=== PATIENT | male | born 1945 | race Caucasian/White ===

== ENCOUNTER → 2019-09-22 09:02 | Outpatient (BNVA) | payer OTHER, SELFPAY | PROVIDERS: Family Provider Emergency Medicine Emergency Medical Services; PCP Emergency Medicine Emergency Medical Services; Referring Provider Emergency Medicine Emergency Medical Services; Visit Provider Psychiatry & Neurology Neurology | DX: G56.02 Carpal tunnel syndrome, left upper limb (principal) | CPT/HCPCS: 95886; 95908 ==

== ENCOUNTER 2019-10-02 07:59 | Outpatient (CLI) | payer MEDICARE, OTHER, SELFPAY ==
--- NOTE | 2019-10-02 08:15 | CT_ITS ---
WS: [id number] CT scan of the neck. Additional two-dimensional coronal and sagittal reconstruction was performed. Clinical Data: MALIGNANT NEOPLASM OF VOCAL CORD, LOCALIZED SWELLING MASS Comparison: CT neck, 11/14/2015. DLP: 1666.[address] scans at [facility] use at least one of these dose optimization techniques: automat ed exposure control; mA and/or kV adjustment per patient size (includes targeted exams where dose is matched to clinical indication); or iterative reconstruction. Findings: No lymphadenopathy is noted. No abnormal left neck mass is identified. The salivary glands are unrema rkable. There is no prevertebral soft tissue swelling. The larynx is symmetric. The thyroid gland dre ws normal enhancement. The floor of the mouth and parapharyngeal spaces are normal. The oral cavity i s unremarkable. The carotid arteries bifurcate normally. There is calcification at the origin of the internal carotid arteries. The cervical spine shows osteoarthritis and degenerative disc disease from C5 through C7. . The lung apices show no abnormalities. The portions of the intracranial circulation which are seen demonstrate no abnormalities. No erosion of the skull or skull base is seen. CT/CT neck w con* [id number] Impression: 1. Negative for left neck mass. 2. No lymphadenopathy is seen. 3. Larynx is symmetric.
[2019-10-02 09:10] LABS: Blood Urea Nitrogen 13 mg/dL (8-23)
[2019-10-02] MEDS: iohexol 300 mg/mL 100 mL Btl IV (09:23)
== END 2019-10-02 08:00 | disposition home or self-care (01) ==
LOC: RADWPI 08:05
PROVIDERS: Family Provider Emergency Medicine Emergency Medical Services; PCP Emergency Medicine Emergency Medical Services; Visit Provider Specialist
DX: C32.0 Malignant neoplasm of glottis (principal); R22.1 Localized swelling, mass and lump, neck
CPT/HCPCS: 70491; 82565; 84520

== ENCOUNTER 2020-02-08 08:00 | Day surgery (SDC) | payer OTHER, SELFPAY | END 2020-02-08 09:00 | disposition home or self-care (01) | LOC: CCL 03-24 15:28 | PROVIDERS: PCP Emergency Medicine Emergency Medical Services; Visit Provider Internal Medicine Cardiovascular Disease | DX: I73.9 Peripheral vascular disease, unspecified (principal) | CPT/HCPCS: J1644 ==

== ENCOUNTER → 2020-11-23 16:57 | Outpatient (BNVA) | payer OTHER, SELFPAY | PROVIDERS: PCP Emergency Medicine Emergency Medical Services; Visit Provider Nurse Practitioner Family | DX: L72.3 Sebaceous cyst (principal); L08.9 Local infection of the skin and subcutaneous tissue, unspecified | CPT/HCPCS: 87070; 87075; 87205 ==

== ENCOUNTER → 2020-11-28 16:06 | Outpatient (BNVA) | payer OTHER, SELFPAY | PROVIDERS: PCP Emergency Medicine Emergency Medical Services; Visit Provider Nurse Practitioner Family | DX: L72.3 Sebaceous cyst (principal); L08.9 Local infection of the skin and subcutaneous tissue, unspecified; R09.02 Hypoxemia | CPT/HCPCS: 87070 ==

== ENCOUNTER → 2021-02-27 15:19 | Outpatient (BNVA) | payer OTHER, MEDICARE, SELFPAY | PROVIDERS: PCP Emergency Medicine Emergency Medical Services; Visit Provider Family Medicine | DX: R09.02 Hypoxemia (principal) | CPT/HCPCS: 71046; 85025 ==

== ENCOUNTER → 2021-03-27 08:20 | Outpatient (BNVA) | payer OTHER, SELFPAY | PROVIDERS: PCP Emergency Medicine Emergency Medical Services; Referring Provider Surgery; Visit Provider Specialist | DX: G62.89 Other specified polyneuropathies (principal); M79.7 Fibromyalgia; R20.0 Anesthesia of skin; F17.210 Nicotine dependence, cigarettes, uncomplicated | CPT/HCPCS: 20550; 20552; 95885; 95908; 99202; 99203; J1030; J3490 ==

== ENCOUNTER 2021-04-17 08:54 | Outpatient (CLI) | payer OTHER, SELFPAY ==
--- NOTE | 2021-04-17 09:08 | XR_ITS ---
NOTE: Report was unsigned for reason: Order was edited. Original Signature date and time was: 04/17/21 @ 0946 WS: [id number] HIPS BILATERAL TECHNIQUE: 4 views bilateral hips CLINICAL INFORMATION: PAIN COMPARISON: None. FINDINGS: Advanced degenerative arthritis right hip with [id number] articulation. Hypertrophic changes along the joint line. Mild degenerative arthritis left hip. Vascular calcification. Calcified uterine fibroid. MTDD XR/XR hip BI 2V wo/w pel [id number] IMPRESSION: Advanced osteoarthritis right hip with [id number]-jo-tssn articulation. Tonnis classification LEFT: Tonnis classification RIGHT:
== END 2021-04-17 08:55 | disposition home or self-care (01) ==
PROVIDERS: PCP Emergency Medicine Emergency Medical Services; Visit Provider Surgery
DX: M25.552 Pain in left hip (principal); M16.11 Unilateral primary osteoarthritis, right hip
CPT/HCPCS: 73521; 73522

== ENCOUNTER → 2021-05-10 08:47 | Outpatient (BNVA) | payer OTHER, SELFPAY | PROVIDERS: PCP Emergency Medicine Emergency Medical Services; Visit Provider Specialist | DX: M79.7 Fibromyalgia (principal); D21.9 Benign neoplasm of connective and other soft tissue, unspecified; M16.0 Bilateral primary osteoarthritis of hip | CPT/HCPCS: 20550; 20552; 99213 ==

== ENCOUNTER → 2021-06-21 10:18 | Outpatient (BNVA) | payer OTHER, SELFPAY | PROVIDERS: PCP Emergency Medicine Emergency Medical Services; Visit Provider Specialist | DX: M16.0 Bilateral primary osteoarthritis of hip (principal); M51.9 Unspecified thoracic, thoracolumbar and lumbosacral intervertebral disc disorder; I77.9 Disorder of arteries and arterioles, unspecified | CPT/HCPCS: 99214 ==

== ENCOUNTER → 2021-06-26 16:41 | Outpatient (BNVA) | payer OTHER, SELFPAY | PROVIDERS: PCP Emergency Medicine Emergency Medical Services; Visit Provider Nurse Practitioner Family | DX: E78.49 Other hyperlipidemia (principal); I25.10 Atherosclerotic heart disease of native coronary artery without angina pectoris | CPT/HCPCS: 80053; 85025 ==

== ENCOUNTER → 2021-08-21 15:55 | Outpatient (BNVA) | payer OTHER, SELFPAY | PROVIDERS: PCP Emergency Medicine Emergency Medical Services; Visit Provider Internal Medicine Cardiovascular Disease | DX: I25.10 Atherosclerotic heart disease of native coronary artery without angina pectoris (principal); R06.02 Shortness of breath; R07.9 Chest pain, unspecified; Z01.818 Encounter for other preprocedural examination | CPT/HCPCS: 80048; 80061; 84153; 85025 ==

== ENCOUNTER → 2021-09-18 10:54 | Outpatient (BNVA) | payer OTHER, SELFPAY | PROVIDERS: PCP Emergency Medicine Emergency Medical Services; Visit Provider Specialist | DX: M16.11 Unilateral primary osteoarthritis, right hip (principal); G56.22 Lesion of ulnar nerve, left upper limb; M19.012 Primary osteoarthritis, left shoulder; F17.210 Nicotine dependence, cigarettes, uncomplicated | CPT/HCPCS: 99214 ==

== ENCOUNTER → 2021-10-16 14:39 | Outpatient (BNVA) | payer OTHER, SELFPAY | PROVIDERS: PCP Emergency Medicine Emergency Medical Services; Visit Provider Nurse Practitioner Family | DX: Z01.818 Encounter for other preprocedural examination (principal); I50.30 Unspecified diastolic (congestive) heart failure; I25.10 Atherosclerotic heart disease of native coronary artery without angina pectoris; F17.210 Nicotine dependence, cigarettes, uncomplicated | CPT/HCPCS: 99214 ==

== ENCOUNTER → 2021-10-31 15:37 | Outpatient (BNVA) | payer OTHER, SELFPAY | PROVIDERS: PCP Emergency Medicine Emergency Medical Services; Referring Provider Specialist; Visit Provider Specialist | DX: G56.01 Carpal tunnel syndrome, right upper limb (principal); G56.23 Lesion of ulnar nerve, bilateral upper limbs; F17.210 Nicotine dependence, cigarettes, uncomplicated | CPT/HCPCS: 95910 ==

== ENCOUNTER 2021-11-13 13:08 | Outpatient (CLI) | payer OTHER, SELFPAY ==
--- NOTE | 2021-11-13 13:15 | USCV_ITS ---
LisbethRickey Age: 76 Gender: M : 1945 Exam Date: 11/13/2021 13:31 Ordering Phys: Carla Guzman Technologist: Lorena Ga Exam Location: [facility] [place] Indication: CLEARANCE FOR HIP SURGERY BP: 157 / 75 HR: 64 Rhythm: Sinus Technical Quality: Adequate MEASUREMENTS (Male / Female) Normal Values 2D ECHO LV Diastolic Diameter PLAX 4.9 cm 4.2 - 5.9 / 3.9 - 5.3 cm LV Systolic Diameter PLAX 3.8 cm LV Chamber Size 3.6 cm IVS Diastolic Thickness 1.7 cm 0.6 - 1.0 / 0.6 - 0.9 cm IVS Systolic Thickness 1.5 cm LVPW Diastolic Thickness 1.6 cm 0.6 - 1.0 / 0.6 - 0.9 cm LVPW Systolic Thickness 1.6 cm RV Chamber Size 3.9 cm LVOT Diameter 2.1 cm LV Ejection Fraction 2D Teich 46.5 % LV Ejection Fraction MOD 2C 19.2 % LV Ejection Fraction 2C AL 20.6 % LA Diameter 4.4 cm LA Width 2.8 cm LA Height 4.2 cm RA Width 3.7 cm RA Height 5.0 cm Aorta at Sinotubular Diameter 2.3 cm M-MODE Aortic Annulus Diameter 3.9 cm LA Ao Ratio MM 1.3 MV E Point Septal Separation 0.6 cm DOPPLER AV Peak Velocity 236.3 cm/s LVOT Peak Velocity 70.3 cm/s AV Area Cont Eq vti 1.2 cm squared AV Area Cont Eq pk 1.0 cm squared MV Area PHT 2.0 cm squared Mitral E to A Ratio 0.9 MV E' Velocity 34.5 cm/s Mitral E to MV E' Ratio 10.6 Mitral E to LV E' Lateral Ratio 8.7 Mitral E to LV E' Septal Ratio 13.8 TR Peak Velocity 208.1 cm/s TR Peak Gradient 17.3 mmHg TR Mean Velocity 168.3 cm/s TR Mean Gradient 11.9 mmHg TR Velocity Time Integral 50.5 cm Right Atrial Pressure 3.0 mmHg Pulmonary Artery Systolic Pressu 20.3 mmHg PV Peak Velocity 86.0 cm/s FINDINGS Left Ventricle Normal left ventricular cavity size. Normal left ventricular systolic function. Left ventricular ejection fraction is estimated at 55-60 %. Although no diagnostic regional wall motion normality could be rectified, this possibility cannot be completely excluded based on this study. Right Ventricle Problem normal right ventricular size and systolic function. Right Atrium Right atrium not well visualized. Left Atrium Probably mildly increased left atrial size. Mitral Valve Structurally normal mitral valve. No mitral valve stenosis. Aortic Valve Aortic valve not well visualized. Aortic valve sclerosis without significant stenosis. Tricuspid Valve Structurally normal tricuspid valve. Pulmonic Valve Pulmonic valve not well visualized. Pericardium No pericardial effusion. Aorta CONCLUSIONS 1. This is a technically difficult study. 2. Normal left ventricular cavity size. Normal left ventricular systolic function. Left ventricular ejection fraction is estimated at 55-60 %. Although no diagnostic regional wall motion normality could be rectified, this possibility cannot be completely excluded based on this study. 3. Repeat study with echo contrast is recommended. 4. No prior similar studies to compare. Shannon Rutledge MD (Electronically Signed) Final Date: 13 November 2021 18:30 S
== END 2021-11-13 13:09 | disposition home or self-care (01) ==
LOC: RAD 13:09
PROVIDERS: PCP Emergency Medicine Emergency Medical Services; Visit Provider Nurse Practitioner Family
DX: Z01.818 Encounter for other preprocedural examination (principal); I25.10 Atherosclerotic heart disease of native coronary artery without angina pectoris; R06.02 Shortness of breath; R07.9 Chest pain, unspecified
CPT/HCPCS: 93306

== ENCOUNTER 2021-11-16 09:49 | Outpatient (CLI) | payer OTHER, SELFPAY ==
--- NOTE | 2021-11-16 | USCV_ITS ---
Dobutamine Stress Echo Rickey Bob Age: 76 Gender: M : 1945 Exam Date: 11/16/2021 10:34 Ordering Phys: Carla Guzman Technologist: Yessica Em [place] [facility] [place]: CHEST PAIN Rhythm: Sinus Patient History: Cardiac Medications: Beta judi, Aspirin Medications in past 24 hours: Contrast: Total Dose (mL): Stress Results Protocol: Pharmacologic Peak Dose (???g/kg/min): 30 Duration (min:sec): 10:54 Atropine:(mg) 0.5 Target HR: 124 Double Product: 29922 Resting HR: 81 Resting BP: 184 / 98 Peak HR: 136 Peak BP: 224 / 98 Max Predicted HR: 146 93 % Max Predicted HR Stress Summary: The patient's target heart rate was achieved BP Response: Normal Reason for Termination: Test terminated after reaching target heart rate (85% max predicted) Cardiac Symptoms: None ECG Analysis Resting EKG: Normal sinus rhythm. No significant ST-T wave changes Stress EKG: Sinus tachycardia. Patient had frequent PVCs Arrhythmia: PVCs MEASUREMENTS (Male/Female) Normal Values FINDINGS At baseline LV systolic function is normal with EF of 55 to 60%. No regional wall motion abnormalities are seen. Patient reached target heart rate and images were obtained above target heart rate. And stress level no significant wall motion abnormality seen. EF increased to more than 65%. Appropriate heart rate and blood pressure response CONCLUSIONS 1. Normal LV systolic function at baseline 2. Appropriate heart rate and blood pressure response 3. At stress level, patient had hyperdynamic LV response, with no regional wall motion abnormalities 4. Normal dobutamine stress echocardiogram. with no evidence of ischemia Jevoanny Crews MD (Electronically Signed) Final Date: 21 November 2021 13:49 S
[2021-11-16 10:16] VITALS: BMI 35.0
--- NOTE | 2021-11-16 10:17 | ECG_ITS ---
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 Interpretive Statements NAME OF STUDY: DOBUTAMINE STRESS ECHOCARDIOGRAM INDICATION: [Surgical Clearance, SOB, Chest pain, ] The patient had dobutamine stress echo. Baseline heart rate was 81 beats per minute. Baseline blood pressure was 184/98 millimeters of mercury. Target heart rate was 124 beats per minute. Maximum heart rate achieved was 136, which was 109% of the target heart rate. Maximum blood pressure was 224/55 millimeters of mercury. The reason for ending the test was completion of the protocol. The patient did not have any symptoms during the stress test, which then resolved at the end of the test. ELECTROCARDIOGRAM: BASELINE: Showed sinus rhythm, normal axis, no significant ST-T changes at the baseline noted. [] Dobutamine infusion: At the peak exercise level, sinus tachycardia [] No significant ST-T changes suggestive of ischemia noted.PVCs were seen [] RECOVERY: During the recovery period, heart rate dropped appropriately. No significant ST-T changes in the recovery suggestive of ischemia noted. [] CONCLUSION: 1. Heart rate response was appropriate. 2. Blood pressure response was hypertensive 3. Symptoms not suggestive of ischemia. 5. Electrocardiogram portion of the stress test was not suggestive of ischemia. Electronically Signed On 01-01-2022 20:02:20 CDT by Jeovanny Crews M.D. [id number]
[2021-11-16] MEDS: DOBUTtamine 200 MG in sodium chloride 0.9% 34 ML 14 MG IV (10:44)
[2021-11-16 10:57] VITALS: BP 148/51; PULSE 99
[2021-11-16] MEDS: atropine 0.1 mg/mL Syr 10 mL 0.5 MG IVP (10:57)
== END 2021-11-16 09:50 | disposition home or self-care (01) ==
LOC: CDL 09:50
PROVIDERS: PCP Emergency Medicine Emergency Medical Services; Visit Provider Orthopaedic Surgery
DX: R07.9 Chest pain, unspecified (principal)
CPT/HCPCS: 93017; 93350; J0461; J1250; J7050

== ENCOUNTER → 2021-12-08 10:15 | Outpatient (BNVA) | payer OTHER, SELFPAY | PROVIDERS: PCP Emergency Medicine Emergency Medical Services; Visit Provider Internal Medicine | DX: I25.10 Atherosclerotic heart disease of native coronary artery without angina pectoris (principal); I77.9 Disorder of arteries and arterioles, unspecified; E78.49 Other hyperlipidemia; I50.9 Heart failure, unspecified; F17.210 Nicotine dependence, cigarettes, uncomplicated | CPT/HCPCS: 99214 ==

== ENCOUNTER → 2021-12-27 14:47 | Outpatient (BNVA) | payer OTHER, SELFPAY | PROVIDERS: PCP Emergency Medicine Emergency Medical Services; Referring Provider Specialist; Visit Provider Specialist | DX: G56.03 Carpal tunnel syndrome, bilateral upper limbs (principal); M65.341 Trigger finger, right ring finger | CPT/HCPCS: 73110; 99203; 99204 ==

== ENCOUNTER → 2022-02-28 15:27 | Outpatient (BNVA) | payer OTHER, SELFPAY | PROVIDERS: PCP Emergency Medicine Emergency Medical Services; Visit Provider Specialist | DX: M25.551 Pain in right hip (principal); M25.552 Pain in left hip; M87.051 Idiopathic aseptic necrosis of right femur; M16.7 Other unilateral secondary osteoarthritis of hip | CPT/HCPCS: 73522; 99214 ==

== ENCOUNTER → 2022-03-26 15:17 | Outpatient (BNVA) | payer OTHER, SELFPAY | PROVIDERS: PCP Emergency Medicine Emergency Medical Services; Visit Provider Specialist | DX: M16.11 Unilateral primary osteoarthritis, right hip (principal) | CPT/HCPCS: 99214 ==

== ENCOUNTER 2022-04-03 06:00 | Outpatient (CLI) | payer OTHER, SELFPAY | END 2022-04-03 06:01 | disposition home or self-care (01) | LOC: RT 04-04 09:18 | PROVIDERS: PCP Emergency Medicine Emergency Medical Services; Visit Provider Specialist | DX: Z01.818 Encounter for other preprocedural examination (principal) | CPT/HCPCS: 93005 ==

== ENCOUNTER 2022-04-10 15:07 | Observation (INO) | payer OTHER, SELFPAY ==
[2022-04-03 11:04] VITALS: BMI 34.1
--- NOTE | 2022-04-03 11:35 | ECG_ITS ---
[facility] Test Date: 2022-04-03 Pat Name: Rickey Bob Department: Room: Gender: Male Mental Health Program Manager: : 1945 Requested By: Bernie Reeder Order Number: [id number] Evan MD: Jeovanny Crews M.D. Measurements Intervals [place] Rate: 63 P: 48 DC: 272 QRS: 97 QRSD: 137 T: 102 QT: 426 QTc: 437 Interpretive Statements SINUS RHYTHM WITH SINUS ARRHYTHMIA WITH FIRST DEGREE AV BLOCK INDETERMINATE AXIS RIGHT BUNDLE BRANCH BLOCK [120+ ms QRS DURATION, UPRIGHT V1, 40+ ms S IN I/aVL/V4/V5/V6] No previous ECG available for comparison Electronically Signed On 04-03-2022 16:32:04 CDT by Jeovanny Crews M.D. [id number]
[2022-04-03 11:36] LABS: Basophils % 0.4 %; Eosinophils # 0.2 10^3/uL (0.0-0.8); Eosinophils % 3.1 %; Hematocrit 45.1 % (42.0-52.0); Hemoglobin 15.1 g/dL (11.7-16.6); Lymphocytes # 1.6 10^3/uL (0.8-4.8); Mean Corpuscular HGB Conc 33.5 g/dL (30.0-36.0); Mean Corpuscular Hemoglobin 28.2 pg (28.0-34.0); Mean Corpuscular Volume 84.1 fl (80-94); Monocytes # 0.6 10^3/uL (0.2-0.9); Monocytes % 7.3 %; Neutrophils # 5.18 10^3/uL (1.8-7.7); Neutrophils % 67.9 %; Nucleated Red Blood Cells % 0 %; Platelet Count 256 10^3/cmm (130-400); Red Blood Count 5.36 10^6/uL (4.1-5.3); Red Cell Distribution Width 13.8 % (12.1-15.1); White Blood Count 7.6 10^3/uL (4.0-10.0)
[2022-04-03 11:50] LABS: Add Urine Microscopic? YES; Bilirubin Urine Neg (Negative); Blood Urine Neg (Negative); Glucose Urine UA Norm (Normal); Ketones Urine Negative (Negative); Leukocyte Esterase Urine 2+ (Negative); Nitrate Urine Negative (Negative); Protein Urine 2+ (Negative); Urine Appearance Cloudy (CLEAR); Urine Color Yellow (Yellow); Urobilinogen Urine Norm (Negative); pH Urine 6 (5-7)
[2022-04-03 11:53] LABS: Add Urine Culture? Yes; RBC Urine 0-4 /hpf (0-2); Sperm Urine 2+ /hpf
[2022-04-03 11:57] LABS: Alanine Aminotransferase 17 U/L (0-41); Albumin Level 3.8 g/dL (3.5-5.2); Alkaline Phosphatase 75 U/L (40-130); Anion Gap 11.5 (5-19); Aspartate Amino Transferase 14 U/L (0-40); Blood Urea Nitrogen 13 mg/dL (8-23); Calcium 9.3 mg/dL (8.5-10.5); Carbon Dioxide 30 mmol/L (22-29); Chloride 94 mmol/L (98-107); Globulin 3.7 g/dL (1.3-4.6); Glucose 111 mg/dL (65-115); Osmolality Calculated 273 mOsm/kg (285-295); Potassium 4.5 mmol/L (3.5-5.1); Sodium 131 mmol/L (136-145); Total Bilirubin 0.5 mg/dL (0.15-1.2); Total Protein 7.5 g/dL (6.6-8.7)
--- NOTE | 2022-04-03 15:29 | ANES.PREANE2 ---
Pre-Anesthetic Assessment Height/Weight: Height 1.7 m Weight 98.883 kg Preop Diagnosis: Osteoarthritis Operation Date: 04/10/22 10:25 Proposed Procedures p RIGHT TOTAL HIP ARTHROPLASTY 71071,M16.9(Right) - Nida Rogers MD Familial anesthetic complications: Hx of succinylcholine complication, patient does not know if he has pseudocholinesterase deficiency but is not supposed to receive it because he was very weak for a prolonged period after receiving Was Beta Loraine taken within 24 hours: Yes Was Clonidine taken within 24 hours: N/A Social Tobacco and No alcohol Exam alert, oriented x 3, clear to auscultation bilaterally and regular rate & rhythm Airway Submandibular: within normal limits Cervical ROM: within normal limits Mallampati: Class II Comments: Comments: Missing front two lower teeth, multiple other teeth missing or chipped Pulmonary None reported CV/HEM Coronary Artery Disease (Hx of 2011), Congestive Heart Failure, Myocardial Infarction and Peripheral Vascular Disease EKG 04/03/22 ?Interpretive Statements SINUS RHYTHM WITH SINUS ARRHYTHMIA WITH FIRST DEGREE AV BLOCK INDETERMINATE AXIS RIGHT BUNDLE BRANCH BLOCK? [120+ ms QRS DURATION, UPRIGHT V1, 40+ ms S IN I/aVL/V4/V5/V6] No previous ECG available for comparison [id number] Stress Test 11/16/21 1. Heart rate response was appropriate. 2. Blood pressure response was hypertensive 3. Symptoms not suggestive of ischemia. 5. Electrocardiogram portion of the stress test was not suggestive of ischemia. TTE 11/2021 CONCLUSIONS ?1. Normal LV systolic function at baseline ?2. Appropriate heart rate and blood pressure response ?3. At stress level, patient had hyperdynamic LV response, with ?no regional wall motion abnormalities ?4. Normal dobutamine stress echocardiogram. with no evidence of ?ischemia Na 131 Hepatic None reported GI None reported Metabolic Hyperlipidemia [facility] [place]skel Osteoarthritis/DJD Fibromyositis Neuropsych Neuropathy (Carpal tunnel, ulnar neuropathy ) Anesthetic Plan ASA status: 3 Anesthesia: Anesthesia Evaluation, General and Regional (specify below) (Adductor canal block ) Other: We discussed risk and benefits of general vs spinal anesthesia including DVT risk, infection, paralysis/catastrophic nerve injury, back bruising/pain, PDPH, conversion to general in case of spinal, PONV, sore throat (sometimes severe), corneal abrasion, positioning and peripheral nerve injuries, life threatening allergic reaction, post operative ICU admission requiring prolonged intubation, stroke, heart attack, , post operative delirium and/or post operative cognitive decline, and rare incidences of recall (under general anesthesia). We discussed risk and benefits of nerve block for post op pain control including management of pain and titration of pain medications as signs/symptoms of nerve block wearing off begin to appear and/or prior bed. We discussed risk of failed nerve block, vascular injury or other vital structure injury, abscess/infection, LAST, and nerve injury. Pseudocholinesterase allergy/complication. Patient wishes to proceed with spinal with adductor canal block for post op pain control. Risk of > 500 ml blood loss (7ml/kg in children): No Other Pertinent Information Hx of succinylcholine complication, patient does not know if he has pseudocholinesterase deficiency but is not supposed to receive it because he was very weak for a prolonged period after receiving Medications/Allergies Home Medications Medication Instructions Recorded Confirmed Last Taken Type albuterol sulfate 90 mcg/actuation 2 puff inhalation Q6H PRN Wheezing 11/23/19 04/03/22 Unknown History aerosol inhaler (ProAir HFA) amlodipine 10 mg tablet 10 mg PO BID 11/23/19 04/03/22 Unknown History ascorbic acid (vitamin C) 500 mg 500 mg PO DAILY 11/23/19 04/03/22 Unknown History capsule aspirin 81 mg tablet,delayed 81 mg PO DAILY 11/23/19 04/03/22 Unknown History release (Adult Low Dose Aspirin) fluticasone propionate 50 1 spray intranasal DAILY 11/23/19 04/03/22 Unknown History mcg/actuation nasal spray,suspension (Children's Flonase Allergy Relief) gemfibrozil 600 mg tablet 600 mg PO BID 11/23/19 04/03/22 Unknown History isosorbide dinitrate 30 mg tablet 30 mg PO DAILY 11/23/19 04/03/22 Unknown History losartan 50 mg tablet 25 mg PO DAILY 11/23/19 04/03/22 Unknown History multivitamin 1 tab PO DAILY 11/23/19 04/03/22 Unknown History omega-3 fatty acids 1,000 mg 1,000 mg PO BID 11/23/19 04/03/22 Unknown History capsule (Fish Oil Concentrate) potassium chloride 20 mEq 20 meq PO DAILY PRN Hypokalemia 11/23/19 04/03/22 Unknown History tablet,extended release trazodone 50 mg tablet 50 mg PO DAILY PRN Insomnia 11/23/19 04/03/22 Unknown History furosemide 40 mg tablet 40 mg PO DAILY PRN edema #30 tabs 07/20/20 04/03/22 Unknown Rx nitroglycerin 0.4 mg sublingual 0.4 mg sublingual Q5M PRN chest 01/09/21 04/03/22 Unknown Rx tablet (Nitrostat) pain #25 tabs docusate sodium 100 mg capsule 100 mg PO DAILY PRN Constipation 08/21/21 04/03/22 Unknown History (Dulcolax Stool Softener (docusate)) ezetimibe 10 mg tablet (Zetia) 10 mg PO DAILY 09/01/21 04/03/22 Unknown Rx Hypertryglyceridemia #90 tabs metoprolol tartrate 50 mg tablet 75 mg PO BID 09/06/21 04/03/22 Unknown History hydrocodone 10 mg-acetaminophen 1 tab PO TID PRN pain 30 days #90 12/18/21 03/26/22 Unknown Rx 325 mg tablet tabs hydrocodone 10 mg-acetaminophen 1 tab PO TID PRN pain 30 days #90 12/18/21 03/26/22 Unknown Rx 325 mg tablet tabs hydrocodone 10 mg-acetaminophen 1 tab PO TID PRN pain 30 days #90 12/18/21 04/03/22 Unknown Rx 325 mg tablet tabs Allergies Allergy/AdvReac Type Severity Reaction Status Date / Time codeine Allergy Mild itched Verified 04/03/22 10:56 niacin Allergy Unknown Unknown Verified 04/03/22 10:56 succinylcholine Allergy Unknown Unknown Verified 04/03/22 10:56 Yjvuhjy-SCD-ZlA Reductase Allergy ALGY-Joint Verified 04/03/22 10:56 Inhibitor Pain PFSH Anesthesia Medical History CAD (coronary artery disease) CHF (congestive heart failure), NYHA class III Diastolic heart failure History of AR (myocardial infarction) Hyperlipidemia PAOD (peripheral arterial occlusive disease) Surgical History S/P appendectomy S/P excision of vocal cord nodule S/P knee surgery S/P PTCA (percutaneous transluminal coronary angioplasty) S/P tonsillectomy and adenoidectomy Family History Mother CAD (coronary artery disease) Father CAD (coronary artery disease) Brother , Age 44 AR Myocardial infarct Other Cancer Social History Smoking and tobacco status: current every day smoker cigarettes Alcohol intake: current Alcohol intake frequency: 3 or more drinks per day Alcohol type: beer Lives independently: Yes Household members: spouse Marital status: service: Yes status: Retired branch: [employer] Current occupational status: disabled History of recent travel: No Current gender identity: Male Special cherise needs: No Agree to transfusion: Yes Data Anesthesia : 04/03/22 11:20 04/03/22 11:20 Short CBC 04/03/22 Range/Units 11:20 WBC 7.6 (4.0-10.0) 10^3/uL Hgb 15.1 (11.7-16.6) g/dL Hct 45.1 (42.0-52.0) % MCV 84.1 (80-94) fl Plt Count 256 (130-400) 10^3/cmm Neut % (Auto) 67.9 % Neut # (Auto) 5.18 (1.8-7.7) 10^3/uL BMP 04/03/22 11:20 Sodium 131 L Potassium 4.5 Chloride 94 L Carbon Dioxide 30 H BUN 13 Creatinine 0.5 L Glucose 111 Calcium 9.3 Liver Function 04/03/22 Range/Units 11:20 Total Bilirubin 0.5 (0.15-1.2) mg/dL AST 14 (0-40) U/L ALT 17 (0-41) U/L Alkaline Phosphatase 75 (40-130) U/L Albumin 3.8 (3.5-5.2) g/dL Urine 04/03/22 Range/Units 11:20 Urine Color Yellow (Yellow) Urine Appearance Cloudy (CLEAR) Urine pH 6 (5-7) Ur Specific [place] 1.020 (1.005-1.030) Urine Protein 2+ H (Negative) Urine Glucose (UA) Norm (Normal) Urine Ketones Negative (Negative) Urine Nitrate Negative (Negative) Urine Bilirubin Neg (Negative) Ur Leukocyte Esterase 2+ H (Negative) Urine RBC 0-4 H (0-2) /hpf Urine WBC 10-15 H (0-5) /hpf Cardiac Studies: Echocardiogram 11/13/21 Stress Echocardiogram 11/16/21
[2022-04-10] VITALS (21 sets, daily range): BP systolic 115–176; BP diastolic 50–95; PULSE 57–79; RESP 16–20; TEMP 36.2–36.5; O2SAT 91–99; BMI 34.1
[2022-04-10] MEDS: acetaminophen 1,000 MG/100 ML PIGGYBACK 400 MG IV ×2 (09:55→17:46)
[2022-04-10] MEDS: CELEcoxib 200 mg Capsule 400 MG PO (09:55)
[2022-04-10] MEDS: sodium chloride 0.9% 1,000 ML 30 ML IV (09:56)
--- NOTE | 2022-04-10 10:01 | P.ANESUD_ITS ---
Pre-Anesthetic Update Pre-Anesthetic Assessment: Date of Surgery/Procedure: 04/10/22 Preop Nolvia gnosis: Primary osteoarthritis right hip Proposed Procedure: Operation Date: 04/10/22 10:25 Proposed Procedures p RIGHT TOTAL HIP ARTHROPLASTY 10016,M16.9(Right) - Nida Rogers MD Any changes to Pre-Anesthetic Assessment?: No Last Intake: Intake Last Liquid Date 04/09/22 Last Liquid Time 21:30 Last Solid Date 04/09/22 Last Solid Time 21:30 Vitals: Temperature 97.7 F 04/10/22 09:30 Temperature Source Temporal Artery S can 04/10/22 09:30 Pulse Rate 69 04/10/22 09:30 Respiratory Rate 18 04/10/22 09:30 Blood Pressure 176/88 04/10/22 09:30 Blood Pressure Cira n 117 04/10/22 09:30 Pulse Oximetry 96 04/10/22 09:30 Oxygen Delivery Me thod 04/10/22 09:30 Exam: Pre-Anes Outpt Exam: alert, oriented x 3, clear to auscultation bilaterally and regular rate & rhythm Cardiac Studies: Echocardiogram 11/13/21 Stress Echocardiogram 11/16/21
--- NOTE | 2022-04-10 10:34 | W.PM.OPSUD ---
Surgery/Procedure H&P Update DATE OF PROCEDURE: April 10, 2022 DATE H&P PERFORMED: 03/26/22 H&P UPDATE INFORMATION: I have reviewed H&P completed within last 30 days, I have examined patient prior to procedure, No changes to prior documentation and H&P is in [facility] [place] on date indicated PREOP DIAGNOSIS: Primary osteoarthritis right hip PLANNED PROCEDURE: Operation Date: 04/10/22 10:25 Proposed Procedures p RIGHT TOTAL HIP ARTHROPLASTY 23779,M16.9(Right) - Nida Rogers MD Related Problem List Diagnoses (1) Avascular necrosis of bone of right hip: (2) Primary osteoarthritis of right hip:
[2022-04-10] MEDS: ceFAZolin 2,000 MG in sodium chloride 0.9% (plus) 50 ML 100 MG IV ×2 (11:15→19:06)
[2022-04-10] MEDS: vancomycin 1,000 MG SDV 1000 MG INTRA-ARTI (12:29)
[2022-04-10] MEDS: ceFAZolin 1,000 mg SDV 1000 MG IRRIGATION (12:29)
--- NOTE | 2022-04-10 14:15 | PM.OP ---
Operative Report Date of procedure: April 10, 2022 Pre-op diagnosis: Primary osteoarthritis right hip with avascular necrosis Post-op diagnosis: Primary osteoarthritis right hip with avascular necrosis Post-op findings: Severe degenerative osteoarthritis with avascular necrosis. Contracture about the hip. Procedure done: Right total hip arthroplasty Implants: The [place] total hip system with the following implants: A 54 mm by E Trident II solid back acetabular shell, an MDM cementless liner 42 mm inner diameter by E alpha code and Accolade II size 6 with 127 degree neck angle hip stem with a 28 mm outer diameter -2.7 mm neck offset and a hinduism X3 insert size 28 mm inner diameter by 42E Specimens removed/disposition: Femoral head sent to pathology Pathology: other (See above) Surgeon: Nida Rogers Sponsorship Manager: [facility] operating room technicians Anesthesia: General (Intubated following failed spinal attempt, ASA 3) Estimated blood loss (mL): 400 IV fluids (mL): 1,500 Urine output (mL): 100 Complications: None Findings: Severe degenerative osteoarthritis with severe osteonecrosis, femoral head collapse, and shortening. Following total hip arthroplasty, the patient's hip was stable at 90 degrees of flexion with 60 degrees of internal rotation and 30 degrees of adduction. Condition: stable Disposition: PACU (Then to floor for postoperative rehabilitation and pain management) Brief History: This is an established 76 year old male who presents today for right total hip arthroplasty. The patient has a diagnosis of severe degenerative osteoarthritis as well as significant avascular necrosis with severe femoral head collapse. He has severe difficulty with his activities of daily living. He describes constant pain to his right hip. He notes grinding and catching to his hip. He denies any trauma to his hip.? He notes his pain is significantly worsened recently.? He is unable to ambulate.? The hip will awaken him at night. He states he completed the joint educational video on 03/16/22. He states he has also received clearance from his english composition instructor. Patient is ready to proceed with total hip arthroplasty. Risks and complications of been discussed in detail with him. Consents have been signed. Procedure: Patient was brought to the operating theater.? He was transferred to the operating room table. Initially, spinal was attempted, but this was unsuccessful, and the patient was converted to a general intubated anesthesia, ASA 3.? Following administration of adequate anesthesia, the patient was placed in full lateral position and held in position with a pegboard.? The patient's right lower extremity was then prepped and draped in usual fashion utilizing DuraPrep.? It was draped free.? Following prepping and draping, a surgical pause was performed. At the time of surgical pause, we identified the site and side of surgery.? We also identified the patient and preoperative surgical markings.? Confirmation was made of equipment availability.? Additionally, the patient's preoperative IV antibiotic, Ancef 2 g, was confirmed as being given in a timely fashion and being the appropriate antibiotic.? He received TXA 1 g preoperatively as well 1 g postoperatively. Following the surgical pause, an incision was made centering over the patient's greater trochanter continuing proximally and distally as necessary to allow access to the hip joint.? Dissection continued through skin and soft tissues using a scalpel, and hemostasis was obtained using electrocautery. The tensor fascia evy was identified and incised longitudinally.? Sciatic nerve was identified and protected throughout the surgical procedure.? A Charnley U retractor was placed after the tensor fascia evy had been incised longitudinally, and the sciatic nerve had been identified.? The piriformis muscle was identified and tagged. Piriformis muscle along with the remaining short external rotators were then incised from the posterior aspect of the hip joint. These were retracted posteriorly. ? The capsule was entered in a T-type fashion with the edges being tagged.? The hip was then dislocated. Following hip dislocation, a femoral neck osteotomy was accomplished in the appropriate position. We then evaluated the acetabulum. Exposure was noted to be difficult secondary to the patient's severe AVN and significant shortening. He also had extremely limited range of motion secondary to the above. Following femoral neck osteotomy, the femur was retracted anteriorly.? Soft tissues were retracted and the labrum was removed. The labrum was noted to be quite large. There was also noted to be lateralization of the femoral head. Soft tissues were removed from within the acetabulum prior to the reaming process. We then began reaming.? We deepened the acetabulum utilizing a smaller reamer.? Evaluation of the acetabulum was accomplished, and we were able to ream to 53 mm to allow for a size 54 mm acetabular shell. The acetabular component was impacted into position. It was noted that the acetabulum matched the bony anatomy.? The cup was noted to seat nicely and had good fixation upon impact.? The MDM cementless liner was impacted into position and care was taken to assure that it completely seated.? Also, we confirmed that the acetabular insert was completely seated prior to addressing the femur. Attention was directed to the proximal femur.? The proximal femur was lifted out of the wound with difficulty.? A canal finder was passed, and we then used the reamer to lateralize.? We then began broaching. We broached sequentially and had excellent fit and fill with the size 6 Accolade II 127 degree femoral component.? A trial reduction was accomplished initially with a size -4 mm offset femoral head, and subsequently we increased to a size -2.7 mm offset femoral head once the size 6 broach was placed in position.? The patient was stable with this construct, and it was not felt that we had significantly increased his leg length.? With this in place, we had the above stabilities, and at that time, we felt that we had restored normal leg lengths.? We also felt that we had excellent stability noted above. Therefore, trial components were removed after the hip was dislocated.? The size 6 Accolade II 127 degree neck angle hip stem was impacted into position without difficulty and onto this was placed a -2.7 mm offset by 28 mm outer diameter femoral head inside of the MDM size 42E insert with a 28 mm inner diameter.? With this construct, we had the above-noted stability.? The stem was noted to seat nicely prior to placement of the femoral head.? The wound was copiously irrigated with Betadine.? At this time, with all components in appropriate position, the hip was reduced.? Following reduction of the prosthesis once again, we confirmed the stability of the hip.? Leg lengths were also felt to be satisfactory. Being satisfied with the prosthesis, attention was directed to closure.? Closure was accomplished with 0 Vicryl in the capsular tissues.? Piriformis was reattached with 0 Vicryl as well.? Tensor fascia evy was closed with 0 Vicryl in an interrupted fashion.? The subcutaneous tissues were closed with 1 deeper 0 Vicryl suture followed by 2-0 Monocryl.? Vancomycin powder and a Gelfoam thrombin mixture was placed into the wound as well.? The skin was closed with 4-0 Monocryl followed by Dermabond, Prineo, and Geoffite.? The patient was placed in an abduction pillow.? He was returned the Recovery Room in a satisfactory condition and will be discharged to the floor for postoperative rehabilitation and pain management.? There were no complications. Related Problem List Diagnoses (1) Primary osteoarthritis of right hip: (2) Avascular necrosis of bone of right hip: (3) Status post total hip replacement, right:
--- NOTE | 2022-04-10 14:27 | PC.SOCIAL ---
CM faxed HH order [facility] Patient is still in surgery at this time, CM will follow up with patient and obtain HH choices.
--- NOTE | 2022-04-10 14:34 | XRR_ITS ---
PROCEDURE INFORMATION: Exam: XR Pelvis Exam date and time: 04/10/2022 2:39 PM Age: 77 years old Clinical indication: Device placement; Other: Supriya; Prior surgery; Surgery date: Post-operative (0-2 days); Additional info: S/P supriya, low ap pelvis TECHNIQUE: Imaging protocol: Radiologic exam of the pelvis. Views: 1 or 2 view. COMPARISON: CR XR hip BI 3-4V wo/w pel [id number] 02/28/2022 3:28 PM FINDINGS: Bones/joints: Interval placement of right-sided total hip prosthesis in good alignment. Probable mild osteopenia. Chronic sclerosis along bilateral AC joint with lower lumbar spine degenerative disc disease. Left hip joint is well maintained on this nonweightbearing exam. Soft tissues: Lateral soft tissue swelling/air is noted consistent with recently postsurgical status. Vasculature: Arterial calcification. Other findings: Limited single AP view was submitted. Calcification projecting over the symphysis pubis are probably prostatic in origin. XR/XR pelvis 1-2V* [id number] IMPRESSION: Postop right hip replacement in good alignment. Other nonacute findings as above.
--- NOTE | 2022-04-10 15:27 | ANE.PACU2 ---
Inpatient post-anesthesia follow up: Airway intact: Yes Vital signs: Temperature 97.4 F Pulse Rate 68 Respiratory Rate 18 Blood Pressure 129/76 Pulse Oximetry 98 Oxygen Delivery Me thod Nasal Cannula Oxygen Flow Rate 3 Fraction of Inspir ed Oxygen Hydration adequate: Yes Nausea and vomiting: No Pain level: 2 Mental status: Baseline
[2022-04-10] MEDS: oxyCODONE 5 mg IR Tab/Cap 10 MG PO (16:44)
--- NOTE | 2022-04-10 17:32 | PC.NURSE ---
Standing Pt is standing with walker beside chair, asking to have thompson taken out. Waiting for DR Rogers response.
[2022-04-10] MEDS: calcium carbonate 500 mg Chew Tablet 1000 MG PO (17:45)
[2022-04-10] MEDS: sennosides-docusate Tablet 2 TAB PO (17:45)
[2022-04-10] MEDS: omega-3 fatty acids 1,000 mg Capsule 1000 MG PO (17:46)
[2022-04-10] MEDS: iron polysaccharide complex 150 mg Capsule PO (17:46)
[2022-04-10] MEDS: amlodipine 10 mg Tablet PO (17:46)
[2022-04-10] MEDS: chlorhexidine gluconate 0.12% Btl 473 mL 30 ML MUCOUS MEM ×2 (17:46→19:46)
[2022-04-10] MEDS: gemfibrozil 600 mg Tablet PO (17:53)
[2022-04-10] MEDS: mupirocin oint 22 gm 1 APPLIC NASAL (17:53)
--- NOTE | 2022-04-10 19:21 | PC.NURSE ---
Per report from day shift nurse, there was difficulty getting post-op vitals due to patient frequent taking off blood pressure cuff and pulse ox.
[2022-04-10] MEDS: CELEcoxib 200 mg Capsule PO (19:39)
[2022-04-10] MEDS: trazodone 50 mg Tablet PO (19:39)
[2022-04-10] MEDS: sulfamethoxazole-trimeth DS 160-800 mg Tablet 1 TAB PO (19:39)
[2022-04-10] MEDS: metoprolol tartrate 50 mg Tablet 75 MG PO (19:39)
[2022-04-11] VITALS (7 sets, daily range): BP systolic 117–142; BP diastolic 57–82; PULSE 71–76; RESP 16–17; TEMP 36.6–36.7; O2SAT 91–96
[2022-04-11] MEDS: acetaminophen 1,000 MG/100 ML PIGGYBACK 400 MG IV ×2 (01:13→08:04)
[2022-04-11] MEDS: oxyCODONE 5 mg IR Tab/Cap 10 MG PO (02:20)
[2022-04-11] MEDS: ceFAZolin 2,000 MG in sodium chloride 0.9% (plus) 50 ML 100 MG IV ×2 (02:20→10:00)
--- NOTE | 2022-04-11 02:56 | PC.NURSE ---
Patient voided only 150 ml in urine since 7 pm. Patient states I haven't been drinking much water and I usually drink a lot of water. Patient stated that he voided once in toilet since 7 pm. Patient educated to use urinal so that urine output can be measured. Patient refusing morning labs. Patient states they can come back at 6 am to draw them. Patient educated that this could delay his discharge. Patient states I don't care.
--- NOTE | 2022-04-11 06:30 | PC.NURSE ---
Addendum entered by Umm Turner RN 04/11/22 06:30: Patient's labs drawn and patient voided 475 in urinal. Patient states that he is not having any pain. Original Note: Patient refusing pain medication at this time.
[2022-04-11 06:41] LABS: Basophils % 0.2 %; Hematocrit 39.5 % (42.0-52.0); Hemoglobin 12.2 g/dL (11.7-16.6); Lymphocytes # 1.2 10^3/uL (0.8-4.8); Lymphocytes % 11.6 %; Mean Corpuscular HGB Conc 30.9 g/dL (30.0-36.0); Mean Corpuscular Hemoglobin 27.8 pg (28.0-34.0); Mean Platelet Volume 10.2 fL (7.4-10.4); Monocytes % 9.7 %; Neutrophils # 8.34 10^3/uL (1.8-7.7); Neutrophils % 78.2 %; Nucleated Red Blood Cells % 0 %; Platelet Count 221 10^3/cmm (130-400); Red Blood Count 4.39 10^6/uL (4.1-5.3); Red Cell Distribution Width 13.9 % (12.1-15.1); White Blood Count 10.7 10^3/uL (4.0-10.0)
[2022-04-11 06:54] LABS: Blood Urea Nitrogen 21 mg/dL (8-23); Calcium 8.9 mg/dL (8.5-10.5); Carbon Dioxide 26 mmol/L (22-29); Chloride 95 mmol/L (98-107); Glucose 100 mg/dL (65-115); Osmolality Calculated 277 mOsm/kg (285-295); Sodium 132 mmol/L (136-145)
[2022-04-11] MEDS: amlodipine 10 mg Tablet PO (08:02)
[2022-04-11] MEDS: calcium carbonate 500 mg Chew Tablet 1000 MG PO (08:02)
[2022-04-11] MEDS: omega-3 fatty acids 1,000 mg Capsule 1000 MG PO (08:02)
[2022-04-11] MEDS: sennosides-docusate Tablet 2 TAB PO (08:02)
[2022-04-11] MEDS: iron polysaccharide complex 150 mg Capsule PO (08:02)
[2022-04-11] MEDS: cholecalciferol (vitamin D3) 1,000 unit Tablet 1000 UNIT PO (08:02)
[2022-04-11] MEDS: ezetimibe 10 mg Tablet PO (08:02)
[2022-04-11] MEDS: sulfamethoxazole-trimeth DS 160-800 mg Tablet 1 TAB PO (08:02)
[2022-04-11] MEDS: gemfibrozil 600 mg Tablet PO (08:03)
[2022-04-11] MEDS: chlorhexidine gluconate 0.12% Btl 473 mL 30 ML MUCOUS MEM ×2 (08:03→12:11)
[2022-04-11] MEDS: losartan 50 mg Tablet 25 MG PO (08:03)
[2022-04-11] MEDS: isosorbide mononitrate ER 30 mg Tablet PO (08:03)
[2022-04-11] MEDS: CELEcoxib 200 mg Capsule PO (08:03)
[2022-04-11] MEDS: aspirin 325 mg EC Tablet PO (08:03)
[2022-04-11] MEDS: metoprolol tartrate 50 mg Tablet 75 MG PO (08:03)
--- NOTE | 2022-04-11 13:44 | P.DS_ITS ---
Discharge Providers Date of Admission: 04/10/22 15:07 Date of Discharge: April 11, 2022 Attending Provider at Admission: Nida Rogers MD Attending Provider at Discharge: Nida Rogers MD Primary Care Provider: Jayant Green DO Diagnoses at Discharge Discharge Diagnosis (1) Primary osteoarthritis of right hip: Status: Acute (2) Avascular necrosis of bone of right hip: Status: Acute (3) Status post total hip replacement, right: Status: Acute Permanent problem details: Date of procedure: April 10, 2022 Diagnosis: Primary osteoarthritis right hip with avascular necrosis, contracture about the hip. Procedure done: Right total hip arthroplasty Implants: The [employer] total hip system with the following implants: A 54 mm by E Trident II solid back acetabular shell, an MDM cementless liner 42 mm inner diameter by E alpha code and Accolade II size 6 with 127 degree neck angle hip stem with a 28 mm outer diameter -2.7 mm neck offset and a moravian X3 insert size 28 mm inner diameter by 42E Reason for Visit Reason for Visit: Right total hip arthroplasty Brief History: This is an established 76 year old male who presents today for right total hip arthroplasty.? The patient has a diagnosis of severe degenerative osteoarthritis as well as significant avascular necrosis with severe femoral head collapse.? He has severe difficulty with his activities of daily living. He describes constant pain to his right hip. He notes grinding and catching to his hip. He denies any trauma to his hip.? He notes his pain is significantly worsened recently.? He is unable to ambulate.? The hip will awaken him at night. He states he completed the joint educational video on 03/16/22. He states he has also received clearance from his licensed and certified midwife.? Patient is ready to proceed with total hip arthroplasty.? Risks and complications of been discussed in detail with him.? Consents have been signed. Hospital Course Hospital Course This 77-year-old gentleman was admitted following same-day surgery for right total hip arthroplasty. He had severe AVN and was unable to ambulate. He had significant limitations in his activities of daily living as well. The patient underwent an uneventful surgical procedure which he tolerated well. He was admitted to the floor. His Marin was discontinued the night of surgery. He worked with physical therapy the following day. He was independent getting up and down in his room and complained of minimal to no discomfort. He was neurologically intact with no evidence of DVT. Plans were made for his discharge home with home health. He understands his posterior hip precautions and will follow up with me in the office as scheduled. Physical Exam Const: COMMON NORMALS: no acute distress, average body habitus, patient oriented x3 and alert GENERAL APPEARANCE: cooperative and comfortable ORIENTATION/CONSCIOUSNESS: Yes awake HENMT: COMMON NORMALS: normocephalic and atraumatic HEAD & SCALP: normocephalic and atraumatic Eye: GENERAL EYE: appearance normal, both eyes and all related structures Chest: COMMONS NORMALS: normal inspection of the chest Resp: COMMON NORMALS: normal respiratory effort EFFORT & INSPECTION: Yes able to speak in complete sentences and Yes symmetric chest movement Extremity: RIGHT LOWER EXTREMITY: Yes hip joint (Incision dry) Right hip: Yes inspection (No swelling or drainage), Yes neurovascular exam (intact distally) and Yes other (Gets up and down from chair easily) Neuro: COMMON NORMALS: patient oriented x3 SENSORIUM/ORIENTATION: Yes alert Psych: COMMON NORMALS: mental status grossly normal APPEARANCE: Yes grossly normal ATTITUDE: Yes calm and Yes engaged ATTENTION/CONCENTRATION: Yes attention grossly intact Skin: COMMON NORMALS: no rashes or lesions noted GENERAL SKIN EXAM: no rashes or lesions noted Urinary Catheter Management: Marin: Cath Placed During This Visit: yes, but has since been removed by the nurse Reason for Continuing Indwelling Catheter: Required Immobilization for Trauma or Surgery or Anesthesia Urinary Catheter Date of Insertion: 04/10/22 Urinary Catheter Time of Insertion: 11:30 Date Urinary Catheter Removed: 04/10/22 Time Urinary Catheter Discontinued: 17:40 Discharge Data Studies Completed and Pending Completed Studies During Hospitalization Category Date Time Status XR pelvis 1-2V* [id number] Urgent Exams 04/10/22 14:34 Completed Pending at discharge Category Date Time Status Pathology: Surgical [PTH] Routine Pth 04/10/22 14:34 Received Radiology Impressions Pelvis X-Ray 04/10/22 14:34 IMPRESSION: Postop right hip replacement in good alignment. Other nonacute findings as above. Laboratory Results WBC 10.7 10^3/uL (4.0-10.0) H 04/11/22 06:24 RBC 4.39 10^6/uL (4.1-5.3) 04/11/22 06:24 Hgb 12.2 g/dL (11.7-16.6) 04/11/22 06:24 Hct 39.5 % (42.0-52.0) L 04/11/22 06:24 MCV 90.0 fl (80-94) 04/11/22 06:24 MCH 27.8 pg (28.0-34.0) L 04/11/22 06:24 MCHC 30.9 g/dL (30.0-36.0) 04/11/22 06:24 RDW 13.9 % (12.1-15.1) 04/11/22 06:24 Plt Count 221 10^3/cmm (130-400) 04/11/22 06:24 MPV 10.2 fL (7.4-10.4) 04/11/22 06:24 Neut % (Auto) 78.2 % 04/11/22 06:24 Lymph % (Auto) 11.6 % 04/11/22 06:24 [place] % (Auto) 9.7 % 04/11/22 06:24 Eos % (Auto) 0.0 % 04/11/22 06:24 Baso % (Auto) 0.2 % 04/11/22 06:24 Neut # (Auto) 8.34 10^3/uL (1.8-7.7) H 04/11/22 06:24 Lymph # (Auto) 1.2 10^3/uL (0.8-4.8) 04/11/22 06:24 [place] # (Auto) 1.0 10^3/uL (0.2-0.9) H 04/11/22 06:24 Eos # (Auto) 0.0 10^3/uL (0.0-0.8) 04/11/22 06:24 Baso # (Auto) 0.0 10^3/uL (0.0-0.1) 04/11/22 06:24 Nucleated RBC % (auto) 0 % 04/11/22 06:24 Nucleated RBCs # 0.0 /100WBC 04/11/22 06:24 Sodium 132 mmol/L (136-145) L 04/11/22 06:24 Potassium 5.0 mmol/L (3.5-5.1) 04/11/22 06:24 Chloride 95 mmol/L (98-107) L 04/11/22 06:24 Carbon Dioxide 26 mmol/L (22-29) 04/11/22 06:24 Anion Gap 16.0 (5-19) 04/11/22 06:24 BUN 21 mg/dL (8-23) 04/11/22 06:24 Creatinine 0.8 mg/dL (0.7-1.2) 04/11/22 06:24 GFR Calculation Not Reportable 04/11/22 06:24 Glucose 100 mg/dL (65-115) 04/11/22 06:24 Calculated Osmolality 277 mOsm/kg (285-295) L 04/11/22 06:24 Calcium 8.9 mg/dL (8.5-10.5) 04/11/22 06:24 Total Bilirubin 0.5 mg/dL (0.15-1.2) 04/03/22 11:20 AST 14 U/L (0-40) 04/03/22 11:20 ALT 17 U/L (0-41) 04/03/22 11:20 Alkaline Phosphatase 75 U/L (40-130) 04/03/22 11:20 Total Protein 7.5 g/dL (6.6-8.7) 04/03/22 11:20 Albumin 3.8 g/dL (3.5-5.2) 04/03/22 11:20 Globulin 3.7 g/dL (1.3-4.6) 04/03/22 11:20 Urine Color Yellow (Yellow) 04/03/22 11:20 Urine Appearance Cloudy (CLEAR) 04/03/22 11:20 Urine pH 6 (5-7) 04/03/22 11:20 Ur Specific [place] 1.020 (1.005-1.030) 04/03/22 11:20 Urine Protein 2+ (Negative) H 04/03/22 11:20 Urine Glucose (UA) Norm (Normal) 04/03/22 11:20 Urine Ketones Negative (Negative) 04/03/22 11:20 Urine Blood Neg (Negative) 04/03/22 11:20 Urine Nitrate Negative (Negative) 04/03/22 11:20 Urine Bilirubin Neg (Negative) 04/03/22 11:20 Urine Urobilinogen Norm mg/dL (Negative) 04/03/22 11:20 Ur Leukocyte Esterase 2+ (Negative) H 04/03/22 11:20 Urine RBC 0-4 /hpf (0-2) H 04/03/22 11:20 Urine WBC 10-15 /hpf (0-5) H 04/03/22 11:20 Ur Squamous Epith Cells 10-15 /hpf (0-5) H 04/03/22 11:20 Amorphous Sediment Not Reportable 04/03/22 11:20 Urine Bacteria None /hpf (NONE) 04/03/22 11:20 Urine Sperm 2+ /hpf 04/03/22 11:20 Vitals Last Vital Signs Temp 97.9 F 04/11/22 12:00 Pulse 71 04/11/22 12:00 Resp 16 04/11/22 12:00 BP 134/57 04/11/22 12:00 Pulse Ox 96 04/11/22 12:00 O2 Del Method 04/11/22 12:00 O2 Flow Rate 2 04/10/22 17:35 Discharge Plan Discharge Patient Disposition: Home Health Service Condition: Stable Prescriptions: New losartan 50 mg Tablet 25 mg PO DAILY Qty: 0 0RF celecoxib 200 mg Capsule 200 mg PO Q12H 30 Days Qty: 60 0RF isosorbide mononitrate 30 mg Tablet Extended Release 24 Hr 30 mg PO DAILY Qty: 0 0RF acetaminophen 500 mg Tablet 1,000 mg PO Q8H 15 Days Qty: 90 0RF aspirin 325 mg Tablet,Delayed Release (Dr/Ec) 325 mg PO DAILY 30 Days Qty: 30 0RF oxycodone 5 mg Tablet 5 mg PO Q4H PRN (Reason: Severe Pain) 7 Days Qty: 30 0RF ezetimibe 10 mg Tablet 10 mg PO DAILY Qty: 0 0RF Continued amlodipine 10 mg tablet 10 mg PO QAM potassium chloride 20 mEq tablet extended release 10 meq PO DAILY PRN (Reason: when taking lasix) multivitamin Tablet 1 tab PO BEDTIME trazodone 50 mg tablet 50 mg PO BEDTIME PRN (Reason: Insomnia) albuterol sulfate [ProAir HFA] 90 mcg/actuation HFA aerosol inhaler 2 puff INHALATION QID PRN (Reason: Shortness Of Breath) fluticasone propionate [Flonase Allergy Relief] 50 mcg/actuation spray,suspension 2 spray INTRANASAL DAILY PRN (Reason: Allergy Symptoms) ascorbic acid (vitamin C) 500 mg capsule 500 mg PO QAM gemfibrozil [Lopid] 600 mg tablet 600 mg PO BID docusate sodium [Dulcolax Stool Softener (dss)] 100 mg capsule 100 mg PO BID PRN (Reason: Constipation) furosemide 40 mg tablet 40 mg PO DAILY PRN (Reason: edema) Qty: 30 6RF nitroglycerin [Nitrostat] 0.4 mg tablet, sublingual 0.4 mg SUBLINGUAL Q5M PRN (Reason: chest pain) Qty: 25 3RF metoprolol tartrate 50 mg tablet See Rx Instructions .ROUTE .COMPLEX Rx Instructions: 75mg po in the am and 50mg po qpm sulfamethoxazole-trimethoprim [Bactrim DS] 800-160 mg tablet 1 tab PO BID 7 Days Qty: 14 0RF isosorbide mononitrate 30 mg tablet extended release 24 hr 30 mg PO DAILY losartan 100 mg Tablet 100 mg PO DAILY carboxymethylcellulose sodium 1 % Drops, Liquid Gel 2 drp OPHTHALMIC (EYE) BID PRN (Reason: Dry Eye(S)) [place] Saline 0.65 % Aerosol,[place] 1 spray INTRANASAL BID PRN (Reason: unknown) Fish Oil 1,200 (144-216) mg Capsule 1 cap PO BID Held aspirin [Adult Low Dose Aspirin] 81 mg tablet,delayed release (DR/EC) 81 mg PO BEDTIME Hold Instructions: Resume on 05/11/22. Resume 81 mg aspirin following 30 days of full strength 325 mg hydrocodone-acetaminophen 10-325 mg tablet 1 tab PO Q6H PRN (Reason: Pain) Hold Instructions: Resume on 04/18/22. Discharge Orders: Discharge Order (Routine); Ordered 04/11/22 Ordered By: Nida Rogers Referrals: [facility] [place] [facility] ([facility]) [Outside] Nida Rogers MD [Physician] - 04/23/22 3:30 pm (This appointment will be with Reji Pham NP. Your following appointment will be with me.) Discharge Diet: Advance as tolerated and Usual diet Discharge Activity: Increase activity as tolerated, Limit activity as instructed, Use walker/crutches as instructed and As per PT/OT instructions Patient Instructions: Oxycodone/Acetaminophen (By mouth), Aspirin (By mouth), Celecoxib (By mouth), Total Hip Replacement (GEN), Joint Replacement Stoplight Activity Restrictions/Additional Instructions: Ambulate as tolerated following posterior hip precautions. PT for gait training and ambulation. Maintain dressing over wound until it comes off on its own. You may shower. Continue home medications as previously prescribed. Discharge Attestations Time Spent in Discharge Care*: greater than 30 min Specific Discharge Activities: educating patient, documenting/other paperwork and evaluating patient/reviewing data Quality Metrics Clinical Quality Measures [ No reported AMI, CVA or VTE this stay] Coding Level of Care Code Acute [facility] note Exam Comprehensive Diagnoses Primary osteoarthritis of right hip M16.11 Avascular necrosis of bone of right hip M87.051 Status post total hip replacement, right Z96.641
== END 2022-04-11 13:54 | disposition home health service (06) ==
LOC: MEDSURG 15:08
PROVIDERS: Admitting Provider Specialist; PCP Emergency Medicine Emergency Medical Services; Visit Provider Specialist
PROC: (CPT 27130; principal; 2022-04-10 10:05)
DX: M16.11 Unilateral primary osteoarthritis, right hip (principal); M87.851 Other osteonecrosis, right femur; I50.30 Unspecified diastolic (congestive) heart failure; E78.5 Hyperlipidemia, unspecified; I25.10 Atherosclerotic heart disease of native coronary artery without angina pectoris; I25.2 Old myocardial infarction; Z79.82 Long term (current) use of aspirin; F17.210 Nicotine dependence, cigarettes, uncomplicated; Z79.899 Other long term (current) drug therapy
CPT/HCPCS: 27130; 36415; 51702; 72170; 80048; 80053; 81001; 85025; 87086; 88304; 88311; 97116; 97161; 97165; 97530; C1776; G0378; J0690; J1100; J2250; J2370; J2405; J2704; J2710; J3010; J3370; J3490; J7030

== ENCOUNTER → 2022-04-23 15:41 | Outpatient (BNVA) | payer OTHER, SELFPAY | PROVIDERS: PCP Emergency Medicine Emergency Medical Services; Visit Provider Nurse Practitioner Family | DX: Z96.641 Presence of right artificial hip joint (principal) | CPT/HCPCS: 73502; 99024 ==

== ENCOUNTER → 2022-05-31 13:36 | Outpatient (BNVA) | payer OTHER, SELFPAY | PROVIDERS: PCP Emergency Medicine Emergency Medical Services; Visit Provider Nurse Practitioner Family | DX: Z96.641 Presence of right artificial hip joint (principal) | CPT/HCPCS: 73502; 99024 ==

== ENCOUNTER → 2022-06-27 13:21 | Outpatient (BNVA) | payer OTHER, SELFPAY | PROVIDERS: PCP Family Medicine; Visit Provider Nurse Practitioner Family | DX: I77.9 Disorder of arteries and arterioles, unspecified (principal); F17.210 Nicotine dependence, cigarettes, uncomplicated | CPT/HCPCS: 99214 ==

== ENCOUNTER 2022-07-16 13:49 | Emergency (ER) | payer OTHER, SELFPAY ==
--- NOTE | 2022-07-16 14:42 | XR_ITS ---
WS: [id number] Portable AP upright chest, 07/16/2022 Clinical Data: sob Comparison: PA and lateral chest, 02/07/2021 Findings: No nodules, masses or effusions are seen. The heart is enlarged. The pulmonary vascularity is not increased. No pneumonia or pneumothorax is seen. The aortic arch and descending thoracic aorta show tortuosity. XR/XR chest 1V portable [id number] Impression: Atherosclerosis and cardiomegaly.
[2022-07-16 14:45] VITALS: PULSE 67; RESP 16; TEMP 36.7; O2SAT 79; BMI 35.2
[2022-07-16 15:00] VITALS: PULSE 64; O2SAT 95
--- NOTE | 2022-07-16 15:35 | ED_ITS ---
HPI - SOB/Dyspnea General: Chief Complaint: Shortness of Breath/Dyspnea Stated Complaint: possible low 02 Time Seen by Provider: 07/16/22 15:03 Source: patient Mode of arrival: ambulatory History of Present Illness: HPI Narrative: 77-year-old male has a history of COPD. He overall is supposed to be on oxygen at home but has not been wearing it he presented to the emergency room short of breath he denies any fever sweats or chills he has a chronic baseline productive cough. Denies any chest pain. No fever no headache no myalgias chronically short of breath. In past was hospital at the [facility] at some difficulty with a procedure and ended up on BiPAP for several days. He recovered from this and eventually was sent home on oxygen but has not been using it. MD elicited complaint: shortness of breath Pertinent past history: COPD Onset (ago): day(s) Timing: constant Severity: mild Exacerbating factors: nothing Relieving factors: nothing Known history of: COPD Associated symptoms: Reports cough; Deny abdominal pain, chest congestion, chest pain, diaphoresis, dizziness, extremity pain, fever(s), hemoptysis, lightheadedness, myalgias, nausea, orthopnea, palpitations, paresthesias, polydipsia, polyuria, rash, sense of impending doom, syncope or vomiting Treatment prior to arrival: none Review of Systems Const: Reports: fatigue; Denies: fever(s), chills or diaphoresis ENMT: Denies: throat pain, ear or mastoid pain, nasal discharge or nasal congestion Card: Denies: chest pain, palpitations, lightheadedness, syncope or orthopnea Resp: Reports: dyspnea, non-productive cough and wheezing; Denies: hemoptysis or chest congestion GI: Denies: abdominal pain, nausea or vomiting : Denies: flank pain, dysuria, urinary frequency or urinary urgency Musc: Denies: extremity pain Skin/Breast: Denies: rash or pruritus Neuro: Denies: dizziness Endo: Denies: polyuria or polydipsia PFS ED PFSH: Medical History (Updated 07/17/22 @ 14:15 by Erwin Blanca DO) CAD (coronary artery disease) CHF (congestive heart failure), NYHA class III Chronic back pain COPD (chronic obstructive pulmonary disease) Diastolic heart failure History of [place] (myocardial infarction) Hyperlipidemia PAOD (peripheral arterial occlusive disease) Surgical History S/P appendectomy S/P excision of vocal cord nodule S/P knee surgery S/P PTCA (percutaneous transluminal coronary angioplasty) S/P tonsillectomy and adenoidectomy Family History Mother CAD (coronary artery disease) Father CAD (coronary artery disease) Brother , Age 44 [place] Myocardial infarct Other Cancer Social History Smoking and tobacco status: current every day smoker cigarettes Alcohol intake: current Alcohol intake frequency: 3 or more drinks per day Alcohol type: beer Lives independently: Yes Household members: spouse Marital status: service: Yes status: Retired branch: [employer] Current occupational status: disabled History of recent travel: No Current gender identity: Male Special cherise needs: No Agree to transfusion: Yes Physical Exam Const: GENERAL APPEARANCE: cooperative and comfortable ORIENTATION/CONSCIOUSNESS: Yes awake, Yes oriented to person, Yes oriented to place and Yes oriented to time HENMT: COMMON NORMALS: normocephalic, atraumatic and hearing grossly normal bilaterally HEAD & SCALP: normocephalic and atraumatic Resp: COMMON NORMALS: normal respiratory effort, No retractions, No use of accessory muscles and clear to auscultation bilaterally AUSCULTATION: clear to auscultation bilaterally Cardio: COMMON NORMALS: regular rate, regular rhythm and No murmurs present (Cardio) RATE: regular rate RHYTHM: regular rhythm GI: COMMON NORMALS: Soft to palpation and No hepatosplenomegaly present AUSCULTATION: Yes normoactive bowel sounds PALPATION: Yes Soft to palpation, No Tenderness to palpation present (GI), No Guarding due to palpation present (GI) and Yes No hepatosplenomegaly present Extremity: COMMON NORMALS: normal to inspection, capillary refill normal, no clubbing, cyanosis or edema, no calf tenderness and no pedal edema Neuro: SENSORIUM/ORIENTATION: Yes oriented to person, Yes oriented to place and Yes oriented to time Skin: COMMON NORMALS: no rashes or lesions noted GENERAL SKIN EXAM: no rashes or lesions noted Course Vital Signs: Vital signs: Vital Signs Temperature 98.0 F 1212/22 14:45 Pulse Rate 77 07/16/22 17:00 Respiratory Rate 16 07/16/22 14:45 Pulse Oximetry 94 07/16/22 17:00 Oxygen Delivery Me thod 07/16/22 17:00 Oxygen Flow Rate 2 07/16/22 16:11 MDM - SOB/Dyspnea Medical Decision Making To decrease patient's oxygen to 3 L he is feeling much better he is awake alert he like to go home. He is not having difficulty breathing his initially was hypercapnic and believe that was due to the elevated oxygen delivery. We made arrangements for home oxygen he would like to go home have him follow-up with his primary care doctor the next 1 to 2 days if any worsening symptoms return to the ED. Medical Records I reviewed the patient's medical records. Lab Data I reviewed the patient's lab results. 07/16/22 15:25 07/16/22 15:25 Labs/Radiology: Radiology Impressions Chest X-Ray 07/16/22 14:42 Impression: Atherosclerosis and cardiomegaly. Laboratory Results WBC 8.6 10^3/uL (4.0-10.0) 07/16/22 15:25 RBC 4.71 10^6/uL (4.1-5.3) 07/16/22 15:25 Hgb 12.8 g/dL (11.7-16.6) 07/16/22 15:25 Hct 42.2 % (42.0-52.0) 07/16/22 15:25 MCV 89.6 fl (80-94) 07/16/22 15:25 MCH 27.2 pg (28.0-34.0) L 07/16/22 15:25 MCHC 30.3 g/dL (30.0-36.0) 07/16/22 15:25 RDW 14.6 % (12.1-15.1) 07/16/22 15:25 Plt Count 258 10^3/cmm (130-400) 07/16/22 15:25 MPV 9.8 fL (7.4-10.4) 07/16/22 15:25 Neut % (Auto) 75.9 % 07/16/22 15:25 Lymph % (Auto) 13.0 % 07/16/22 15:25 Walsh % (Auto) 8.1 % 07/16/22 15:25 Eos % (Auto) 2.2 % 07/16/22 15:25 Baso % (Auto) 0.5 % 07/16/22 15:25 Neut # (Auto) 6.52 10^3/uL (1.8-7.7) 07/16/22 15:25 Lymph # (Auto) 1.1 10^3/uL (0.8-4.8) 07/16/22 15:25 Walsh # (Auto) 0.7 10^3/uL (0.2-0.9) 07/16/22 15:25 Eos # (Auto) 0.2 10^3/uL (0.0-0.8) 07/16/22 15:25 Baso # (Auto) 0.0 10^3/uL (0.0-0.1) 07/16/22 15:25 Nucleated RBC % (auto) 0 % 07/16/22 15: Nucleated RBCs # 0.0 /100WBC 07/16/22 15:25 Specimen Type Arterial 07/16/22 15:26 Sample Site Radial, left 07/16/22 15:26 ABG pH 7.33 (7.35-7.45) L 07/16/22 15:26 ABG pCO2 67.5 mmHg (35-45) H* 07/16/22 15:26 ABG pO2 62.8 mmHg (80.0-100.0) L 07/16/22 15:26 ABG HCO3 35.3 mmol/L (22-26) H 07/16/22 15:26 ABG Base Excess 7.0 mmol/L (-2.0-2.0) H 07/16/22 15:26 Sean Test Pos 07/16/22 15:26 Hematocrit 40.2 % (42-52) L 07/16/22 15:26 Hgb O2 Saturation 87.3 % (95-100) L 07/16/22 15:26 Carboxyhemoglobin 2.9 %THgb (0.4-20.1) 07/16/22 15:26 Methemoglobin 1.0 % (0.4-1.5) 07/16/22 15:26 Total Hemoglobin 13.1 g/dL (14-18) L 07/16/22 15:26 O2 Delivery Device Nc 07/16/22 15:26 O2 Liters/Min 2.0 % 07/16/22 15:26 FiO2 28.0 % 07/16/22 15:26 Software Quality Engineer ID Cak 07/16/22 15:26 Sodium 134 mmol/L (136-145) L 07/16/22 15:25 Potassium 4.4 mmol/L (3.5-5.1) 07/16/22 15:25 Chloride 91 mmol/L (98-107) L 07/16/22 15:25 Carbon Dioxide 34 mmol/L (22-29) H 07/16/22 15:25 Anion Gap 13.4 (5-19) 07/16/22 15:25 BUN 16 mg/dL (8-23) 07/16/22 15:25 Creatinine 0.7 mg/dL (0.7-1.2) 07/16/22 15:25 GFR Calculation Not Reportable 07/16/22 15:25 Glucose 116 mg/dL (65-115) H 07/16/22 15:25 Calculated Osmolality 280 mOsm/kg (285-295) L 07/16/22 15:25 Lactic Acid 0.9 mmol/L (0.5-2.2) 07/16/22 15:25 Calcium 8.9 mg/dL (8.5-10.5) 07/16/22 15:25 Total Bilirubin 0.3 mg/dL (0.15-1.2) 07/16/22 15:25 AST 14 U/L (0-40) 07/16/22 15:25 ALT 14 U/L (0-41) 07/16/22 15:25 Alkaline Phosphatase 91 U/L (40-130) 07/16/22 15:25 Troponin T Baseline 22 ng/L (0-15) H 07/16/22 15:25 Troponin T 120 Minute 21.53 ng/L (0-15) H 07/16/22 17:08 Delta Troponin T -0.47 ABS# (0-10) L 07/16/22 17:08 NT-Pro-B Natriuret Pep 665 pg/mL (0-450) H 07/16/22 15:25 Total Protein 7.0 g/dL (6.6-8.7) 07/16/22 15:25 Albumin 3.7 g/dL (3.5-5.2) 07/16/22 15:25 Globulin 3.3 g/dL (1.3-4.6) 07/16/22 15:25 Discharge Plan Discharge Patient Disposition: Home Clinical Impression: CHF (congestive heart failure), NYHA class III, COPD (chronic obstructive pulmonary disease) Condition: Stable Prescriptions: No Action amlodipine 10 mg tablet 10 mg PO QAM potassium chloride 20 mEq tablet extended release 10 meq PO DAILY PRN (Reason: when taking lasix) multivitamin Tablet 1 tab PO BEDTIME trazodone 50 mg tablet 50 - 100 mg PO BEDTIME PRN (Reason: Insomnia) albuterol sulfate [ProAir HFA] 90 mcg/actuation HFA aerosol inhaler 2 puff INHALATION QID PRN (Reason: Shortness Of Breath) fluticasone propionate [Flonase Allergy Relief] 50 mcg/actuation spray,suspension 2 spray INTRANASAL DAILY PRN (Reason: Allergy Symptoms) ascorbic acid (vitamin C) 500 mg capsule 500 mg PO QAM gemfibrozil [Lopid] 600 mg tablet 600 mg PO BID aspirin [Adult Low Dose Aspirin] 81 mg tablet,delayed release (DR/EC) 81 mg PO BEDTIME Hold Instructions: Resume on 05/11/22. Resume 81 mg aspirin following 30 days of full strength 325 mg furosemide 40 mg tablet 40 mg PO DAILY PRN (Reason: edema) Qty: 30 6RF nitroglycerin [Nitrostat] 0.4 mg tablet, sublingual 0.4 mg SUBLINGUAL Q5M PRN (Reason: chest pain) Qty: 25 3RF metoprolol tartrate 50 mg tablet See Rx Instructions .ROUTE .COMPLEX Rx Instructions: 75mg po in the am and 50mg po qpm losartan 100 mg Tablet 100 mg PO DAILY carboxymethylcellulose sodium 1 % Drops, Liquid Gel 2 drp OPHTHALMIC (EYE) BID PRN (Reason: Dry Eye(S)) [place] Sal[place] 0.65 % Aerosol,[place] 1 spray INTRANASAL BID PRN (Reason: Congestion) omega 4-paw-gwi-fish oil [Fish Oil] 1,200 (144-216) mg Capsule 1 cap PO BID isosorbide mononitrate 30 mg Tablet Extended Release 24 Hr 30 mg PO DAILY Qty: 0 0RF Discharge Orders: Discharge ED (Routine); Ordered 07/16/22 Ordered By: Erwin Blanca Other Ambulatory Orders: DME: Oxygen (Order) Location: None Selected Ordered By: Erwin Blanca Referrals: Catherine Morse MD [Primary Care Provider] - Discharge Diet: Usual diet Discharge Activity: Limit activity as instructed Patient Instructions: Opioid Safety, Pain Management Activity Restrictions/Additional Instructions: Use oxygen continuously. Follow-up with your primary care doctor within the week to reevaluate your blood pressure and your oxygen saturations. Continue to take your Lasix daily. Coding Level of Care Code ED Toolroom Machinist for Chg Fwd Exam Detailed
[2022-07-16 15:37] LABS: ABG PH Result 7.33 (7.35-7.45); Arterial Blood Gas Hematocrit 40.2 % (42-52); Blood Gas Allen Test Pos; Blood Gas Operator Identificat CAK; Blood Gas Sample Site Radial, left; Blood Gas Sample Type Arterial; Carboxyhemoglobin 2.9 %THgb (0.4-20.1); HCO3 ABG 35.3 mmol/L (22-26); HGB O2 Sat 87.3 % (95-100); Oxygen Device NC; PO2 ABG 62.8 mmHg (80.0-100.0); Total Hemoglobin 13.1 g/dL (14-18)
[2022-07-16 15:38] LABS: ABG PCO2 67.5 mmHg (35-45)
--- NOTE | 2022-07-16 15:38 | ECG_ITS ---
[facility] Test Date: 2022-07-16 Pat Name: Rickey Bob Department: Room: Gender: Male Printing Supervisor: : [id number] Requested By: Ry Correa Order Number: [id number] Evan MD: Car Stafford M.D. Measurements Intervals Philipp Rate: 72 P: 40 KS: 287 QRS: 103 QRSD: 128 T: 63 QT: 414 QTc: 454 Interpretive Statements SINUS RHYTHM WITH SINUS ARRHYTHMIA WITH FIRST DEGREE AV BLOCK RIGHT AXIS DEVIATION [QRS AXIS > 100] RIGHT BUNDLE BRANCH BLOCK [120+ ms QRS DURATION, UPRIGHT V1, 40+ ms S IN I/aVL/V4/V5/V6] Compared to ECG 04/03/2022 11:35:29 Right-axis deviation now present Indeterminate axis no longer present Electronically Signed On 07-17-2022 23:55:05 SPEECH AND LANGUAGE ASSISTANT by Car Stafford M.D. [id number]
[2022-07-16 15:42] LABS: Basophils % 0.5 %; Eosinophils # 0.2 10^3/uL (0.0-0.8); Eosinophils % 2.2 %; Hematocrit 42.2 % (42.0-52.0); Hemoglobin 12.8 g/dL (11.7-16.6); Lymphocytes # 1.1 10^3/uL (0.8-4.8); Mean Corpuscular HGB Conc 30.3 g/dL (30.0-36.0); Mean Corpuscular Hemoglobin 27.2 pg (28.0-34.0); Mean Corpuscular Volume 89.6 fl (80-94); Mean Platelet Volume 9.8 fL (7.4-10.4); Monocytes # 0.7 10^3/uL (0.2-0.9); Monocytes % 8.1 %; Neutrophils # 6.52 10^3/uL (1.8-7.7); Neutrophils % 75.9 %; Nucleated Red Blood Cells % 0 %; Platelet Count 258 10^3/cmm (130-400); Red Blood Count 4.71 10^6/uL (4.1-5.3); Red Cell Distribution Width 14.6 % (12.1-15.1); White Blood Count 8.6 10^3/uL (4.0-10.0)
[2022-07-16 16:10] LABS: Lactic Sepsis W/Reflex 0.9 mmol/L (0.5-2.2)
[2022-07-16 16:11] VITALS: O2SAT 87; O2SAT 91; O2SAT 92
[2022-07-16 16:12] LABS: Troponin(5th) Baseline 22 ng/L (0-15)
[2022-07-16 16:23] LABS: Alanine Aminotransferase 14 U/L (0-41); Albumin Level 3.7 g/dL (3.5-5.2); Alkaline Phosphatase 91 U/L (40-130); Anion Gap 13.4 (5-19); Aspartate Amino Transferase 14 U/L (0-40); Blood Urea Nitrogen 16 mg/dL (8-23); Calcium 8.9 mg/dL (8.5-10.5); Carbon Dioxide 34 mmol/L (22-29); Chloride 91 mmol/L (98-107); Globulin 3.3 g/dL (1.3-4.6); Glucose 116 mg/dL (65-115); NT Pro B Type Natriuretic Pept 665 pg/mL (0-450); Osmolality Calculated 280 mOsm/kg (285-295); Potassium 4.4 mmol/L (3.5-5.1); Sodium 134 mmol/L (136-145); Total Bilirubin 0.3 mg/dL (0.15-1.2)
[2022-07-16 16:30] VITALS: PULSE 72; O2SAT 92
[2022-07-16 17:00] VITALS: PULSE 73; PULSE 77; O2SAT 94; O2SAT 96
[2022-07-16 17:38] LABS: Troponin 5 2HR 21.53 ng/L (0-15); Troponin 5 2HR Delta -0.47 ABS# (0-10)
== END 2022-07-16 18:24 | disposition home or self-care (01) ==
PROVIDERS: Emergency Medicine; Emergency Provider Family Medicine; PCP Family Medicine
DX: J44.9 Chronic obstructive pulmonary disease, unspecified (principal); I11.0 Hypertensive heart disease with heart failure; I50.9 Heart failure, unspecified; Z79.82 Long term (current) use of aspirin; I25.10 Atherosclerotic heart disease of native coronary artery without angina pectoris; I25.2 Old myocardial infarction; E78.5 Hyperlipidemia, unspecified; F17.210 Nicotine dependence, cigarettes, uncomplicated
CPT/HCPCS: 36415; 36600; 71045; 80053; 82805; 83605; 83880; 84484; 85025; 93005; 99285

== ENCOUNTER 2022-07-17 09:30 | Inpatient (IN) | payer OTHER, MEDICARE, SELFPAY ==
[2022-07-17] VITALS (147 sets, daily range): BP systolic 104–202; BP diastolic 51–96; PULSE 68–109; RESP 14–35; TEMP 36.8–37.1; O2SAT 75–100; BMI 35.2
--- NOTE | 2022-07-17 09:35 | XRR_ITS ---
PROCEDURE INFORMATION: Exam: XR Chest Exam date and time: 07/17/2022 9:42 AM Age: 77 years old Clinical indication: Cough and dyspnea; Patient HX: SOB. PT was seen yesterday for the same x 2wks; Additional info: Dyspnea/cough TECHNIQUE: Imaging protocol: Radiologic exam of the chest. Views: 1 view. COMPARISON: CR XR chest 1V portable [id number] 07/16/2022 3:44 PM FINDINGS: Lungs: There is diffuse haziness both lung laguerre more pronounced on the left likely secondary to underlying ground-glass interstitial opacities which could be better assessed on CT examination. Pleural spaces: Unremarkable. No pleural effusion. No pneumothorax. Heart/Mediastinum: Cardiac silhouette is enlarged but unchanged. Bones/joints: Unremarkable for age. XR/XR chest 1V portable [id number] IMPRESSION: Cardiomegaly with diffuse interstitial/ground-glass opacities both lung laguerre which could be better evaluated on CT examination of the chest.
--- NOTE | 2022-07-17 09:40 | ED_ITS ---
HPI - SOB/Dyspnea General: Chief Complaint: Shortness of Breath/Dyspnea Stated Complaint: SOB Time Seen by Provider: 07/17/22 09:34 Source: patient Mode of arrival: EMS History of Present Illness: HPI Narrative: 77-year-old male only seen this patient yesterday he was supposed to be on oxygen has not been using it. He qualified and we set him up for home oxygen he was doing well he preferred to go home. Overnight he had worsening symptoms difficulty with breathing and cough. When he came in yesterday he was moderately hypercapnic but his oxygen had been turned up significantly. After he was turned down he stated he felt much better and his breathing had improved. He denies fever is not had a productive cough. He has had some swelling in his legs which is not significantly worsened since yesterday when he was seen. MD elicited complaint: shortness of breath and cough Pertinent past history: COPD Onset (ago): day(s) Timing: constant Severity: moderate Exacerbating factors: exertion and coughing Relieving factors: oxygen and rest Known history of: COPD Associated symptoms: Reports chest congestion and cough; Deny abdominal pain, chest pain, diaphoresis, dizziness, extremity pain, fever(s), hemoptysis, lightheadedness, myalgias, nausea, orthopnea, palpitations, paresthesias, polydipsia, polyuria, rash, sense of impending doom, syncope or vomiting Treatment prior to arrival: oxygen and bronchodilator Review of Systems Const: Denies: fever(s), chills, fatigue, malaise or diaphoresis Card: Denies: chest pain, palpitations, irregular heart rhythm, edema, lightheadedness, syncope or orthopnea Resp: Reports: dyspnea, non-productive cough, wheezing and chest congestion; Denies: productive cough or hemoptysis GI: Denies: abdominal pain, nausea or vomiting : Denies: difficulty urinating, dysuria, urinary frequency or urinary urgency Musc: Denies: extremity pain Neuro: Denies: dizziness Endo: Denies: polyuria or polydipsia PFS ED PFSH: Medical History (Updated 07/17/22 @ 14:15 by Erwin Blanca DO) CAD (coronary artery disease) CHF (congestive heart failure), NYHA class III Chronic back pain COPD (chronic obstructive pulmonary disease) Diastolic heart failure History of [place] (myocardial infarction) Hyperlipidemia PAOD (peripheral arterial occlusive disease) Surgical History S/P appendectomy S/P excision of vocal cord nodule S/P knee surgery S/P PTCA (percutaneous transluminal coronary angioplasty) S/P tonsillectomy and adenoidectomy Family History Mother CAD (coronary artery disease) Father CAD (coronary artery disease) Brother , Age 44 [place] Myocardial infarct Other Cancer Social History Smoking and tobacco status: current every day smoker cigarettes Alcohol intake: current Alcohol intake frequency: 3 or more drinks per day Alcohol type: beer Lives independently: Yes Household members: spouse Marital status: service: Yes status: Retired branch: [employer] Current occupational status: disabled History of recent travel: No Current gender identity: Male Special cherise needs: No Agree to transfusion: Yes Physical Exam Const: GENERAL APPEARANCE: cooperative and comfortable ORIENTATION/CONSCIOUSNESS: Yes awake, Yes oriented to person, Yes oriented to place and Yes oriented to time HENMT: COMMON NORMALS: normocephalic, atraumatic and hearing grossly normal bilaterally HEAD & SCALP: normocephalic and atraumatic Lymph: LYMPHATIC: no lymphadenopathy noted and no lymphedema noted Resp: COMMON NORMALS: No retractions EFFORT & INSPECTION: Yes respiratory distress and Yes uses accessory muscles AUSCULTATION: rhonchi, wheezes and diminished lung sounds Cardio: COMMON NORMALS: regular rate, regular rhythm and No murmurs present (Cardio) RATE: regular rate RHYTHM: regular rhythm GI: COMMON NORMALS: Soft to palpation and No hepatosplenomegaly present INSPECTION: Yes abdominal distension AUSCULTATION: Yes normoactive bowel sounds PALPATION: Yes Soft to palpation, No Tenderness to palpation present (GI), No Guarding due to palpation present (GI) and Yes No hepatosplenomegaly present Extremity: COMMON NORMALS: normal to inspection, capillary refill normal, no clubbing, cyanosis or edema, no calf tenderness and no pedal edema Neuro: SENSORIUM/ORIENTATION: Yes oriented to person, Yes oriented to place and Yes oriented to time Skin: COMMON NORMALS: no rashes or lesions noted GENERAL SKIN EXAM: no rashes or lesions noted Course Vital Signs: Vital signs: Vital Signs Temperature 98.2 F 07/17/22 09:34 Pulse Rate 92 07/17/22 12:30 Respiratory Rate 23 H 07/17/22 12:30 Blood Pressure 156/71 07/17/22 12:30 Pulse Oximetry 93 07/17/22 12:30 Oxygen Delivery Me thod 07/17/22 10:16 Oxygen Flow Rate 15 07/17/22 09:34 Fraction of Inspir ed Oxygen 50 07/17/22 10:10 MDM - SOB/Dyspnea Medical Decision Making Patient has hypercapnic respiratory failure we initially put on BiPAP he improved but when he went to CT he was off for short period of time and significantly worsen with actually unresponsive for a while. We considered intubating him but then he improved while on the BiPAP improved enough he was able to wake up he took the BiPAP off and was quite coherent he was fully aware of what was going on and did not want the BiPAP or to be intubated because it made him anxious. Dr. Hill both talk to the patient were able to get him to allow us to give him sedatives to tolerate BiPAP better his room air O2 sat during that timeframe was in the mid and low 70s. Will admit for acute hypercapnic respiratory failure with hypoxia as well as influenza B. Medical Records I reviewed the patient's medical records. Lab Data I reviewed the patient's lab results. 07/17/22 10:18 07/17/22 10:18 Labs/Radiology: Radiology Impressions Chest X-Ray 07/17/22 09:35 IMPRESSION: Cardiomegaly with diffuse interstitial/ground-glass opacities both lung laguerre which could be better evaluated on CT examination of the chest. Chest CTA 07/17/22 10:12 IMPRESSION: 1. No evidence of pulmonary embolus. 2. Bilateral groundglass infiltrates worse in the LEFT greater than RIGHT upper lobes. Recommend correlation for viral pneumonia including Covid 19 pneumonia. 3. Tiny bilateral pleural effusions compressive atelectasis in the lung bases. 4. Cardiomegaly. 5. Cholelithiasis. Laboratory Results WBC 9.5 10^3/uL (4.0-10.0) 07/17/22 10:18 RBC 4.69 10^6/uL (4.1-5.3) 07/17/22 10:18 Hgb 12.8 g/dL (11.7-16.6) 07/17/22 10:18 Hct 42.8 % (42.0-52.0) 07/17/22 10:18 MCV 91.3 fl (80-94) 07/17/22 10:18 MCH 27.3 pg (28.0-34.0) L 07/17/22 10:18 MCHC 29.9 g/dL (30.0-36.0) L 07/17/22 10:18 RDW 14.6 % (12.1-15.1) 07/17/22 10:18 Plt Count 253 10^3/cmm (130-400) 07/17/22 10:18 MPV 10.0 fL (7.4-10.4) 07/17/22 10:18 Neut % (Auto) 88.6 % 07/17/22 10:18 Lymph % (Auto) 7.0 % 07/17/22 10:18 [place] % (Auto) 3.5 % 07/17/22 10:18 Eos % (Auto) 0.4 % 07/17/22 10:18 Baso % (Auto) 0.2 % 07/17/22 10:18 Neut # (Auto) 8.40 10^3/uL (1.8-7.7) H 07/17/22 10:18 Lymph # (Auto) 0.7 10^3/uL (0.8-4.8) L 07/17/22 10:18 [place] # (Auto) 0.3 10^3/uL (0.2-0.9) 07/17/22 10:18 Eos # (Auto) 0.0 10^3/uL (0.0-0.8) 07/17/22 10:18 Baso # (Auto) 0.0 10^3/uL (0.0-0.1) 07/17/22 10:18 Nucleated RBC % (auto) 0 % 07/17/22 10:18 Nucleated RBCs # 0.0 /100WBC 07/17/22 10:18 Specimen Type Arterial 07/17/22 11:34 Sample Site Radial, left 07/17/22 11:34 ABG pH 7.19 (7.35-7.45) L 07/17/22 11:34 ABG pCO2 92.7 mmHg (35-45) H* 07/17/22 11:34 ABG pO2 69.7 mmHg (80.0-100.0) L 07/17/22 11:34 ABG HCO3 35.2 mmol/L (22-26) H 07/17/22 11:34 ABG O2 Saturation 90.5 07/17/22 11:34 ABG Base Excess 4.0 mmol/L (-2.0-2.0) H 07/17/22 11:34 Sean Test Pos 07/17/22 11:34 A-a O2 Gradient 41.6 mmHg (5-10) H 07/17/22 11:34 Hematocrit 39.9 % (42-52) L 07/17/22 11:34 Hgb O2 Saturation 88.6 % (95-100) L 07/17/22 11:34 Carboxyhemoglobin 1.7 %THgb (0.4-20.1) 07/17/22 11:34 Methemoglobin 0.5 % (0.4-1.5) 07/17/22 11:34 Total Hemoglobin 13.0 g/dL (14-18) L 07/17/22 11:34 Sodium 139.0 mmol/L (131-143) 07/17/22 11:34 Potassium 4.7 mmol/L (3.5-5.0) 07/17/22 11:34 Glucose 141.0 mg/dL (70-115) H 07/17/22 11:34 Ionized Calcium 1.2 mmol/L (1.1-1.4) 07/17/22 11:34 O2 Delivery Device Bipap 07/17/22 11:34 O2 Liters/Min 15.0 % 07/17/22 09:35 FiO2 70.0 % 07/17/22 11:34 Trolley Car Operator ID Monro 07/17/22 11:34 Sodium 137 mmol/L (136-145) 07/17/22 10:18 Potassium 4.7 mmol/L (3.5-5.1) 07/17/22 10:18 Chloride 96 mmol/L (98-107) L 07/17/22 10:18 Carbon Dioxide 37 mmol/L (22-29) H 07/17/22 10:18 Anion Gap 8.7 (5-19) 07/17/22 10:18 BUN 19 mg/dL (8-23) 07/17/22 10:18 Creatinine 0.7 mg/dL (0.7-1.2) 07/17/22 10:18 GFR Calculation Not Reportable 07/17/22 10:18 Glucose 148 mg/dL (65-115) H 07/17/22 10:18 Calculated Osmolality 289 mOsm/kg (285-295) 07/17/22 10:18 Lactic Acid 0.5 mmol/L (0.5-2.2) 07/17/22 10:18 Calcium 9.1 mg/dL (8.5-10.5) 07/17/22 10:18 Total Bilirubin 0.2 mg/dL (0.15-1.2) 07/17/22 10:18 AST 26 U/L (0-40) 07/17/22 10:18 ALT 27 U/L (0-41) 07/17/22 10:18 Alkaline Phosphatase 94 U/L (40-130) 07/17/22 10:18 NT-Pro-B Natriuret Pep 559 pg/mL (0-450) H 07/17/22 10:18 Total Protein 7.7 g/dL (6.6-8.7) 07/17/22 10:18 Albumin 3.6 g/dL (3.5-5.2) 07/17/22 10:18 Globulin 4.1 g/dL (1.3-4.6) 07/17/22 10:18 Coronavirus 229E (PCR) Not detected (NOT DETECT) 07/17/22 10:05 Influenza Type A Ag Negative (Negative) 07/17/22 10:05 Influenza Type B Ag Positive (Negative) H 07/17/22 10:05 SARS-CoV-2 (PCR) Not detected (NOT DETECT) 07/17/22 10:05 Discharge Plan Discharge Patient Disposition: Admitted As Inpatient Admit Provider: Ethan Hill Clinical Impression: Acute respiratory failure with hypoxia and hypercapnia, CHF (congestive heart failure), NYHA class III, Chronic obstructive pulmonary disease with (acute) exa cerbation, Influenza B Condition: Stable Coding Level of Care Code ED Park Landscape Architect for Chg Fwd Exam Comprehensive
[2022-07-17 09:52] LABS: Arterial Blood Gas Hematocrit 41.1 % (42-52); Base Excess ABG 3.4 mmol/L (-2.0-2.0); Blood Gas Allen Test Pos; Blood Gas Sample Site Brachial, right; Blood Gas Sample Type Arterial; Carboxyhemoglobin 1.2 %THgb (0.4-20.1); HCO3 ABG 35.2 mmol/L (22-26); HGB O2 Sat 90.8 % (95-100); Ionized Calcium Level - ABG 1.2 mmol/L (1.1-1.4); Oxygen Saturation ABG 92.8; PO2 ABG 86.4 mmHg (80.0-100.0); Potassium Level - ABG 4.3 mmol/L (3.5-5.0); Total Hemoglobin 13.4 g/dL (14-18)
[2022-07-17 09:53] LABS: Alveolar-Arterial Oxygen Gradi 66.9 mmHg (5-10); Oxygen Device NRB
[2022-07-17] MEDS: ipratropium-albuterol 3 mL Neb INHALATION ×4 (10:07→23:14)
--- NOTE | 2022-07-17 10:12 | CT_ITS ---
WS: [id number] CTA OF THE CHEST WITH PULMONARY EMBOLISM PROTOCOL TECHNIQUE: High-resolution contrast enhanced CTA of the chest with coronal and sagittal reformatted i mages with pulmonary embolism protocol. MIP images are also reviewed. CLINICAL INFORMATION: Groundglass infiltrates on chest x-ray COMPARISON: None. DLP: 492.[address] scans at [facility] use at least one of these dose optimization techniques: automated e xposure control; mA and/or kV adjustment per patient size (includes targeted exams where dose is matc hed to clinical indication); or iterative reconstruction. FINDINGS: Proximal main pulmonary arteries are normal. Cardiomegaly. Aortic calcification. Coronary calcificati on. Normal caliber ascending and descending thoracic aorta. No evidence of pulmonary embolus. Ground glass infiltrates in the LEFT greater than RIGHT upper lobes. Small bilateral pleural effusion s with compressive atelectasis in the lung bases. Slight hazy groundglass infiltrates in the perihila r regions and lung bases. Correlation for viral pneumonia. Adrenal glands are normal. Cholelithiasis. Normal GE junction. CT/CT angio chest PE protcl [id number] IMPRESSION: 1. No evidence of pulmonary embolus. 2. Bilateral groundglass infiltrates worse in the LEFT greater than RIGHT uppe r lobes. Recommend correlation for viral pneumonia including Covid 19 pneumonia . 3. Tiny bilateral pleural effusions compressive atelectasis in the lung bases. 4. Cardiomegaly. 5. Cholelithiasis.
[2022-07-17 10:24] LABS: Basophils % 0.2 %; Eosinophils % 0.4 %; Hematocrit 42.8 % (42.0-52.0); Hemoglobin 12.8 g/dL (11.7-16.6); Lymphocytes # 0.7 10^3/uL (0.8-4.8); Mean Corpuscular HGB Conc 29.9 g/dL (30.0-36.0); Mean Corpuscular Hemoglobin 27.3 pg (28.0-34.0); Mean Corpuscular Volume 91.3 fl (80-94); Monocytes # 0.3 10^3/uL (0.2-0.9); Monocytes % 3.5 %; Neutrophils % 88.6 %; Nucleated Red Blood Cells % 0 %; Platelet Count 253 10^3/cmm (130-400); Red Blood Count 4.69 10^6/uL (4.1-5.3); Red Cell Distribution Width 14.6 % (12.1-15.1); White Blood Count 9.5 10^3/uL (4.0-10.0)
[2022-07-17 10:24] LABS: ABG PCO2 96.3 mmHg (35-45); ABG PH Result 7.17 (7.35-7.45)
[2022-07-17 10:25] LABS: Influenza A by IFA Negative (Negative); Influenza B by IFA Positive (Negative)
[2022-07-17 10:46] LABS: Lactic Sepsis W/Reflex 0.5 mmol/L (0.5-2.2)
[2022-07-17 10:58] LABS: Alanine Aminotransferase 27 U/L (0-41); Albumin Level 3.6 g/dL (3.5-5.2); Alkaline Phosphatase 94 U/L (40-130); Blood Urea Nitrogen 19 mg/dL (8-23); Calcium 9.1 mg/dL (8.5-10.5); Carbon Dioxide 37 mmol/L (22-29); Chloride 96 mmol/L (98-107); Globulin 4.1 g/dL (1.3-4.6); Glucose 148 mg/dL (65-115); NT Pro B Type Natriuretic Pept 559 pg/mL (0-450); Osmolality Calculated 289 mOsm/kg (285-295); Sodium 137 mmol/L (136-145); Total Bilirubin 0.2 mg/dL (0.15-1.2); Total Protein 7.7 g/dL (6.6-8.7)
[2022-07-17 11:01] LABS: Anion Gap 8.7 (5-19); Aspartate Amino Transferase 26 U/L (0-40); Potassium 4.7 mmol/L (3.5-5.1)
[2022-07-17] MEDS: iohexol 350 mg/mL 500 mL Btl (per mL) IV (11:19)
[2022-07-17 11:46] LABS: ABG PH Result 7.19 (7.35-7.45); Alveolar-Arterial Oxygen Gradi 41.6 mmHg (5-10); Arterial Blood Gas Hematocrit 39.9 % (42-52); Blood Gas Allen Test Pos; Blood Gas Operator Identificat MONRO; Blood Gas Sample Site Radial, left; Blood Gas Sample Type Arterial; Carboxyhemoglobin 1.7 %THgb (0.4-20.1); HCO3 ABG 35.2 mmol/L (22-26); HGB O2 Sat 88.6 % (95-100); Ionized Calcium Level - ABG 1.2 mmol/L (1.1-1.4); Methemoglobin 0.5 % (0.4-1.5); Oxygen Device BIPAP; Oxygen Saturation ABG 90.5; PO2 ABG 69.7 mmHg (80.0-100.0); Potassium Level - ABG 4.7 mmol/L (3.5-5.0)
[2022-07-17 11:47] LABS: ABG PCO2 92.7 mmHg (35-45)
[2022-07-17 11:53] LABS: Adenovirus Not Detected (NOT DETECT); Chlamydia Pneumoniae Not Detected (NOT DETECT); Coronavirus 229E,HKU1,NL63,OC4 Not Detected (NOT DETECT); Human Metapneumovirus Not Detected (NOT DETECT); Human Rhinovirus/Enterovirus Not Detected (NOT DETECT); Influenza A Not Detected (NOT DETECT); Influenza A H1 Not Detected (NOT DETECT); Influenza A H1-2009 Not Detected (NOT DETECT); Influenza A H3 Not Detected (NOT DETECT); Influenza B Not Detected (NOT DETECT); Mycoplasma Pneumoniae Not Detected (NOT DETECT); Parainfluenza Virus Type 1 Not Detected (NOT DETECT); Parainfluenza Virus Type 2 Not Detected (NOT DETECT); Parainfluenza Virus Type 3 Not Detected (NOT DETECT); Parainfluenza Virus Type 4 Not Detected (NOT DETECT); Respiratory Syncytial Virus A Not Detected (NOT DETECT); Respiratory Syncytial Virus B Not Detected (NOT DETECT); SARS-COV-2 Not Detected (NOT DETECT)
--- NOTE | 2022-07-17 11:59 | P.HP_ITS ---
Providers/Chief Complaint Admitting Physician: Ethan Hill MD, hospitalist Primary Care Provider: Catherine Morse MD Chief Complaint: SOB History of Present Illness Rickey Bob is a 77 year old male that presents to the emergency department with complaints of shortness of breath and wheezing. He was also seen yesterday for this condition. When I visited with him, CO2 level had climbed and he was on BiPAP unable to answer many questions regarding his history and physical. Family was present to help with history and physical. Over the last 3 to 4 days he had increasing problems with shortness of breath, cough, wheezing. He had not had a productive cough. He had been swelling in his legs some. He had no chest discomfort. No fever had been recorded. He has a long history of COPD and was supposed to be on oxygen but did not acquired it until lately. He had a history of significant CO2 retention in the past. Review of Systems General: Reports: ROS unobtainable due to mental status (Patient on BiPAP, minimally responsive when I first evaluated) Medications/Allergies Home Medications Medication Instructions Recorded Confirmed Last Taken Type albuterol sulfate 90 mcg/actuation 2 puff inhalation QID PRN 11/23/19 07/17/22 Unknown History aerosol inhaler (ProAir HFA) Shortness Of Breath amlodipine 10 mg tablet 10 mg PO QAM 11/23/19 07/17/22 07/16/22 History ascorbic acid (vitamin C) 500 mg 500 mg PO QAM 11/23/19 07/17/22 07/16/22 History capsule aspirin 81 mg tablet,delayed 81 mg PO BEDTIME 11/23/19 07/17/22 07/16/22 History release (Adult Low Dose Aspirin) fluticasone propionate 50 2 spray intranasal DAILY PRN 11/23/19 07/17/22 Unknown History mcg/actuation nasal Allergy Symptoms spray,suspension (Flonase Allergy Relief) gemfibrozil 600 mg tablet (Lopid) 600 mg PO BID 11/23/19 07/17/22 07/16/22 History multivitamin 1 tab PO BEDTIME 11/23/19 07/17/22 07/16/22 History potassium chloride 20 mEq 10 meq PO DAILY PRN when taking 11/23/19 07/17/22 Unkn own History tablet,extended release lasix trazodone 50 mg tablet 50 - 100 mg PO BEDTIME PRN Insomnia 11/23/19 07/17/22 04/09/22 History furosemide 40 mg tablet 40 mg PO DAILY PRN edema #30 tabs 07/20/20 07/17/22 Unknown Rx nitroglycerin 0.4 mg sublingual 0.4 mg sublingual Q5M PRN chest 01/09/21 07/17/22 Unknown Rx tablet (Nitrostat) pain #25 tabs metoprolol tartrate 50 mg tablet See Rx Instructions .Route .COMPLEX 09/06/21 07/17/22 07/16/22 History carboxymethylcellulose sodium 1 % 2 drp ophthalmic (eye) BID PRN Dry 04/11/22 07/17/22 Unknown History eye liquid gel drops Eye(S) isosorbide mononitrate 30 mg 30 mg PO DAILY #0 tabs 04/11/22 07/17/22 07/16/22 Rx tablet,extended release 24 hr losartan 100 mg tablet 100 mg PO DAILY 04/11/22 07/17/22 07/16/22 History omega 8-ltm-kbi-fish oil 1,200 mg 1 cap PO BID 04/11/22 07/17/22 07/16/22 History (144 mg-216 mg) capsule (Fish Oil) sodium chloride 0.65 % nasal spray 1 spray intranasal BID PRN 04/11/22 07/17/22 Unknown History aerosol ([place] Saline) Congestion Allergies Allergy/AdvReac Type Severity Reaction Status Date / Time codeine Allergy Mild itched Verified 07/17/22 11:34 niacin Allergy Unknown Unknown Verified 07/17/22 11:34 succinylcholine Allergy Unknown Unknown Verified 07/17/22 11:34 Kpchadk-DUR-KqR Reductase Allergy ALGY-Joint Verified 07/17/22 11:34 Inhibitor Pain PFSH Acute PFSH: Medical History (Updated 07/17/22 @ 13:59 by Ethan Hill MD) CAD (coronary artery disease) CHF (congestive heart failure), NYHA class III Chronic back pain COPD (chronic obstructive pulmonary disease) Diastolic heart failure History of NM (myocardial infarction) Hyperlipidemia PAOD (peripheral arterial occlusive disease) Surgical History S/P appendectomy S/P excision of vocal cord nodule S/P knee surgery S/P PTCA (percutaneous transluminal coronary angioplasty) S/P tonsillectomy and adenoidectomy Family History Mother CAD (coronary artery disease) Father CAD (coronary artery disease) Brother , Age 44 NM Myocardial infarct Other Cancer Social History Smoking and tobacco status: current every day smoker cigarettes Alcohol intake: current Alcohol intake frequency: 3 or more drinks per day Alcohol type: beer Lives independently: Yes Household members: spouse Marital status: service: Yes status: Retired branch: [employer] Current occupational status: disabled History of recent travel: No Current gender identity: Male Special cherise needs: No Agree to transfusion: Yes Vitals/I&O/Wt Last Vital Signs Temp 98.2 F 07/17/22 09:34 Pulse 100 07/17/22 11:19 Resp 14 07/17/22 11:19 BP 202/86 07/17/22 11:00 Pulse Ox 89 L 07/17/22 11:19 O2 Del Method 07/17/22 10:16 O2 Flow Rate 15 07/17/22 09:34 FiO2 50 07/17/22 10:10 Weight last 48 hrs Weight 102.058 kg Physical Exam Narrative: General exam is a white male, initially unresponsive on BiPAP. When I have been called back, after further ER evaluation he was somewhat agitated, but alert and oriented and had been refusing to be placed on BiPAP. There had been some concern he would need intubated but this was deferred when he became more responsive. HEENT: Atraumatic and normocephalic. Pupils equally round. Oropharynx clear. Neck is supple no lymphadenopathy thyromegaly Cardiovascular regular rate and rhythm without murmur Lungs bilateral expiratory wheezes, no crackles. Diminished breath sounds are noted bilaterally. Abdomen is soft with positive bowel sounds, obese, nontender. No obvious organomegaly. exam is deferred Extremities no cyanosis clubbing. 1+ edema is noted bilaterally. Skin no rash Neuro no obvious focal deficits. Data 07/17/22 10:18 07/17/22 10:18 Other Labs: Last ABG demonstrates pH 7.22, PCO2 85, PO2 of 56 which is on BiPAP, improved from last ABG where PCO2 was greater than 90 LFTs normal BNP elevated at 559 Influenza B positive CTA chest no pulmonary embolus. Groundglass infiltrates left greater than right. Teeny bilateral effusions, cholelithiasis Chest x-ray negative EKG, troponin from yesterday reviewed as well. A&P Assessment and plan (1) Acute respiratory failure with hypoxia and hypercapnia: Patient with underlying history of CO2 retention with chronic respiratory failure presents with acute on chronic hypercarbic and hypoxic respiratory failure Initiate BiPAP Precedex to allow toleration of this See notations under COPD exacerbation (2) Chronic obstructive pulmonary disease with (acute) exacerbation: Continue IV steroids 60 mg every 12 hours DuoNeb every 4 hours Budesonide twice daily Encourage abstinence from smoking Doxycycline 100 mg twice daily See notations above (3) Influenza B: Initiate Tamiflu twice daily for 5 days Plan History of CHF. Currently appears compensated. Continue home medicines. Lasix 40 mg IV x1 secondary to respiratory difficulty History of PTSD. Patient with significant PTSD with difficulty tolerating BiPAP. Placed on Precedex to enhance efficacy and tolerance. Full code currently Lovenox for DVT prophylaxis Pepcid for GI prophylaxis High risk for worsening respiratory failure requiring endotracheal intubation and ventilation. Attestations Medical Necessity Statement*: Will require greater than 2 midnight stay for evaluation and treatment of acute respiratory failure. Critical Care Time: The high probability of a clinically significant, sudden or life threatening deterioration of the patient's [pulmonary, infectious disease] system(s) required my full and direct attention, intervention and personal management. The critical care time is as shown. This time is in addition to time spent performing any reported procedures but includes the following: [x] Data and vital sign review and interpretation [x] Patient assessment, examination and intervention [x] Documentation [x] Medication orders and management Critical Care Time (min): 63 Coding Level of Care Code Acute [facility] for [facility] Diagnoses Acute respiratory failure with hypoxia and hypercapnia J96.01; J96.02 Chronic obstructive pulmonary disease with (acute) exacerbation J44.1 Influenza B J10.1
[2022-07-17 12:52] LABS: ABG PH Result 7.22 (7.35-7.45); Arterial Blood Gas Hematocrit 43.9 % (42-52); Base Excess ABG 3.8 mmol/L (-2.0-2.0); Blood Gas Allen Test Pos; Blood Gas Operator Identificat CAK; Blood Gas Sample Site Radial, left; Blood Gas Sample Type Arterial; HCO3 ABG 34.7 mmol/L (22-26); Oxygen Device BIPAP; PO2 ABG 56.2 mmHg (80.0-100.0)
[2022-07-17 12:53] LABS: ABG PCO2 85.3 mmHg (35-45)
[2022-07-17] MEDS: LORazepam 2 mg/mL INJ 1 mL IVP (13:10)
[2022-07-17] MEDS: dexmedetomidine 400 MCG in sodium chloride 0.9% (100 ml) 100 ML IV (13:50)
--- NOTE | 2022-07-17 14:17 | PC.NURSE ---
Patient anxious and pulling at lines, precedex ordered Per Dr. Hill, started per Protocol and MAR
[2022-07-17] MEDS: enoxaparin 40 mg/0.4 mL Syringe SUBCUT (14:49)
[2022-07-17] MEDS: FUROsemide 10 mg/mL SDV 4mL 40 MG IVP (14:50)
[2022-07-17 16:38] LABS: ABG PH Result 7.29 (7.35-7.45); Alveolar-Arterial Oxygen Gradi 15.9 mmHg (5-10); Arterial Blood Gas Hematocrit 39.5 % (42-52); Base Excess ABG 6.8 mmol/L (-2.0-2.0); Blood Gas Allen Test Pos; Blood Gas Operator Identificat CAK; Blood Gas Sample Site Radial, left; Blood Gas Sample Type Arterial; Carboxyhemoglobin 1.5 %THgb (0.4-20.1); HCO3 ABG 36.1 mmol/L (22-26); HGB O2 Sat 91.6 % (95-100); Ionized Calcium Level - ABG 1.2 mmol/L (1.1-1.4); Methemoglobin 0.4 % (0.4-1.5); Oxygen Device BIPAP; Oxygen Saturation ABG 93.3; Potassium Level - ABG 4.8 mmol/L (3.5-5.0); Total Hemoglobin 12.9 g/dL (14-18)
[2022-07-17 16:39] LABS: ABG PCO2 75.7 mmHg (35-45)
[2022-07-17 17:35] LABS: Bilirubin Urine Neg (Negative); Blood Urine Neg (Negative); Glucose Urine UA Norm (Normal); Ketones Urine Negative (Negative); Leukocyte Esterase Urine 1+ (Negative); Nitrate Urine Negative (Negative); Protein Urine 2+ (Negative); Specific Gravity, Urine 1.015 (1.005-1.030); Urine Appearance Clear (CLEAR); Urine Color Yellow (Yellow); Urobilinogen Urine Norm (Negative); pH Urine 5 (5-7)
[2022-07-17 17:36] LABS: Add Urine Culture? Yes; Add Urine Microscopic? YES; Bacteria Urine 3+ /hpf; RBC Urine 0-4 /hpf (0-2)
--- NOTE | 2022-07-17 18:25 | PC.NURSE ---
Nurse attempted to give patient water, patient still tired and grunting in room. Unable to administer 1800 meds
[2022-07-17] MEDS: budesonide 0.5 mg/2 mL Neb INHALATION (19:41)
--- NOTE | 2022-07-17 19:42 | PC.NURSE ---
Update Family Spoke with patient Nida, updated her regarding patient condition. All questions answered at this time.
[2022-07-17] MEDS: famotidine 20 mg/2 mL INJ IVP (22:03)
--- NOTE | 2022-07-17 22:05 | PC.NURSE ---
Medications Nurse attempted to admin evening PO medications, patient very lethargic and does not follow any commands. Unable to administer 2100 medications at this time.
[2022-07-17 22:12] LABS: Glucose Point of Care 152 mg/dL (70-110)
--- NOTE | 2022-07-17 22:15 | PC.NURSE ---
Update Informed hospitalist patient very lethargic, does not follow commands or respond to stimuli. Received orders to draw ABG.
[2022-07-17 23:00] LABS: ABG PCO2 40.1 mmHg (35-45); Alveolar-Arterial Oxygen Gradi 9.9 mmHg (5-10); Arterial Blood Gas Hematocrit 39.2 % (42-52); Base Excess ABG 7.3 mmol/L (-2.0-2.0); Blood Gas Operator Identificat JB; Blood Gas Sample Site Brachial, right; Blood Gas Sample Type Arterial; Carboxyhemoglobin 0.5 %THgb (0.4-20.1); HCO3 ABG 31.1 mmol/L (22-26); HGB O2 Sat 98.8 % (95-100); Ionized Calcium Level - ABG 1.1 mmol/L (1.1-1.4); Methemoglobin < 0.0 % (0.4-1.5); Oxygen Device BIPAP; Oxygen Saturation ABG 98.9; Potassium Level - ABG 4.9 mmol/L (3.5-5.0); Total Hemoglobin 12.8 g/dL (14-18)
[2022-07-18] VITALS (242 sets, daily range): BP systolic 126–190; BP diastolic 55–139; PULSE 65–132; RESP 13–31; TEMP 36.8–37.1; O2SAT 82–100
--- NOTE | 2022-07-18 01:40 | PC.NURSE ---
Update Went in room to check on patient, he arouses to verbal stimuli and is alert/oriented x4 at this time. Denies reports of pain when asked by nurse. Took small sip of water when offered, no issue swallowing.
[2022-07-18 02:50] LABS: Basophils % 0.1 %; Hematocrit 44.1 % (42.0-52.0); Lymphocytes # 0.9 10^3/uL (0.8-4.8); Lymphocytes % 11.6 %; Mean Corpuscular HGB Conc 29.5 g/dL (30.0-36.0); Mean Corpuscular Hemoglobin 27.1 pg (28.0-34.0); Mean Corpuscular Volume 92.1 fl (80-94); Mean Platelet Volume 10.3 fL (7.4-10.4); Monocytes # 0.3 10^3/uL (0.2-0.9); Monocytes % 4.1 %; Neutrophils # 6.33 10^3/uL (1.8-7.7); Neutrophils % 83.8 %; Nucleated Red Blood Cells % 0 %; Platelet Count 261 10^3/cmm (130-400); Red Blood Count 4.79 10^6/uL (4.1-5.3); Red Cell Distribution Width 14.6 % (12.1-15.1); White Blood Count 7.6 10^3/uL (4.0-10.0)
[2022-07-18] MEDS: ipratropium-albuterol 3 mL Neb INHALATION ×6 (03:12→23:11)
[2022-07-18 03:17] LABS: Magnesium 2.3 mg/dL (1.7-2.3)
[2022-07-18 03:18] LABS: Anion Gap 14.6 (5-19); Blood Urea Nitrogen 15 mg/dL (8-23); Calcium 6.2 mg/dL (8.5-10.5); Carbon Dioxide 32 mmol/L (22-29); Chloride 98 mmol/L (98-107); Glucose 145 mg/dL (65-115); Osmolality Calculated 293 mOsm/kg (285-295); Potassium 4.6 mmol/L (3.5-5.1); Sodium 140 mmol/L (136-145)
[2022-07-18] MEDS: amlodipine 10 mg Tablet PO (06:57)
--- NOTE | 2022-07-18 07:02 | PC.NURSE ---
Shift Note Frequent safety and comfort rounds continue. Orders and/or nursing care completed as indicated. Patient monitored for response to intervention and treatment(s). Education provided includes BIPAP mask. Patient verbalized understanding of teaching. Patient had an uneventful shift, remains on BIPAP 30% FiO2. Still drowsy at this time but responsive to verbal stimuli. No wounds or skin issues noted at this time. Voided twice overnight via urinal-total 400 mls of urine out. Precedex paused at this time. Will continue to monitor.
[2022-07-18] MEDS: budesonide 0.5 mg/2 mL Neb INHALATION ×2 (07:54→19:42)
[2022-07-18] MEDS: famotidine 20 mg/2 mL INJ IVP (08:16)
[2022-07-18] MEDS: doxycycline 100 mg Tablet PO ×2 (08:16→17:47)
[2022-07-18] MEDS: oseltamivir phosphate 75 mg Capsule PO ×2 (08:16→17:47)
[2022-07-18] MEDS: losartan 50 mg Tablet 100 MG PO (08:16)
[2022-07-18] MEDS: isosorbide mononitrate ER 30 mg Tablet PO (08:17)
[2022-07-18] MEDS: FUROsemide 40 mg Tablet PO (10:01)
[2022-07-18] MEDS: gemfibrozil 600 mg Tablet PO ×2 (10:06→17:46)
--- NOTE | 2022-07-18 12:52 | P.PN_ITS ---
Subjective Subjective: Rickey reports he feels better. Less short of breath. Was able to become off BiPAP this morning. Medications: Reviewed: Yes Vitals/I&O/Wt Last Vital Signs Temp 98.4 F 07/18/22 07:20 Pulse 96 07/18/22 11:26 Resp 18 07/18/22 11:26 BP 135/59 07/18/22 08:45 Pulse Ox 94 07/18/22 11:26 O2 Del Method 07/18/22 11:26 O2 Flow Rate 1 07/18/22 11:26 FiO2 28 07/18/22 10:00 07/17/22 07/18/22 07/18/22 22:59 06:59 14:59 Intake Total 53.067 / 57.047 200 / 257.047 Output Total 300 / 300 400 / 700 Balance -246.933 / -242.953 -200 / -442.953 Weight last 48 hrs Weight 102.058 kg Physical Exam Narrative: General exam no distress currently Neck is supple no lymphadenopathy thyromegaly Cardiovascular regular rate and rhythm with 2/6 systolic murmur Lungs bilateral expiratory wheezes, no crackles. Breath sounds are improved from yesterday Abdomen is soft with positive bowel sounds, obese, nontender. No obvious orga nomegaly. Extremities no cyanosis clubbing. 1+ edema is noted bilaterally. Skin no rash Data 07/18/22 02:20 07/18/22 02:20 A&P Assessment and plan (1) Acute respiratory failure with hypoxia and hypercapnia: Patient with underlying history of CO2 retention with chronic respiratory failure presents with acute on chronic hypercarbic and hypoxic respiratory failure Able to come off BiPAP today. Precedex has been discontinued Transfer to floor After dose of IV steroids this afternoon, changed to p.o. See notations under COPD exacerbation (2) Chronic obstructive pulmonary disease with (acute) exacerbation: Discontinue IV steroids after next dose, changed to prednisone DuoNeb every 4 hours Budesonide twice daily Encourage abstinence from smoking Doxycycline 100 mg twice daily See notations above (3) Influenza B: Continue Tamiflu twice daily for 5 days Plan History of CHF. Currently appears compensated. Continue home medicines. Reinitiate his home Lasix History of PTSD. Patient with significant PTSD with difficulty tolerating BiPAP. Placed on Precedex to enhance efficacy and tolerance. Full code currently Lovenox for DVT prophylaxis Pepcid for GI prophylaxis Overall improving Attestations Medical Necessity Statement*: Needs continued hospitalization for COPD exacerbation, influenza with respiratory failure requiring BiPAP initially and now slowly improving. Coding Level of Care Code Acute Quality Assurance Specialist for [facility] Diagnoses Acute respiratory failure with hypoxia and hypercapnia J96.01; J96.02 Chronic obstructive pulmonary disease with (acute) exacerbation J44.1 Influenza B J10.1
[2022-07-18] MEDS: metoprolol tartrate 50 mg Tablet 75 MG PO (15:36)
[2022-07-18] MEDS: enoxaparin 40 mg/0.4 mL Syringe SUBCUT (15:36)
[2022-07-18] MEDS: famotidine 20 mg Tablet PO (17:47)
[2022-07-18] MEDS: aspirin 81 mg EC Tablet PO (20:57)
[2022-07-18] MEDS: metoprolol tartrate 50 mg Tablet PO (20:57)
--- NOTE | 2022-07-18 21:15 | PC.NURSE ---
Transfer Note Patient transferred to med-surg room 266 from ICU via bed. Handoff report given to Snehal BELTRAN. Patient transferred on 2LNC, alert and oriented at this time. No wounds or skin issues noted. No reports of pain. Patient oriented to environment and equipment. Covering service notified. Orders reviewed and will continue to monitor.
[2022-07-19] VITALS (12 sets, daily range): BP systolic 158–168; BP diastolic 72–84; PULSE 74–94; RESP 17–18; TEMP 36.7–36.9; O2SAT 84–96
[2022-07-19] MEDS: acetaminophen 325 mg Tablet 650 MG PO (00:31)
[2022-07-19] MEDS: ipratropium-albuterol 3 mL Neb INHALATION ×2 (04:20→08:33)
[2022-07-19 04:23] LABS: Basophils % 0.1 %; Hematocrit 41.1 % (42.0-52.0); Hemoglobin 12.4 g/dL (11.7-16.6); Lymphocytes # 1.2 10^3/uL (0.8-4.8); Lymphocytes % 10.5 %; Mean Corpuscular HGB Conc 30.2 g/dL (30.0-36.0); Mean Corpuscular Hemoglobin 27.6 pg (28.0-34.0); Mean Corpuscular Volume 91.3 fl (80-94); Mean Platelet Volume 10.9 fL (7.4-10.4); Monocytes # 0.9 10^3/uL (0.2-0.9); Monocytes % 7.4 %; Neutrophils # 9.67 10^3/uL (1.8-7.7); Neutrophils % 81.7 %; Nucleated Red Blood Cells % 0 %; Platelet Count 317 10^3/cmm (130-400); Red Cell Distribution Width 14.6 % (12.1-15.1); White Blood Count 11.8 10^3/uL (4.0-10.0)
[2022-07-19 06:06] LABS: Anion Gap 11.5 (5-19); Blood Urea Nitrogen 17 mg/dL (8-23); Calcium 9.2 mg/dL (8.5-10.5); Carbon Dioxide 33 mmol/L (22-29); Chloride 97 mmol/L (98-107); Glucose 105 mg/dL (65-115); Osmolality Calculated 286 mOsm/kg (285-295); Potassium 4.5 mmol/L (3.5-5.1); Sodium 137 mmol/L (136-145)
[2022-07-19] MEDS: amlodipine 10 mg Tablet PO (06:08)
[2022-07-19] MEDS: predniSONE 20 mg Tablet 40 MG PO (08:31)
[2022-07-19] MEDS: losartan 50 mg Tablet 100 MG PO (08:31)
[2022-07-19] MEDS: doxycycline 100 mg Tablet PO (08:33)
[2022-07-19] MEDS: FUROsemide 40 mg Tablet PO (08:33)
[2022-07-19] MEDS: oseltamivir phosphate 75 mg Capsule PO (08:33)
[2022-07-19] MEDS: isosorbide mononitrate ER 30 mg Tablet PO (08:33)
[2022-07-19] MEDS: budesonide 0.5 mg/2 mL Neb INHALATION (08:33)
--- NOTE | 2022-07-19 08:47 | PM.DCS ---
Discharge Providers Date of Admission: 07/17/22 14:03 Date of Discharge: July 19, 2022 Attending Provider at Admission: Ethan Hill MD Attending Provider at Discharge: Ethan Hill MD Primary Care Provider: Catherine Morse MD Diagnoses at Discharge Discharge Diagnosis (1) Acute respiratory failure with hypoxia and hypercapnia: Status: Acute (2) Chronic obstructive pulmonary disease with (acute) exacerbation: Status: Acute (3) Influenza B: Status: Acute Reason for Visit Reason for Visit: SOB Hospital Course Hospital Course Rickey is a white male who presented to the emergency department for shortness of breath. He was found to be significantly hypercarbic, and confused. He was placed on BiPAP. He was diagnosed with a COPD exacerbation. Influenza B was positive. COVID PCR negative. He was given IV steroids, nebulized treatments consisting of DuoNeb as well as budesonide, and doxycycline. As he improved he was taken off BiPAP, and oxygen was given to the patient as needed with careful attention for no over oxygenation secondary to his CO2 retention. With this he gradually improved and it was thought he could be discharged on July 19. At that time he was on 2 L of oxygen, and was alert and oriented x3. He was agreeable to go home after hearing the plan with follow-up with his primary care provider as well as pulmonology. He was instructed not to smoke. Physical Exam Narrative: General exam no distress Neck is supple no lymphadenopathy thyromegaly Cardiovascular regular and rhythm without murmur Lungs demonstrate bilateral lower lobe expiratory wheezes. Much improved aeration from admission. Abdomen is soft obese nontender Extremities no cyanosis or clubbing. Trace edema. Skin no rash Discharge Data Studies Completed and Pending Completed Studies During Hospitalization Category Date Time Status CT angio chest PE protcl [id number] Stat Cat Scan 07/17/22 10:12 Completed XR chest 1V portable [id number] Stat Exams 07/17/22 09:35 Completed Pending at discharge Category Date Time Status Urine Culture Stat Lab 07/17/22 16:58 Received Radiology Impressions Chest X-Ray 07/17/22 09:35 IMPRESSION: Cardiomegaly with diffuse interstitial/ground-glass opacities both lung laguerre which could be better evaluated on CT examination of the chest. Chest CTA 07/17/22 10:12 IMPRESSION: 1. No evidence of pulmonary embolus. 2. Bilateral groundglass infiltrates worse in the LEFT greater than RIGHT upper lobes. Recommend correlation for viral pneumonia including Covid 19 pneumonia. 3. Tiny bilateral pleural effusions compressive atelectasis in the lung bases. 4. Cardiomegaly. 5. Cholelithiasis. Laboratory Results WBC 11.8 10^3/uL (4.0-10.0) H 07/19/22 03:43 RBC 4.50 10^6/uL (4.1-5.3) 07/19/22 03:43 Hgb 12.4 g/dL (11.7-16.6) 07/19/22 03:43 Hct 41.1 % (42.0-52.0) L 07/19/22 03:43 MCV 91.3 fl (80-94) 07/19/22 03:43 MCH 27.6 pg (28.0-34.0) L 07/19/22 03:43 MCHC 30.2 g/dL (30.0-36.0) 07/19/22 03:43 RDW 14.6 % (12.1-15.1) 07/19/22 03:43 Plt Count 317 10^3/cmm (130-400) 07/19/22 03:43 MPV 10.9 fL (7.4-10.4) H 07/19/22 03:43 Neut % (Auto) 81.7 % 07/19/22 03:43 Lymph % (Auto) 10.5 % 07/19/22 03:43 [place] % (Auto) 7.4 % 07/19/22 03:43 Eos % (Auto) 0.0 % 07/19/22 03:43 Baso % (Auto) 0.1 % 07/19/22 03:43 Neut # (Auto) 9.67 10^3/uL (1.8-7.7) H 07/19/22 03:43 Lymph # (Auto) 1.2 10^3/uL (0.8-4.8) 07/19/22 03:43 [place] # (Auto) 0.9 10^3/uL (0.2-0.9) 07/19/22 03:43 Eos # (Auto) 0.0 10^3/uL (0.0-0.8) 07/19/22 03:43 Baso # (Auto) 0.0 10^3/uL (0.0-0.1) 07/19/22 03:43 Nucleated RBC % (auto) 0 % 07/19/22 03:43 Nucleated RBCs # 0.0 /100WBC 07/19/22 03:43 Specimen Type Arterial 07/17/22 22:48 Sample Site Brachial, right 07/17/22 22:48 ABG pH 7.50 (7.35-7.45) H 07/17/22 22:48 ABG pCO2 40.1 mmHg (35-45) 07/17/22 22:48 ABG pO2 154.0 mmHg (80.0-100.0) H 07/17/22 22:48 ABG HCO3 31.1 mmol/L (22-26) H 07/17/22 22:48 ABG O2 Saturation 98.9 07/17/22 22:48 ABG Base Excess 7.3 mmol/L (-2.0-2.0) H 07/17/22 22:48 Sean Test N/a 07/17/22 22:48 A-a O2 Gradient 9.9 mmHg (5-10) 07/17/22 22:48 Hematocrit 39.2 % (42-52) L 07/17/22 22:48 Hgb O2 Saturation 98.8 % (95-100) 07/17/22 22:48 Carboxyhemoglobin 0.5 %THgb (0.4-20.1) 07/17/22 22:48 Methemoglobin < 0.0 % (0.4-1.5) L 07/17/22 22:48 Total Hemoglobin 12.8 g/dL (14-18) L 07/17/22 22:48 Sodium 135.0 mmol/L (131-143) 07/17/22 22:48 Potassium 4.9 mmol/L (3.5-5.0) 07/17/22 22:48 Glucose 148.0 mg/dL (70-115) H 07/17/22 22:48 Ionized Calcium 1.1 mmol/L (1.1-1.4) 07/17/22 22:48 O2 Delivery Device Bipap 07/17/22 22:48 O2 Liters/Min 15.0 % 07/17/22 09:35 FiO2 40.0 % 07/17/22 22:48 [employer] Manager ID [email or web address] 07/17/22 22:48 Sodium 137 mmol/L (136-145) 07/19/22 05:43 Potassium 4.5 mmol/L (3.5-5.1) 07/19/22 05:43 Chloride 97 mmol/L (98-107) L 07/19/22 05:43 Carbon Dioxide 33 mmol/L (22-29) H 07/19/22 05:43 Anion Gap 11.5 (5-19) 07/19/22 05:43 BUN 17 mg/dL (8-23) 07/19/22 05:43 Creatinine 0.5 mg/dL (0.7-1.2) L 07/19/22 05:43 GFR Calculation Not Reportable 07/19/22 05:43 Glucose 105 mg/dL (65-115) 07/19/22 05:43 POC Glucose 152 mg/dL (70-110) H 07/17/22 22:05 Calculated Osmolality 286 mOsm/kg (285-295) 07/19/22 05:43 Lactic Acid 0.5 mmol/L (0.5-2.2) 07/17/22 10:18 Calcium 9.2 mg/dL (8.5-10.5) 07/19/22 05:43 Magnesium 2.3 mg/dL (1.7-2.3) 07/18/22 02:20 Total Bilirubin 0.2 mg/dL (0.15-1.2) 07/17/22 10:18 AST 26 U/L (0-40) 07/17/22 10:18 ALT 27 U/L (0-41) 07/17/22 10:18 Alkaline Phosphatase 94 U/L (40-130) 07/17/22 10:18 NT-Pro-B Natriuret Pep 559 pg/mL (0-450) H 07/17/22 10:18 Total Protein 7.7 g/dL (6.6-8.7) 07/17/22 10:18 Albumin 3.6 g/dL (3.5-5.2) 07/17/22 10:18 Globulin 4.1 g/dL (1.3-4.6) 07/17/22 10:18 Urine Color Yellow (Yellow) 07/17/22 16:58 Urine Appearance Clear (CLEAR) 07/17/22 16:58 Urine pH 5 (5-7) 07/17/22 16:58 Ur Specific [place] 1.015 (1.005-1.030) 07/17/22 16:58 Urine Protein 2+ (Negative) H 07/17/22 16:58 Urine Glucose (UA) Norm (Normal) 07/17/22 16:58 Urine Ketones Negative (Negative) 07/17/22 16:58 Urine Blood Neg (Negative) 07/17/22 16:58 Urine Nitrate Negative (Negative) 07/17/22 16:58 Urine Bilirubin Neg (Negative) 07/17/22 16:58 Urine Urobilinogen Norm mg/dL (Negative) 07/17/22 16:58 Ur Leukocyte Esterase 1+ (Negative) H 07/17/22 16:58 Urine RBC 0-4 /hpf (0-2) H 07/17/22 16:58 Urine WBC 5-10 /hpf (0-5) H 07/17/22 16:58 Ur Squamous Epith Cells 5-10 /hpf (0-5) H 07/17/22 16:58 Amorphous Sediment Not Reportable 07/17/22 16:58 Urine Bacteria 3+ /hpf (NONE) H 07/17/22 16:58 Coronavirus 229E (PCR) Not detected (NOT DETECT) 07/17/22 10:05 Influenza Type A Ag Negative (Negative) 07/17/22 10:05 Influenza Type B Ag Positive (Negative) H 07/17/22 10:05 SARS-CoV-2 (PCR) Not detected (NOT DETECT) 07/17/22 10:05 Vitals Last Vital Signs Temp 98.2 F 07/19/22 07:34 Pulse 92 07/19/22 08:00 Resp 18 07/19/22 08:00 BP 164/75 07/19/22 08:31 Pulse Ox 95 07/19/22 08:00 O2 Del Method 07/19/22 08:00 O2 Flow Rate 2 07/19/22 08:00 FiO2 28 07/19/22 01:21 Discharge Plan Discharge Patient Disposition: Home Condition: Stable Prescriptions: New prednisone 20 mg Tablet 40 mg PO DAILY Qty: 6 0RF doxycycline monohydrate 100 mg Tablet 100 mg PO BID Qty: 10 0RF oseltamivir 75 mg Capsule 75 mg PO BID Qty: 6 0RF budesonide 0.5 mg/2 mL Suspension For Nebulization 0.5 mg inhalation BID.RESPIRATORY Qty: 120 0RF Continued amlodipine 10 mg tablet 10 mg PO QAM potassium chloride 20 mEq tablet extended release 10 meq PO DAILY PRN (Reason: when taking lasix) multivitamin Tablet 1 tab PO BEDTIME trazodone 50 mg tablet 50 - 100 mg PO BEDTIME PRN (Reason: Insomnia) albuterol sulfate [ProAir HFA] 90 mcg/actuation HFA aerosol inhaler 2 puff INHALATION QID PRN (Reason: Shortness Of Breath) fluticasone propionate [Flonase Allergy Relief] 50 mcg/actuation spray,suspension 2 spray INTRANASAL DAILY PRN (Reason: Allergy Symptoms) ascorbic acid (vitamin C) 500 mg capsule 500 mg PO QAM gemfibrozil [Lopid] 600 mg tablet 600 mg PO BID aspirin [Adult Low Dose Aspirin] 81 mg tablet,delayed release (DR/EC) 81 mg PO BEDTIME Hold Instructions: Resume on 05/11/22. Resume 81 mg aspirin following 30 days of full strength 325 mg furosemide 40 mg tablet 40 mg PO DAILY PRN (Reason: edema) Qty: 30 6RF nitroglycerin [Nitrostat] 0.4 mg tablet, sublingual 0.4 mg SUBLINGUAL Q5M PRN (Reason: chest pain) Qty: 25 3RF metoprolol tartrate 50 mg tablet See Rx Instructions .ROUTE .COMPLEX Rx Instructions: 75mg po in the am and 50mg po qpm losartan 100 mg Tablet 100 mg PO DAILY carboxymethylcellulose sodium 1 % Drops, Liquid Gel 2 drp OPHTHALMIC (EYE) BID PRN (Reason: Dry Eye(S)) [place] Saline 0.65 % Aerosol,Totz 1 spray INTRANASAL BID PRN (Reason: Congestion) omega 5-ayf-xfw-fish oil [Fish Oil] 1,200 (144-216) mg Capsule 1 cap PO BID isosorbide mononitrate 30 mg Tablet Extended Release 24 Hr 30 mg PO DAILY Qty: 0 0RF Discharge Orders: Discharge Order (Routine); Ordered 07/19/22 Ordered By: Ethan Hill Referrals: Catherine Morse MD [Primary Care Provider] - 07/27/22 10:00 am Datar,Michael Mckinley MD [Physician] - 10/15/22 10:45 am (COPD, hypercapnea) Discharge Diet: Cardiac Discharge Activity: Increase activity as tolerated Patient Instructions: Doxycycline (By mouth), Prednisone (By mouth), Budesonide (By breathing), Oseltamivir (By mouth), Influenza (DC), COPD Stoplight, Opioid Safety Activity Restrictions/Additional Instructions: Resume oxygen 2 L per nasal cannula Take all medicine as prescribed Follow-up with primary care provider 3 to 5 days Follow-up with pulmonary 2 weeks Stop smoking Patient's Health Concerns: Breathing difficulty Assessment: COPD exacerbation Influenza Plan of Treatment: Medical treatment with breathing treatments, 2 L of oxygen, complete course of Tamiflu and doxycycline Follow-up with pulmonary Discharge Attestations Time Spent in Discharge Care*: greater than 30 min Quality Metrics Clinical Quality Measures [ No reported AMI, CVA or VTE this stay] Coding Level of Care Code Acute Chg FW DC note Diagnoses Acute respiratory failure with hypoxia and hypercapnia J96.01; J96.02 Chronic obstructive pulmonary disease with (acute) exacerbation J44.1 Influenza B J10.1
[2022-07-19] MEDS: metoprolol tartrate 50 mg Tablet 75 MG PO (08:48)
[2022-07-19] MEDS: famotidine 20 mg Tablet PO (08:48)
[2022-07-19] MEDS: gemfibrozil 600 mg Tablet PO (08:48)
--- NOTE | 2022-07-19 09:19 | PC.NURSE ---
Scheduled next available new patient appointment with Dr. Johnson which is October 15, 2022
--- NOTE | 2022-07-19 15:56 | PC.NURSE ---
6562 discharge instructions given patient voiced understanding. Home 02 company here and delivered travel tank. patient dressed and personal belongings with patient. Patient awaiting transportation
--- NOTE | 2022-07-19 16:08 | PC.NURSE ---
1415 IV dc's and Telemetry dc'c
--- NOTE | 2022-07-19 16:10 | PC.NURSE ---
1555 Patient discharged to home per transport car taken to car per wheelchair, accompanied per staff. Patient has 02 on at 2 liters personal belongings with patient. patient oriented and alert.
== END 2022-07-19 15:55 | disposition home health service (06) | DRG 193 ==
LOC: ER 09:42 → ICU 14:05 → MEDSURG 07-18 21:18
PROVIDERS: Internal Medicine; Admitting Provider Internal Medicine; Emergency Provider Family Medicine; PCP Family Medicine; Visit Provider Internal Medicine
DX: J10.1 Influenza due to other identified influenza virus with other respiratory manifestations (principal); J96.01 Acute respiratory failure with hypoxia; J96.02 Acute respiratory failure with hypercapnia; J44.1 Chronic obstructive pulmonary disease with (acute) exacerbation; Z79.891 Long term (current) use of opiate analgesic; Z79.51 Long term (current) use of inhaled steroids; Z79.82 Long term (current) use of aspirin; F17.210 Nicotine dependence, cigarettes, uncomplicated; F43.10 Post-traumatic stress disorder, unspecified
CPT/HCPCS: 36415; 36416; 36600; 71045; 71275; 80048; 80051; 80053; 81001; 82330; 82803; 82805; 82962; 83605; 83735; 83880; 85025; 87086; 87635; 87804; 94640; 94660; 94760; 96365; 96366; 96367; 96372; 96375; 99291; J0330; J1650; J1940; J2060; J2930; J3490; J7512; J7626; Q9967

== ENCOUNTER 2022-08-15 12:27 | Emergency (ER) | payer OTHER, SELFPAY ==
[2022-08-15] VITALS (20 sets, daily range): BP systolic 79–182; BP diastolic 51–118; PULSE 71–99; RESP 12–39; O2SAT 82–95; BMI 34.4
--- NOTE | 2022-08-15 13:16 | XRR_ITS ---
PROCEDURE INFORMATION: Exam: XR Chest Exam date and time: 08/15/2022 1:19 PM Age: 77 years old Clinical indication: Shortness of breath; Additional info: SOB TECHNIQUE: Imaging protocol: Radiologic exam of the chest. Views: 1 view. COMPARISON: CR XR chest 1V portable [id number] 07/17/2022 9:42 AM FINDINGS: Lungs: Lung volumes are somewhat decreased. There are faint ground-glass opacities within the mid lung zones that appear improved from previous examination. There is also some streaky/wispy opacities at the lung bases likely secondary to subsegmental atelectasis relatively stable. Pleural spaces: Unremarkable. No pleural effusion. No pneumothorax. Heart/Mediastinum: Cardiac silhouette is moderately enlarged. There is pulmonary vascular redistribution indicating elevated central venous pressure. Bones/joints: Unremarkable for age. XR/XR chest 1V portable [id number] IMPRESSION: 1. Cardiomegaly with elevated central venous pressure. 2. Improving ground-glass infiltrates mid-upper lung zones possibly infectious in nature.
--- NOTE | 2022-08-15 13:17 | W.ED.SOB ---
HPI - SOB/Dyspnea General: Chief Complaint: Shortness of Breath/Dyspnea Stated Complaint: Resp Distress Time Seen by Provider: 08/15/22 12:33 Source: patient Mode of arrival: EMS Limitations: no limitations History of Present Illness: HPI Narrative: Patient comes to the emergency department via EMS today. He is noted that he is had some increasing shortness of breath over the past several days. He states that his O2 sats have been less than a previously had been and he is concerned about that. He denies any known fevers, chest pains etc. He has had stents placed many years ago but has not had any subsequent neurovascular issues. He states he was hospitalized last month for what he was told was COPD although he states he is unclear these ever been had given that diagnosis before but he has been a lifelong smoker and also is used albuterol in the past. He is currently using home O2 that was prescribed on his last hospitalization. He is fully immunized against COVID and influenza for this year. He states his been eating and drinking well. No one else is ill at home currently. MD elicited complaint: shortness of breath Pertinent past history: COPD Context: recent illness Relieving factors: oxygen and bronchodilators Known history of: COPD Associated symptoms: Deny abdominal pain, chest pain, extremity pain, fever(s), nausea, palpitations, polydipsia, polyuria or vomiting Review of Systems Const: Denies: fever(s) or chills Eyes: Denies: change in vision ENMT: Denies: throat pain, odynophagia, nasal discharge or nasal congestion Card: Denies: chest pain or palpitations Resp: Reports: non-productive cough GI: Denies: abdominal pain, nausea or vomiting : Denies: flank pain, difficulty urinating or dysuria Musc: Denies: neck pain, back pain, extremity pain or extremity swelling Skin/Breast: Denies: rash Neuro: Denies: headache(s), numbness in extremities or weakness in extremities Endo: Denies: polyuria or polydipsia PFSH ED PFSH: Medical History CAD (coronary artery disease) CHF (congestive heart failure), NYHA class III Chronic back pain COPD (chronic obstructive pulmonary disease) Diastolic heart failure History of AR (myocardial infarction) Hyperlipidemia PAOD (peripheral arterial occlusive disease) Surgical History S/P appendectomy S/P excision of vocal cord nodule S/P knee surgery S/P PTCA (percutaneous transluminal coronary angioplasty) S/P tonsillectomy and adenoidectomy Family History Mother CAD (coronary artery disease) Father CAD (coronary artery disease) Brother , Age 44 AR Myocardial infarct Other Cancer Social History Smoking and tobacco status: current every day smoker cigarettes Alcohol intake: current Alcohol intake frequency: 3 or more drinks per day Alcohol type: beer Lives independently: Yes Household members: spouse Marital status: service: Yes status: Retired branch: [employer] Current occupational status: disabled History of recent travel: No Current gender identity: Male Special cherise needs: No Agree to transfusion: Yes Physical Exam Narrative: EXAM NARRATIVE: Patient is alert converses in complete sentences and quite lengthy discussion without any conversational dyspnea. Const: COMMON NORMALS: no acute distress, patient oriented x3 and alert GENERAL APPEARANCE: cooperative and comfortable NUTRITIONAL APPEARANCE: overweight HENMT: COMMON NORMALS: normocephalic, moist oral mucous membranes and oropharynx normal HEAD & SCALP: normocephalic Eye: COMMON NORMALS: Equal, round and reactive pupils present, EOMs intact bilaterally and conjunctivae normal CONJUNCTIVA: Yes conjunctivae normal PUPIL: Yes Equal, round and reactive pupils present Neck/C-Spine: COMMON NORMALS: full ROM, no lymphadenopathy, no JVD and No carotid bruits Chest: COMMONS NORMALS: normal inspection of the chest and normal palpation of entire chest wall Resp: COMMON NORMALS: No use of accessory muscles EFFORT & INSPECTION: Yes able to speak in complete sentences AUSCULTATION: rhonchi and wheezes Cardio: COMMON NORMALS: no JVD, regular rate and Peripheral pulses 2+ throughout RATE: regular rate HEART SOUNDS: Murmur heart sound present (3/6) systolic PERIPHERAL PULSES: Peripheral pulses 2+ throughout GI: COMMON NORMALS: Normal to inspection, nondistended, normoactive bowel sounds present, Soft to palpation, non-tender and no masses PALPATION: Yes Soft to palpation : COMMON NORMALS: Yes no CVA tenderness BLADDER/KIDNEY EXAM: Yes no CVA tenderness Back/Pelvis: COMMON NORMALS: no CVA tenderness, thoracic and lumbar spine normal to inspection, no thoracic nor lumbar tenderness and straight leg raise negative bilaterally Extremity: COMMON NORMALS: normal to inspection, full ROM, capillary refill normal, no calf tenderness and no pedal edema Neuro: COMMON NORMALS: patient oriented x3, moves all extremities, no focal motor deficits and no sensory deficits noted SENSORIUM/ORIENTATION: Yes alert Psych: COMMON NORMALS: mental status grossly normal Skin: COMMON NORMALS: no rashes or lesions noted, no wounds, turgor normal and no jaundice GENERAL SKIN EXAM: no rashes or lesions noted and turgor normal Course Reevaluation(s): Reevaluation #1: Dimer is noted to be elevated past age-related cutoff with an abnormal chest x-ray as well. We will going proceed with a CTPA to evaluate for occult thromboembolic disease versus other pathology. Time: 15:02 Reevaluation #2: Patient remained stable. When he has a good waveform his O2 sat is 95 to 96% on 1-08/06 to 2 L. This is the oxygen flow rate he has been recommended to use at home. At this point I do not have any evidence of ongoing ischemia, pneumonia, other concerning findings. We had a long discussion regarding treatment of his COPD with both he and his spouse who is now present. [place] decision was arrived after informed consent that they want to be discharged home for continued treatment. We will go ahead and place him on a short course of steroids as well and have him increase his albuterol nebulizer to 4-5 times daily from his 2 times daily currently. Time: 17:05 Vital Signs: Vital signs: Vital Signs Pulse Rate 87 08/15/22 15:00 Respiratory Rate 31 H 08/15/22 15:00 Blood Pressure 110/65 08/15/22 14:45 Pulse Oximetry 91 08/15/22 14:30 Oxygen Delivery Me thod 08/15/22 14:02 Oxygen Flow Rate 4 08/15/22 14:02 MDM - SOB/Dyspnea Medical Decision Making Patient presented to our emergency department because of concerns about fluctuating numbers on his pulse oximetry at home. He has not any recent fevers and is using his home oxygen as prescribed. He is only using his nebulizer twice daily. He was recently admitted and discharged from this facility with influenza B and COPD exacerbation. He has known pulmonary congestion as well. He has an ex-smoker. Differential included pulmonary embolus, exacerbation of CHF, ACS, pneumonia etc. His work-up today was reassuring and he remained clinically stable on the oxygen flow rate he normally is accustomed to using. No added benefit was felt to be gained from prolonged observation and or admission at this time and it was felt that he would do as well with increasing his nebulizer treatments as well as a short course of steroids and close follow-up. Both he and his are very agreeable to this plan of care. He is stable at this time to be discharged. Differential Diagnosis Likely acute exacerbation of chronic obstructive airways disease Medical Records I reviewed the patient's medical records. Lab Data I reviewed the patient's lab results. 08/15/22 13:00 08/15/22 13:00 Labs/Radiology: Radiology Impressions Chest X-Ray 08/15/22 13:16 IMPRESSION: 1. Cardiomegaly with elevated central venous pressure. 2. Improving ground-glass infiltrates mid-upper lung zones possibly infectious in nature. Chest CTA 08/15/22 15:01 IMPRESSION: 1. Negative CT angiogram of the chest. No evidence of acute pulmonary embolism. 2. Resolving upper lobe infiltrates presumed infectious/inflammatory in nature. 3. Superimposed diffuse bronchiolitis both lung laguerre more apparent on the current study. 4. Cardiomegaly unchanged. 5. Mild mediastinal lymphadenopathy, stable, nonspecific. Consider follow-up CT chest in 6 months for continued surveillance. Laboratory Results WBC 9.0 10^3/uL (4.0-10.0) 08/15/22 13:00 RBC 4.55 10^6/uL (4.1-5.3) 08/15/22 13:00 Hgb 12.1 g/dL (11.7-16.6) 08/15/22 13:00 Hct 41.3 % (42.0-52.0) L 08/15/22 13:00 MCV 90.8 fl (80-94) 08/15/22 13:00 MCH 26.6 pg (28.0-34.0) L 08/15/22 13:00 MCHC 29.3 g/dL (30.0-36.0) L 08/15/22 13:00 RDW 14.4 % (12.1-15.1) 08/15/22 13:00 Plt Count 242 10^3/cmm (130-400) 08/15/22 13:00 MPV 10.4 fL (7.4-10.4) 08/15/22 13:00 Neut % (Auto) 77.1 % 08/15/22 13:00 Lymph % (Auto) 11.9 % 08/15/22 13:00 [place] % (Auto) 6.8 % 08/15/22 13:00 Eos % (Auto) 3.5 % 08/15/22 13:00 Baso % (Auto) 0.4 % 08/15/22 13:00 Neut # (Auto) 6.91 10^3/uL (1.8-7.7) 08/15/22 13:00 Lymph # (Auto) 1.1 10^3/uL (0.8-4.8) 08/15/22 13:00 [place] # (Auto) 0.6 10^3/uL (0.2-0.9) 08/15/22 13:00 Eos # (Auto) 0.3 10^3/uL (0.0-0.8) 08/15/22 13:00 Baso # (Auto) 0.0 10^3/uL (0.0-0.1) 08/15/22 13:00 Nucleated RBC % (auto) 0 % 08/15/22 13:00 Nucleated RBCs # 0.0 /100WBC 08/15/22 13:00 D-Dimer 0.98 ug/mIFEU (0-0.59) H 08/15/22 13:00 Specimen Type Arterial 08/15/22 13:39 Sample Site Radial, right 08/15/22 13:39 ABG pH 7.29 (7.35-7.45) L 08/15/22 13:39 ABG pCO2 79.7 mmHg (35-45) H* 08/15/22 13:39 ABG pO2 58.1 mmHg (80.0-100.0) L 08/15/22 13:39 ABG HCO3 38.3 mmol/L (22-26) H 08/15/22 13:39 ABG Base Excess 8.7 mmol/L (-2.0-2.0) H 08/15/22 13:39 Sean Test Pos 08/15/22 13:39 Hematocrit 40.1 % (42-52) L 08/15/22 13:39 Hgb O2 Saturation 87.0 % (95-100) L 08/15/22 13:39 Carboxyhemoglobin 1.9 %THgb (0.4-20.1) 08/15/22 13:39 Methemoglobin 0.5 % (0.4-1.5) 08/15/22 13:39 Total Hemoglobin 13.1 g/dL (14-18) L 08/15/22 13:39 O2 Delivery Device Nc 08/15/22 13:39 O2 Liters/Min 4.0 % 08/15/22 13:39 FiO2 36.0 % 08/15/22 13:39 Change Control Manager ID glc 08/15/22 13:39 Sodium 137 mmol/L (136-145) 08/15/22 13:00 Potassium 4.8 mmol/L (3.5-5.1) 08/15/22 13:00 Chloride 96 mmol/L (98-107) L 08/15/22 13:00 Carbon Dioxide 36 mmol/L (22-29) H 08/15/22 13:00 Anion Gap 9.8 (5-19) 08/15/22 13:00 BUN 14 mg/dL (8-23) 08/15/22 13:00 Creatinine 0.4 mg/dL (0.7-1.2) L 08/15/22 13:00 GFR Calculation Not Reportable 08/15/22 13:00 Glucose 152 mg/dL (65-115) H 08/15/22 13:00 Calculated Osmolality 287 mOsm/kg (285-295) 08/15/22 13:00 Calcium 8.6 mg/dL (8.5-10.5) 08/15/22 13:00 Total Bilirubin 0.3 mg/dL (0.15-1.2) 08/15/22 13:00 AST 14 U/L (0-40) 08/15/22 13:00 ALT 13 U/L (0-41) 08/15/22 13:00 Alkaline Phosphatase 79 U/L (40-130) 08/15/22 13:00 Troponin T Baseline 18 ng/L (0-15) H 08/15/22 13:00 Troponin T 120 Minute 17.89 ng/L (0-15) H 08/15/22 14:50 Delta Troponin T -0.11 ABS# (0-10) L 08/15/22 14:50 NT-Pro-B Natriuret Pep 929 pg/mL (0-450) H 08/15/22 13:00 Total Protein 7.2 g/dL (6.6-8.7) 08/15/22 13:00 Albumin 3.5 g/dL (3.5-5.2) 08/15/22 13:00 Globulin 3.7 g/dL (1.3-4.6) 08/15/22 13:00 EKG Data EKG 1: I personally reviewed and interpreted this EKG as follows: Interpretation: Contemporaneous review of EKG reveals ventricular rate of 77 bpm. KS interval is prolonged at 259 ms consistent with a first-degree AV block. QRS durations also widened consistent with a right bundle branch block. QTc intervals normal. Axes are normal. No acute ST-T wave changes noted on this tracing. EKG 2: I personally reviewed and interpreted this EKG as follows: Interpretation: Second EKG contemporaneously reviewed this visit reveals a ventricular rate of 86 bpm. He has findings with prolonged KS interval consistent with a first-degree AV block as well as a concomitant right bundle branch block. No evidence of ongoing acute ST-T wave changes or evidence of ischemia etc. Discharge Plan Discharge Patient Disposition: Home Clinical Impression: Acute exacerbation of chronic obstructive airways disease Condition: Stable Prescriptions: New prednisone 20 mg tablet 20 mg PO BID 5 Days Qty: 10 0RF No Action amlodipine 10 mg tablet 10 mg PO QAM potassium chloride 20 mEq tablet extended release 10 meq PO DAILY PRN (Reason: when taking lasix) multivitamin Tablet 1 tab PO BEDTIME trazodone 50 mg tablet 50 - 100 mg PO BEDTIME PRN (Reason: Insomnia) albuterol sulfate [ProAir HFA] 90 mcg/actuation HFA aerosol inhaler 2 puff INHALATION QID PRN (Reason: Shortness Of Breath) fluticasone propionate [Flonase Allergy Relief] 50 mcg/actuation spray,suspension 2 spray INTRANASAL DAILY PRN (Reason: Allergy Symptoms) ascorbic acid (vitamin C) 500 mg capsule 500 mg PO QAM gemfibrozil [Lopid] 600 mg tablet 600 mg PO BID aspirin [Adult Low Dose Aspirin] 81 mg tablet,delayed release (DR/EC) 81 mg PO BEDTIME Hold Instructions: Resume on 05/11/22. Resume 81 mg aspirin following 30 days of full strength 325 mg furosemide 40 mg tablet 40 mg PO DAILY PRN (Reason: edema) Qty: 30 6RF nitroglycerin [Nitrostat] 0.4 mg tablet, sublingual 0.4 mg SUBLINGUAL Q5M PRN (Reason: chest pain) Qty: 25 3RF metoprolol tartrate 50 mg tablet See Rx Instructions .ROUTE .COMPLEX Rx Instructions: 75mg po in the am and 50mg po qpm losartan 100 mg Tablet 100 mg PO DAILY carboxymethylcellulose sodium 1 % Drops, Liquid Gel 2 drp OPHTHALMIC (EYE) BID PRN (Reason: Dry Eye(S)) Twain Saline 0.65 % Aerosol,[place] 1 spray INTRANASAL BID PRN (Reason: Congestion) omega 2-bhq-lhi-fish oil [Fish Oil] 1,200 (144-216) mg Capsule 1 cap PO BID isosorbide mononitrate 30 mg Tablet Extended Release 24 Hr 30 mg PO DAILY Qty: 0 0RF hydrocodone-acetaminophen 10-325 mg Tablet 1 tab PO Q6H PRN (Reason: Pain) docusate sodium 100 mg Capsule 100 mg PO BID PRN (Reason: Constipation) budesonide 0.5 mg/2 mL Suspension For Nebulization 0.5 mg inhalation BID.RESPIRATORY Qty: 120 0RF Discharge Orders: Discharge ED (Routine); Ordered 08/15/22 Ordered By: Bridger Lundy Referrals: Catherine Morse MD [Primary Care Provider] - Discharge Diet: Usual diet Discharge Activity: Increase activity as tolerated and Oxygen as instructed Patient Instructions: Opioid Safety, Pain Management Activity Restrictions/Additional Instructions: Increase your use of your albuterol nebulizer to 4?5 times daily. For 2 of those treatments you may mix the budesonide in with your albuterol. We have prescribed another 5-day course of prednisone to help improve your symptoms. Continue to use your oxygen at 1-2 L/min as previously recommended. Do not increase your oxygen level over 2 L/min unless absolutely necessary. Monitor your oxygen level with your pulse oximetry meter at home. If your symptoms do not continue to improve or worsen at any time return to this or the nearest emergency department for reevaluation. Coding Level of Care Code ED Stripping And Booking Machine Operator for Chg Fwd Exam Comprehensive
--- NOTE | 2022-08-15 13:25 | ECG_ITS ---
[facility] Test Date: 2022-08-15 Pat Name: Rickey Bob Department: Room: Gender: Male Collections Technician: : 1945 Requested By: Bridger Lundy Order Number: [id number] Evan MD: Car Stafford M.D. Measurements Intervals [place] Rate: 77 P: 54 PA: 259 QRS: 81 QRSD: 134 T: 58 QT: 391 QTc: 443 Interpretive Statements SINUS RHYTHM WITH FIRST DEGREE AV BLOCK RIGHT BUNDLE BRANCH BLOCK [120+ ms QRS DURATION, UPRIGHT V1, 40+ ms S IN I/aVL/V4/V5/V6] Compared to ECG 07/16/2022 15:38:34 Sinus arrhythmia no longer present Right-axis deviation no longer present Electronically Signed On 08-15-2022 21:43:16 MEMORIAL COUNSELOR by Car Stafford M.D. [id number]
[2022-08-15 13:30] LABS: Basophils % 0.4 %; Eosinophils # 0.3 10^3/uL (0.0-0.8); Eosinophils % 3.5 %; Hematocrit 41.3 % (42.0-52.0); Hemoglobin 12.1 g/dL (11.7-16.6); Lymphocytes # 1.1 10^3/uL (0.8-4.8); Lymphocytes % 11.9 %; Mean Corpuscular HGB Conc 29.3 g/dL (30.0-36.0); Mean Corpuscular Hemoglobin 26.6 pg (28.0-34.0); Mean Corpuscular Volume 90.8 fl (80-94); Mean Platelet Volume 10.4 fL (7.4-10.4); Monocytes # 0.6 10^3/uL (0.2-0.9); Monocytes % 6.8 %; Neutrophils # 6.91 10^3/uL (1.8-7.7); Neutrophils % 77.1 %; Nucleated Red Blood Cells % 0 %; Platelet Count 242 10^3/cmm (130-400); Red Blood Count 4.55 10^6/uL (4.1-5.3); Red Cell Distribution Width 14.4 % (12.1-15.1)
[2022-08-15 13:45] LABS: Alanine Aminotransferase 13 U/L (0-41); Albumin Level 3.5 g/dL (3.5-5.2); Alkaline Phosphatase 79 U/L (40-130); Blood Urea Nitrogen 14 mg/dL (8-23); Calcium 8.6 mg/dL (8.5-10.5); Carbon Dioxide 36 mmol/L (22-29); Chloride 96 mmol/L (98-107); Globulin 3.7 g/dL (1.3-4.6); Glucose 152 mg/dL (65-115); NT Pro B Type Natriuretic Pept 929 pg/mL (0-450); Osmolality Calculated 287 mOsm/kg (285-295); Sodium 137 mmol/L (136-145); Total Bilirubin 0.3 mg/dL (0.15-1.2); Total Protein 7.2 g/dL (6.6-8.7)
[2022-08-15 13:47] LABS: Anion Gap 9.8 (5-19); Aspartate Amino Transferase 14 U/L (0-40); Potassium 4.8 mmol/L (3.5-5.1)
[2022-08-15 13:49] LABS: ABG PH Result 7.29 (7.35-7.45); Arterial Blood Gas Hematocrit 40.1 % (42-52); Base Excess ABG 8.7 mmol/L (-2.0-2.0); Blood Gas Allen Test Pos; Blood Gas Operator Identificat glc; Blood Gas Sample Site Radial, right; Blood Gas Sample Type Arterial; Carboxyhemoglobin 1.9 %THgb (0.4-20.1); HCO3 ABG 38.3 mmol/L (22-26); Methemoglobin 0.5 % (0.4-1.5); Oxygen Device NC; PO2 ABG 58.1 mmHg (80.0-100.0); Total Hemoglobin 13.1 g/dL (14-18)
[2022-08-15 13:50] LABS: ABG PCO2 79.7 mmHg (35-45)
[2022-08-15 13:58] LABS: D Dimer 0.98 ug/mIFEU (0-0.59)
[2022-08-15] MEDS: ipratropium-albuterol 3 mL Neb INHALATION (14:00)
[2022-08-15 14:01] LABS: Troponin(5th) Baseline 18 ng/L (0-15)
--- NOTE | 2022-08-15 15:01 | CTR_ITS ---
PROCEDURE INFORMATION: Exam: CTA Chest With Contrast Exam date and time: 08/15/2022 3:58 PM Age: 77 years old Clinical indication: Abnormal findings; Abnormal diagnostic tests; Elevated d-dimer; Shortness of breath; Prior surgery; Surgery type: Stents; Additional info: SOB, elevated dimer TECHNIQUE: Imaging protocol: Computed tomographic angiography of the chest with contrast. 3D rendering (Not supervised by radiologist): MIP and/or 3D reconstructed images were created by the technologist. Radiation optimization: All CT scans at this facility use at least one of these dose optimization techniques: automated exposure control; mA and/or kV adjustment per patient size (includes targeted exams where dose is matched to clinical indication); or iterative reconstruction. Contrast material: OMNI 350; Contrast volume: 100 ml; Contrast route: INTRAVENOUS (IV); COMPARISON: CT angio chest PE protcl [id number] 07/17/2022 11:10 AM RADIATION DOSE METRICS: Total DLP (mGy-cm): 787.1 FINDINGS: Pulmonary arteries: Pulmonary vasculature is adequately opacified without filling defects or other evidence of acute pulmonary embolism. Aorta: Unremarkable. No aortic aneurysm. No aortic dissection. Lungs: Resolving multifocal upper lobe infiltrates both lung laguerre presumed infectious or inflammatory in nature. There are superimposed scattered centrilobular/ indistinct micronodular opacities both lung laguerre more apparent on the current study that may represent diffuse bronchiolitis. There are minimal bibasilar pleural effusions with adjacent passive atelectasis that has improved. Pleural spaces: See Lungs finding. Heart: Heart is moderately enlarged. Diffuse calcification of coronary arteries. No significant pericardial effusion. Lymph nodes: Mild mediastinal lymphadenopathy, stable but nonspecific. Liver: Liver is partially visualized and appears enlarged with fatty infiltration. Bones/joints: Unremarkable. No acute fracture. Soft tissues: Unremarkable. CT/CT angio chest PE protcl [id number] IMPRESSION: 1. Negative CT angiogram of the chest. No evidence of acute pulmonary embolism. 2. Resolving upper lobe infiltrates presumed infectious/inflammatory in nature. 3. Superimposed diffuse bronchiolitis both lung laguerre more apparent on the current study. 4. Cardiomegaly unchanged. 5. Mild mediastinal lymphadenopathy, stable, nonspecific. Consider follow-up CT chest in 6 months for continued surveillance.
[2022-08-15 15:17] LABS: Troponin 5 2HR 17.89 ng/L (0-15)
[2022-08-15 15:19] LABS: Troponin 5 2HR Delta -0.11 ABS# (0-10)
[2022-08-15] MEDS: iohexol 350 mg/mL 500 mL Btl (per mL) IV (16:09)
--- NOTE | 2022-08-15 16:21 | ECG_ITS ---
[facility] Test Date: 2022-08-15 Pat Name: Rickey Bob Department: Room: Gender: Male Turner In: : 1945 Requested By: Bridger Lundy Order Number: [id number] Evan MD: Car Stafford M.D. Measurements Intervals Lane Rate: 86 P: 42 AZ: 244 QRS: 125 QRSD: 138 T: 52 QT: 396 QTc: 475 Interpretive Statements SINUS RHYTHM WITH FIRST DEGREE AV BLOCK RIGHT BUNDLE BRANCH BLOCK [120+ ms QRS DURATION, UPRIGHT V1, 40+ ms S IN I/aVL/V4/V5/V6] LEFT POSTERIOR FASCICULAR BLOCK [QRS AXIS > 109, INFERIOR Q] Compared to ECG 08/15/2022 13:52:28 Left posterior fascicular block now present Electronically Signed On 08-15-2022 21:48:51 ORGAN PIPE FINISHER by Car Stafford M.D. [id number]
== END 2022-08-15 17:48 | disposition home or self-care (01) ==
PROVIDERS: Emergency Provider Emergency Medicine; PCP Family Medicine
DX: J44.1 Chronic obstructive pulmonary disease with (acute) exacerbation (principal); Z79.82 Long term (current) use of aspirin; I25.10 Atherosclerotic heart disease of native coronary artery without angina pectoris; I50.9 Heart failure, unspecified; I25.2 Old myocardial infarction; E78.5 Hyperlipidemia, unspecified; F17.210 Nicotine dependence, cigarettes, uncomplicated
CPT/HCPCS: 36415; 36600; 71045; 71275; 80053; 82805; 83880; 84484; 85025; 85378; 93005; 94640; 99285; Q9967

== ENCOUNTER 2022-08-18 01:56 | Inpatient (IN) | payer OTHER, SELFPAY ==
[2022-08-18] VITALS (51 sets, daily range): BP systolic 96–198; BP diastolic 45–131; PULSE 68–95; RESP 16–41; TEMP 36.1–37.2; O2SAT 87–98
--- NOTE | 2022-08-18 01:58 | ECG_ITS ---
[facility] Test Date: 2022-08-18 Pat Name: Rickey Bob Department: Room: Gender: Male Cisco Network Architect: : 1945 Requested By: Manuel Hawkins Order Number: [id number] Evan MD: Jamaal Potter M.D. Measurements Intervals [place] Rate: 73 P: 35 MD: 241 QRS: 77 QRSD: 129 T: 55 QT: 387 QTc: 429 Interpretive Statements SINUS RHYTHM WITH FIRST DEGREE AV BLOCK RIGHT BUNDLE BRANCH BLOCK [120+ ms QRS DURATION, UPRIGHT V1, 40+ ms S IN I/aVL/V4/V5/V6] Compared to ECG 08/15/2022 16:21:25 Left posterior fascicular block no longer present Electronically Signed On 08-18-2022 14:25:16 PONY CYLINDER PRESS OPERATOR by Jamaal Potter M.D. [id number]
--- NOTE | 2022-08-18 01:59 | XRR_ITS ---
PROCEDURE INFORMATION: Exam: XR Chest Exam date and time: 08/18/2022 2:18 AM Age: 77 years old Clinical indication: Shortness of breath; Additional info: SOB TECHNIQUE: Imaging protocol: Radiologic exam of the chest. Views: 1 view. COMPARISON: CR XR chest 1V portable [id number] 08/15/2022 1:19 PM FINDINGS: Lungs: Diffuse increase in interstitial lung markings similar to comparison. Patchy lower lung opacities similar to comparison imaging. Low lung volumes similar to comparison imaging. Prominent central pulmonary vasculature. Pleural spaces: Unremarkable. No pleural effusion. No pneumothorax. Heart/Mediastinum: Cardiomegaly. Bones/joints: Unremarkable. XR/XR chest 1V portable [id number] IMPRESSION: Intrathoracic fluid overload changes are suspected similar to comparison imaging.
--- NOTE | 2022-08-18 02:11 | W.ED.SOB ---
HPI - SOB/Dyspnea General: Chief Complaint: Shortness of Breath/Dyspnea Stated Complaint: SOB Time Seen by Provider: 08/18/22 01:57 Source: patient and EMS Mode of arrival: EMS Limitations: no limitations History of Present Illness: HPI Narrative: 77-year-old male he has a history of CHF he is also a chronic smoker seen here 2 days ago for shortness of breath he is on 2 L at baseline he is placed on steroids he states that tonight he got much worse when EMS arrived he was in the low 80s he is requiring 4 L of oxygen here at this time he is in distress with audible wheezing as well had a slight cough denies any fever denies any chest pain. Associated symptoms: Deny abdominal pain, chest pain, fever(s), nausea or vomiting Review of Systems Const: Denies: fever(s), chills, body aches or change in appetite Eyes: Denies: blurry vision or eye discomfort ENMT: Denies: throat pain or dental pain Card: Denies: chest pain Resp: Reports: dyspnea and non-productive cough GI: Denies: abdominal pain, nausea, vomiting or diarrhea : Denies: dysuria Musc: Denies: neck pain or back pain Skin/Breast: Denies: rash Neuro: Denies: headache(s) Psych: Denies: depression Ry/Lymph: Denies: easy bruising All/Imm: Denies: urticaria PFSH ED PFSH: Medical History CAD (coronary artery disease) CHF (congestive heart failure), NYHA class III Chronic back pain COPD (chronic obstructive pulmonary disease) Diastolic heart failure History of [place] (myocardial infarction) Hyperlipidemia PAOD (peripheral arterial occlusive disease) Surgical History S/P appendectomy S/P excision of vocal cord nodule S/P knee surgery S/P PTCA (percutaneous transluminal coronary angioplasty) S/P tonsillectomy and adenoidectomy Family History Mother CAD (coronary artery disease) Father CAD (coronary artery disease) Brother , Age 44 [place] Myocardial infarct Other Cancer Social History Smoking and tobacco status: current every day smoker cigarettes Alcohol intake: current Alcohol intake frequency: 3 or more drinks per day Alcohol type: beer Lives independently: Yes Household members: spouse Marital status: service: Yes status: Retired branch: [employer] Current occupational status: disabled History of recent travel: No Current gender identity: Male Special cherise needs: No Agree to transfusion: Yes Physical Exam Const: COMMON NORMALS: patient oriented x3 GENERAL APPEARANCE: in distress and ill appearing HENMT: COMMON NORMALS: normocephalic and atraumatic HEAD & SCALP: normocephalic and atraumatic Eye: COMMON NORMALS: Equal, round and reactive pupils present and EOMs intact bilaterally PUPIL: Yes Equal, round and reactive pupils present Neck/C-Spine: COMMON NORMALS: full ROM and supple Chest: COMMONS NORMALS: normal inspection of the chest and normal palpation of entire chest wall Resp: EFFORT & INSPECTION: Yes tachypneic and Yes respiratory distress AUSCULTATION: wheezes Cardio: COMMON NORMALS: regular rate, regular rhythm and No murmurs present (Cardio) RATE: regular rate RHYTHM: regular rhythm GI: COMMON NORMALS: Normal to inspection, nondistended, normoactive bowel sounds present, Soft to palpation, non-tender and no masses PALPATION: Yes Soft to palpation Extremity: COMMON NORMALS: normal to inspection and full ROM Neuro: COMMON NORMALS: patient oriented x3, moves all extremities and no focal motor deficits Psych: COMMON NORMALS: mental status grossly normal, Normal thought process present and cooperative THOUGHT PROCESS: Normal thought process present Skin: COMMON NORMALS: no rashes or lesions noted and no wounds GENERAL SKIN EXAM: no rashes or lesions noted Course Vital Signs: Vital signs: Vital Signs Temperature 98.9 F 08/18/22 01:57 Pulse Rate 83 08/18/22 03:06 Respiratory Rate 16 08/18/22 02:34 Blood Pressure 155/131 08/18/22 03:06 Pulse Oximetry 98 08/18/22 03:06 Oxygen Delivery Me thod 08/18/22 03:06 Oxygen Flow Rate 5 08/18/22 02:34 MDM - SOB/Dyspnea Medical Decision Making Patient presents here with shortness of breath likely COPD exacerbation he was hypercapnic placed him on BiPAP his ABG is improved spoke to hospitalist will admit at this time he has failed outpatient treatment as well he has been on steroids at home. No signs of pneumonia. Lab Data 08/18/22 02:14 08/18/22 02:40 Labs/Radiology: Laboratory Results WBC 9.4 10^3/uL (4.0-10.0) 08/18/22 02:14 RBC 4.85 10^6/uL (4.1-5.3) 08/18/22 02:14 Hgb 12.8 g/dL (11.7-16.6) 08/18/22 02:14 Hct 43.4 % (42.0-52.0) 08/18/22 02:14 MCV 89.5 fl (80-94) 08/18/22 02:14 MCH 26.4 pg (28.0-34.0) L 08/18/22 02:14 MCHC 29.5 g/dL (30.0-36.0) L 08/18/22 02:14 RDW 14.4 % (12.1-15.1) 08/18/22 02:14 Plt Count 252 10^3/cmm (130-400) 08/18/22 02:14 MPV 10.7 fL (7.4-10.4) H 08/18/22 02:14 Neut % (Auto) 78.0 % 08/18/22 02:14 Lymph % (Auto) 11.8 % 08/18/22 02:14 Reynolds % (Auto) 6.4 % 08/18/22 02:14 Eos % (Auto) 3.0 % 08/18/22 02:14 Baso % (Auto) 0.5 % 08/18/22 02:14 Neut # (Auto) 7.32 10^3/uL (1.8-7.7) 08/18/22 02:14 Lymph # (Auto) 1.1 10^3/uL (0.8-4.8) 08/18/22 02:14 Reynolds # (Auto) 0.6 10^3/uL (0.2-0.9) 08/18/22 02:14 Eos # (Auto) 0.3 10^3/uL (0.0-0.8) 08/18/22 02:14 Baso # (Auto) 0.1 10^3/uL (0.0-0.1) 08/18/22 02:14 Nucleated RBC % (auto) 0 % 08/18/22 02:14 Nucleated RBCs # 0.0 /100WBC 08/18/22 02:14 Specimen Type Arterial 08/18/22 03:58 Sample Site Radial, left 08/18/22 03:58 ABG pH 7.39 (7.35-7.45) 08/18/22 03:58 ABG pCO2 60.2 mmHg (35-45) H* 08/18/22 03:58 ABG pO2 70.8 mmHg (80.0-100.0) L 08/18/22 03:58 ABG HCO3 36.4 mmol/L (22-26) H 08/18/22 03:58 ABG Base Excess 9.1 mmol/L (-2.0-2.0) H 08/18/22 03:58 Sean Test Pos 08/18/22 03:58 Hematocrit 41.7 % (42-52) L 08/18/22 03:58 Hgb O2 Saturation 94.0 % (95-100) L 08/18/22 02:34 Carboxyhemoglobin 1.6 %THgb (0.4-20.1) 08/18/22 02:34 Methemoglobin 0.5 % (0.4-1.5) 08/18/22 02:34 Total Hemoglobin 13.2 g/dL (14-18) L 08/18/22 02:34 O2 Delivery Device Bipap 08/18/22 03:58 O2 Liters/Min 5.0 % 08/18/22 02:34 FiO2 40.0 % 08/18/22 03:58 PEEP 6.0 cmH20 08/18/22 03:58 Rubber Factory Worker ID [email or web address] 08/18/22 03:58 Sodium 136 mmol/L (136-145) 08/18/22 02:40 Potassium 5.1 mmol/L (3.5-5.1) 08/18/22 02:40 Chloride 94 mmol/L (98-107) L 08/18/22 02:40 Carbon Dioxide 36 mmol/L (22-29) H 08/18/22 02:40 Anion Gap 11.1 (5-19) 08/18/22 02:40 BUN 18 mg/dL (8-23) 08/18/22 02:40 Creatinine 0.5 mg/dL (0.7-1.2) L 08/18/22 02:40 GFR Calculation Not Reportable 08/18/22 02:40 Glucose 110 mg/dL (65-115) 08/18/22 02:40 Calculated Osmolality 285 mOsm/kg (285-295) 08/18/22 02:40 Calcium 8.9 mg/dL (8.5-10.5) 08/18/22 02:40 Total Bilirubin 0.2 mg/dL (0.15-1.2) 08/18/22 02:40 AST 14 U/L (0-40) 08/18/22 02:40 ALT 18 U/L (0-41) 08/18/22 02:40 Alkaline Phosphatase 87 U/L (40-130) 08/18/22 02:40 NT-Pro-B Natriuret Pep 719 pg/mL (0-450) H 08/18/22 02:40 Total Protein 7.9 g/dL (6.6-8.7) 08/18/22 02:40 Albumin 3.8 g/dL (3.5-5.2) 08/18/22 02:40 Globulin 4.1 g/dL (1.3-4.6) 08/18/22 02:40 Critical Care Time Critical Care Time: Critical Care Time: Yes Total Critical Care Time: 40 Attestation: The high probability of a clinically significant, sudden or life threatening deterioration of the patient's resp system(s) required my full and direct attention, intervention and personal management. The critical care time is as shown. This time is in addition to time spent performing any reported procedures but includes the following: [x] Data and vital sign review and interpretation [x] Patient assessment, examination and intervention [x] Documentation [x] Medication orders and management Discharge Plan Discharge Patient Disposition: Admitted As Inpatient Clinical Impression: Acute exacerbation of chronic obstructive airways disease, Acute and chronic respiratory failure with hypercapnia Condition: Stable Prescriptions: No Action amlodipine 10 mg tablet 10 mg PO QAM potassium chloride 20 mEq tablet extended release 10 meq PO DAILY PRN (Reason: when taking lasix) multivitamin Tablet 1 tab PO BEDTIME trazodone 50 mg tablet 50 - 100 mg PO BEDTIME PRN (Reason: Insomnia) albuterol sulfate [ProAir HFA] 90 mcg/actuation HFA aerosol inhaler 2 puff INHALATION QID PRN (Reason: Shortness Of Breath) fluticasone propionate [Flonase Allergy Relief] 50 mcg/actuation spray,suspension 2 spray INTRANASAL DAILY PRN (Reason: Allergy Symptoms) ascorbic acid (vitamin C) 500 mg capsule 500 mg PO QAM gemfibrozil [Lopid] 600 mg tablet 600 mg PO BID aspirin [Adult Low Dose Aspirin] 81 mg tablet,delayed release (DR/EC) 81 mg PO BEDTIME Hold Instructions: Resume on 05/11/22. Resume 81 mg aspirin following 30 days of full strength 325 mg furosemide 40 mg tablet 40 mg PO DAILY PRN (Reason: edema) Qty: 30 6RF nitroglycerin [Nitrostat] 0.4 mg tablet, sublingual 0.4 mg SUBLINGUAL Q5M PRN (Reason: chest pain) Qty: 25 3RF metoprolol tartrate 50 mg tablet See Rx Instructions .ROUTE .COMPLEX Rx Instructions: 75mg po in the am and 50mg po qpm losartan 100 mg Tablet 100 mg PO DAILY carboxymethylcellulose sodium 1 % Drops, Liquid Gel 2 drp OPHTHALMIC (EYE) BID PRN (Reason: Dry Eye(S)) [place] Saline 0.65 % Aerosol,[place] 1 spray INTRANASAL BID PRN (Reason: Congestion) omega 9-gkv-iww-fish oil [Fish Oil] 1,200 (144-216) mg Capsule 1 cap PO BID isosorbide mononitrate 30 mg Tablet Extended Release 24 Hr 30 mg PO DAILY Qty: 0 0RF hydrocodone-acetaminophen 10-325 mg Tablet 1 tab PO Q6H PRN (Reason: Pain) docusate sodium 100 mg Capsule 100 mg PO BID PRN (Reason: Constipation) prednisone 20 mg tablet 20 mg PO BID 5 Days Qty: 10 0RF budesonide 0.5 mg/2 mL Suspension For Nebulization 0.5 mg inhalation BID.RESPIRATORY Qty: 120 0RF Referrals: Catherine Morse MD [Primary Care Provider] - Coding Level of Care Code ED Manager Search Engine for Chg Fwd Exam Comprehensive
[2022-08-18 02:21] LABS: Basophils # 0.1 10^3/uL (0.0-0.1); Basophils % 0.5 %; Eosinophils # 0.3 10^3/uL (0.0-0.8); Hematocrit 43.4 % (42.0-52.0); Hemoglobin 12.8 g/dL (11.7-16.6); Lymphocytes # 1.1 10^3/uL (0.8-4.8); Lymphocytes % 11.8 %; Mean Corpuscular HGB Conc 29.5 g/dL (30.0-36.0); Mean Corpuscular Hemoglobin 26.4 pg (28.0-34.0); Mean Corpuscular Volume 89.5 fl (80-94); Mean Platelet Volume 10.7 fL (7.4-10.4); Monocytes # 0.6 10^3/uL (0.2-0.9); Monocytes % 6.4 %; Neutrophils # 7.32 10^3/uL (1.8-7.7); Nucleated Red Blood Cells % 0 %; Platelet Count 252 10^3/cmm (130-400); Red Blood Count 4.85 10^6/uL (4.1-5.3); Red Cell Distribution Width 14.4 % (12.1-15.1); White Blood Count 9.4 10^3/uL (4.0-10.0)
[2022-08-18] MEDS: albuterol 2.5 mg/3 mL Neb INHALATION (02:31)
[2022-08-18 02:45] LABS: ABG PH Result 7.25 (7.35-7.45); Arterial Blood Gas Hematocrit 40.5 % (42-52); Base Excess ABG 7.5 mmol/L (-2.0-2.0); Blood Gas Allen Test Pos; Blood Gas Sample Site Radial, left; Blood Gas Sample Type Arterial; Carboxyhemoglobin 1.6 %THgb (0.4-20.1); Methemoglobin 0.5 % (0.4-1.5); Oxygen Device NC; PO2 ABG 88.8 mmHg (80.0-100.0); Total Hemoglobin 13.2 g/dL (14-18)
[2022-08-18] MEDS: hyDRALAzine 20 mg/mL INJ 1 mL 10 MG IVP (03:03)
[2022-08-18 03:28] LABS: Alanine Aminotransferase 18 U/L (0-41); Albumin Level 3.8 g/dL (3.5-5.2); Alkaline Phosphatase 87 U/L (40-130); Anion Gap 11.1 (5-19); Aspartate Amino Transferase 14 U/L (0-40); Blood Urea Nitrogen 18 mg/dL (8-23); Calcium 8.9 mg/dL (8.5-10.5); Carbon Dioxide 36 mmol/L (22-29); Chloride 94 mmol/L (98-107); Globulin 4.1 g/dL (1.3-4.6); Glucose 110 mg/dL (65-115); NT Pro B Type Natriuretic Pept 719 pg/mL (0-450); Osmolality Calculated 285 mOsm/kg (285-295); Potassium 5.1 mmol/L (3.5-5.1); Sodium 136 mmol/L (136-145); Total Bilirubin 0.2 mg/dL (0.15-1.2); Total Protein 7.9 g/dL (6.6-8.7)
[2022-08-18 04:10] LABS: ABG PH Result 7.39 (7.35-7.45); Arterial Blood Gas Hematocrit 41.7 % (42-52); Base Excess ABG 9.1 mmol/L (-2.0-2.0); Blood Gas Allen Test Pos; Blood Gas Sample Site Radial, left; Blood Gas Sample Type Arterial; HCO3 ABG 36.4 mmol/L (22-26); Oxygen Device BIPAP; PO2 ABG 70.8 mmHg (80.0-100.0)
[2022-08-18 04:13] LABS: ABG PCO2 86.7 mmHg (35-45)
[2022-08-18 04:13] LABS: ABG PCO2 60.2 mmHg (35-45)
[2022-08-18] MEDS: FUROsemide 10 mg/mL SDV 4mL 40 MG IVP (04:17)
[2022-08-18 04:48] LABS: Adenovirus Not Detected (NOT DETECT); Chlamydia Pneumoniae Not Detected (NOT DETECT); Coronavirus 229E,HKU1,NL63,OC4 Not Detected (NOT DETECT); Human Metapneumovirus Not Detected (NOT DETECT); Human Rhinovirus/Enterovirus Not Detected (NOT DETECT); Influenza A Not Detected (NOT DETECT); Influenza A H1 Not Detected (NOT DETECT); Influenza A H1-2009 Not Detected (NOT DETECT); Influenza A H3 Not Detected (NOT DETECT); Influenza B Not Detected (NOT DETECT); Mycoplasma Pneumoniae Not Detected (NOT DETECT); Parainfluenza Virus Type 1 Not Detected (NOT DETECT); Parainfluenza Virus Type 2 Not Detected (NOT DETECT); Parainfluenza Virus Type 3 Not Detected (NOT DETECT); Parainfluenza Virus Type 4 Not Detected (NOT DETECT); Respiratory Syncytial Virus A Not Detected (NOT DETECT); Respiratory Syncytial Virus B Not Detected (NOT DETECT); SARS-COV-2 Not Detected (NOT DETECT)
--- NOTE | 2022-08-18 04:54 | PM.HP ---
Providers/Chief Complaint Primary Care Provider: Catherine Morse MD Chief Complaint: SOB History of Present Illness Rickey Bob is a 77 year old male with a past medical history of chronic respiratory failure, obesity, COPD, CHF, diastolic CHF, CAD, who presents [facility] for cough, shortness of breath,, increased confusion. Currently patient is on the BiPAP, sitting up in a chair, he is actually using a urinal, he tells me that the reason he came to the hospital was he was increasingly confused. He has been having a nonproductive cough, increasingly he is felt short of breath, at rest with exertion. No chest pain, no palpitations, does have orthopnea. He denies current smoking. He was here in the emergency room he tells me a few days ago and they told him that he does not have a pneumonia he was given steroids and sent home. However he continued to feel short of breath, uses 2 L at home, when he arrived, he required 4 L, O2 sats in the low 80s, was in respiratory distress, placed on BiPAP, currently he is quite comfortable on the BiPAP, alert oriented x3, following all commands, no evidence of respiratory distress, on his CO2 levels have decreased to the 60s Review of Systems Const: Denies: fever(s) Eyes: Denies: change in vision Card: Denies: chest pain Resp: Reports: dyspnea and non-productive cough GI: Denies: abdominal pain : Denies: flank pain or difficulty urinating Musc: Denies: back pain Neuro: Reports: headache(s) Psych: Denies: anxiety Medications/Allergies Home Medications Medication Instructions Recorded Confirmed Last Taken Type albuterol sulfate 90 mcg/actuation 2 puff inhalation QID PRN 11/23/19 08/15/22 Unknown History aerosol inhaler (ProAir HFA) Shortness Of Breath amlodipine 10 mg tablet 10 mg PO QAM 11/23/19 08/15/22 08/15/22 History ascorbic acid (vitamin C) 500 mg 500 mg PO QAM 11/23/19 08/15/22 08/15/22 History capsule aspirin 81 mg tablet,delayed 81 mg PO BEDTIME 11/23/19 08/15/22 08/14/22 History release (Adult Low Dose Aspirin) fluticasone propionate 50 2 spray intranasal DAILY PRN 11/23/19 08/15/22 Unknown History mcg/actuation nasal Allergy Symptoms spray,suspension (Flonase Allergy Relief) gemfibrozil 600 mg tablet (Lopid) 600 mg PO BID 11/23/19 08/15/22 08/15/22 History multivitamin 1 tab PO BEDTIME 11/23/19 08/15/22 08/14/22 History potassium chloride 20 mEq 10 meq PO DAILY PRN when taking 11/23/19 08/15/22 08/15/22 History tablet,extended release lasix trazodone 50 mg tablet 50 - 100 mg PO BEDTIME PRN Insomnia 11/23/19 08/15/22 04/09/22 History furosemide 40 mg tablet 40 mg PO DAILY PRN edema #30 tabs 07/20/20 08/15/22 08/15/22 Rx nitroglycerin 0.4 mg sublingual 0.4 mg sublingual Q5M PRN chest 01/09/21 08/15/22 Unknown Rx tablet (Nitrostat) pain #25 tabs metoprolol tartrate 50 mg tablet See Rx Instructions .Route .COMPLEX 09/06/21 08/15/22 08/15/22 History carboxymethylcellulose sodium 1 % 2 drp ophthalmic (eye) BID PRN Dry 04/11/22 08/15/22 08/15/22 History eye liquid gel drops Eye(S) isosorbide mononitrate 30 mg 30 mg PO DAILY #0 tabs 04/11/22 08/15/22 08/15/22 Rx tablet,extended release 24 hr losartan 100 mg tablet 100 mg PO DAILY 04/11/22 08/15/22 08/15/22 History omega 1-pso-zsl-fish oil 1,200 mg 1 cap PO BID 04/11/22 08/15/22 08/15/22 History (144 mg-216 mg) capsule (Fish Oil) sodium chloride 0.65 % nasal spray 1 spray intranasal BID PRN 04/11/22 08/15/22 Unknown History aerosol ([place] Saline) Congestion budesonide 0.5 mg/2 mL suspension 0.5 mg (2 mL) inhalation 07/19/22 08/15/22 08/14/22 Rx for nebulization BID.RESPIRATORY #120 mL docusate sodium 100 mg capsule 100 mg PO BID PRN Constipation 08/15/22 08/15/22 Unknown History hydrocodone 10 mg-acetaminophen 1 tab PO Q6H PRN Pain 08/15/22 08/15/22 Unknown History 325 mg tablet prednisone 20 mg tablet 20 mg PO BID 5 days #10 tabs 08/15/22 Unknown Rx Allergies Allergy/AdvReac Type Severity Reaction Status Date / Time codeine Allergy Mild itched Verified 07/17/22 11:34 niacin Allergy Unknown Unknown Verified 07/17/22 11:34 succinylcholine Allergy Unknown Unknown Verified 07/17/22 11:34 Oyyqzis-ZSA-ZeI Reductase Allergy ALGY-Joint Verified 07/17/22 11:34 Inhibitor Pain PFSH Acute PFSH: Medical History CAD (coronary artery disease) CHF (congestive heart failure), NYHA class III Chronic back pain COPD (chronic obstructive pulmonary disease) Diastolic heart failure History of [place] (myocardial infarction) Hyperlipidemia PAOD (peripheral arterial occlusive disease) Surgical History S/P appendectomy S/P excision of vocal cord nodule S/P knee surgery S/P PTCA (percutaneous transluminal coronary angioplasty) S/P tonsillectomy and adenoidectomy Family History Mother CAD (coronary artery disease) Father CAD (coronary artery disease) Brother , Age 44 [place] Myocardial infarct Other Cancer Social History Smoking and tobacco status: current every day smoker cigarettes Alcohol intake: current Alcohol intake frequency: 3 or more drinks per day Alcohol type: beer Lives independently: Yes Household members: spouse Marital status: service: Yes status: Retired branch: [employer] Current occupational status: disabled History of recent travel: No Current gender identity: Male Special cherise needs: No Agree to transfusion: Yes Vitals/I&O/Wt Last Vital Signs Temp 98.9 F 08/18/22 01:57 Pulse 82 08/18/22 04:15 Resp 20 H 08/18/22 04:15 BP 147/79 08/18/22 04:15 Pulse Ox 95 08/18/22 04:15 O2 Del Method 08/18/22 04:15 O2 Flow Rate 12 01/14/23 04:15 FiO2 6 08/18/22 04:15 Physical Exam Const: COMMON NORMALS: no acute distress and patient oriented x3 HENMT: COMMON NORMALS: normocephalic HEAD & SCALP: normocephalic Eye: COMMON NORMALS: Equal, round and reactive pupils present and EOMs intact bilaterally Neck/C-Spine: COMMON NORMALS: full ROM and no lymphadenopathy Chest: COMMONS NORMALS: normal inspection of the chest Resp: COMMON NORMALS: normal respiratory effort, No retractions and No use of accessory muscles AUSCULTATION: wheezes Cardio: COMMON NORMALS: regular rate, regular rhythm, S1 normal heart sound present and S2 normal heart sound present RATE: regular rate RHYTHM: regular rhythm HEART SOUNDS: S1 normal heart sound present and S2 normal heart sound present GI: COMMON NORMALS: Normal to inspection, nondistended, normoactive bowel sounds present, Soft to palpation and non-tender OTHER: Obese abdomen Extremity: OTHER: 1+ edema Neuro: COMMON NORMALS: patient oriented x3, CN's II-XII intact bilaterally and moves all extremities Psych: COMMON NORMALS: mental status grossly normal Data 08/18/22 02:14 08/18/22 02:40 A&P Assessment and plan (1) Acute exacerbation of chronic obstructive airways disease: (2) Acute and chronic respiratory failure with hypercapnia: (3) CHF (congestive heart failure), NYHA class III: (4) Hypoxia: (5) Hyperlipidemia: Qualifiers: Hyperlipidemia type: other hyperlipidemia Qualified Code(s): E78.49 - Other hyperlipidemia (6) CAD (coronary artery disease): Qualifiers: Coronary Disease-Associated Artery/Lesion type: [place] artery [place] vs. transplanted heart: [place] heart Associated angina: without angina Qualified Code(s): I25.10 - Atherosclerotic heart disease of [place] coronary artery without angina pectoris (7) Pneumonia: (8) CHF exacerbation: (9) Morbid obesity: Plan Acute hypercarbic respiratory failure Admit to ICU for close monitoring Possible left lower lobe pneumonia, cannot see lung base, start Rocephin and azithromycin, sputum cultures, blood cultures Solu-Medrol 125 followed by 40 every 8 hours DuoNeb, budesonide Has received Lasix in the ER, continue to daily dose, serial EKGs, serial troponins, telemetry monitoring Monitor respiratory status closely Full code Lovenox for DVT prophylaxis Protonix for GI prophylaxis Attestations Medical Necessity Statement*: Patient requires hospitalization for acute on chronic hypercarbic respiratory failure, pneumonia, COPD exacerbation, fluid overload, diastolic CHF exacerbation, inpatient, greater than 2 midnights Coding Level of Care Code Acute Code for Chg Fwd Diagnoses Acute exacerbation of chronic obstructive airways disease J44.1 Acute and chronic respiratory failure with hypercapnia J96.22 CHF (congestive heart failure), NYHA class III I50.9 Hypoxia R09.02 Hyperlipidemia E78.49 Hyperlipidemia type: other hyperlipidemia CAD (coronary artery disease) I25.10 Coronary Disease-Associated Artery/Lesion type: [place] artery [place] vs. transplanted heart: [place] heart Associated angina: without angina Pneumonia J18.9 CHF exacerbation I50.9 Morbid obesity E66.01
[2022-08-18 04:55] LABS: Influenza A Not Detected (NOT DETECT); Influenza A H1 Not Detected (NOT DETECT); Influenza A H1-2009 Not Detected (NOT DETECT); Influenza A H3 Not Detected (NOT DETECT); Influenza B Not Detected (NOT DETECT); Results from Genmark
[2022-08-18 05:12] LABS: Troponin(5th) Baseline 20 ng/L (0-15)
[2022-08-18 05:15] LABS: C Reactive Protein 47.4 mg/L (0.0-4.9); Lactic Sepsis W/Reflex 0.7 mmol/L (0.5-2.2)
[2022-08-18 05:21] LABS: Procalcitonin 0.03 ng/mL (0-0.5)
[2022-08-18] MEDS: amlodipine 10 mg Tablet PO (05:59)
[2022-08-18] MEDS: pantoprazole 40 mg SDV IVP (05:59)
[2022-08-18 06:00] LABS: Troponin 5 2HR 17.51 ng/L (0-15)
[2022-08-18] MEDS: enoxaparin 40 mg/0.4 mL Syringe SUBCUT (06:00)
[2022-08-18] MEDS: cefTRIAXone 1,000 MG in sodium chloride 0.9% (plus) 50 ML 100 MG IV (06:03)
[2022-08-18] MEDS: azithromycin 500 MG in sodium chloride 0.9% 250 ML 250 MG IV (06:03)
[2022-08-18 06:04] LABS: Troponin 5 2HR Delta -2.49 ABS# (0-10)
--- NOTE | 2022-08-18 06:52 | ECG_ITS ---
[facility] Test Date: 2022-08-18 Pat Name: Rickey Bob Department: Room: [facility]08 Gender: Male Records Associate: : 1945 Requested By: Camilo Guy Order Number: [id number] Evan MD: Jamaal Potter M.D. Measurements Intervals [place] Rate: 76 P: 56 [place]: 180 QRS: 148 QRSD: 135 T: 134 QT: 400 QTc: 452 Interpretive Statements SINUS RHYTHM WITH SINUS ARRHYTHMIA POSSIBLE LEFT ATRIAL ENLARGEMENT [-0.1mV P-WAVE IN V1/V2] RIGHT AXIS DEVIATION [QRS AXIS > 100] RIGHT BUNDLE BRANCH BLOCK [120+ ms QRS DURATION, UPRIGHT V1, 40+ ms S IN I/aVL/V4/V5/V6] Compared to ECG 08/18/2022 02:06:40 Right-axis deviation now present First degree AV block no longer present Electronically Signed On 08-18-2022 14:28:07 INFORMATICS EDUCATOR by Jamaal Potter M.D. [id number]
[2022-08-18 06:53] LABS: Add Urine Microscopic? YES; Bilirubin Urine Neg (Negative); Blood Urine Neg (Negative); Glucose Urine UA Norm (Normal); Ketones Urine Negative (Negative); Leukocyte Esterase Urine 1+ (Negative); Nitrate Urine Negative (Negative); Protein Urine Neg (Negative); Urine Appearance Clear (CLEAR); Urine Color Straw (Yellow); Urobilinogen Urine Norm (Negative); pH Urine 5 (5-7)
[2022-08-18 06:55] LABS: Bacteria Urine TRACE /hpf; Other Crystals Urine TALC /hpf; WBC Urine 0-4 /hpf (0-5)
[2022-08-18 06:56] LABS: Add Urine Culture? No
--- NOTE | 2022-08-18 08:38 | PC.NURSE ---
anxious and restless has history of anxiety even at home unable to sleep according to for several days ... so I gave him a half of valium and he rested for a short time then work up anxious and unable to breath and called ambulance .
[2022-08-18] MEDS: ipratropium-albuterol 3 mL Neb INHALATION ×4 (09:08→19:53)
[2022-08-18] MEDS: budesonide 0.5 mg/2 mL Neb INHALATION ×2 (09:08→19:53)
[2022-08-18 09:39] LABS: Troponin 5 6HR 13.79 ng/L (0-15)
[2022-08-18] MEDS: metoprolol tartrate 50 mg Tablet 75 MG PO (09:44)
[2022-08-18] MEDS: isosorbide mononitrate ER 30 mg Tablet PO (09:44)
[2022-08-18] MEDS: losartan 50 mg Tablet 100 MG PO (09:44)
[2022-08-18] MEDS: gemfibrozil 600 mg Tablet PO (09:45)
[2022-08-18 10:13] LABS: Troponin 5 6HR Delta -6.21 ng/L (0-12)
--- NOTE | 2022-08-18 10:16 | PC.NURSE ---
up on side of bed restless . and anxious called will visit soon
--- NOTE | 2022-08-18 10:52 | ECG_ITS ---
[facility] Test Date: 2022-08-18 Pat Name: Rickey Bob Department: Room: [facility]08 Gender: Male Corporate Events Director: : 1945 Requested By: Camilo Guy Order Number: [id number] Evan MD: Jamaal Potter M.D. Measurements Intervals [place] Rate: 75 P: 48 [place]: 232 QRS: 99 QRSD: 135 T: 74 QT: 429 QTc: 481 Interpretive Statements SINUS RHYTHM WITH SINUS ARRHYTHMIA WITH FIRST DEGREE AV BLOCK RIGHT BUNDLE BRANCH BLOCK [120+ ms QRS DURATION, UPRIGHT V1, 40+ ms S IN I/aVL/V4/V5/V6] Compared to ECG 08/18/2022 06:30:10 First degree AV block now present Right-axis deviation no longer present Electronically Signed On 08-18-2022 14:28:56 PACKAGE PICK UP by Jamaal Potter M.D. [id number]
--- NOTE | 2022-08-18 11:05 | PM.MISC ---
Miscellaneous Note Note: Chest x-ray showing vascular congestion Currently patient is on 2.5 L saturating well Very talkative Patient is stating that he is not anxious however clinical signs of anxiety present Hemodynamically stable Currently on 2.5 L Mild signs of congestive heart failure exacerbation present Bilateral breath sound with mild rhonchi and crackles at base of the lungs Abdomen distended soft Lower extremity no significant edema COPD exacerbation requiring 2.5 L of oxygen Diastolic CHF exacerbation probably due to underlying untreated sleep apnea Will do nocturnal pulse ox Clinical signs of fluid overload BNP 719 Continue diuresis for now Use BiPAP on as-needed basis He seems to be compensated for PCO2 of 60 which is also evident on bicarb of 36 He definitely needs CPAP but the problem is he is claustrophobic I would not use CPAP machine
[2022-08-18 12:12] LABS: Estmated Average Glucose 151; Hemoglobin A1C 6.9 % (4.0-6.0)
[2022-08-18] MEDS: ALPRAZolam 0.5 mg Tablet PO ×2 (12:19→20:13)
--- NOTE | 2022-08-18 14:34 | PC.NURSE ---
restless and agitated at times . po medication started for anxiety voided per urinal
[2022-08-18] MEDS: saline nasal spray 44mL Btl 1 SPRAY NASAL (15:14)
[2022-08-18] MEDS: hyDRALAzine 25 mg Tablet PO (17:00)
[2022-08-18] MEDS: trazodone 50 mg Tablet PO (20:13)
[2022-08-18] MEDS: aspirin 81 mg EC Tablet PO (20:13)
[2022-08-18] MEDS: metoprolol tartrate 50 mg Tablet PO (20:14)
[2022-08-19] VITALS (28 sets, daily range): BP systolic 96–161; BP diastolic 57–77; PULSE 53–88; RESP 16–26; TEMP 36.6–36.8; O2SAT 71–100
[2022-08-19] MEDS: amlodipine 10 mg Tablet PO (05:27)
[2022-08-19] MEDS: enoxaparin 40 mg/0.4 mL Syringe SUBCUT (05:28)
[2022-08-19] MEDS: pantoprazole 40 mg SDV IVP (05:28)
[2022-08-19] MEDS: levoFLOXacin 750 mg Tablet PO (05:28)
[2022-08-19] MEDS: ipratropium-albuterol 3 mL Neb INHALATION ×2 (07:36→11:17)
[2022-08-19] MEDS: budesonide 0.5 mg/2 mL Neb INHALATION (07:36)
[2022-08-19 08:00] LABS: Glucose Point of Care 149 mg/dL (70-110)
--- NOTE | 2022-08-19 08:14 | USCV_ITS ---
Rickey Bob Age: 77 Gender: M : 1945 Exam Date: 08/19/2022 11:33 Ordering Phys: Samara Zaman MD Technologist: TATIANA Exam Location: [facility] – [place] Indication: chf BP: / HR: 69 Rhythm: Sinus Technical Quality: Poor MEASUREMENTS (Male / Female) Normal Values 2D ECHO LV Diastolic Diameter PLAX 5.8 cm 4.2 - 5.9 / 3.9 - 5.3 cm LV Systolic Diameter PLAX 4.4 cm IVS Diastolic Thickness 0.8 cm 0.6 - 1.0 / 0.6 - 0.9 cm IVS Systolic Thickness 1.1 cm LVPW Diastolic Thickness 0.8 cm 0.6 - 1.0 / 0.6 - 0.9 cm LVPW Systolic Thickness 1.3 cm LVOT Diameter 1.5 cm LV Ejection Fraction 2D Teich 46.3 % LV Ejection Fraction MOD 2C 43.7 % LV Ejection Fraction 2C AL 44.7 % LA Diameter 4.9 cm M-MODE Aortic Annulus Diameter 3.0 cm LA Ao Ratio MM 2.1 MV E Point Septal Separation 0.7 cm DOPPLER AV Peak Velocity 317.0 cm/s LVOT Peak Velocity 86.0 cm/s AV Area Cont Eq vti 0.4 cm squared AV Area Cont Eq pk 0.5 cm squared MV Area PHT 5.0 cm squared Mitral E to A Ratio 1.3 MV E' Velocity 60.0 cm/s Mitral E to MV E' Ratio 15.0 Mitral E to LV E' Lateral Ratio 18.1 Mitral E to LV E' Septal Ratio 12.9 TV Peak E Velocity 75.0 cm/s PV Peak Velocity 103.0 cm/s FINDINGS Left Ventricle The examination is technically poor. The apical and subcostal views are fair. The other views are nearly uninterpretable. Doppler examination is very limited. The overall left ventricular size and function are probably within normal limits. Wall motion disturbances cannot be determined though there are none obvious. Overall ejection fraction is about 55%. Grade 1 diastolic dysfunction. Right Ventricle Right ventricle not well visualized. Right Atrium Mildly increased right atrial size. Left Atrium Mildly increased left atrial size. Mitral Valve Mitral valve not well visualized. Aortic Valve Aortic valve not well visualized. Tricuspid Valve Tricuspid valve not well visualized. Pulmonic Valve Pulmonic valve not well visualized. Pericardium Normal pericardium without effusion. Aorta Aorta not well visualized. IVC Inferior vena cava not visualized. CONCLUSIONS The examination is technically poor. The apical and subcostal views are fair. The other views are nearly uninterpretable. Doppler examination is very limited. The overall left ventricular size and function are probably within normal limits. Wall motion disturbances cannot be determined though there are none obvious. Overall ejection fraction is about 55%. Grade 1 diastolic dysfunction. Previous study, which was performed 11/13/2021 is similar. It was also a poor quality study that revealed similar findings. Dr. Jamaal Potter MD (Electronically Signed) Final Date: 19 August 2022 15:51 S
[2022-08-19] MEDS: losartan 50 mg Tablet 100 MG PO (09:04)
[2022-08-19] MEDS: isosorbide mononitrate ER 30 mg Tablet PO (09:04)
[2022-08-19] MEDS: hyDRALAzine 25 mg Tablet PO (09:04)
[2022-08-19] MEDS: metoprolol tartrate 50 mg Tablet 75 MG PO (09:04)
[2022-08-19] MEDS: bumetanide 1 mg Tablet PO (09:04)
--- NOTE | 2022-08-19 10:41 | PM.DCS ---
Discharge Providers Date of Admission: 08/18/22 04:58 Date of Discharge: August 19, 2022 Attending Provider at Admission: Camilo Guy MD Attending Provider at Discharge: Samara Zaman MD Primary Care Provider: Catherine Morse MD Diagnoses at Discharge Discharge Diagnosis (1) Acute exacerbation of chronic obstructive airways disease: Status: Acute (2) Acute and chronic respiratory failure with hypercapnia: Status: Acute (3) CHF (congestive heart failure), NYHA class III: Status: Acute (4) Hypoxia: Status: Acute (5) Hyperlipidemia: Status: Acute Qualifiers: Hyperlipidemia type: other hyperlipidemia Qualified Code(s): E78.49 - Other hyperlipidemia (6) CAD (coronary artery disease): Status: Acute Qualifiers: Associated angina: without angina Coronary Disease-Associated Artery/Lesion type: [place] artery [place] vs. transplanted heart: [place] heart Qualified Code(s): I25.10 - Atherosclerotic heart disease of [place] coronary artery without angina pectoris (7) Pneumonia: Status: Acute (8) CHF exacerbation: Status: Acute (9) Morbid obesity: Status: Acute Reason for Visit Reason for Visit: SOB Hospital Course Hospital Course 77-year-old male who was admitted for COPD exacerbation, diastolic CHF exacerbation required BiPAP for acute on chronic hypercapnic respiratory failure. Patient symptoms improved with diuresis and use of BiPAP. Patient stating that he is claustrophobic and he would not use CPAP or BiPAP if needed however remained compliant for at least a day. On ambulation he requires 5 L and at rest requires 2 to 2.5 L, home oxygen evaluation done at the time of discharge. He needs official diagnosis of COPD, I will put him on Trelegy and DuoNeb and pulmonary follow-up. I have recommended against Valium which gave him at home. He is high risk for readmissions however he would not stay compliant with CPAP or BiPAP, he refused overnight pulse oximetry study which I intended to complete in order to give him referral for sleep study. Physical Exam Narrative: On 2.5 L Signs of fluid overload improving Awake and alert is at the bedside Abdomen soft however distended S1, S2 Crackles improved No active wheezing Discharge Data Studies Completed and Pending Completed Studies During Hospitalization Category Date Time Status XR chest 1V portable [id number] Stat Exams 08/18/22 01:59 Completed Pending at discharge Category Date Time Status Basic Metabolic Panel AM LABS Lab 08/19/22 04:00 Ordered Blood Culture Routine Lab 08/18/22 05:28 Results Complete Blood Count w/Auto AM LABS Lab 08/19/22 04:00 Ordered Sputum Culture and Gram Stain Stat Lab 08/18/22 11:20 Results CV. echo complete* [id number] Routine Ultrasound 08/19/22 08:14 Ordered Radiology Impressions Chest X-Ray 08/18/22 01:59 IMPRESSION: Intrathoracic fluid overload changes are suspected similar to comparison imaging. Laboratory Results WBC 9.4 10^3/uL (4.0-10.0) 08/18/22 02:14 RBC 4.85 10^6/uL (4.1-5.3) 08/18/22 02:14 Hgb 12.8 g/dL (11.7-16.6) 08/18/22 02:14 Hct 43.4 % (42.0-52.0) 08/18/22 02:14 MCV 89.5 fl (80-94) 08/18/22 02:14 MCH 26.4 pg (28.0-34.0) L 08/18/22 02:14 MCHC 29.5 g/dL (30.0-36.0) L 08/18/22 02:14 RDW 14.4 % (12.1-15.1) 08/18/22 02:14 Plt Count 252 10^3/cmm (130-400) 08/18/22 02:14 MPV 10.7 fL (7.4-10.4) H 08/18/22 02:14 Neut % (Auto) 78.0 % 08/18/22 02:14 Lymph % (Auto) 11.8 % 08/18/22 02:14 [place] % (Auto) 6.4 % 08/18/22 02:14 Eos % (Auto) 3.0 % 08/18/22 02:14 Baso % (Auto) 0.5 % 08/18/22 02:14 Neut # (Auto) 7.32 10^3/uL (1.8-7.7) 08/18/22 02:14 Lymph # (Auto) 1.1 10^3/uL (0.8-4.8) 08/18/22 02:14 [place] # (Auto) 0.6 10^3/uL (0.2-0.9) 08/18/22 02:14 Eos # (Auto) 0.3 10^3/uL (0.0-0.8) 08/18/22 02:14 Baso # (Auto) 0.1 10^3/uL (0.0-0.1) 08/18/22 02:14 Nucleated RBC % (auto) 0 % 08/18/22 02:14 Nucleated RBCs # 0.0 /100WBC 08/18/22 02:14 Specimen Type Arterial 08/18/22 03:58 Sample Site Radial, left 08/18/22 03:58 ABG pH 7.39 (7.35-7.45) 08/18/22 03:58 ABG pCO2 60.2 mmHg (35-45) H* 08/18/22 03:58 ABG pO2 70.8 mmHg (80.0-100.0) L 08/18/22 03:58 ABG HCO3 36.4 mmol/L (22-26) H 08/18/22 03:58 ABG Base Excess 9.1 mmol/L (-2.0-2.0) H 08/18/22 03:58 Sean Test Pos 08/18/22 03:58 Hematocrit 41.7 % (42-52) L 08/18/22 03:58 Hgb O2 Saturation 94.0 % (95-100) L 08/18/22 02:34 Carboxyhemoglobin 1.6 %THgb (0.4-20.1) 08/18/22 02:34 Methemoglobin 0.5 % (0.4-1.5) 08/18/22 02:34 Total Hemoglobin 13.2 g/dL (14-18) L 08/18/22 02:34 O2 Delivery Device Bipap 08/18/22 03:58 O2 Liters/Min 5.0 % 08/18/22 02:34 FiO2 40.0 % 08/18/22 03:58 PEEP 6.0 cmH20 08/18/22 03:58 Purchasing Internship ID [email or web address] 08/18/22 03:58 Sodium 136 mmol/L (136-145) 08/18/22 02:40 Potassium 5.1 mmol/L (3.5-5.1) 08/18/22 02:40 Chloride 94 mmol/L (98-107) L 08/18/22 02:40 Carbon Dioxide 36 mmol/L (22-29) H 08/18/22 02:40 Anion Gap 11.1 (5-19) 08/18/22 02:40 BUN 18 mg/dL (8-23) 08/18/22 02:40 Creatinine 0.5 mg/dL (0.7-1.2) L 08/18/22 02:40 GFR Calculation Not Reportable 08/18/22 02:40 Glucose 110 mg/dL (65-115) 08/18/22 02:40 POC Glucose 149 mg/dL (70-110) H 08/19/22 07:56 Estimat Average Glucose 151 08/18/22 02:14 Hemoglobin A1c 6.9 % (4.0-6.0) H 08/18/22 02:14 Calculated Osmolality 285 mOsm/kg (285-295) 08/18/22 02:40 Lactic Acid 0.7 mmol/L (0.5-2.2) 08/18/22 02:40 Calcium 8.9 mg/dL (8.5-10.5) 08/18/22 02:40 Total Bilirubin 0.2 mg/dL (0.15-1.2) 08/18/22 02:40 AST 14 U/L (0-40) 08/18/22 02:40 ALT 18 U/L (0-41) 08/18/22 02:40 Alkaline Phosphatase 87 U/L (40-130) 08/18/22 02:40 Troponin T Baseline 20 ng/L (0-15) H 08/18/22 02:40 Troponin T 120 Minute 17.51 ng/L (0-15) H 08/18/22 05:20 Delta Troponin T -2.49 ABS# (0-10) L 08/18/22 05:20 Troponin T Hi Sens 6Hr 13.79 ng/L (0-15) 08/18/22 08:55 Troponin T Hi Sens 6Hr Delta -6.21 ng/L (0-12) L 08/18/22 08:55 C-Reactive Protein 47.4 mg/L (0.0-4.9) H 08/18/22 02:40 NT-Pro-B Natriuret Pep 719 pg/mL (0-450) H 08/18/22 02:40 Total Protein 7.9 g/dL (6.6-8.7) 08/18/22 02:40 Albumin 3.8 g/dL (3.5-5.2) 08/18/22 02:40 Globulin 4.1 g/dL (1.3-4.6) 08/18/22 02:40 Procalcitonin 0.03 ng/mL (0-0.5) 08/18/22 02:40 TSH 2.20 uIU/mL (0.27-4.20) 08/18/22 05:20 Urine Color Straw (Yellow) 08/18/22 06:30 Urine Appearance Clear (CLEAR) 08/18/22 06:30 Urine pH 5 (5-7) 08/18/22 06:30 Ur Specific [place] 1.010 (1.005-1.030) 08/18/22 06:30 Urine Protein Neg (Negative) 08/18/22 06:30 Urine Glucose (UA) Norm (Normal) 08/18/22 06:30 Urine Ketones Negative (Negative) 08/18/22 06:30 Urine Blood Neg (Negative) 08/18/22 06:30 Urine Nitrate Negative (Negative) 08/18/22 06:30 Urine Bilirubin Neg (Negative) 08/18/22 06:30 Urine Urobilinogen Norm mg/dL (Negative) 08/18/22 06:30 Ur Leukocyte Esterase 1+ (Negative) H 08/18/22 06:30 Urine RBC None /hpf (0-2) 08/18/22 06:30 Urine WBC 0-4 /hpf (0-5) H 08/18/22 06:30 Ur Squamous Epith Cells None /hpf (0-5) 08/18/22 06:30 Other Crystals Talc /hpf 08/18/22 06:30 Amorphous Sediment Not Reportable 08/18/22 06:30 Urine Bacteria Trace /hpf (NONE) 08/18/22 06:30 Nasal Influ A H1 2009 PCR Not detected (NOT DETECT) 08/18/22 02:40 Coronavirus 229E (PCR) Not detected (NOT DETECT) 08/18/22 02:40 Influenza A (H1) PCR Not detected (NOT DETECT) 08/18/22 02:40 Influenza A (H3) PCR Not detected (NOT DETECT) 08/18/22 02:40 Influenza Type A (PCR) Not detected (NOT DETECT) 08/18/22 02:40 Influenza Type B (PCR) Not detected (NOT DETECT) 08/18/22 02:40 SARS-CoV-2 (PCR) Not detected (NOT DETECT) 08/18/22 02:40 Vitals Last Vital Signs Temp 98 F 08/19/22 08:00 Pulse 57 L 08/19/22 10:00 Resp 18 08/19/22 08:00 BP 136/57 08/19/22 10:00 Pulse Ox 93 08/19/22 10:00 O2 Del Method 08/19/22 08:00 O2 Flow Rate 2 08/19/22 08:00 FiO2 30 08/19/22 10:00 Discharge Plan Discharge Patient Disposition: Home Condition: Stable Prescriptions: New ipratropium-albuterol 0.5 mg-3 mg(2.5 mg base)/3 mL solution for nebulization 3 ml inhalation Q6H PRN (Reason: shortness of breath or wheezing) Qty: 90 2RF Trelegy Ellipta 100-62.5-25 mcg blister with device 1 inh inhalation DAILY Qty: 60 2RF Continued amlodipine 10 mg tablet 10 mg PO QAM potassium chloride 20 mEq tablet extended release 10 meq PO DAILY PRN (Reason: when taking lasix) multivitamin Tablet 1 tab PO BEDTIME trazodone 50 mg tablet 50 - 100 mg PO BEDTIME PRN (Reason: Insomnia) ascorbic acid (vitamin C) 500 mg capsule 500 mg PO QAM gemfibrozil [Lopid] 600 mg tablet 600 mg PO BID aspirin [Adult Low Dose Aspirin] 81 mg tablet,delayed release (DR/EC) 81 mg PO BEDTIME Hold Instructions: Resume on 05/11/22. Resume 81 mg aspirin following 30 days of full strength 325 mg nitroglycerin [Nitrostat] 0.4 mg tablet, sublingual 0.4 mg SUBLINGUAL Q5M PRN (Reason: chest pain) Qty: 25 3RF metoprolol tartrate 50 mg tablet See Rx Instructions .ROUTE .COMPLEX Rx Instructions: 75mg po in the am and 50mg po qpm losartan 100 mg Tablet 100 mg PO DAILY carboxymethylcellulose sodium 1 % Drops, Liquid Gel 2 drp OPHTHALMIC (EYE) BID PRN (Reason: Dry Eye(S)) [place] Saline 0.65 % Aerosol,[place] 1 spray INTRANASAL BID PRN (Reason: Congestion) omega 1-nfj-[id number]-fish oil [Fish Oil] 1,200 (144-216) mg Capsule 1 cap PO BID isosorbide mononitrate 30 mg Tablet Extended Release 24 Hr 30 mg PO DAILY Qty: 0 0RF hydrocodone-acetaminophen 10-325 mg Tablet 1 tab PO Q6H PRN (Reason: Pain) docusate sodium 100 mg Capsule 100 mg PO BID PRN (Reason: Constipation) budesonide 0.5 mg/2 mL Suspension For Nebulization 0.5 mg inhalation BID.RESPIRATORY Qty: 120 0RF furosemide 40 mg tablet 40 mg PO DAILY PRN (Reason: edema) Qty: 30 4RF Discontinued albuterol sulfate [ProAir HFA] 90 mcg/actuation HFA aerosol inhaler 2 puff INHALATION QID PRN (Reason: Shortness Of Breath) fluticasone propionate [Flonase Allergy Relief] 50 mcg/actuation spray,suspension 2 spray INTRANASAL DAILY PRN (Reason: Allergy Symptoms) prednisone 20 mg tablet 20 mg PO BID 5 Days Qty: 10 0RF melatonin 5 mg Tablet 5 mg PO BEDTIME PRN (Reason: Sleep) Discharge Orders: Discharge Order (Routine); Ordered 08/19/22 Ordered By: Samara Zaman Other Ambulatory Orders: Sleep Study/Titration (Routine) Timeframe: 1 Week Facility: [facility] - Location: [facility] Ordered By: Samara Zaman DME: Oxygen (Order) Location: None Selected Ordered By: Samara Zaman Referrals: Catherine Morse MD [Primary Care Provider] - Datar,Michael Mckinley MD [Physician] - 2 weeks Discharge Diet: Cardiac Discharge Activity: Increase activity as tolerated Patient Instructions: Ipratropium/Albuterol (By breathing) (Combivent, Combivent..., Fluticasone/Umeclidinium/Vilanterol (By breathing), Heart Failure (DC), Viral Pneumonia (DC), Heart Healthy Diet (DC), Opioid Safety Discharge Attestations Time Spent in Discharge Care*: less than 30 min Quality Metrics Clinical Quality Measures [ No reported AMI, CVA or VTE this stay] Coding Level of Care Code Acute Chg FW DC note Diagnoses Acute exacerbation of chronic obstructive airways disease J44.1 Acute and chronic respiratory failure with hypercapnia J96.22 CHF (congestive heart failure), NYHA class III I50.9 Hypoxia R09.02 Hyperlipidemia E78.49 Hyperlipidemia type: other hyperlipidemia CAD (coronary artery disease) I25.10 Associated angina: without angina Coronary Disease-Associated Artery/Lesion type: [place] artery [place] vs. transplanted heart: [place] heart Pneumonia J18.9 CHF exacerbation I50.9 Morbid obesity E66.01
== END 2022-08-19 16:25 | disposition home or self-care (01) | DRG 190 ==
LOC: ER 04:26 → ICU 04:59
PROVIDERS: Admitting Provider Family Medicine; Emergency Provider Emergency Medicine; PCP Family Medicine; Visit Provider Internal Medicine
DX: J44.1 Chronic obstructive pulmonary disease with (acute) exacerbation (principal); I50.31 Acute diastolic (congestive) heart failure; J96.22 Acute and chronic respiratory failure with hypercapnia; F40.240 Claustrophobia; Z79.82 Long term (current) use of aspirin; Z79.891 Long term (current) use of opiate analgesic; E66.01 Morbid (severe) obesity due to excess calories; Z68.37 Body mass index [BMI] 37.0-37.9, adult; I25.10 Atherosclerotic heart disease of native coronary artery without angina pectoris; G89.29 Other chronic pain; M54.9 Dorsalgia, unspecified; I25.2 Old myocardial infarction; E78.5 Hyperlipidemia, unspecified; F17.210 Nicotine dependence, cigarettes, uncomplicated; G47.30 Sleep apnea, unspecified
CPT/HCPCS: 36415; 36416; 36600; 71045; 80053; 81001; 82803; 82805; 82962; 83036; 83605; 83880; 84145; 84443; 84484; 85025; 86140; 87040; 87070; 87205; 87631; 87635; 93005; 93306; 94640; 94660; 94664; 94760; 96372; 96374; 96375; 99285; C9113; J0360; J0456; J0696; J1650; J1940; J2930; J7050; J7613; J7626

== ENCOUNTER 2022-09-06 12:02 | Inpatient (IN) | payer OTHER, MEDICARE, SELFPAY ==
[2022-09-06] VITALS (10 sets, daily range): BP systolic 117–177; BP diastolic 70–90; PULSE 67–91; RESP 17–29; TEMP 36.6–36.8; O2SAT 89–98; BMI 36.0; BMI 37.5
--- NOTE | 2022-09-06 12:13 | XR_ITS ---
WS: [id number] Portable AP upright chest, 09/06/2022 Clinical Data: chest pain Comparison: Portable chest, 08/18/2022 Findings: The heart is enlarged. The patchy bilateral lower lobe opacities have diminished slightly. There are no nodules or masses. There is probably a small right effusion. The aortic arch and descend ing thoracic aorta show mild tortuosity. The pulmonary vascularity is minimally increased. There are monitor leads on the chest wall. XR/XR chest 1V portable [id number] Impression: 1. Cardiomegaly with mild pulmonary vascular congestion. 2. Bilateral bibasilar pulmonary opacities which have cleared minimally.
--- NOTE | 2022-09-06 12:23 | ED_ITS ---
HPI - SOB/Dyspnea General: Chief Complaint: Shortness of Breath/Dyspnea Stated Complaint: CHEST PAIN/ SOB Time Seen by Provider: 09/06/22 12:12 Source: patient Mode of arrival: EMS History of Present Illness: HPI Narrative: 77-year-old male presents emergency room complaining of chest pain shortness of breath last 2 days progressively worsening. He said similar episodes in the past exacerbation COPD turning his oxygen up he is gotten hypercapnic and needs to be admitted he has some mild nonproductive chest discomfort but is not significantly different than when he has had in the past he denies any fever sweats or chills no vomiting or diarrhea. He is on 6 L and I first walked in room he satting nearly 100% because of his known history of turned him down to 3 L when he is talking he still sats in the 92 to 94% range when he dozes off and sleeps he however is more around 90. He is chronically on oxygen at 3 L/min. MD elicited complaint: shortness of breath Pertinent past history: COPD and congestive heart failure Onset (ago): day(s) (3) Timing: constant Severity: moderate Exacerbating factors: lying flat, exertion and coughing Relieving factors: oxygen and rest Known history of: COPD and congestive heart failure Associated symptoms: Reports chest congestion and cough; Deny abdominal pain, chest pain, diaphoresis, dizziness, extremity pain, fever(s), hemoptysis, lightheadedness, myalgias, nausea, orthopnea, palpitations, paresthesias, polydipsia, polyuria, rash, sense of impending doom, syncope or vomiting Treatment prior to arrival: oxygen Review of Systems Const: Reports: fatigue and malaise; Denies: fever(s), chills or diaphoresis ENMT: Denies: throat pain, ear or mastoid pain, nasal discharge or nasal congestion Card: Reports: swelling of feet/ankles; Denies: chest pain, palpitations, lightheadedness, syncope or orthopnea Resp: Reports: dyspnea, non-productive cough and chest congestion; Denies: productive cough or hemoptysis GI: Denies: abdominal pain, nausea or vomiting : Denies: flank pain, dysuria, urinary frequency or urinary urgency Musc: Denies: extremity pain Skin/Breast: Denies: rash or pruritus Neuro: Denies: dizziness Endo: Denies: polyuria or polydipsia PFSH ED PFSH: Medical History Acute and chronic respiratory failure with hypercapnia Acute exacerbation of chronic obstructive airways disease CAD (coronary artery disease) CHF (congestive heart failure), NYHA class III CHF exacerbation Chronic back pain COPD (chronic obstructive pulmonary disease) Diastolic heart failure History of [place] (myocardial infarction) Hyperlipidemia Hypoxia Morbid obesity PAOD (peripheral arterial occlusive disease) Pneumonia Surgical History S/P appendectomy S/P excision of vocal cord nodule S/P knee surgery S/P PTCA (percutaneous transluminal coronary angioplasty) S/P tonsillectomy and adenoidectomy Family History Mother CAD (coronary artery disease) Father CAD (coronary artery disease) Brother , Age 44 [place] Myocardial infarct Other Cancer Social History Smoking and tobacco status: current every day smoker cigarettes Alcohol intake: current Alcohol intake frequency: 3 or more drinks per day Alcohol type: beer Lives independently: Yes Household members: spouse Marital status: service: Yes status: Retired branch: [employer] Current occupational status: disabled History of recent travel: No Current gender identity: Male Special cherise needs: No Agree to transfusion: Yes Physical Exam Const: COMMON NORMALS: no acute distress GENERAL APPEARANCE: cooperative and comfortable ORIENTATION/CONSCIOUSNESS: Yes awake, Yes oriented to person, Yes oriented to place and Yes oriented to time Resp: AUSCULTATION: rhonchi and wheezes Cardio: COMMON NORMALS: regular rate, regular rhythm and No murmurs present (Cardio) RATE: regular rate RHYTHM: regular rhythm GI: COMMON NORMALS: Soft to palpation and No hepatosplenomegaly present AUSCULTATION: Yes normoactive bowel sounds PALPATION: Yes Soft to palpation, No Tenderness to palpation present (GI), No Guarding due to palpation present (GI) and Yes No hepatosplenomegaly present Extremity: COMMON NORMALS: normal to inspection, capillary refill normal, no clubbing, cyanosis or edema, no calf tenderness and no pedal edema Neuro: SENSORIUM/ORIENTATION: Yes oriented to person, Yes oriented to place and Yes oriented to time Skin: COMMON NORMALS: no rashes or lesions noted GENERAL SKIN EXAM: no rashes or lesions noted Course Vital Signs: Vital signs: Vital Signs Temperature 97.9 F 09/06/22 12:08 Pulse Rate 79 09/06/22 14:30 Respiratory Rate 24 H 09/06/22 14:30 Blood Pressure 167/83 09/06/22 14:30 Pulse Oximetry 92 09/06/22 14:30 Oxygen Delivery Me thod 09/06/22 13:30 Oxygen Flow Rate 6 09/06/22 12:08 Fraction of Inspir ed Oxygen 50 09/06/22 13:30 MDM - SOB/Dyspnea Medical Decision Making He is not currently haveAcute hypercapnic respiratory failure secondary to COPD exacerbation and congestive heart failure patient given Lasix in the emergency room labs imaging and EKG reviewed did have a slight bump in his troponin. Suspect it is from the stress of his heart failure. Will admit discussed with hospitalist orders written. Patient denies chest pain at this time. No acute EKG changes Medical Records I reviewed the patient's medical records. Lab Data I reviewed the patient's lab results. 09/06/22 12:20 09/06/22 12:20 Labs/Radiology: Radiology Impressions Chest X-Ray 09/06/22 12:13 Impression: 1. Cardiomegaly with mild pulmonary vascular congestion. 2. Bilateral bibasilar pulmonary opacities which have cleared minimally. Laboratory Results WBC 9.4 10^3/uL (4.0-10.0) 09/06/22 12:20 RBC 4.52 10^6/uL (4.1-5.3) 09/06/22 12:20 Hgb 11.6 g/dL (11.7-16.6) L 09/06/22 12:20 Hct 40.0 % (42.0-52.0) L 09/06/22 12:20 MCV 88.5 fl (80-94) 09/06/22 12:20 MCH 25.7 pg (28.0-34.0) L 09/06/22 12:20 MCHC 29.0 g/dL (30.0-36.0) L 09/06/22 12:20 RDW 15.8 % (12.1-15.1) H 09/06/22 12:20 Plt Count 240 10^3/cmm (130-400) 09/06/22 12:20 MPV 9.6 fL (7.4-10.4) 09/06/22 12:20 Neut % (Auto) 79.5 % 09/06/22 12:20 Lymph % (Auto) 12.4 % 09/06/22 12:20 [place] % (Auto) 7.0 % 09/06/22 12:20 Eos % (Auto) 0.4 % 09/06/22 12:20 Baso % (Auto) 0.4 % 09/06/22 12:20 Neut # (Auto) 7.46 10^3/uL (1.8-7.7) 09/06/22 12:20 Lymph # (Auto) 1.2 10^3/uL (0.8-4.8) 09/06/22 12:20 [place] # (Auto) 0.7 10^3/uL (0.2-0.9) 09/06/22 12:20 Eos # (Auto) 0.0 10^3/uL (0.0-0.8) 09/06/22 12:20 Baso # (Auto) 0.0 10^3/uL (0.0-0.1) 09/06/22 12:20 Nucleated RBC % (auto) 0 % 09/06/22 12:20 Nucleated RBCs # 0.0 /100WBC 09/06/22 12:20 Specimen Type Arterial 09/06/22 12:34 Sample Site Brachial, left 09/06/22 12:34 ABG pH 7.26 (7.35-7.45) L 09/06/22 12:34 ABG pCO2 77.5 mmHg (35-45) H* 09/06/22 12:34 ABG pO2 55.1 mmHg (80.0-100.0) L 09/06/22 12:34 ABG HCO3 35.1 mmol/L (22-26) H 09/06/22 12:34 ABG O2 Saturation 85.2 09/06/22 12:34 ABG Base Excess 5.7 mmol/L (-2.0-2.0) H 09/06/22 12:34 Sean Test Pos 09/06/22 12:34 A-a O2 Gradient 10.8 mmHg (5-10) H 09/06/22 12:34 Hematocrit 37.2 % (42-52) L 09/06/22 12:34 Hgb O2 Saturation 83.1 % (95-100) L 09/06/22 12:34 Carboxyhemoglobin 2.0 %THgb (0.4-20.1) 09/06/22 12:34 Methemoglobin 0.5 % (0.4-1.5) 09/06/22 12:34 Total Hemoglobin 12.1 g/dL (14-18) L 09/06/22 12:34 Sodium 137.0 mmol/L (131-143) 09/06/22 12:34 Potassium 4.3 mmol/L (3.5-5.0) 09/06/22 12:34 Glucose 119.0 mg/dL (70-115) H 09/06/22 12:34 Ionized Calcium 1.3 mmol/L (1.1-1.4) 09/06/22 12:34 O2 Delivery Device Nc 09/06/22 12:34 O2 Liters/Min 3.0 % 09/06/22 12:34 FiO2 32.0 % 09/06/22 12:34 [employer] Manager ID [place]ro 09/06/22 12:34 Sodium 137 mmol/L (136-145) 09/06/22 12:20 Potassium 4.6 mmol/L (3.5-5.1) 09/06/22 12:20 Chloride 97 mmol/L (98-107) L 09/06/22 12:20 Carbon Dioxide 35 mmol/L (22-29) H 09/06/22 12:20 Anion Gap 9.6 (5-19) 09/06/22 12:20 BUN 12 mg/dL (8-23) 09/06/22 12:20 Creatinine 0.5 mg/dL (0.7-1.2) L 09/06/22 12:20 GFR Calculation Not Reportable 09/06/22 12:20 Glucose 122 mg/dL (65-115) H 09/06/22 12:20 Calculated Osmolality 285 mOsm/kg (285-295) 09/06/22 12:20 Calcium 8.9 mg/dL (8.5-10.5) 09/06/22 12:20 Total Bilirubin 0.4 mg/dL (0.15-1.2) 09/06/22 12:20 AST 13 U/L (0-40) 09/06/22 12:20 ALT 16 U/L (0-41) 09/06/22 12:20 Alkaline Phosphatase 90 U/L (40-130) 09/06/22 12:20 Troponin T Baseline 22 ng/L (0-15) H 09/06/22 12:20 NT-Pro-B Natriuret Pep 1006 pg/mL (0-450) H 09/06/22 12:20 Total Protein 7.6 g/dL (6.6-8.7) 09/06/22 12:20 Albumin 3.5 g/dL (3.5-5.2) 09/06/22 12:20 Globulin 4.1 g/dL (1.3-4.6) 09/06/22 12:20 Discharge Plan Discharge Patient Disposition: Admitted As Inpatient Admit Provider: Carlos Chris Clinical Impression: Acute respiratory failure with hypercapnia, Acute exacerbation of chronic obstructive airways disease, Congestive heart failure Condition: Stable Coding Level of Care Code ED Assistant Professor Of Dietetics for Chg Fwd Exam Detailed
--- NOTE | 2022-09-06 12:26 | ECG_ITS ---
[facility] Test Date: 2022-09-06 Pat Name: Rickey Bob Department: Room: Gender: Male White Goods Appliance Tech: : 1945 Requested By: Erwin Albright Order Number: [id number] Evan MD: Shannon Rutledge M.D. Measurements Intervals [place] Rate: 81 P: 46 NE: 221 QRS: 98 QRSD: 133 T: 31 QT: 401 QTc: 466 Interpretive Statements SINUS RHYTHM WITH SINUS ARRHYTHMIA WITH FIRST DEGREE AV BLOCK RIGHT BUNDLE BRANCH BLOCK [120+ ms QRS DURATION, UPRIGHT V1, 40+ ms S IN I/aVL/V4/V5/V6] Compared to ECG 08/18/2022 10:51:32 No significant changes Electronically Signed On 09-06-2022 12:51:23 PRESIDENT AND CEO by Shannon Rutledge M.D. [id number]
[2022-09-06 12:28] LABS: Basophils % 0.4 %; Eosinophils % 0.4 %; Hemoglobin 11.6 g/dL (11.7-16.6); Lymphocytes # 1.2 10^3/uL (0.8-4.8); Lymphocytes % 12.4 %; Mean Corpuscular Hemoglobin 25.7 pg (28.0-34.0); Mean Corpuscular Volume 88.5 fl (80-94); Mean Platelet Volume 9.6 fL (7.4-10.4); Monocytes # 0.7 10^3/uL (0.2-0.9); Neutrophils # 7.46 10^3/uL (1.8-7.7); Neutrophils % 79.5 %; Nucleated Red Blood Cells % 0 %; Platelet Count 240 10^3/cmm (130-400); Red Blood Count 4.52 10^6/uL (4.1-5.3); Red Cell Distribution Width 15.8 % (12.1-15.1); White Blood Count 9.4 10^3/uL (4.0-10.0)
[2022-09-06] MEDS: aspirin 81 mg Chew Tablet 324 MG PO (12:45)
[2022-09-06 12:48] LABS: ABG PCO2 77.5 mmHg (35-45); ABG PH Result 7.26 (7.35-7.45); Alveolar-Arterial Oxygen Gradi 10.8 mmHg (5-10); Arterial Blood Gas Hematocrit 37.2 % (42-52); Base Excess ABG 5.7 mmol/L (-2.0-2.0); Blood Gas Allen Test Pos; Blood Gas Operator Identificat MONRO; Blood Gas Sample Site Brachial, left; Blood Gas Sample Type Arterial; HCO3 ABG 35.1 mmol/L (22-26); HGB O2 Sat 83.1 % (95-100); Ionized Calcium Level - ABG 1.3 mmol/L (1.1-1.4); Methemoglobin 0.5 % (0.4-1.5); Oxygen Device NC; Oxygen Saturation ABG 85.2; PO2 ABG 55.1 mmHg (80.0-100.0); Potassium Level - ABG 4.3 mmol/L (3.5-5.0); Total Hemoglobin 12.1 g/dL (14-18)
[2022-09-06 12:51] LABS: Troponin(5th) Baseline 22 ng/L (0-15)
[2022-09-06 13:00] LABS: Alanine Aminotransferase 16 U/L (0-41); Albumin Level 3.5 g/dL (3.5-5.2); Alkaline Phosphatase 90 U/L (40-130); Anion Gap 9.6 (5-19); Aspartate Amino Transferase 13 U/L (0-40); Blood Urea Nitrogen 12 mg/dL (8-23); Calcium 8.9 mg/dL (8.5-10.5); Carbon Dioxide 35 mmol/L (22-29); Chloride 97 mmol/L (98-107); Globulin 4.1 g/dL (1.3-4.6); Glucose 122 mg/dL (65-115); NT Pro B Type Natriuretic Pept 1006 pg/mL (0-450); Osmolality Calculated 285 mOsm/kg (285-295); Potassium 4.6 mmol/L (3.5-5.1); Sodium 137 mmol/L (136-145); Total Bilirubin 0.4 mg/dL (0.15-1.2); Total Protein 7.6 g/dL (6.6-8.7)
--- NOTE | 2022-09-06 13:08 | PC.NURSE ---
PT PLACED ON CONTINUOUS NIBP, SPO2, AND CM
--- NOTE | 2022-09-06 13:11 | PC.NURSE ---
RESPIRATORY PLACED PT ON BIPAP PER PHYSICIAN ORDER. 50% FIO2
--- NOTE | 2022-09-06 14:15 | ECG_ITS ---
[facility] Test Date: 2022-09-06 Pat Name: Rickey Bob Department: Room: 106 Gender: Male Social Media Strategist: : 1945 Requested By: Erwin Albright Order Number: [id number] Evan MD: Shannon Rutledge M.D. Measurements Intervals [place] Rate: 72 P: 25 [place]: 235 QRS: 107 QRSD: 135 T: 10 QT: 411 QTc: 450 Interpretive Statements SINUS RHYTHM WITH FIRST DEGREE AV BLOCK RIGHT AXIS DEVIATION [QRS AXIS > 100] RIGHT BUNDLE BRANCH BLOCK [120+ ms QRS DURATION, UPRIGHT V1, 40+ ms S IN I/aVL/V4/V5/V6] Compared to ECG 09/06/2022 12:26:23 Right-axis deviation now present Sinus arrhythmia no longer present Electronically Signed On 09-06-2022 21:08:32 DESIGN TECHNICIAN by Shannon Rutledge M.D. [email or web address], [id number]
[2022-09-06] MEDS: FUROsemide 10 mg/mL SDV 4mL 40 MG IVP (14:26)
[2022-09-06 14:49] LABS: Troponin 5 2HR 27.58 ng/L (0-15); Troponin 5 2HR Delta 5.58 ABS# (0-10)
--- NOTE | 2022-09-06 16:38 | PC.NURSE ---
pt arrived to floor at 1449 via stretcher from ER. O2 in place per NC. Call light in reach. No complaints at this time. Will cont to monitor.
--- NOTE | 2022-09-06 18:15 | ECG_ITS ---
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 Measurements Intervals [place] Rate: 96 P: -16 DE: 254 QRS: 129 QRSD: 138 T: 29 QT: 378 QTc: 478 Interpretive Statements SINUS RHYTHM WITH FIRST DEGREE AV BLOCK RIGHT BUNDLE BRANCH BLOCK [120+ ms QRS DURATION, UPRIGHT V1, 40+ ms S IN I/aVL/V4/V5/V6] LEFT POSTERIOR FASCICULAR BLOCK [QRS AXIS > 109, INFERIOR Q] Compared to ECG 09/10/2022 00:48:58 First degree AV block now present Right bundle-branch block now present Left posterior fascicular block now present Ventricular-paced complex(es) or rhythm no longer present Electronically Signed On 09-10-2022 22:19:37 DOG RAISER by Shannon Rutledge M.D. [id number]
--- NOTE | 2022-09-06 18:26 | PC.NURSE ---
Hr jumped up to 124 for a brief moment and is now in the low 80's. Dr. Chris notified.
--- NOTE | 2022-09-06 18:31 | P.HP_ITS ---
Providers/Chief Complaint Admitting Physician: Carlos Chris MD Primary Care Provider: Catherine Morse MD Chief Complaint: CHEST PAIN/ SOB History of Present Illness Rickey Bob is a 77 year old male with past medical history of COPD, heart failure with preserved ejection fraction, obesity, came in today with chief complaint of worsening shortness of breath, lower extremity swelling, going on for the last few days, he was recently discharged from the hospital with similar complaint, upon arrival in the ER he was worked up for above mentioned complaint. Pertinent imaging studies: X-ray chest: Has shown pulmonary vascular congestion as well as cardiomegaly, has bibasilar infiltrates Pertinent labs: WBC 9.4, H&H 11/40 ,PLT: 240 , serum sodium 137, serum potassium 4.6, BUN 12 serum creatinine 0.5 Troponin trend: , proBNP: 1006 ABG: pH 7.26, PCO2 77, PO2 55, FiO2 32% Patient was given Lasix one-time dose in the ER, and was placed on BiPAP. Review of Systems General: Reports: 10 or more systems reviewed and unremarkable except in HPI and below Const: Denies: fever(s), chills, body aches, change in appetite or diaphoresis Card: Reports: edema, swelling of feet/ankles and dyspnea on exertion; Denies: palpitations, orthopnea or leg pain with exertion Resp: Reports: dyspnea; Denies: productive cough, wheezing or pain on inspiration GI: Denies: abdominal pain, nausea, vomiting, diarrhea or constipation : Denies: flank pain or difficulty urinating Musc: Reports: extremity swelling; Denies: back pain or extremity pain Neuro: Denies: headache(s), difficulty walking or confusion Medications/Allergies Home Medications Medication Instructions Recorded Confirmed Last Taken Type amlodipine 10 mg tablet 10 mg PO QAM 11/23/19 09/06/22 09/05/22 History ascorbic acid (vitamin C) 500 mg 500 mg PO QAM 11/23/19 09/06/22 09/05/22 History capsule aspirin 81 mg tablet,delayed 81 mg PO BEDTIME 11/23/19 09/06/22 09/05/22 History release (Adult Low Dose Aspirin) gemfibrozil 600 mg tablet (Lopid) 600 mg PO BID 11/23/19 09/06/22 09/05/22 History multivitamin 1 tab PO BEDTIME 11/23/19 09/06/22 09/05/22 History potassium chloride 20 mEq 10 meq PO DAILY PRN when taking 11/23/19 09/06/22 09/05/22 History tablet,extended release lasix trazodone 50 mg tablet 50 - 100 mg PO BEDTIME PRN Insomnia 11/23/19 09/06/22 04/09/22 History nitroglycerin 0.4 mg sublingual 0.4 mg sublingual Q5M PRN chest 01/09/21 09/06/22 Unknown Rx tablet (Nitrostat) pain #25 tabs metoprolol tartrate 50 mg tablet See Rx Instructions .Route .COMPLEX 09/06/21 09/06/22 09/05/22 History carboxymethylcellulose sodium 1 % 2 drp ophthalmic (eye) BID PRN Dry 04/11/22 09/06/22 08/15/22 History eye liquid gel drops Eye(S) isosorbide mononitrate 30 mg 30 mg PO DAILY #0 tabs 04/11/22 09/06/22 09/05/22 Rx tablet,extended release 24 hr losartan 100 mg tablet 100 mg PO DAILY 04/11/22 09/06/22 09/05/22 History omega 4-kvi-isa-fish oil 1,200 mg 1 cap PO BID 04/11/22 09/06/22 09/05/22 History (144 mg-216 mg) capsule (Fish Oil) sodium chloride 0.65 % nasal spray 1 spray intranasal BID PRN 04/11/22 09/06/22 Unknown History aerosol ([place] Saline) Congestion budesonide 0.5 mg/2 mL suspension 0.5 mg (2 mL) inhalation 07/19/22 09/06/22 08/14/22 Rx for nebulization BID.RESPIRATORY #120 mL docusate sodium 100 mg capsule 100 mg PO BID PRN Constipation 08/15/22 09/06/22 Unknown History hydrocodone 10 mg-acetaminophen 1 tab PO Q6H PRN Pain 08/15/22 09/06/22 Unknown History 325 mg tablet fluticasone fur. 100 mcg-umeclid 1 inh inhalation DAILY #60 ea 08/19/22 09/06/22 09/05/22 Rx 62.5 mcg-vilant 25 mcg inhalat.powder (Trelegy Ellipta) furosemide 40 mg tablet 40 mg PO DAILY PRN edema #30 tabs 08/19/22 09/06/22 08/15/22 Rx ipratropium 0.5 mg-albuterol 3 mg 3 ml inhalation Q6H PRN shortness 08/19/22 09/06/22 Unknown Rx (2.5 mg base)/3 mL nebulization of breath or wheezing #90 mL soln Allergies Allergy/AdvReac Type Severity Reaction Status Date / Time codeine Allergy Mild itched Verified 07/17/22 11:34 niacin Allergy Unknown Unknown Verified 07/17/22 11:34 succinylcholine Allergy Unknown Unknown Verified 07/17/22 11:34 Kkolzul-ZDI-HzD Reductase Allergy ALGY-Joint Verified 07/17/22 11:34 Inhibitor Pain PFSH Acute PFSH: Medical History (Updated 09/06/22 @ 19:51 by Carlos Chris MD) Acute and chronic respiratory failure with hypercapnia Acute exacerbation of chronic obstructive airways disease CAD (coronary artery disease) CHF (congestive heart failure), NYHA class III CHF exacerbation Chronic back pain COPD (chronic obstructive pulmonary disease) Diastolic heart failure History of MS (myocardial infarction) Hyperlipidemia Hypoxia Morbid obesity PAOD (peripheral arterial occlusive disease) Pneumonia Surgical History S/P appendectomy S/P excision of vocal cord nodule S/P knee surgery S/P PTCA (percutaneous transluminal coronary angioplasty) S/P tonsillectomy and adenoidectomy Family History Mother CAD (coronary artery disease) Father CAD (coronary artery disease) Brother , Age 44 MS Myocardial infarct Other Cancer Social History Smoking and tobacco status: current every day smoker cigarettes Alcohol intake: current Alcohol intake frequency: 3 or more drinks per day Alcohol type: beer Lives independently: Yes Household members: spouse Marital status: service: Yes status: Retired branch: [employer] Current occupational status: disabled History of recent travel: No Current gender identity: Male Special cherise needs: No Agree to transfusion: Yes Vitals/I&O/Wt Last Vital Signs Temp 97.9 F 09/06/22 12:08 Pulse 67 09/06/22 15:20 Resp 18 09/06/22 15:20 BP 167/83 09/06/22 14:30 Pulse Ox 95 09/06/22 15:20 O2 Del Method 09/06/22 15:20 O2 Flow Rate 6 09/06/22 15:20 FiO2 50 09/06/22 16:00 09/06/22 09/06/22 09/06/22 06:59 14:59 22:59 Intake Total 480 / 480 Output Total 800 / 800 Balance -320 / -320 Weight last 48 hrs Weight 108.545 kg Weight 104.326 kg Physical Exam Const: COMMON NORMALS: patient oriented x3 HENMT: COMMON NORMALS: normocephalic and atraumatic HEAD & SCALP: nor mocephalic and atraumatic Resp: COMMON NORMALS: clear to auscultation bilaterally AUSCULTATION: clear to auscultation bilaterally Cardio: COMMON NORMALS: S1 normal heart sound present, S2 normal heart sound present, No gallops present (Cardio), No rub (Cardio) and Peripheral pulses 2+ throughout RATE: regular rate RHYTHM: regular rhythm HEART SOUNDS: S1 normal heart sound present and S2 normal heart sound present PERIPHERAL PULSES: Peripheral pulses 2+ throughout OTHER: ESM in aortic area GI: COMMON NORMALS: Normal to inspection, nondistended, normoactive bowel sounds present, Soft to palpation, non-tender, No hepatosplenomegaly present and no masses AUSCULTATION: Yes normoactive bowel sounds PALPATION: Yes Soft to palpation and Yes No hepatosplenomegaly present RECTAL EXAM: Yes deferred Extremity: NARRATIVE EXTREMITY EXAM: 1+ bilateral lower extremity pitting edema Neuro: COMMON NORMALS: patient oriented x3 Data 09/06/22 12:20 09/06/22 12:20 A&P Assessment and plan (1) Respiratory failure with hypoxia and hypercapnia: (2) Congestive heart failure: (3) COPD (chronic obstructive pulmonary disease): Plan 77 year old male with past medical history of COPD, heart failure with preserved ejection fraction, obesity, came in today with chief complaint of worsening shortness of breath, lower extremity swelling, going on for the last few days. Assessment: Respiratory failure with hypoxia and hypercapnia secondary to CHF exacerbation, possible underlying pneumonia. Decompensated heart failure with preserved ejection fraction COPD Obesity Plan Follow repeat 2D echo with contrast: Recently last echo which was done is a poor quality Procalcitonin Lasix 60 IV twice daily Monitor intake output charting Monitor electrolytes Daily weight on BiPAP Monitor ABG Currently is empirically covered with ceftriaxone and azithromycin Supplemental oxygen as needed CODE STATUS: Full code DVT prophylaxis on Lovenox Attestations Medical Necessity Statement*: Patient is to be in hospital for management of decompensated heart failure.Anticipated length of stay greater than 2 midnights Coding Level of Care Code Acute Code for [facility] Fwd Diagnoses Respiratory failure with hypoxia and hypercapnia J96.91; J96.92 Congestive heart failure I50.9 COPD (chronic obstructive pulmonary disease) J44.9
[2022-09-06 19:45] LABS: Troponin 5 6HR 22.64 ng/L (0-15)
[2022-09-06 19:48] LABS: Troponin 5 6HR Delta 0.64 ng/L (0-12)
[2022-09-06] MEDS: azithromycin 500 MG in sodium chloride 0.9% 250 ML 250 MG IV (19:51)
[2022-09-06] MEDS: enoxaparin 40 mg/0.4 mL Syringe SUBCUT (19:53)
[2022-09-06] MEDS: budesonide 0.5 mg/2 mL Neb INHALATION (20:15)
[2022-09-06] MEDS: ipratropium-albuterol 3 mL Neb INHALATION (20:15)
[2022-09-06] MEDS: aspirin 81 mg EC Tablet PO (21:03)
[2022-09-06] MEDS: cefTRIAXone 1,000 MG in sodium chloride 0.9% (plus) 50 ML 100 MG IV (21:03)
[2022-09-07] VITALS (19 sets, daily range): BP systolic 140–179; BP diastolic 57–68; PULSE 82–98; RESP 8–29; TEMP 36.9–37.1; O2SAT 86–96
--- NOTE | 2022-09-07 01:54 | PC.NURSE ---
Bipap: Patient wore bipap from [id number] while resting in bed with HOB up at 60 degrees and states he was able to sleep some . Patient requested off bipap and back on NC at 4 L. Assisted patient into a recliner chair. Patient is agreeable to going back on bipap at 0300.
[2022-09-07] MEDS: ipratropium-albuterol 3 mL Neb INHALATION ×4 (02:17→20:36)
[2022-09-07 03:51] LABS: Basophils % 0.6 %; Eosinophils # 0.2 10^3/uL (0.0-0.8); Eosinophils % 3.1 %; Hematocrit 39.3 % (42.0-52.0); Hemoglobin 11.5 g/dL (11.7-16.6); Lymphocytes # 1.2 10^3/uL (0.8-4.8); Mean Corpuscular HGB Conc 29.3 g/dL (30.0-36.0); Mean Corpuscular Hemoglobin 26.4 pg (28.0-34.0); Mean Corpuscular Volume 90.1 fl (80-94); Mean Platelet Volume 9.6 fL (7.4-10.4); Monocytes # 0.8 10^3/uL (0.2-0.9); Monocytes % 11.3 %; Neutrophils % 66.7 %; Nucleated Red Blood Cells % 0 %; Platelet Count 208 10^3/cmm (130-400); Red Blood Count 4.36 10^6/uL (4.1-5.3); Red Cell Distribution Width 15.8 % (12.1-15.1); White Blood Count 6.7 10^3/uL (4.0-10.0)
[2022-09-07 04:32] LABS: Procalcitonin 0.04 ng/mL (0-0.5)
[2022-09-07 04:36] LABS: Anion Gap 11.2 (5-19); Blood Urea Nitrogen 11 mg/dL (8-23); Calcium 8.6 mg/dL (8.5-10.5); Carbon Dioxide 35 mmol/L (22-29); Chloride 95 mmol/L (98-107); Glucose 157 mg/dL (65-115); Magnesium 2.1 mg/dL (1.7-2.3); Osmolality Calculated 287 mOsm/kg (285-295); Potassium 4.2 mmol/L (3.5-5.1); Sodium 137 mmol/L (136-145)
[2022-09-07] MEDS: amlodipine 10 mg Tablet PO (07:00)
[2022-09-07] MEDS: ascorbic acid 500 mg Tablet PO (07:00)
[2022-09-07] MEDS: budesonide 0.5 mg/2 mL Neb INHALATION ×2 (08:05→20:36)
[2022-09-07] MEDS: losartan 50 mg Tablet 100 MG PO (08:37)
[2022-09-07] MEDS: gemfibrozil 600 mg Tablet PO ×2 (08:38→17:04)
[2022-09-07] MEDS: isosorbide mononitrate ER 30 mg Tablet PO (08:38)
[2022-09-07] MEDS: FUROsemide 10 mg/mL SDV 10mL 60 MG IVP (09:11)
[2022-09-07] MEDS: perflutren protein-a microsphr 0.22 mg/mL SDV 3 mL IV (09:50)
--- NOTE | 2022-09-07 11:45 | PC.CHAP ---
Pastoral Care Encounter/Spiritual Assessment Type of Contact [] Declined vector control specialist visit [] Patient/Family/Request visit [] Outpatient visit [] Follow-up visit [] Physician referral [] Code/Alert [x] Routine visit [] Staff referral [] Actively dying [] Patient sleeping [] Family support [] [] Out of room [] Palliative care [] [x] Receiving care in room [] Pre-surgical visit [] Trauma [] Long length of stay [] ICU visit [] Other: Relational/Emotional Strength [] Patient feels connected with others/family/visitors/staff [] Distress [] Loneliness/isolation [] Abandonment Spirituality of Patient [] Person of Charo [] Attends Adventist of their Charo [] Believes in Prayer [] Reads Bible or Latter Day materials [] There are Spiritual issues to be addressed Cad Librarian Interventions [] Prayer [] Active listening [] Non-anxious presence [] Spiritual/emotional support [] Crisis/trauma care [] Spiritual counseling [] Bereavement support [] Provided bereavement packet [] Provided Bible/devotional materials [] Provided toy/stuffed animal, coloring book to patient or family member [] Provided Communion [] Anointing/Worden [] Salvation [] Completed spiritual assessment [] Other: Impact on Illness or Injury [] Angry [] Fearful [] Anxious [] Often cries [] Exhaustion [] Unable to work [] Unable to attend confucianism [] Unable to walk/stand [] Unable to read [] Unable to drive [] Unable to eat/drink [] Unable to sleep [] Unable to be with family [] Patient intubated [] Other: Summary Time spent with patient
--- NOTE | 2022-09-07 14:42 | P.PN_ITS ---
Subjective Subjective: Patient was seen and examined this morning shortness of breath has improved, diuresing well. Medications: Medication Review Details: Generic Name Dose Route Start Last Admin Trade Name Pedro Pabloq PRN Reason Stop Dose Admin Albuterol/Ipratrop ium 3 ml 09/06/22 20:00 09/07/22 13:45 Ipratropium-Albu terol 3 Ml Neb INHALATION 3 ml Q6H.RESP BO Administration Amlodipine Besylat e 10 mg 09/07/22 06:00 09/07/22 07:00 Amlodipine 10 Mg Tablet PO 10 mg QAM BO Administration Ascorbic Acid 500 mg 09/07/22 06:00 09/07/22 07:00 Ascorbic Acid 50 0 Mg Tablet PO 500 mg QAM BO Administration Aspirin 81 mg 09/06/22 21:00 09/06/22 21:03 Aspirin 81 Mg Ec Tablet PO 81 mg BEDTIME BO Administration Budesonide 0.5 mg 09/06/22 20:00 09/07/22 08:05 Budesonide 0.5 M g/2 Ml Neb INHALATION 0.5 mg BID.RESPIRATORY S CH Administration Enoxaparin Sodium 40 mg 09/06/22 20:00 09/06/22 19:53 Enoxaparin 40 Mg /0.4 Ml Syringe SUBCUT 40 mg Q24H BO Administration Gemfibrozil 600 mg 09/07/22 09:00 09/07/22 08:38 Gemfibrozil 600 Mg Tablet PO 600 mg BID BO Administration Ceftriaxone Sodium 1,000 mg/ 50 mls @ 100 mls/ hr 09/06/22 21:00 09/06/22 21:45 Sodium Chloride IV Infused Q24H BO Infusion Protocol Azithromycin 500 m g/ Sodium 250 mls @ 250 mls /hr 09/06/22 20:00 09/06/22 20:00 Chloride IV 0 mls/hr Q24H BO Infusion Protocol Isosorbide Mononit rate 30 mg 09/07/22 09:00 09/07/22 08:38 Isosorbide [place] itrate Er 30 Mg Ta blet PO 30 mg DAILY BO Administration Losartan Potassium 100 mg 09/07/22 09:00 09/07/22 08:37 Losartan 50 Mg T ablet PO 100 mg DAILY BO Administration Non-Formulary Medi cation 1 tab 09/06/22 21:00 09/06/22 22:16 Multivitamin PO Not Given BEDTIME [facility] Non-Formulary Medi cation 1 cap 09/07/22 09:00 09/07/22 08:40 [place] 3-Dha-Epa- Fish Oil [Fish Oil ] PO Not Given BID BO Vitals/I&O/Wt Last Vital Signs Temp 98.3 F 09/06/22 20:00 Pulse 90 09/07/22 13:50 Resp 18 09/07/22 13:45 BP 140/68 09/07/22 12:00 Pulse Ox 94 09/07/22 13:45 O2 Del Method 09/07/22 13:45 O2 Flow Rate 5 09/07/22 13:45 FiO2 55 09/07/22 12:00 09/06/22 09/07/22 09/07/22 22:59 06:59 14:59 Intake Total 1057.5 / 1057.5 240 / 1297.5 480 / 480 Output Total 1700 / 1700 225 / 1925 800 / 800 Balance -642.5 / -642.5 15 / -627.5 -320 / -320 Weight last 48 hrs Weight 108.545 kg Weight 104.326 kg Physical Exam Const: COMMON NORMALS: patient oriented x3 HENMT: COMMON NORMALS: normocephalic and atraumatic HEAD & SCALP: normocephalic and atraumatic Resp: COMMON NORMALS: clear to auscultation bilaterally AUSCULTATION: clear to auscultation bilaterally Cardio: COMMON NORMALS: regular rate, regular rhythm, S1 normal heart sound present, S2 normal heart sound present, No gallops present (Cardio), No murmurs present (Cardio), No rub (Cardio) and Peripheral pulses 2+ throughout RATE: regular rate RHYTHM: regular rhythm HEART SOUNDS: S1 normal heart sound present and S2 normal heart sound present PERIPHERAL PULSES: Peripheral pulses 2+ throughout OTHER: ESM in aortic area GI: COMMON NORMALS: Normal to inspection, nondistended, normoactive bowel sounds present, Soft to palpation, non-tender, No hepatosplenomegaly present and no masses AUSCULTATION: Yes normoactive bowel sounds PALPATION: Yes Soft to palpation and Yes No hepatosplenomegaly present RECTAL EXAM: Yes deferred Extremity: NARRATIVE EXTREMITY EXAM: 1+ bilateral lower extremity pitting edema Neuro: COMMON NORMALS: patient oriented x3 Data 09/07/22 03:38 09/07/22 03:38 A&P Assessment and plan (1) Respiratory failure with hypoxia and hypercapnia: (2) Congestive heart failure: (3) COPD (chronic obstructive pulmonary disease): Plan 77 year old male with past medical history of COPD, heart failure with preserved ejection fraction, obesity, came in today with chief complaint of worsening shortness of breath, lower extremity swelling, going on for the last few days. Assessment: Respiratory failure with hypoxia and hypercapnia secondary to CHF exacerbation, possible underlying pneumonia. Decompensated heart failure with preserved ejection fraction COPD Obesity Plan Follow repeat 2D echo with contrast: Recently last echo which was done is a poor quality Procalcitonin: Normal Lasix 60 IV daily Monitor intake output charting Monitor electrolytes Daily weight on BiPAP Monitor ABG Currently is empirically covered with ceftriaxone and azithromycin Supplemental oxygen as needed CODE STATUS: Full code DVT prophylaxis on Lovenox Attestations Medical Necessity Statement*: Needs to be in hospital for management of heart failure. Coding Level of Care Code Acute Code for [facility] Fwd Diagnoses Respiratory failure with hypoxia and hypercapnia J96.91; J96.92 Congestive heart failure I50.9 COPD (chronic obstructive pulmonary disease) J44.9
--- NOTE | 2022-09-07 16:05 | ECG_ITS ---
[facility] Test Date: 2022-09-07 Pat Name: Rickey Bob Department: Room: 106 Gender: Male Senior Qa Automation Engineer: : 1945 Requested By: Carlos Chris Order Number: [id number] Evan MD: Jeovanny Crews M.D. Measurements Intervals [place] Rate: 79 P: 71 VA: 231 QRS: 122 QRSD: 129 T: 56 QT: 404 QTc: 464 Interpretive Statements SINUS RHYTHM WITH FIRST DEGREE AV BLOCK POSSIBLE RIGHT VENTRICULAR HYPERTROPHY [SOME/ALL OF: PROMINENT R IN V1, LATE TRANSITION, RAD, DENNY, SSS] SEPTAL MYOCARDIAL INFARCTION , OF INDETERMINATE AGE [40+ ms Q WAVE IN V1/V2] Compared to ECG 09/06/2022 14:20:14 Atrial abnormality now present Myocardial infarct finding now present Right-axis deviation no longer present Right bundle-branch block no longer present Electronically Signed On 09-07-2022 23:25:29 SPECIALTY SALES REPRESENTATIVE by Jeovanny Crews M.D. [email or web address] [email or web address]/store/[id number]
--- NOTE | 2022-09-07 16:19 | PC.NURSE ---
Pt c/o chest pressure that lasted for a brief moment. SABRINA performed and Dr. Chris notified. Will cont to monitor.
[2022-09-07] MEDS: azithromycin 500 MG in sodium chloride 0.9% 250 ML 250 MG IV (19:22)
[2022-09-07] MEDS: enoxaparin 40 mg/0.4 mL Syringe SUBCUT (19:26)
--- NOTE | 2022-09-07 19:48 | USCV_ITS ---
Rickey Bob Age: 77 Gender: M : 1945 Exam Date: 09/07/2022 09:23 Ordering Phys: Carlos Chris MD Technologist: TATIANA Exam Location: [facility] [place] Indication: Shortness of breath BP: / HR: Rhythm: Sinus Technical Quality: Adequate MEASUREMENTS (Male / Female) Normal Values FINDINGS Left Ventricle Normal left ventricular cavity size. Normal left ventricular systolic function. Left ventricular ejection fraction is estimated at 65-70 %. No regional wall motion abnormalities. Right Ventricle Normal right ventricular size and systolic function. Right Atrium Normal right atrial size. Left Atrium Mildly increased left atrial size. Mitral Valve Thickened mitral valve. Mitral annular calcification. Aortic Valve Aortic valve not well visualized. Tricuspid Valve Tricuspid valve not well visualized. Pulmonic Valve Pulmonic valve not well visualized. Pericardium No pericardial effusion. Aorta Aorta not well visualized. IVC Inferior vena cava not visualized. CONCLUSIONS 1. This is a technically difficult study. Optison was used per protocol. 2. Normal left ventricular cavity size. Normal left ventricular systolic function. Left ventricular ejection fraction is estimated at 65-70 %. No regional wall motion abnormalities. 3. Direct comparison to previous study dated 08/19/2022 is not possible due to TDS study. Shannon Rutledge MD (Electronically Signed) Final Date: 07 September 2022 16:46 S
[2022-09-07] MEDS: aspirin 81 mg EC Tablet PO (20:20)
[2022-09-07] MEDS: cefTRIAXone 1,000 MG in sodium chloride 0.9% (plus) 50 ML 100 MG IV (20:29)
[2022-09-08] VITALS (16 sets, daily range): BP systolic 131–168; BP diastolic 57–76; PULSE 73–97; RESP 16–25; TEMP 36.5–37.1; O2SAT 93–99
[2022-09-08] MEDS: ipratropium-albuterol 3 mL Neb INHALATION ×4 (01:22→19:35)
[2022-09-08] MEDS: acetaminophen 325 mg Tablet 650 MG PO ×2 (01:59→21:21)
[2022-09-08] MEDS: trazodone 50 mg Tablet PO (01:59)
[2022-09-08 04:26] LABS: Basophils % 0.5 %; Eosinophils # 0.3 10^3/uL (0.0-0.8); Eosinophils % 3.9 %; Lymphocytes # 1.4 10^3/uL (0.8-4.8); Lymphocytes % 21.2 %; Mean Corpuscular HGB Conc 28.9 g/dL (30.0-36.0); Mean Corpuscular Hemoglobin 25.9 pg (28.0-34.0); Mean Corpuscular Volume 89.6 fl (80-94); Mean Platelet Volume 10.4 fL (7.4-10.4); Monocytes # 0.7 10^3/uL (0.2-0.9); Neutrophils # 4.09 10^3/uL (1.8-7.7); Neutrophils % 63.2 %; Nucleated Red Blood Cells % 0 %; Platelet Count 206 10^3/cmm (130-400); Red Blood Count 4.24 10^6/uL (4.1-5.3); Red Cell Distribution Width 15.5 % (12.1-15.1); White Blood Count 6.5 10^3/uL (4.0-10.0)
[2022-09-08 04:49] LABS: Blood Urea Nitrogen 15 mg/dL (8-23); Calcium 8.8 mg/dL (8.5-10.5); Carbon Dioxide 40 mmol/L (22-29); Chloride 94 mmol/L (98-107); Glucose 100 mg/dL (65-115); Magnesium 2.5 mg/dL (1.7-2.3); Osmolality Calculated 285 mOsm/kg (285-295); Sodium 137 mmol/L (136-145)
[2022-09-08 05:00] LABS: Anion Gap 7.8 (5-19); Potassium 4.8 mmol/L (3.5-5.1)
[2022-09-08] MEDS: ascorbic acid 500 mg Tablet PO (05:18)
[2022-09-08] MEDS: amlodipine 10 mg Tablet PO (05:18)
--- NOTE | 2022-09-08 06:00 | USCV_ITS ---
Rickey Bob Age: 77 Gender: M : 1945 Exam Date: 09/08/2022 11:03 Ordering Phys: Shannon Rutledge MD ([email or web address]) Technologist: TATIANA Exam Location: [facility] [place] Indication: Aortic stenosis BP: / HR: 86 Rhythm: Sinus Technical Quality: Technically difficult study MEASUREMENTS (Male / Female) Normal Values DOPPLER AV Peak Velocity 369.0 cm/s LVOT Peak Velocity 97.0 cm/s FINDINGS Left Ventricle Normal left ventricular cavity size and systolic function. Left ventricular ejection fraction is estimated at 65 %. No regional wall motion abnormalities. Right Ventricle Normal right ventricular size and systolic function. Right Atrium Normal right atrial size. Left Atrium Mildly increased left atrial size. Mitral Valve Mitral annular calcification. No mitral valve stenosis. Aortic Valve Markedly thickened and calcified aortic valve. Possibly low gradient severe aortic stenosis with peak velocity 3.9 m/s, peak gradient 62 mm Hg, mean gradient 29 mm Hg, PARUL 0.6 cm2 (LVOT=1.9 cm). DVI=0.25. No significant aortic valve regurgitation. Tricuspid Valve Tricuspid valve not well visualized. Pulmonic Valve Pulmonic valve not well visualized. Pericardium No pericardial effusion. Aorta Aorta not well visualized. IVC Inferior vena cava not visualized. CONCLUSIONS 1. This is a technically difficult study. Optison was used per protocol. 2. Normal left ventricular cavity size and systolic function. Left ventricular ejection fraction is estimated at 65 %. No regional wall motion abnormalities. 3. Possibly low gradient severe aortic stenosis with peak velocity 3.9 m/s, peak gradient 62 mm Hg, mean gradient 29 mm Hg, PARUL 0.6 cm2 (LVOT=1.9 cm). DVI=0.25. 4. VALARIE is recommended for complete assessment of aortic stenosis. Shannon Rutledge MD (Electronically Signed) Final Date: 08 September 2022 12:59 S
[2022-09-08] MEDS: isosorbide mononitrate ER 30 mg Tablet PO (08:15)
[2022-09-08] MEDS: FUROsemide 10 mg/mL SDV 10mL 60 MG IVP (08:15)
[2022-09-08] MEDS: losartan 50 mg Tablet 100 MG PO (08:16)
[2022-09-08] MEDS: gemfibrozil 600 mg Tablet PO ×2 (08:16→18:53)
--- NOTE | 2022-09-08 08:21 | PC.NURSE ---
pt is cleaning up his nose and scratching the nares. instructed pt not to keep messing the inside. pt stated it keep bleeding. i wish the doctor will look at it. light bleeding noted in the kleenex. checked nares w/flashlight. noted old dark blood. Notified doctor of his concern.
[2022-09-08] MEDS: budesonide 0.5 mg/2 mL Neb INHALATION ×2 (08:24→19:34)
[2022-09-08] MEDS: saline nasal spray 44mL Btl 1 SPRAY NASAL (10:37)
[2022-09-08] MEDS: perflutren protein-a microsphr 0.22 mg/mL SDV 3 mL IV (11:41)
--- NOTE | 2022-09-08 13:40 | PM.CONSULT ---
Providers/Reason For Consult Consulting Physician/Specialty*: Dr. Rutledge, cardiology Reason for Consult*: Severe Attending Physician: Carlos Chris MD Primary Care Provider: Catherine Morse MD History of Present Illness History of Present Illness Rickey Bob is a 77 year old male with past medical history of coronary artery disease, peripheral arterial disease, obesity, hypertension hyperlipidemia,?COPD, heart failure with preserved ejection fraction, obesity, came in today with chief complaint of worsening shortness of breath, lower extremity swelling. CXR showed pulmonary vascular congestion. He is being diuresed. Systolic murmur of was noted on physical exam and echo was done. ECHO is TDS but does show peak aortic valve velocities reaching 4 m/s in some views. Aortic valve appears to be moderately to markedly thickened and calcified. Patient denies any chest pain but endorses to some leg swelling and SOB. SOB improved since arrival. No dizziness or syncopal episodes. Review of Systems General: Reports: 10 or more systems reviewed and unremarkable except in HPI and below Const: Denies: fever(s), chills, body aches, change in appetite or diaphoresis Card: Reports: edema, swelling of feet/ankles and dyspnea on exertion; Denies: palpitations, orthopnea or leg pain with exertion Resp: Reports: dyspnea; Denies: productive cough, wheezing or pain on inspiration GI: Denies: abdominal pain, nausea, vomiting, diarrhea or constipation : Denies: flank pain or difficulty urinating Musc: Reports: extremity swelling; Denies: back pain or extremity pain Neuro: Denies: headache(s), difficulty walking or confusion Medications/Allergies Home Medications Medication Instructions Recorded Confirmed Last Taken Type amlodipine 10 mg tablet 10 mg PO QAM 11/23/19 09/06/22 09/05/22 History ascorbic acid (vitamin C) 500 mg 500 mg PO QAM 11/23/19 09/06/22 09/05/22 History capsule aspirin 81 mg tablet,delayed 81 mg PO BEDTIME 11/23/19 09/06/22 09/05/22 History release (Adult Low Dose Aspirin) gemfibrozil 600 mg tablet (Lopid) 600 mg PO BID 11/23/19 09/06/22 09/05/22 History multivitamin 1 tab PO BEDTIME 11/23/19 09/06/22 09/05/22 History potassium chloride 20 mEq 10 meq PO DAILY PRN when taking 11/23/19 09/06/22 09/05/22 History tablet,extended release lasix trazodone 50 mg tablet 50 - 100 mg PO BEDTIME PRN Insomnia 11/23/19 09/06/22 04/09/22 History nitroglycerin 0.4 mg sublingual 0.4 mg sublingual Q5M PRN chest 01/09/21 09/06/22 Unknown Rx tablet (Nitrostat) pain #25 tabs metoprolol tartrate 50 mg tablet See Rx Instructions .Route .COMPLEX 09/06/21 09/06/22 09/05/22 History carboxymethylcellulose sodium 1 % 2 drp ophthalmic (eye) BID PRN Dry 04/11/22 09/06/22 08/15/22 History eye liquid gel drops Eye(S) isosorbide mononitrate 30 mg 30 mg PO DAILY #0 tabs 04/11/22 09/06/22 09/05/22 Rx tablet,extended release 24 hr losartan 100 mg tablet 100 mg PO DAILY 04/11/22 09/06/22 09/05/22 History omega 4-zap-jnb-fish oil 1,200 mg 1 cap PO BID 04/11/22 09/06/22 09/05/22 History (144 mg-216 mg) capsule (Fish Oil) sodium chloride 0.65 % nasal spray 1 spray intranasal BID PRN 04/11/22 09/06/22 Unknown History aerosol ([place] Saline) Congestion budesonide 0.5 mg/2 mL suspension 0.5 mg (2 mL) inhalation 07/19/22 09/06/22 08/14/22 Rx for nebulization BID.RESPIRATORY #120 mL docusate sodium 100 mg capsule 100 mg PO BID PRN Constipation 08/15/22 09/06/22 Unknown History hydrocodone 10 mg-acetaminophen 1 tab PO Q6H PRN Pain 08/15/22 09/06/22 Unknown History 325 mg tablet fluticasone fur. 100 mcg-umeclid 1 inh inhalation DAILY #60 ea 08/19/22 09/06/22 09/05/22 Rx 62.5 mcg-vilant 25 mcg inhalat.powder (Trelegy Ellipta) furosemide 40 mg tablet 40 mg PO DAILY PRN edema #30 tabs 01/09/06/22 08/15/22 Rx ipratropium 0.5 mg-albuterol 3 mg 3 ml inhalation Q6H PRN shortness 08/19/22 09/06/22 Unknown Rx (2.5 mg base)/3 mL nebulization of breath or wheezing #90 mL soln Allergies Allergy/AdvReac Type Severity Reaction Status Date / Time codeine Allergy Mild itched Verified 07/17/22 11:34 niacin Allergy Unknown Unknown Verified 07/17/22 11:34 succinylcholine Allergy Unknown Unknown Verified 07/17/22 11:34 Kkrhehe-CKQ-GkJ Reductase Allergy ALGY-Joint Verified 07/17/22 11:34 Inhibitor Pain Current Medications Generic Name Dose Route Start Last Admin Trade Name Freq PRN Reason Stop Dose Admin Acetaminophen 650 mg 09/06/22 18:25 09/08/22 01:59 Acetaminophen 325 Mg Tablet PO 650 mg Q6H PRN Administration Mild/Mod Pain Or Temp >/= 101 Albuterol/Ipratropium 3 ml 09/06/22 20:00 09/08/22 13:12 Ipratropium-Albuterol 3 Ml Neb INHALATION 3 ml Q6H.RESP BO Administration Amlodipine Besylate 10 mg 09/07/22 06:00 09/08/22 05:18 Amlodipine 10 Mg Tablet PO 10 mg QAM BO Administration Ascorbic Acid 500 mg 09/07/22 06:00 09/08/22 05:18 Ascorbic Acid 500 Mg Tablet PO 500 mg QAM BO Administration Aspirin 81 mg 09/06/22 21:00 09/07/22 20:20 Aspirin 81 Mg Ec Tablet PO 81 mg BEDTIME BO Administration Budesonide 0.5 mg 09/06/22 20:00 09/08/22 08:24 Budesonide 0.5 Mg/2 Ml Neb INHALATION 0.5 mg BID.RESPIRATORY BO Administration Enoxaparin Sodium 40 mg 09/06/22 20:00 09/07/22 19:26 Enoxaparin 40 Mg/0.4 Ml Syringe SUBCUT 40 mg Q24H BO Administration Gemfibrozil 600 mg 09/07/22 09:00 09/08/22 08:16 Gemfibrozil 600 Mg Tablet PO 600 mg BID BO Administration Ceftriaxone Sodium 1,000 mg/ 50 mls @ 100 mls/hr 09/06/22 21:00 09/07/22 21:07 Sodium Chloride IV Infused Q24H BO Infusion Protocol Azithromycin 500 mg/ Sodium 250 mls @ 250 mls/hr 09/06/22 20:00 09/07/22 20:31 Chloride IV Infused Q24H BO Infusion Protocol Isosorbide Mononitrate 30 mg 09/07/22 09:00 09/08/22 08:15 Isosorbide Mononitrate Er 30 Mg Tablet PO 30 mg DAILY BO Administration Losartan Potassium 100 mg 09/07/22 09:00 09/08/22 08:16 Losartan 50 Mg Tablet PO 100 mg DAILY BO Administration Non-Formulary Medication 1 tab 09/06/22 21:00 09/07/22 20:55 Multivitamin PO Not Given BEDTIME BO Non-Formulary Medication 1 cap 09/07/22 09:00 09/08/22 08:36 [place] 0-Tdl-Zqn-Fish Oil [Fish Oil] PO Not Given BID BO Sodium Chloride 1 spray 09/08/22 10:03 09/08/22 10:37 Saline Nasal [place] 44ml Btl NASAL 1 spray PRN PRN Administration DRYNESS Trazodone HCl 50 mg 09/06/22 18:28 09/08/22 01:59 Trazodone 50 Mg Tablet PO 50 mg BEDTIME PRN Administration Insomnia PFSH Acute PFSH: Medical History Acute and chronic respiratory failure with hypercapnia Acute exacerbation of chronic obstructive airways disease CAD (coronary artery disease) CHF (congestive heart failure), NYHA class III CHF exacerbation Chronic back pain COPD (chronic obstructive pulmonary disease) Diastolic heart failure History of CA (myocardial infarction) Hyperlipidemia Hypoxia Morbid obesity PAOD (peripheral arterial occlusive disease) Pneumonia Surgical History S/P appendectomy S/P excision of vocal cord nodule S/P knee surgery S/P PTCA (percutaneous transluminal coronary angioplasty) S/P tonsillectomy and adenoidectomy Family History Mother CAD (coronary artery disease) Father CAD (coronary artery disease) Brother , Age 44 CA Myocardial infarct Other Cancer Social History Smoking and tobacco status: current every day smoker cigarettes Alcohol intake: current Alcohol intake frequency: 3 or more drinks per day Alcohol type: beer Lives independently: Yes Household members: spouse Marital status: service: Yes status: Retired branch: [employer] Current occupational status: disabled History of recent travel: No Current gender identity: Male Special cherise needs: No Agree to transfusion: Yes Vitals/I&O/Wt Last Vital Signs Temp 98.3 F 09/08/22 03:24 Pulse 90 09/08/22 13:15 Resp 16 09/08/22 13:13 BP 139/74 09/08/22 09:40 Pulse Ox 94 09/08/22 13:13 O2 Del Method 09/08/22 13:13 O2 Flow Rate 3 09/08/22 13:13 FiO2 55 09/07/22 20:00 09/07/22 09/08/22 09/08/22 22:59 06:59 14:59 Intake Total 780 / 1260 690 / 1950 714 / 714 Output Total 625 / 1425 350 / 1775 1380 / 1380 Balance 155 / -165 340 / 175 -666 / -666 Weight last 48 hrs Weight 240 lb 11.2 oz Weight 239 lb 4.8 oz Physical Exam Const: COMMON NORMALS: no acute distress, patient oriented x3 and alert GENERAL APPEARANCE: cooperative, comfortable, well kempt and well hydrated OTHER: obese HENMT: COMMON NORMALS: hearing grossly normal bilaterally and external ears normal FACE & SINUS: normal facial exam EXTERNAL EAR: Yes external ears normal Eye: COMMON NORMALS: EOMs intact bilaterally and no scleral icterus GENERAL EYE: appearance normal, both eyes and all related structures ALIGNMENT: Yes alignment normal Neck/C-Spine: COMMON NORMALS: supple and no JVD GENERAL: Yes normal visual inspection CAROTIDS: Yes normal carotid upstroke Chest: COMMONS NORMALS: normal inspection of the chest and normal palpation of entire chest wall CHEST: Yes Symmetrical chest wall rise and No tenderness Resp: COMMON NORMALS: clear to auscultation bilaterally EFFORT & INSPECTION: Yes able to speak in complete sentences, No tachypneic, No respiratory distress, No pursed lip breathing, No labored and No Actively coughing AUSCULTATION: clear to auscultation bilaterally, no crackles, no rales, no rhonchi and no wheezes Cardio: COMMON NORMALS: no JVD, regular rate, regular rhythm, S1 normal heart sound present, S2 normal heart sound present and Peripheral pulses 2+ throughout PALPATION: normal PMI RATE: regular rate RHYTHM: regular rhythm HEART SOUNDS: S1 normal heart sound present, S2 normal heart sound present, no click, no gallops and no murmurs BRUITS: no carotid bruits PERIPHERAL PULSES: Peripheral pulses 2+ throughout, radial pulses present, posterior tibial pulses present and dorsalis pedis present GI: COMMON NORMALS: Soft to palpation AUSCULTATION: Yes normoactive bowel sounds PALPATION: Yes Soft to palpation, No Tenderness to palpation present (GI), No Guarding due to palpation present (GI) and No Rigid due to palpation PERCUSSION: tympanic to percussion Extremity: GENERAL: No clubbing, No cyanosis, Yes edema and No pallor Neuro: COMMON NORMALS: patient oriented x3, CN's II-XII intact bilaterally and no focal motor deficits SENSORIUM/ORIENTATION: Yes alert Psych: COMMON NORMALS: Normal thought process present and speech normal APPEARANCE: Yes well kempt SPEECH: Yes normal speech MOOD & AFFECT: Yes euthymic mood THOUGHT PROCESS: Normal thought process present THOUGHT CONTENT: Yes Normal thought content present Data 09/08/22 03:19 09/08/22 03:19 Other data: TTE (09/08/22) CONCLUSIONS ?1. This is a technically difficult study. Optison was used per ?protocol. ?2. Normal left ventricular cavity size and systolic function. ?Left ventricular ejection fraction is estimated at 65 %. No ?regional wall motion abnormalities. ?3. Possibly low gradient severe aortic stenosis with peak ?velocity 3.9 m/s, peak gradient 62 mm Hg, mean gradient 29 mm ?Hg, PARUL 0.6 cm2 (LVOT=1.9 cm). DVI=0.25. ?4. VALARIE is recommended for complete assessment of aortic ?stenosis. TTE (09/07/21) ?CONCLUSIONS ?1. This is a technically difficult study. Optison was used per ?protocol. ?2. Normal left ventricular cavity size. Normal left ventricular ?systolic function. Left ventricular ejection fraction is ?estimated at 65-70 %. No regional wall motion abnormalities. ?3. Direct comparison to previous study dated 08/19/2022 is not ?possible due to TDS study. A&P Assessment and plan (1) Aortic stenosis: Possibly PLFLG severe -I think with his really difficult images, VALARIE should be done for complete evaluation of aortic valve. -VALARIE discussed with patient and he is agreeable with the plan. -I will tentatively plan for VALARIE on Saturday. (2) Congestive heart failure: HFpEF -continue IV lasix (3) PAOD (peripheral arterial occlusive disease): (4) COPD (chronic obstructive pulmonary disease): Plan CAD Pneumonia Statin intolerance Obesity Patient seen today via Telehealth by agreement and consent of patient. Telehealth technology used during the visit include video and audio. Exam was conducted with the help of bedside nurse. Time spent in encounter 40 minutes with >50% time spent face to face. Coding Level of Care Code 95562 Exam Comprehensive Diagnoses Aortic stenosis I35.0 Congestive heart failure I50.9 PAOD (peripheral arterial occlusive disease) I77.9 COPD (chronic obstructive pulmonary disease) J44.9
--- NOTE | 2022-09-08 15:17 | PM.PN ---
Subjective Subjective: Patient was seen and examined this morning shortness of breath has improved, he had an episode of chest tightness yesterday with spontaneously resolved EKG, showed no acute ST-T wave changes. Medications: Medication Review Details: Generic Name Dose Route Start Last Admin Trade Name Briseida PRN Reason Stop Dose Admin Albuterol/Ipratrop ium 3 ml 09/06/22 20:00 09/07/22 13:45 Ipratropium-Albu terol 3 Ml Neb INHALATION 3 ml Q6H.RESP BO Administration Amlodipine Besylat e 10 mg 09/07/22 06:00 09/07/22 07:00 Amlodipine 10 Mg Tablet PO 10 mg QAM BO Administration Ascorbic Acid 500 mg 09/07/22 06:00 09/07/22 07:00 Ascorbic Acid 50 0 Mg Tablet PO 500 mg QAM BO Administration Aspirin 81 mg 09/06/22 21:00 09/06/22 21:03 Aspirin 81 Mg Ec Tablet PO 81 mg BEDTIME BO Administration Budesonide 0.5 mg 09/06/22 20:00 09/07/22 08:05 Budesonide 0.5 M g/2 Ml Neb INHALATION 0.5 mg BID.RESPIRATORY S CH Administration Enoxaparin Sodium 40 mg 09/06/22 20:00 09/06/22 19:53 Enoxaparin 40 Mg /0.4 Ml Syringe SUBCUT 40 mg Q24H BO Administration Gemfibrozil 600 mg 09/07/22 09:00 09/07/22 08:38 Gemfibrozil 600 Mg Tablet PO 600 mg BID BO Administration Ceftriaxone Sodium 1,000 mg/ 50 mls @ 100 mls/ hr 09/06/22 21:00 09/06/22 21:45 Sodium Chloride IV Infused Q24H BO Infusion Protocol Azithromycin 500 m g/ Sodium 250 mls @ 250 mls /hr 09/06/22 20:00 09/06/22 20:00 Chloride IV 0 mls/hr Q24H BO Infusion Protocol Isosorbide Mononit rate 30 mg 09/07/22 09:00 09/07/22 08:38 Isosorbide [place] itrate Er 30 Mg Ta blet PO 30 mg DAILY BO Administration Losartan Potassium 100 mg 09/07/22 09:00 09/07/22 08:37 Losartan 50 Mg T ablet PO 100 mg DAILY BO Administration Non-Formulary Medi cation 1 tab 09/06/22 21:00 09/06/22 22:16 Multivitamin PO Not Given BEDTIME BO Non-Formulary Medi cation 1 cap 09/07/22 09:00 09/07/22 08:40 [place] 3-Dha-Epa- Fish Oil [Fish Oil ] PO Not Given BID BO Vitals/I&O/Wt Last Vital Signs Temp 97.7 F 09/08/22 13:59 Pulse 92 09/08/22 13:59 Resp 21 H 09/08/22 13:59 BP 131/57 09/08/22 13:59 Pulse Ox 95 09/08/22 13:59 O2 Del Method 09/08/22 13:59 O2 Flow Rate 3 09/08/22 13:59 FiO2 55 09/07/22 20:00 09/08/22 09/08/22 09/08/22 06:59 14:59 22:59 Intake Total 690 / 1950 714 / 714 Output Total 350 / 1775 1380 / 1380 Balance 340 / 175 -666 / -666 Weight last 48 hrs Weight 109.18 kg Physical Exam Const: COMMON NORMALS: patient oriented x3 HENMT: COMMON NORMALS: normocephalic and atraumatic HEAD & SCALP: normocephalic and atraumatic Resp: COMMON NORMALS: clear to auscultation bilaterally AUSCULTATION: clear to auscultation bilaterally Cardio: COMMON NORMALS: regular rate, regular rhythm, S1 normal heart sound present, S2 normal heart sound present, No gallops present (Cardio), No murmurs present (Cardio), No rub (Cardio) and Peripheral pulses 2+ throughout RATE: regular rate RHYTHM: regular rhythm HEART SOUNDS: S1 normal heart sound present and S2 normal heart sound present PERIPHERAL PULSES: Peripheral pulses 2+ throughout OTHER: ESM in aortic area GI: COMMON NORMALS: Normal to inspection, nondistended, normoactive bowel sounds present, Soft to palpation, non-tender, No hepatosplenomegaly present and no masses AUSCULTATION: Yes normoactive bowel sounds PALPATION: Yes Soft to palpation and Yes No hepatosplenomegaly present RECTAL EXAM: Yes deferred Extremity: NARRATIVE EXTREMITY EXAM: 1+ bilateral lower extremity pitting edema Neuro: COMMON NORMALS: patient oriented x3 Data 09/08/22 03:19 09/08/22 03:19 A&P Assessment and plan (1) Respiratory failure with hypoxia and hypercapnia: (2) Congestive heart failure: (3) COPD (chronic obstructive pulmonary disease): Plan 77 year old male with past medical history of COPD, heart failure with preserved ejection fraction, obesity, came in today with chief complaint of worsening shortness of breath, lower extremity swelling, going on for the last few days. Assessment: Respiratory failure with hypoxia and hypercapnia secondary to CHF exacerbation, possible underlying pneumonia. Decompensated heart failure with preserved ejection fraction. low gradient severe aortic stenosis COPD Obesity Plan Follow repeat 2D echo with contrast: Recently last echo which was done is a poor quality. Normal left ventricular cavity size and systolic function.?Left ventricular ejection fraction is estimated at 65 %. No regional wall motion abnormalities. Possibly low gradient severe aortic stenosis with peak velocity 3.9 m/s, peak gradient 62 mm Hg, mean gradient 29 mm Hg, PARUL 0.6 cm2 (LVOT=1.9 cm). DVI=0.25. Procalcitonin: Normal Lasix 40 IV daily Monitor intake output charting Monitor electrolytes Daily weight on BiPAP Monitor ABG Was empirically covered with ceftriaxone and azithromycin, has been discontinued as low clinical suspicion for pneumonia. Supplemental oxygen as needed. Cardiology on board for work-up of aortic stenosis (possible VALARIE, possible coronary angiogram) CODE STATUS: Full code DVT prophylaxis on Lovenox Attestations Medical Necessity Statement*: Needs to be in hospital for management of heart failure. Coding Level of Care Code Acute Code for [facility] Fwd Diagnoses Respiratory failure with hypoxia and hypercapnia J96.91; J96.92 Congestive heart failure I50.9 COPD (chronic obstructive pulmonary disease) J44.9
[2022-09-08] MEDS: aspirin 81 mg EC Tablet PO (21:21)
[2022-09-08] MEDS: enoxaparin 40 mg/0.4 mL Syringe SUBCUT (21:22)
[2022-09-08] MEDS: temazepam 15 mg Capsule PO (23:04)
[2022-09-08] MEDS: diphenhydrAMINE 25 mg Capsule PO (23:35)
[2022-09-09] VITALS (13 sets, daily range): BP systolic 130–156; BP diastolic 70–85; PULSE 79–98; RESP 16–25; TEMP 36.3–36.9; O2SAT 90–100
[2022-09-09] MEDS: ipratropium-albuterol 3 mL Neb INHALATION ×3 (02:19→19:50)
[2022-09-09 05:37] LABS: Basophils % 0.8 %; Eosinophils # 0.3 10^3/uL (0.0-0.8); Eosinophils % 5.3 %; Hematocrit 39.9 % (42.0-52.0); Hemoglobin 11.1 g/dL (11.7-16.6); Lymphocytes # 1.2 10^3/uL (0.8-4.8); Mean Corpuscular HGB Conc 27.8 g/dL (30.0-36.0); Mean Corpuscular Hemoglobin 25.5 pg (28.0-34.0); Mean Corpuscular Volume 91.7 fl (80-94); Mean Platelet Volume 9.8 fL (7.4-10.4); Monocytes # 0.6 10^3/uL (0.2-0.9); Monocytes % 11.2 %; Neutrophils # 3.13 10^3/uL (1.8-7.7); Neutrophils % 59.7 %; Nucleated Red Blood Cells % 0 %; Platelet Count 205 10^3/cmm (130-400); Red Blood Count 4.35 10^6/uL (4.1-5.3); Red Cell Distribution Width 15.5 % (12.1-15.1); White Blood Count 5.3 10^3/uL (4.0-10.0)
[2022-09-09 05:55] LABS: Anion Gap 10.4 (5-19); Blood Urea Nitrogen 9 mg/dL (8-23); Calcium 8.6 mg/dL (8.5-10.5); Carbon Dioxide 34 mmol/L (22-29); Chloride 92 mmol/L (98-107); Glucose 105 mg/dL (65-115); Magnesium 2.1 mg/dL (1.7-2.3); Osmolality Calculated 273 mOsm/kg (285-295); Potassium 4.4 mmol/L (3.5-5.1); Sodium 132 mmol/L (136-145)
[2022-09-09] MEDS: FUROsemide 10 mg/mL SDV 4mL 40 MG IVP (06:16)
[2022-09-09] MEDS: amlodipine 10 mg Tablet PO (06:16)
[2022-09-09] MEDS: ascorbic acid 500 mg Tablet PO (06:16)
[2022-09-09] MEDS: gemfibrozil 600 mg Tablet PO ×2 (08:28→18:17)
[2022-09-09] MEDS: isosorbide mononitrate ER 30 mg Tablet PO (08:28)
[2022-09-09] MEDS: losartan 50 mg Tablet 100 MG PO (08:28)
--- NOTE | 2022-09-09 09:08 | PC.SOCIAL ---
IMM Update IMM updated with patient. Verbalized an understanding. Copy pg 2 provided. Initialled, dated, timed, and placed in chart.
--- NOTE | 2022-09-09 09:30 | PC.NURSE ---
pt nosebleed episode this morning Pt has has had minimal to moderate nose bleed this morning. It has stopped at this time. Instructed pt to refrain from scratching and cleaning his nares for now and let it heal. Oxymask is still attached. pt right nare/nose is swollen, dried sores inside noted. Dr. Chris at bedside and notified of his sore nose. Pt told doctor he has been putting triple antibiotic in it, removing dried sores with kleenex and nasal spray. Dr stated to pt if he keeps having heavy nose bleeds we will be putting a packing. Pt refused packing. Notified Dr that his left leg is swollen than right. Denies any pain in left leg. Educated pt on his 1000 Fluid restriction due to his low sodium today. Pt provided with oral swab if pt feels dry to lips. pt verbalizes understanding.
--- NOTE | 2022-09-09 09:33 | PC.NURSE ---
pt is sleeping on his side now with oxy mask on at 3 l.
--- NOTE | 2022-09-09 11:15 | USR_ITS ---
PROCEDURE INFORMATION: Exam: US Duplex Lower Extremity Veins, Bilateral Exam date and time: 09/09/2022 6:48 PM Age: 77 years old Clinical indication: Edema, localized; Lower extremity, bilateral; Additional info: R/O dvt TECHNIQUE: Imaging protocol: Real-time duplex ultrasound of the bilateral extremities with 2-D fleming scale, color Doppler flow and spectral waveform analysis including responses to compression and other maneuvers (when performed) with image documentation. Complete exam focused on the lower extremity veins. COMPARISON: No relevant prior studies available. FINDINGS: Right deep veins: Unremarkable. The common femoral, femoral, proximal profunda femoral and popliteal veins are patent without thrombus. Normal Doppler waveforms. Normal compressibility and/or augmentation response. Right superficial veins: Saphenofemoral junction is patent without thrombus. Left deep veins: Unremarkable. The common femoral, femoral, proximal profunda femoral and popliteal veins are patent without thrombus. Normal Doppler waveforms. Normal compressibility and/or augmentation response. Left superficial veins: Saphenofemoral junction is patent without thrombus. Soft tissues: Unremarkable. US/CV venous duplex [facility] [id number] IMPRESSION: No evidence of deep vein thrombosis in either leg.
--- NOTE | 2022-09-09 11:45 | PM.PN ---
Subjective Subjective: Patient was seen and examined this morning, was complaining of epistaxis. Serum sodium is slightly trending down, for now we will hold Lasix, will risk strict oral free water intake 1000 cc daily. Medications: Medication Review Details: Generic Name Dose Route Start Last Admin Trade Name Pedro Pabloq PRN Reason Stop Dose Admin Albuterol/Ipratrop ium 3 ml 09/06/22 20:00 09/07/22 13:45 Ipratropium-Albu terol 3 Ml Neb INHALATION 3 ml Q6H.RESP BO Administration Amlodipine Besylat e 10 mg 09/07/22 06:00 09/07/22 07:00 Amlodipine 10 Mg Tablet PO 10 mg QAM BO Administration Ascorbic Acid 500 mg 09/07/22 06:00 09/07/22 07:00 Ascorbic Acid 50 0 Mg Tablet PO 500 mg QAM BO Administration Aspirin 81 mg 09/06/22 21:00 09/06/22 21:03 Aspirin 81 Mg Ec Tablet PO 81 mg BEDTIME BO Administration Budesonide 0.5 mg 09/06/22 20:00 09/07/22 08:05 Budesonide 0.5 M g/2 Ml Neb INHALATION 0.5 mg BID.RESPIRATORY S CH Administration Enoxaparin Sodium 40 mg 09/06/22 20:00 09/06/22 19:53 Enoxaparin 40 Mg /0.4 Ml Syringe SUBCUT 40 mg Q24H OB Administration Gemfibrozil 600 mg 09/07/22 09:00 09/07/22 08:38 Gemfibrozil 600 Mg Tablet PO 600 mg BID BO Administration Ceftriaxone Sodium 1,000 mg/ 50 mls @ 100 mls/ hr 09/06/22 21:00 09/06/22 21:45 Sodium Chloride IV Infused Q24H BO Infusion Protocol Azithromycin 500 m g/ Sodium 250 mls @ 250 mls /hr 09/06/22 20:00 09/06/22 20:00 Chloride IV 0 mls/hr Q24H BO Infusion Protocol Isosorbide Mononit rate 30 mg 09/07/22 09:00 09/07/22 08:38 Isosorbide [place] itrate Er 30 Mg Ta blet PO 30 mg DAILY BO Administration Losartan Potassium 100 mg 09/07/22 09:00 09/07/22 08:37 Losartan 50 Mg T ablet PO 100 mg DAILY BO Administration Non-Formulary Medi cation 1 tab 09/06/22 21:00 09/06/22 22:16 Multivitamin PO Not Given BEDTIME BO Non-Formulary Medi cation 1 cap 09/07/22 09:00 09/07/22 08:40 [place] 3-Dha-Epa- Fish Oil [Fish Oil ] PO Not Given BID BO Vitals/I&O/Wt Last Vital Signs Temp 97.8 F 09/09/22 07:50 Pulse 98 09/09/22 07:50 Resp 25 H 09/09/22 07:50 BP 130/85 09/09/22 07:50 Pulse Ox 92 09/09/22 07:50 O2 Del Method 09/09/22 07:50 O2 Flow Rate 3 09/09/22 07:26 FiO2 55 09/09/22 08:00 09/08/22 09/09/22 09/09/22 22:59 06:59 14:59 Intake Total 236 / 950 480 / 1430 480 / 480 Output Total 1140 / 2520 800 / 3320 600 / 600 Balance -904 / -1570 -320 / -1890 -120 / -120 Weight last 48 hrs Weight 106.413 kg Weight 109.18 kg Physical Exam Const: COMMON NORMALS: patient oriented x3 HENMT: COMMON NORMALS: normocephalic and atraumatic HEAD & SCALP: normocephalic and atraumatic Resp: COMMON NORMALS: clear to auscultation bilaterally AUSCULTATION: clear to auscultation bilaterally Cardio: COMMON NORMALS: regular rate, regular rhythm, S1 normal heart sound present, S2 normal heart sound present, No gallops present (Cardio), No murmurs present (Cardio), No rub (Cardio) and Peripheral pulses 2+ throughout RATE: regular rate RHYTHM: regular rhythm HEART SOUNDS: S1 normal heart sound present and S2 normal heart sound present PERIPHERAL PULSES: Peripheral pulses 2+ throughout OTHER: ESM in aortic area GI: COMMON NORMALS: Normal to inspection, nondistended, normoactive bowel sounds present, Soft to palpation, non-tender, No hepatosplenomegaly present and no masses AUSCULTATION: Yes normoactive bowel sounds PALPATION: Yes Soft to palpation and Yes No hepatosplenomegaly present RECTAL EXAM: Yes deferred Extremity: NARRATIVE EXTREMITY EXAM: 2+ bilateral lower extremity pitting edema Neuro: COMMON NORMALS: patient oriented x3 Data 09/09/22 05:10 09/09/22 05:10 A&P Assessment and plan (1) Respiratory failure with hypoxia and hypercapnia: (2) Congestive heart failure: (3) COPD (chronic obstructive pulmonary disease): Plan 77 year old male with past medical history of COPD, heart failure with preserved ejection fraction, obesity, came in today with chief complaint of worsening shortness of breath, lower extremity swelling, going on for the last few days. Assessment: Respiratory failure with hypoxia and hypercapnia secondary to CHF exacerbation, possible underlying pneumonia. Decompensated heart failure with preserved ejection fraction. low gradient severe aortic stenosis: Scheduled for VALARIE. COPD Obesity Epistaxis: Patient may need nasal packing/Tranxemic acid: Currently he is using triple antibiotic with Q-tip. Plan Follow repeat 2D echo with contrast: Recently last echo which was done is a poor quality. Normal left ventricular cavity size and systolic function.?Left ventricular ejection fraction is estimated at 65 %. No regional wall motion abnormalities. Possibly low gradient severe aortic stenosis with peak velocity 3.9 m/s, peak gradient 62 mm Hg, mean gradient 29 mm Hg, PARUL 0.6 cm2 (LVOT=1.9 cm). DVI=0.25. Lower extremity Doppler vein: Procalcitonin: Normal Lasix 40 IV daily currently on hold. Monitor intake output charting Monitor electrolytes Daily weight on BiPAP Monitor ABG Was empirically covered with ceftriaxone and azithromycin, has been discontinued as low clinical suspicion for pneumonia. Supplemental oxygen as needed. Cardiology on board for work-up of aortic stenosis ( VALARIE, possible coronary angiogram) CODE STATUS: Full code DVT prophylaxis on Lovenox Attestations Medical Necessity Statement*: Needs to be in hospital for management of aortic stenosis as well as medical optimization. Coding Level of Care Code Acute Code for Chg Fwd Diagnoses Respiratory failure with hypoxia and hypercapnia J96.91; J96.92 Congestive heart failure I50.9 COPD (chronic obstructive pulmonary disease) J44.9
--- NOTE | 2022-09-09 16:53 | XRR_ITS ---
PROCEDURE INFORMATION: Exam: XR Chest Exam date and time: 09/09/2022 4:59 PM Age: 77 years old Clinical indication: Cough and dyspnea; Prior surgery; Surgery type: Stents; Additional info: Coughing TECHNIQUE: Imaging protocol: Radiologic exam of the chest. Views: 1 view. COMPARISON: CR XR chest 1V portable [id number] 09/06/2022 12:21 PM FINDINGS: Lungs: Allowing for some differences in positioning, the lungs now appear clear and free of effusion. Pleural spaces: Unremarkable. No pleural effusion. No pneumothorax. Heart/Mediastinum: The heart size is unchanged. Bones/joints: Unremarkable. XR/XR chest 1V portable [id number] IMPRESSION: Lungs clear
--- NOTE | 2022-09-09 17:36 | P.PN_ITS ---
Subjective Subjective: He c/o cough and worsening leg swelling. He is eager to get some answers. Medications: Reviewed: Yes Medication Review Details: Current Medications Acetaminophen (Acetaminophen 325 Mg Tablet) 650 mg PO Q6H PRN PRN Reason: Mild/Mod Pain Or Temp >/= 101 Last Admin: 09/08/22 21:21 Dose: 650 mg Albuterol/Ipratropium (Ipratropium-Albuterol 3 Ml Neb) 3 ml INHALATION Q6H.RESP [facility] Last Admin: 09/09/22 13:15 Dose: 3 ml Amlodipine Besylate (Amlodipine 10 Mg Tablet) 10 mg PO QAM [facility] Last Admin: 09/09/22 06:16 Dose: 10 mg Ascorbic Acid (Ascorbic Acid 500 Mg Tablet) 500 mg PO QAM [facility] Last Admin: 09/09/22 06:16 Dose: 500 mg Aspirin (Aspirin 81 Mg Ec Tablet) 81 mg PO BEDTIME [facility] Last Admin: 09/08/22 21:21 Dose: 81 mg Benzonatate (Benzonatate 100 Mg Capsule) 200 mg PO TID PRN PRN Reason: COUGH Bisacodyl (Bisacodyl 5 Mg Tablet) 10 mg PO DAILY PRN; Protocol PRN Reason: Constipation (see protocol) Budesonide (Budesonide 0.5 Mg/2 Ml Neb) 0.5 mg INHALATION BID.RESPIRATORY [facility] Last Admin: 09/09/22 07:29 Dose: Not Given Diphenhydramine HCl (Diphenhydramine 25 Mg Capsule) 25 mg PO Q6H PRN PRN Reason: ITCHING Last Admin: 09/08/22 23:35 Dose: 25 mg Enoxaparin Sodium (Enoxaparin 40 Mg/0.4 Ml Syringe) 40 mg SUBCUT Q24H [facility] Last Admin: 09/08/22 21:22 Dose: 40 mg Furosemide (Furosemide 10 Mg/Ml Sdv 4ml) 40 mg IVP Q24H [facility] Last Admin: 09/09/22 06:16 Dose: 40 mg Gemfibrozil (Gemfibrozil 600 Mg Tablet) 600 mg PO BID [facility] Last Admin: 09/09/22 08:28 Dose: 600 mg Isosorbide Mononitrate (Isosorbide Mononitrate Er 30 Mg Tablet) 30 mg PO DAILY [facility] Last Admin: 09/09/22 08:28 Dose: 30 mg Losartan Potassium (Losartan 50 Mg Tablet) 100 mg PO DAILY [facility] Last Admin: 09/09/22 08:28 Dose: 100 mg Non-Formulary Medication (Multivitamin) 1 tab PO BEDTIME [facility] Last Admin: 09/08/22 21:23 Dose: Not Given Non-Formulary Medication ([place] 3-Rnj-Zzc-Fish Oil [Fish Oil]) 1 cap PO BID [facility] Last Admin: 09/09/22 08:24 Dose: Not Given Ondansetron HCl (Ondansetron 2 Mg/Ml Sdv 2 Ml) 4 mg IVP Q6H PRN PRN Reason: NAUSEA AND VOMITING Potassium Chloride (Potassium Chloride Er 10 Meq Tablet) 10 meq PO DAILY PRN PRN Reason: when taking lasix Sodium Chloride (Saline Nasal [place] 44ml Btl) 1 spray NASAL PRN PRN PRN Reason: DRYNESS Last Admin: 09/08/22 10:37 Dose: 1 spray Trazodone HCl (Trazodone 50 Mg Tablet) 50 mg PO BEDTIME PRN PRN Reason: Insomnia Last Admin: 09/08/22 01:59 Dose: 50 mg Vitals/I&O/Wt Last Vital Signs Temp 98.0 F 09/09/22 12:00 Pulse 87 09/09/22 13:19 Resp 18 09/09/22 13:16 BP 156/75 09/09/22 12:00 Pulse Ox 94 09/09/22 13:16 O2 Del Method 09/09/22 13:16 O2 Flow Rate 3 09/09/22 13:16 FiO2 55 09/09/22 08:00 09/09/22 09/09/22 09/09/22 06:59 14:59 22:59 Intake Total 480 / 1430 720 / 720 Output Total 800 / 3320 600 / 600 200 / 800 Balance -320 / -1890 120 / 120 -200 / -80 Weight last 48 hrs Weight 234 lb 9.6 oz Weight 240 lb 11.2 oz Physical Exam Const: COMMON NORMALS: no acute distress, patient oriented x3 and alert GENERAL APPEARANCE: cooperative, comfortable, well kempt and well hydrated OT HER: obese HENMT: COMMON NORMALS: hearing grossly normal bilaterally and external ears normal FACE & SINUS: normal facial exam EXTERNAL EAR: Yes external ears normal Eye: COMMON NORMALS: EOMs intact bilaterally and no scleral icterus GENERAL EYE: appearance normal, both eyes and all related structures ALIGNMENT: Yes alignment normal Neck/C-Spine: COMMON NORMALS: supple and no JVD GENERAL: Yes normal visual inspection CAROTIDS: Yes normal carotid upstroke Chest: COMMONS NORMALS: normal inspection of the chest and normal palpation of entire chest wall CHEST: Yes Symmetrical chest wall rise and No tenderness Resp: COMMON NORMALS: clear to auscultation bilaterally AUSCULTATION: clear to auscultation bilaterally, no crackles, no rales, no rhonchi and no wheezes OTHER: active cough during exam Cardio: COMMON NORMALS: no JVD, regular rate, regular rhythm, S1 normal heart sound present and S2 normal heart sound present RATE: regular rate RHYTHM: regular rhythm HEART SOUNDS: S1 normal heart sound present, S2 normal heart sound present and no murmurs BRUITS: no carotid bruits GI: COMMON NORMALS: Soft to palpation AUSCULTATION: Yes normoactive bowel sounds PALPATION: Yes Soft to palpation, No Tenderness to palpation present (GI), No Guarding due to palpation present (GI) and No Rigid due to palpation Extremity: GENERAL: No cyanosis, Yes edema (2+ bilateral edema (L>R)), No pallor and Yes other findings (erythema+) Neuro: COMMON NORMALS: patient oriented x3 and no focal motor deficits SENSORIUM/ORIENTATION: Yes alert Psych: COMMON NORMALS: Normal thought process present and speech normal APPEARANCE: Yes well kempt SPEECH: Yes normal speech MOOD & AFFECT: Yes euthymic mood THOUGHT PROCESS: Normal thought process present THOUGHT CO NTENT: Yes Normal thought content present Data 09/09/22 05:10 09/09/22 05:10 A&P Assessment and plan (1) Aortic stenosis: Possibly Paradoxical LFLG severe -I think with his really difficult images, VALARIE should be done for complete evaluation of aortic valve. -VALARIE discussed with patient and he is agreeable with the plan. -I will tentatively plan for VALARIE tomorrow. Risks and benefits were discussed with the patients. Possible complications including esophageal perforation, lip and tongue injury was discussed as well. Plan is to proceed for the procedure at the earliest. All patient questions about the procedure, aortic stenosis and implications of the findings were discussed with the patient. (2) Congestive heart failure: HFpEF -continue IV lasix -was placed on fluid restriction (3) PAOD (peripheral arterial occlusive disease): (4) COPD (chronic obstructive pulmonary disease): Plan CAD Pneumonia Statin intolerance Obesity ASIA/OHS Patient seen today via Telehealth by agreement and consent of patient. Telehealth technology used during the visit include video and audio. Exam was conducted with the help of bedside nurse. Time spent in encounter 30 minutes with >50% time spent face to face. Attestations Medical Necessity Statement*: needs hospital stay for CHF and assessment of . Coding Level of Care Code Acute Code for Chg Fwd Moderate MDM includes risk/complexity, reviewing previous or external records, reviewing test results and discussion of management or test(s) w/ other healthcare professional Exam Comprehensive Diagnoses Aortic stenosis I35.0 Congestive heart failure I50.9 PAOD (peripheral arterial occlusive disease) I77.9 COPD (chronic obstructive pulmonary disease) J44.9
[2022-09-09] MEDS: benzonatate 100 mg Capsule 200 MG PO (18:17)
[2022-09-09] MEDS: budesonide 0.5 mg/2 mL Neb INHALATION (19:50)
--- NOTE | 2022-09-09 19:59 | PC.NURSE ---
Shift Note Frequent safety and comfort rounds continue. Orders and/or nursing care completed as indicated. Patient monitored for response to intervention and treatment(s). Education provided includes prevent irritation to nose due to scraping. Pt was provided with an oral sponge swab to moisten his mouth to keep it from drying and promote Fluid restriction as prescribed. Noted pt use it the oral swabto clean his nose. Patient and/or membership sales representative educated not to use any rough material to nose to heal. Pt needed reinforcement. Will Pt had another nose bleeding this evening after cleaning his nose. refused the nurse to pack it. continue to monitor.
[2022-09-09] MEDS: aspirin 81 mg EC Tablet PO (20:53)
[2022-09-09] MEDS: enoxaparin 40 mg/0.4 mL Syringe SUBCUT (20:53)
[2022-09-10] VITALS (16 sets, daily range): BP systolic 127–151; BP diastolic 68–82; PULSE 84–98; RESP 14–189; TEMP 36.4–36.8; O2SAT 90–100; BMI 35.6
--- NOTE | 2022-09-10 00:48 | ECG_ITS ---
[facility] Test Date: 2022-09-10 Pat Name: Rickey Bob Department: Room: 106 Gender: Male Medical Director: : 1945 Requested By: Yves Del Cid Order Number: [id number] Gordon MD: Shannon Rutledge M.D. Measurements Intervals [place] Rate: 91 P: -20 NV: 249 QRS: 124 QRSD: 131 T: 35 QT: 385 QTc: 475 Interpretive Statements SINUS RHYTHM WITH FIRST DEGREE AV BLOCK POSSIBLE RIGHT VENTRICULAR HYPERTROPHY Compared to ECG 09/07/2022 16:05:43 Atrial abnormality no longer present Myocardial infarct finding no longer present Electronically Signed On 09-10-2022 8:39:39 DIRECTOR OF REVENUE CYCLE MANAGEMENT by Shannon Rutledge M.D. [id number]
[2022-09-10] MEDS: temazepam 15 mg Capsule PO (01:21)
[2022-09-10] MEDS: ipratropium-albuterol 3 mL Neb INHALATION ×3 (02:09→20:46)
--- NOTE | 2022-09-10 03:54 | ECG_ITS ---
[facility] Test Date: 2022-09-10 Pat Name: Rickey Bob Department: Room: 106 Gender: Male Assorter: : 1945 Requested By: Yves Del Cid Order Number: [id number] Evan MD: Shannon Rutledge M.D. Measurements Intervals [place] Rate: 118 P: 241 IN: 160 QRS: 124 QRSD: 158 T: 35 QT: 346 QTc: 485 Interpretive Statements SINUS TACHYCARDIA RIGHT BUNDLE BRANCH BLOCK [120+ ms QRS DURATION, UPRIGHT V1, 40+ ms S IN I/aVL/V4/V5/V6] LEFT POSTERIOR FASCICULAR BLOCK [QRS AXIS > 109, INFERIOR Q] Compared to ECG 09/10/2022 00:51:18 Sinus rhythm no longer present First degree AV block no longer present Electronically Signed On 09-10-2022 22:52:50 POSTAGE MACHINE OPERATOR by Shannon Rutledge M.D. [id number]
[2022-09-10 04:04] LABS: Basophils % 0.6 %; Eosinophils # 0.2 10^3/uL (0.0-0.8); Eosinophils % 4.3 %; Hematocrit 39.7 % (42.0-52.0); Hemoglobin 11.8 g/dL (11.7-16.6); Lymphocytes # 1.2 10^3/uL (0.8-4.8); Lymphocytes % 23.3 %; Mean Corpuscular HGB Conc 29.7 g/dL (30.0-36.0); Mean Corpuscular Hemoglobin 26.2 pg (28.0-34.0); Mean Corpuscular Volume 88.2 fl (80-94); Monocytes # 0.7 10^3/uL (0.2-0.9); Monocytes % 13.4 %; Neutrophils # 2.95 10^3/uL (1.8-7.7); Neutrophils % 58.2 %; Nucleated Red Blood Cells % 0 %; Platelet Count 228 10^3/cmm (130-400); Red Cell Distribution Width 15.8 % (12.1-15.1); White Blood Count 5.1 10^3/uL (4.0-10.0)
[2022-09-10 04:24] LABS: Alanine Aminotransferase 14 U/L (0-41); Albumin Level 3.7 g/dL (3.5-5.2); Alkaline Phosphatase 78 U/L (40-130); Anion Gap 8.5 (5-19); Aspartate Amino Transferase 15 U/L (0-40); Blood Urea Nitrogen 13 mg/dL (8-23); Calcium 9.2 mg/dL (8.5-10.5); Carbon Dioxide 37 mmol/L (22-29); Chloride 91 mmol/L (98-107); Globulin 3.8 g/dL (1.3-4.6); Glucose 125 mg/dL (65-115); Osmolality Calculated 276 mOsm/kg (285-295); Potassium 4.5 mmol/L (3.5-5.1); Sodium 132 mmol/L (136-145); Total Bilirubin 0.3 mg/dL (0.15-1.2); Total Protein 7.5 g/dL (6.6-8.7)
[2022-09-10] MEDS: ascorbic acid 500 mg Tablet PO (05:53)
[2022-09-10] MEDS: amlodipine 10 mg Tablet PO (05:54)
--- NOTE | 2022-09-10 06:00 | USCV_ITS ---
Rickey Bob Age: 77 Gender: M : 1945 Exam Date: 09/10/2022 08:30 Ordering Phys: Shannon Rutledge MD ([email or web address]) Technologist: Mp Avilez [place]am Location[place] [facility] [place]ication: as BP: / HR: Rhythm: Sinus Technical Quality: MEASUREMENTS (Male / Female) Normal Values Medications Complications None Proc. Components After anesthesia team administered sedation, we proceeded with intubation with VALARIE probe FINDINGS Left Ventricle LV systolic function is normal. Right Ventricle Normal in size and function Right Atrium Normal in size Left Atrium Mildly dilated. LA Appendage No ELPIDIO thrombus seen IA Septum Normal Mitral Valve Structurally normal mitral valve. Mild mitral regurgitation. Aortic Valve Aortic valve is thickened and calcified. Moderate to severe aortic stenosis with mean gradient across aortic valve of 32 mmHg. By planimetry aortic valve area is calculated to be 0.94 cm squared. Tricuspid Valve Structurally normal. Pulmonic Valve Not well visualized Pericardium Normal Aorta Has mild to moderate atherosclerotic plaque CONCLUSIONS LV systolic function is normal Mildly dilated left atrium Aortic valve is thickened and calcified. Moderate to severe aortic stenosis with mean gradient across aortic valve of 32 mmHg. By planimetry aortic valve area is calculated to be 0.94 cm squared. Mild to moderate atherosclerotic plaque noted in the aorta Jeovanny Crews MD (Electronically Signed) Final Date: 19 September 2022 12:25 S
--- NOTE | 2022-09-10 07:17 | ANES.PREANE2 ---
Pre-Anesthetic Assessment Height/Weight: Height 1.7 m Weight 103.164 kg Temp Pulse Resp BP Pulse Ox O2 Del Method O2 Flow Rate 98.2 F 98 17 138/68 95 3 09/10/22 04:00 09/10/22 04:31 09/10/22 04:00 09/10/22 04:00 09/10/22 04:00 09/10/22 04:00 09/10/22 04:00 FiO2 55 09/09/22 20:00 Preop Diagnosis: Primary osteoarthritis right hip Operation Date: 09/10/22 08:00 Proposed Procedures p VALARIE(Not Applicable) - Shannon Rutledge MD Familial anesthetic complications: Patient states he received succinylchcoline for a biopsy and went home and got paralyzed, though he states he didn't have to go to the hospital for it Was Beta Loraine taken within 24 hours: Yes Was Clonidine taken within 24 hours: N/A Last intake: > 8hrs Exam alert, oriented x 3, clear to auscultation bilaterally (coarse breath soudsn) and regular rate & rhythm 3 L O2 Airway Mallampati: Class IV Dentition: other (poor dentition) Comments: Comments: full iqbal Recent nasal crusting d/t dry air of nasal canula with some bleeding. no active bleeding currently. Shirt has blood stains from earlier bleed Pulmonary Chronic Obstructive Pulmonary Disease CV/HEM Congestive Heart Failure (acute diastolic), Hypertension, Myocardial Infarction and Peripheral Vascular Disease echo 2022 CONCLUSIONS ?1. This is a technically difficult study. Optison was used per ?protocol. ?2. Normal left ventricular cavity size and systolic function. ?Left ventricular ejection fraction is estimated at 65 %. No ?regional wall motion abnormalities. ?3. Possibly low gradient severe aortic stenosis with peak ?velocity 3.9 m/s, peak gradient 62 mm Hg, mean gradient 29 mm ?Hg, PARUL 0.6 cm2 (LVOT=1.9 cm). DVI=0.25. ?4. VALARIE is recommended for complete assessment of aortic ?stenosis. Metabolic Morbid Obesity Anesthetic Plan ASA status: 4 Anesthesia: MAC Risk of > 500 ml blood loss (7ml/kg in children): No Medications/Allergies Home Medications Medication Instructions Recorded Confirmed Last Taken Type amlodipine 10 mg tablet 10 mg PO QAM 11/23/19 09/06/22 09/05/22 History ascorbic acid (vitamin C) 500 mg 500 mg PO QAM 11/23/19 09/06/22 09/05/22 History capsule aspirin 81 mg tablet,delayed 81 mg PO BEDTIME 11/23/19 09/06/22 09/05/22 History release (Adult Low Dose Aspirin) gemfibrozil 600 mg tablet (Lopid) 600 mg PO BID 11/23/19 09/06/22 09/05/22 History multivitamin 1 tab PO BEDTIME 11/23/19 09/06/22 09/05/22 History potassium chloride 20 mEq 10 meq PO DAILY PRN when taking 11/23/19 09/06/22 09/05/22 History tablet,extended release lasix trazodone 50 mg tablet 50 - 100 mg PO BEDTIME PRN Insomnia 11/23/19 09/06/22 04/09/22 History nitroglycerin 0.4 mg sublingual 0.4 mg sublingual Q5M PRN chest 01/09/21 09/06/22 Unknown Rx tablet (Nitrostat) pain #25 tabs metoprolol tartrate 50 mg tablet See Rx Instructions .Route .COMPLEX 09/06/21 09/06/22 09/05/22 History carboxymethylcellulose sodium 1 % 2 drp ophthalmic (eye) BID PRN Dry 04/11/22 09/06/22 08/15/22 History eye liquid gel drops Eye(S) isosorbide mononitrate 30 mg 30 mg PO DAILY #0 tabs 04/11/22 09/06/22 09/05/22 Rx tablet,extended release 24 hr losartan 100 mg tablet 100 mg PO DAILY 04/11/22 09/06/22 09/05/22 History omega 7-klh-pxi-fish oil 1,200 mg 1 cap PO BID 04/11/22 09/06/22 09/05/22 History (144 mg-216 mg) capsule (Fish Oil) sodium chloride 0.65 % nasal spray 1 spray intranasal BID PRN 04/11/22 09/06/22 Unknown History aerosol (Pella Saline) Congestion budesonide 0.5 mg/2 mL suspension 0.5 mg (2 mL) inhalation 07/19/22 09/06/22 08/14/22 Rx for nebulization BID.RESPIRATORY #120 mL docusate sodium 100 mg capsule 100 mg PO BID PRN Constipation 08/15/22 09/06/22 Unknown History hydrocodone 10 mg-acetaminophen 1 tab PO Q6H PRN Pain 08/15/22 09/06/22 Unknown History 325 mg tablet fluticasone fur. 100 mcg-umeclid 1 inh inhalation DAILY #60 ea 08/19/22 09/06/22 09/05/22 Rx 62.5 mcg-vilant 25 mcg inhalat.powder (Trelegy Ellipta) furosemide 40 mg tablet 40 mg PO DAILY PRN edema #30 tabs 08/19/22 09/06/22 08/15/22 Rx ipratropium 0.5 mg-albuterol 3 mg 3 ml inhalation Q6H PRN shortness 08/19/22 09/06/22 Unknown Rx (2.5 mg base)/3 mL nebulization of breath or wheezing #90 mL soln Allergies Allergy/AdvReac Type Severity Reaction Status Date / Time codeine Allergy Mild itched Verified 07/17/22 11:34 niacin Allergy Unknown Unknown Verified 07/17/22 11:34 succinylcholine Allergy Unknown Unknown Verified 07/17/22 11:34 hydromorphone [From Dilaudid] Allergy ALGY-Difficulty Verified 09/09/22 20:06 Breathing Al[place]ipp-FEQ-QhZ Reductase Allergy ALGY-Joint Verified 07/17/22 11:34 Inhibitor Pain Current Medications Generic Name Dose Route Start Last Admin Trade Name Freq PRN Reason Stop Dose Admin Acetaminophen 650 mg 09/06/22 18:25 09/08/22 21:21 Acetaminophen 325 Mg Tablet PO 650 mg Q6H PRN Administration Mild/Mod Pain Or Temp >/= 101 Albuterol/Ipratropium 3 ml 09/06/22 20:00 09/10/22 02:09 Ipratropium-Albuterol 3 Ml Neb INHALATION 3 ml Q6H.RESP BO Administration Amlodipine Besylate 10 mg 09/07/22 06:00 09/10/22 05:54 Amlodipine 10 Mg Tablet PO 10 mg QAM BO Administration Ascorbic Acid 500 mg 09/07/22 06:00 09/10/22 05:53 Ascorbic Acid 500 Mg Tablet PO 500 mg QAM BO Administration Aspirin 81 mg 09/06/22 21:00 09/09/22 20:53 Aspirin 81 Mg Ec Tablet PO 81 mg BEDTIME BO Administration Benzonatate 200 mg 09/09/22 17:24 09/09/22 18:17 Benzonatate 100 Mg Capsule PO 200 mg TID PRN Administration COUGH Budesonide 0.5 mg 09/06/22 20:00 09/09/22 19:50 Budesonide 0.5 Mg/2 Ml Neb INHALATION 0.5 mg BID.RESPIRATORY BO Administration Diphenhydramine HCl 25 mg 09/08/22 23:30 09/08/22 23:35 Diphenhydramine 25 Mg Capsule PO 25 mg Q6H PRN Administration ITCHING Enoxaparin Sodium 40 mg 09/06/22 20:00 09/09/22 20:53 Enoxaparin 40 Mg/0.4 Ml Syringe SUBCUT 40 mg Q24H BO Administration Furosemide 40 mg 09/09/22 07:00 09/09/22 06:16 Furosemide 10 Mg/Ml Sdv 4ml IVP 40 mg Q24H BO Administration Gemfibrozil 600 mg 09/07/22 09:00 09/09/22 18:17 Gemfibrozil 600 Mg Tablet PO 600 mg BID BO Administration Isosorbide Mononitrate 30 mg 09/07/22 09:00 09/09/22 08:28 Isosorbide Mononitrate Er 30 Mg Tablet PO 30 mg DAILY BO Administration Losartan Potassium 100 mg 09/07/22 09:00 09/09/22 08:28 Losartan 50 Mg Tablet PO 100 mg DAILY BO Administration Non-Formulary Medication 1 tab 09/06/22 21:00 09/09/22 20:55 Multivitamin PO Not Given BEDTIME BO Non-Formulary Medication 1 cap 09/07/22 09:00 09/09/22 18:14 [place] 2-Vlk-Sth-Fish Oil [Fish Oil] PO Not Given BID BO Sodium Chloride 1 spray 09/08/22 10:03 09/08/22 10:37 Saline Nasal [place] 44ml Btl NASAL 1 spray PRN PRN Administration DRYNESS Temazepam 15 mg 09/09/22 20:15 09/10/22 01:21 Temazepam 15 Mg Capsule PO 15 mg ONCE BO Administration Trazodone HCl 50 mg 09/06/22 18:28 09/08/22 01:59 Trazodone 50 Mg Tablet PO 50 mg BEDTIME PRN Administration Insomnia Additional Medication Information Current Medications Acetaminophen (Acetaminophen 325 Mg Tablet) 650 mg PO Q6H PRN PRN Reason: Mild/Mod Pain Or Temp >/= 101 Last Admin: 09/08/22 21:21 Dose: 650 mg Albuterol/Ipratropium (Ipratropium-Albuterol 3 Ml Neb) 3 ml INHALATION Q6H.RESP [facility] Last Admin: 09/09/22 13:15 Dose: 3 ml Amlodipine Besylate (Amlodipine 10 Mg Tablet) 10 mg PO QAM [facility] Last Admin: 09/09/22 06:16 Dose: 10 mg Ascorbic Acid (Ascorbic Acid 500 Mg Tablet) 500 mg PO QAM [facility] Last Admin: 09/09/22 06:16 Dose: 500 mg Aspirin (Aspirin 81 Mg Ec Tablet) 81 mg PO BEDTIME [facility] Last Admin: 09/08/22 21:21 Dose: 81 mg Benzonatate (Benzonatate 100 Mg Capsule) 200 mg PO TID PRN PRN Reason: COUGH Bisacodyl (Bisacodyl 5 Mg Tablet) 10 mg PO DAILY PRN; Protocol PRN Reason: Constipation (see protocol) Budesonide (Budesonide 0.5 Mg/2 Ml Neb) 0.5 mg INHALATION BID.RESPIRATORY [facility] Last Admin: 09/09/22 07:29 Dose: Not Given Diphenhydramine HCl (Diphenhydramine 25 Mg Capsule) 25 mg PO Q6H PRN PRN Reason: ITCHING Last Admin: 09/08/22 23:35 Dose: 25 mg Enoxaparin Sodium (Enoxaparin 40 Mg/0.4 Ml Syringe) 40 mg SUBCUT Q24H [facility] Last Admin: 09/08/22 21:22 Dose: 40 mg Furosemide (Furosemide 10 Mg/Ml Sdv 4ml) 40 mg IVP Q24H [facility] Last Admin: 09/09/22 06:16 Dose: 40 mg Gemfibrozil (Gemfibrozil 600 Mg Tablet) 600 mg PO BID [facility] Last Admin: 09/09/22 08:28 Dose: 600 mg Isosorbide Mononitrate (Isosorbide Mononitrate Er 30 Mg Tablet) 30 mg PO DAILY [facility] Last Admin: 09/09/22 08:28 Dose: 30 mg Losartan Potassium (Losartan 50 Mg Tablet) 100 mg PO DAILY [facility] Last Admin: 09/09/22 08:28 Dose: 100 mg Non-Formulary Medication (Multivitamin) 1 tab PO BEDTIME BO Last Admin: 09/08/22 21:23 Dose: Not Given Non-Formulary Medication ([place] 7-Wbj-Umm-Fish Oil [Fish Oil]) 1 cap PO BID BO Last Admin: 09/09/22 08:24 Dose: Not Given Ondansetron HCl (Ondansetron 2 Mg/Ml Sdv 2 Ml) 4 mg IVP Q6H PRN PRN Reason: NAUSEA AND VOMITING Potassium Chloride (Potassium Chloride Er 10 Meq Tablet) 10 meq PO DAILY PRN PRN Reason: when taking lasix Sodium Chloride (Saline Nasal [place] 44ml Btl) 1 spray NASAL PRN PRN PRN Reason: DRYNESS Last Admin: 09/08/22 10:37 Dose: 1 spray Trazodone HCl (Trazodone 50 Mg Tablet) 50 mg PO BEDTIME PRN PRN Reason: Insomnia Last Admin: 09/08/22 01:59 Dose: 50 mg PFSH Anesthesia Medical History Acute and chronic respiratory failure with hypercapnia Acute exacerbation of chronic obstructive airways disease CAD (coronary artery disease) CHF (congestive heart failure), NYHA class III CHF exacerbation Chronic back pain COPD (chronic obstructive pulmonary disease) Diastolic heart failure History of AK (myocardial infarction) Hyperlipidemia Hypoxia Morbid obesity PAOD (peripheral arterial occlusive disease) Pneumonia Surgical History S/P appendectomy S/P excision of vocal cord nodule S/P knee surgery S/P PTCA (percutaneous transluminal coronary angioplasty) S/P tonsillectomy and adenoidectomy Family History Mother CAD (coronary artery disease) Father CAD (coronary artery disease) Brother , Age 44 AK Myocardial infarct Other Cancer Social History Smoking and tobacco status: current every day smoker cigarettes Alcohol intake: current Alcohol intake frequency: 3 or more drinks per day Alcohol type: beer Lives independently: Yes Household members: spouse Marital status: service: Yes status: Retired branch: [employer] Current occupational status: disabled History of recent travel: No Current gender identity: Male Special cherise needs: No Agree to transfusion: Yes Data Anesthesia 09/10/22 03:13 09/10/22 03:13 Short CBC 09/09/22 09/10/22 Range/Units 05:10 03:13 WBC 5.3 5.1 (4.0-10.0) 10^3/uL Hgb 11.1 L 11.8 (11.7-16.6) g/dL Hct 39.9 L 39.7 L (42.0-52.0) % MCV 91.7 88.2 (80-94) fl Plt Count 205 228 (130-400) 10^3/cmm Neut % (Auto) 59.7 58.2 % Neut # (Auto) 3.13 2.95 (1.8-7.7) 10^3/uL BMP 09/09/22 09/10/22 05:10 03:13 Sodium 132 L 132 L Potassium 4.4 4.5 Chloride 92 L 91 L Carbon Dioxide 34 H 37 H BUN 9 13 Creatinine 0.4 L 0.6 L Glucose 105 125 H Calcium 8.6 9.2 Liver Function 09/10/22 Range/Units 03:13 Total Bilirubin 0.3 (0.15-1.2) mg/dL AST 15 (0-40) U/L ALT 14 (0-41) U/L Alkaline Phosphatase 78 (40-130) U/L Albumin 3.7 (3.5-5.2) g/dL Cardiac Studies: Echocardiogram 09/08/22 Stress Echocardiogram 11/16/21
[2022-09-10] MEDS: sodium chloride 0.9% 1,000 ML 30 ML IV ×2 (08:00→08:27)
--- NOTE | 2022-09-10 08:27 | W.PM.OPSUD ---
Surgery/Procedure H&P Update DATE OF PROCEDURE: September 10, 2022 DATE H&P PERFORMED: 09/08/22 H&P UPDATE INFORMATION: I have reviewed H&P completed within last 30 days, I have examined patient prior to procedure and No changes to prior documentation PREOP DIAGNOSIS: Aortic stenosis PRIMARY INDICATION FOR PROCEDURE: Aortic stenosis PLANNED PROCEDURE: Operation Date: 09/10/22 08:00 Proposed Procedures p VALARIE(Not Applicable) - Jeovanny Crews MD Anesthesia team administering anesthesia
--- NOTE | 2022-09-10 09:02 | ANE.PACU2 ---
Inpatient post-anesthesia follow up: Airway intact: Yes Vital signs: Temperature 98.2 F Pulse Rate 95 Respiratory Rate 14 Blood Pressure 151/80 Pulse Oximetry 100 Oxygen Delivery Me thod Oxymask Oxygen Flow Rate 3 Fraction of Inspir ed Oxygen 55 Hydration adequate: Yes Nausea and vomiting: No Pain level: 1 Mental status: Baseline
--- NOTE | 2022-09-10 09:55 | PC.NURSE ---
jessa completed at 0900.report received from gi lab.pt is alert and oriented.swallow and gag reflex intact.tolerated procedure well
[2022-09-10] MEDS: gemfibrozil 600 mg Tablet PO ×2 (10:35→17:24)
[2022-09-10] MEDS: losartan 50 mg Tablet 100 MG PO (10:37)
[2022-09-10] MEDS: isosorbide mononitrate 20 mg Tablet 30 MG PO (10:38)
[2022-09-10] MEDS: metoprolol succinate ER (24 HR) 25 mg Tablet PO (12:29)
--- NOTE | 2022-09-10 13:26 | PM.PN ---
Subjective Subjective: Hospital course, labs appreciated. Today morning seen with family at bedside. Patient seen post VALARIE. Patient sitting up in the recliner without any difficulty in breathing on 2 to 3 L of oxygen supplementation. Denies any nausea, vomiting, headache. We discussed in detail regarding the result of VALARIE showing moderately severe aortic stenosis with possible need of AVR versus TAVR as an outpatient for which she would need to follow-up with product development scientist at [place] and will need further cardiac work-up to rule out ischemia. Discussed with the need of cardiac catheterization either during this hospitalization or as an outpatient. Patient requesting to be done during this hospitalization. Has remained hemodynamically stable and afebrile. Continue to monitor 95% on 3 L oxygen supplementation. Documented urine output of around 2.8 L in last 24 hours. Telemetry reviewed in detail. Having few episodes of tachycardia with heart rate going up to 150s with concern for an NSVT. Vitals/I&O/Wt Last Vital Signs Temp 98.2 F 09/10/22 08:51 Pulse 84 09/10/22 13:20 Resp 15 09/10/22 13:18 BP 144/80 09/10/22 10:37 Pulse Ox 99 09/10/22 13:18 O2 Del Method 09/10/22 13:18 O2 Flow Rate 3 09/10/22 13:18 FiO2 55 09/10/22 08:00 09/09/22 09/10/22 09/10/22 22:59 06:59 14:59 Intake Total 480 / 1200 1510 / 1510 Output Total 1100 / 1700 1400 / 3100 250 / 250 Balance -620 / -500 -1400 / -1900 1260 / 1260 Weight last 48 hrs Weight 103.164 kg Weight 106.413 kg Physical Exam Const: COMMON NORMALS: patient oriented x3 HENMT: COMMON NORMALS: normocephalic and atraumatic HEAD & SCALP: normocephalic and atraumatic Resp: COMMON NORMALS: clear to auscultation bilaterally AUSCULTATION: clear to auscultation bilaterally Cardio: COMMON NORMALS: regular rate, regular rhythm, S1 normal heart sound present, S2 normal heart sound present, No gallops present (Cardio), No murmurs present (Cardio), No rub (Cardio) and Peripheral pulses 2+ throughout RATE: regular rate RHYTHM: regular rhythm HEART SOUNDS: S1 normal heart sound present and S2 normal heart sound present PERIPHERAL PULSES: Peripheral pulses 2+ throughout OTHER: ESM in aortic area GI: COMMON NORMALS: Normal to inspection, nondistended, normoactive bowel sounds present, Soft to palpation, non-tender, No hepatosplenomegaly present and no masses AUSCULTATION: Yes normoactive bowel sounds PALPATION: Yes Soft to palpation and Yes No hepatosplenomegaly present RECTAL EXAM: Yes deferred Extremity: NARRATIVE EXTREMITY EXAM: 2+ bilateral lower extremity pitting edema Neuro: COMMON NORMALS: patient oriented x3 Data 09/10/22 03:13 09/10/22 03:13 A&P Assessment and plan (1) Respiratory failure with hypoxia and hypercapnia: Qualifiers: Chronicity: acute on chronic Qualified Code(s): J96.21 - Acute and chronic respiratory failure with hypoxia; J96.22 - Acute and chronic respiratory failure with hypercapnia; J96.22 - Acute and chronic respiratory failure with hypercapnia (2) Congestive heart failure: Qualifiers: Heart failure type: diastolic Heart failure chronicity: acute on chronic Qualified Code(s): I50.33 - Acute on chronic diastolic (congestive) heart failure (3) COPD (chronic obstructive pulmonary disease): (4) Aortic stenosis: Qualifiers: Cardiac valve disease etiology: nonrheumatic Qualified Code(s): I35.0 - Nonrheumatic aortic (valve) stenosis (5) Diastolic heart failure: (6) NSVT (nonsustained ventricular tachycardia): Plan 77 year old male with past medical history of COPD, heart failure with preserved ejection fraction, obesity, came in today with chief complaint of worsening shortness of breath, lower extremity swelling, going on for the last few days. Assessment: Respiratory failure with hypoxia and hypercapnia secondary to CHF exacerbation. Decompensated heart failure with preserved ejection fraction in setting of low gradient severe aortic stenosis. NSVT. COPD History of CAD, post PCI Obesity Epistaxis: Patient may need nasal packing/Tranxemic acid: Currently he is using triple antibiotic with Q-tip. Plan Patient on patient oxygen supplementation of 2 to 3 L. Continue with DuoNebs every 6 hours, budesonide twice daily. Oxygen supplementation keeping saturation over 88%. Appreciate VALARIE results. Consistent with severe aortic stenosis. Care discussed in detail with cardiology on-call. Patient will most likely need AVR versus TAVR. Will need cardiac angiogram evaluation hemodynamically significant CAD prior to AVR. Patient would like to go ahead with cardiac catheterization during this hospitalization. N.p.o. after midnight. Strict input output charting. Daily weights. Continue with IV Lasix 40 mg daily. Patient having few episodes of nonsustained V. tach. Electrolytes within normal limits. We will continue to monitor potassium and magnesium. Start on metoprolol 25 mg oral daily. Goal blood pressure less than 140 over 90 mmHg. Continue home dose of amlodipine, Imdur, losartan. Metoprolol as above. Analgesia: Tylenol as needed Glycemic control: Not needed Nutrition: Cardiac diet, n.p.o. after midnight CODE STATUS: Full code PUD prophylaxis: Famotidine for PUD prophylaxis DVT prophylaxis: Lovenox Discharge planning: Home with caregiver once medically stable Continue with care at [facility] This documentation was created by [employer] clinical medical assistant software. Every effort was made to ensure accuracy of clinical medical assistant. Any obvious errors or omissions should be clarified with the author of the document. Attestations Medical Necessity Statement*: Requires further hospitalization for management of acute on chronic hypoxic hypercapnic respiratory failure in setting of diastolic CHF exacerbation, COPD, severe aortic stenosis, nonsustained V. tach Coding Level of Care Code 53557 High MDM includes risk/complexity, reviewing previous or external records, reviewing test results, ordering lab/other test(s), speaking with independent historian (other than patient), independently interpretating test(s) (not separately recorded) and discussion of management or test(s) w/ other healthcare professional and High Time for a total of 50 minutes, includes reviewing past or interval history, examining/interviewing patient, placing orders, counseling patient/family/other support, updating patient/family/other support, discussing plan of care with staff, communicating with other healthcare providers, documenting encounter and coordinating care Diagnoses Respiratory failure with hypoxia and hypercapnia J96.21; J96.22; J96.22 Chronicity: acute on chronic Congestive heart failure I50.33 Heart failure type: diastolic Heart failure chronicity: acute on chronic COPD (chronic obstructive pulmonary disease) J44.9 Aortic stenosis I35.0 Cardiac valve disease etiology: nonrheumatic Diastolic heart failure I50.30 NSVT (nonsustained ventricular tachycardia) I47.29
[2022-09-10 14:27] LABS: Magnesium 2.2 mg/dL (1.7-2.3)
--- NOTE | 2022-09-10 16:33 | P.PN_ITS ---
Subjective Subjective: Patient underwent VALARIE today that showed aortic valve area of 0.94cm2 and mean gradient across the aortic valve of 32mmHg (peak velocity over 4m/s) Vitals/I&O/Wt Last Vital Signs Temp 98.2 F 09/10/22 08:51 Pulse 84 09/10/22 13:20 Resp 15 09/10/22 13:18 BP 144/80 09/10/22 10:37 Pulse Ox 99 09/10/22 13:18 O2 Del Method 09/10/22 13:18 O2 Flow Rate 3 09/10/22 13:18 FiO2 55 09/10/22 08:00 09/10/22 09/10/22 09/10/22 06:59 14:59 22:59 Intake Total 1510 / 1510 Output Total 1400 / 3100 250 / 250 Balance -1400 / -1900 1260 / 1260 Weight last 48 hrs Weight 227 lb 7 oz Weight 234 lb 9.6 oz Physical Exam Narrative: GENERAL: Patient is alert, awake and oriented x3. [] NECK: No jugular vein distension. [] HEENT: No cyanosis. No icterus. No pallor. [] HEART: Regular S1 and S2. Grade 3/6 systolic murmur LUNGS: Clear to auscultate bilaterally. [] ABDOMEN: Soft CENTRAL NERVOUS SYSTEM: Grossly nonfocal. [] EXTREMITIES: Lower extremities with 1+ edema bilaterally. Pulses palpable in the lower extremities, both dorsalis pedis and posterior tibial. [] Data 09/10/22 03:13 09/10/22 03:13 A&P Assessment and plan (1) Aortic stenosis: Aortic valve area according to VALARIE is severely low and is 0.94cm2. Mean gradient across aortic valve is 32mmHg on VALARIE with peak velocity measured over 4m/s. We will proceed with right and left heart cath as pre valve replacement workup. NPO past midnight. Risks and benefits of the procedure have been discussed with with patient. He understands the risks and benefits and wants to proceeed with the procedure. Qualifiers: Cardiac valve disease etiology: nonrheumatic Qualified Code(s): I35.0 - Nonrheumatic aortic (valve) stenosis (2) Congestive heart failure: HFpEF -continue IV lasix -was placed on fluid restriction Qualifiers: Heart failure chronicity: acute on chronic Heart failure type: diastolic Qualified Code(s): I50.33 - Acute on chronic diastolic (congestive) heart failure (3) PAOD (peripheral arterial occlusive disease): (4) COPD (chronic obstructive pulmonary disease): Plan CAD Pneumonia Statin intolerance Obesity ASIA/OHS Attestations Medical Necessity Statement*: Care expected to cross 2 midnights. Coding Level of Care Code Acute Code for [facility] Fwd Diagnoses Aortic stenosis I35.0 Cardiac valve disease etiology: nonrheumatic Congestive heart failure I50.33 Heart failure chronicity: acute on chronic Heart failure type: diastolic PAOD (peripheral arterial occlusive disease) I77.9 COPD (chronic obstructive pulmonary disease) J44.9
[2022-09-10] MEDS: enoxaparin 40 mg/0.4 mL Syringe SUBCUT (20:43)
[2022-09-10] MEDS: budesonide 0.5 mg/2 mL Neb INHALATION (20:46)
[2022-09-10] MEDS: aspirin 81 mg EC Tablet PO (20:48)
[2022-09-10] MEDS: famotidine 20 mg Tablet PO (20:48)
[2022-09-11] VITALS (40 sets, daily range): BP systolic 112–153; BP diastolic 61–84; PULSE 76–99; RESP 12–33; TEMP 36.6–37.1; O2SAT 82–98
[2022-09-11] MEDS: amlodipine 10 mg Tablet PO (05:27)
[2022-09-11] MEDS: ascorbic acid 500 mg Tablet PO (05:27)
[2022-09-11 05:43] LABS: Basophils % 0.6 %; Eosinophils # 0.2 10^3/uL (0.0-0.8); Eosinophils % 4.6 %; Hematocrit 38.7 % (42.0-52.0); Hemoglobin 11.3 g/dL (11.7-16.6); Lymphocytes # 1.1 10^3/uL (0.8-4.8); Lymphocytes % 21.9 %; Mean Corpuscular HGB Conc 29.2 g/dL (30.0-36.0); Mean Corpuscular Hemoglobin 25.5 pg (28.0-34.0); Mean Corpuscular Volume 87.4 fl (80-94); Mean Platelet Volume 9.8 fL (7.4-10.4); Monocytes # 0.6 10^3/uL (0.2-0.9); Monocytes % 11.1 %; Neutrophils % 61.6 %; Nucleated Red Blood Cells % 0 %; Platelet Count 213 10^3/cmm (130-400); Red Blood Count 4.43 10^6/uL (4.1-5.3); Red Cell Distribution Width 15.6 % (12.1-15.1)
[2022-09-11] MEDS: FUROsemide 10 mg/mL SDV 4mL 40 MG IVP (06:05)
[2022-09-11 06:13] LABS: Alanine Aminotransferase 15 U/L (0-41); Albumin Level 3.6 g/dL (3.5-5.2); Alkaline Phosphatase 82 U/L (40-130); Anion Gap 10.7 (5-19); Aspartate Amino Transferase 13 U/L (0-40); Blood Urea Nitrogen 13 mg/dL (8-23); Calcium 8.9 mg/dL (8.5-10.5); Carbon Dioxide 35 mmol/L (22-29); Chloride 95 mmol/L (98-107); Globulin 3.5 g/dL (1.3-4.6); Glucose 102 mg/dL (65-115); Magnesium 2.2 mg/dL (1.7-2.3); Osmolality Calculated 282 mOsm/kg (285-295); Potassium 4.7 mmol/L (3.5-5.1); Sodium 136 mmol/L (136-145); Total Bilirubin 0.3 mg/dL (0.15-1.2); Total Protein 7.1 g/dL (6.6-8.7)
--- NOTE | 2022-09-11 07:27 | XACV_ITS ---
Exam Room: [facility] Ht: 170 cm Wt: 105 kg BSA: 2.27 m2 Gender: Male : 1945 Any Known Allergies: Codeine Exam Priority: Routine Procedure(s): Procedure Description: Diagnostic procedure Procedure Description: Left Heart Catheterization Procedure Description: Right Heart Catheterization Procedure Description: Left ventriculography Procedure Description: O2 saturation Procedure Description: Coronary Angiography Diagnostic Cath Status: Elective Diagnostic Findings * INDICATION: Patient has severe aortic stenosis by valve area on VALARIE. We will perform right heart cath+ left heart cath with valve study and possible PCI. Risks and benefits of the procedure discussed with the patient. * Left Main has no significant disease. * Circumflex has mild lumnial irregularities. * Proximal Left Anterior Descending: significant, heavily calcified 80% stenosis, DELBERT: 3 flow. * Ostial Right Coronary Artery: minimal 30% stenosis, DELBERT: 3 flow. Moderate luminal irregularities. * Coronary angiography shows right dominance. PCI Status: Elective Conclusions 1. Severe, heavily calcified proximal LAD stenosis. 2. Moderate to severe aortic stenosis with PARUL of 1.1cm2 and mean gradient across the aortic valve of 32mmHg. 3. Mild pulmonary hypertension. Recommendations * Case discussed with structural team at [facility]. Given patient's risk factors, comorbidities after heart team discussion and discussion with patient and family decision made to perform LAD PCI with arthrectomy as a staged procedure. * Patient will follow with structural heart team as outpatient. * PCI of proximal LAD with arthrectomy in 1-2 days. Interventional RX Recommendation: PCI w/o planned CABG Diagnostic RX Recommendation: PCI w/o planned CABG Pressures Phase:Rest AO : 123 / 60 ( 83 ) @ 11:19:00 AM 130 / 61 ( 91 ) @ 11:38:00 AM 130 / 61 ( 92 ) @ 11:53:00 AM 128 / 63 ( 90 ) @ 11:53:00 AM LV : 156 / 154 / 155 @ 11:34:00 AM 170 / -10 / 17 @ 11:37:00 AM 170 / -14 / 14 @ 11:52:00 AM 174 / -12 / 13 @ 11:52:00 AM 172 / -11 / 6 @ 11:52:00 AM 173 / -9 / 6 @ 11:53:00 AM RV : 50 / -7 / 2 @ 11:15:00 AM 51 / -3 / 4 @ 11:15:00 AM PA : 43 / 10 ( 23 ) @ 11:12:00 AM RA : a wave = 7 v wave = 6 mean = 3 @ 11:16:00 AM PCW : a wave = 17 v wave = 13 mean = 13 @ 11:11:00 AM a wave = 22 v wave = 18 mean = 17 @ 11:11:00 AM O2 Content Phase:Rest PA : O2 Content O2: 71.4 @ 11:38:00 AM Saturations Phase:Rest AO : 97 @ 11:19:00 AM PA : 71 @ 11:38:00 AM Cardiac Output Phase:Rest Max : 7 @ 12:28:30 PM Max Cardiac Index: 3 @ 12:28:30 PM Flow Phase:Rest Qp : 7 @ 12:28:30 PM Qs : 7 @ 12:28:30 PM Valves Phase:DefaultPhase AV : 45.0 @ 12:28:30 PM 45.0 @ 12:28:30 PM AV Mean Gradient: 32.0 @ 12:28:30 PM 32.0 @ 12:28:30 PM AV Flow: 290 @ 12:28:30 PM AV Area: 1.1 @ 12:28:30 PM AV Area Index: 0.54 @ 12:28:30 PM Clinical Evaluation EBL: 5mL-10mL Procedural Details Procedure Consent Obtained. Admit Source: In Patient. Pre-Procedure Time Out. Identified patient by full name and date of as verbalized by the patient/guarantor. Does the consent match the physician's order: Yes. Accurate & Complete Informed Consent: Yes. Inpatient/Outpatient History & Physical on Chart: Yes. If H&P is completed, is and addenduem needed: No; If yes, is the addendum complete: N/A. Visualize and Verify Site with Patient/Guarantor: N/A. Relevant Radiology Images available: N/A. The risks, benefits, and alternatives of sedation and/or procedure were discussed by physician. The patient agrees to continue. Procedure started. [facility] Clinical Fraility Score: 4: Vulnerable. Senior Clinical Project Manager Indications: severe aortic stenosis. Chest Pain Symptom Assessment: Atypical Angina. Cardiovascular Instability: No,. Correct patient, site and procedure confirmed by cath team. PERRLA. Strong, equal hand agent licensing clerk bilaterally. Lungs clear x 5 lobes. IV Site on Arrival: 20 gauge in the right forearm. IV Fluids: 0.9% NaCl at KVO. 0 mL infused prior to lab tech. Pre Procedural Pulses: left dorsalis pedis was Doppled. Pre Procedural Pulses: bilateral posterior tibial was Doppled. Oxygen started at 2liters/min via nasal canula. bilateral groins was prepped with chloroprep then draped in the usual sterile fashion. Physician notified. Baseline sample Acquired. HR: 85 BPM. Physician arrived. Physician scrubbed in. Immediate Pre-Procedure Time Out. Correct Patient: Yes; Correct Procedure: Yes; Correct Site: Yes; Correct Patient Position: Yes; Correct Supplies: Yes; Dried Flammable Prep: Yes; Blood Products Available: N/A;. Lidocaine 1% infiltrated to the left groin. Arterial access obtained with micropuncture set. Venous access obtained with same micropuncture set. Lidocaine 1% infiltrated to the left groin. Alicia-Bailey won catheter inserted. Oximetry samples were obtained. Normal venous range: 60-85%. Normal arterial range: 95-100%. Pressure measurements obtained. ABG drawn and sent with respiratory therapy. Alicia-Bailey out. A 5 belizean JR4 catheter in over wire. Multiple views taken of right coronary artery. Catheter out. A 5 belizean JL4 catheter in over exchange wire. Multiple views taken of left coronary artery. Catheter out. A 5 belizean JR4 catheter in over wire. Exchange wire out. Glidewire in through catheter. Attempting to cross aortic valve. Catheter out. A 5 belizean AL1 catheter in over wire. Exchange wire exchanged for standard wire. A 5 belizean Angled Pig catheter in over wire. EDP Sample taken: LV 170/-11,17; HR: 79 BPM; SpO2: 94%. Pullback taken: LV Off; AO Off; Mean: , Peak to Peak: , SEP: ; HR: 89 BPM; SpO2: 94%. Catheter out. A 5 belizean AL1 catheter in over wire. A 5 belizean Angled Pig catheter in over wire. Catheter out. EDP Sample taken: LV 172/-12,6; HR: 88 BPM; SpO2: 94%. Pullback taken: LV 173/-10,6; AO 130/61(92); Mean: 32mmHg, Peak to Peak: 45mmHg, SEP: 23sec/min; HR: 89 BPM; SpO2: 95%. Catheter out. wire out. A Manual Compression was successful obtaining hemostatsis at the Left Femoral artery insertion site. PERRLA. Strong, equal hand agent licensing clerk bilaterally. No VTE prophylaxis required. Medication's Wasted: Other = fentanyl 100 mcg. Medication's Wasted: Heparin = 1000 units. Total IV fluids: 82 mL. Post-op diagnosis: severe porx LAD stenosis, moderate aortic stenosis. Complications: none. Estimated blood loss: 5mL-10mL. Responsiveness - Normal response to verbal stimuli; alert and oriented, PERRLA. Airway - Unaffected, no intervention required; spontaneous ventilation. Circulation: W/N/L, pulses unchanged. Nausea/Vomiting: No. A Mechanical Compression was successful obtaining hemostatsis at the Left Femoral vein insertion site. Procedure completed. Patient transferred by bed to 1st floor. Vital chart was stopped. Access Site Site: Left Femoral artery Sheath Size: 5 Fr Hemostasis Method: Manual Compression Hemostasis Success: Successful Site: Left Femoral vein Sheath Size: 6 Fr Hemostasis Method: Mechanical Compression Hemostasis Success: Successful Procedure Medications Start: 10:56 AM Stop: 10:56 AM Medication: Versed Amount: 1 mg Route: I.V. Start: 11:05 AM Stop: 11:05 AM Medication: Versed Amount: 1 mg Route: I.V. I, the attending physician, have reviewed and verified all procedure medications. Yes, all medications given per verbal order History/Risk Factors Hypertension: No Dyslipidemia: Yes Peripheral Arterial Disease (PAD): Yes Myocardial Infarction (TN): Yes Obesity: No Prior Interventions PCI: Yes CABG: No Valve Surgery: No Date of PCI: 04/18/2020 Report Signatures Finalized by Jeovanny Crews MD on 09/19/2022 12:47 PM
[2022-09-11] MEDS: ipratropium-albuterol 3 mL Neb INHALATION ×3 (08:22→20:12)
[2022-09-11] MEDS: budesonide 0.5 mg/2 mL Neb INHALATION ×2 (08:22→20:12)
[2022-09-11] MEDS: isosorbide mononitrate ER 30 mg Tablet PO (08:45)
[2022-09-11] MEDS: gemfibrozil 600 mg Tablet PO ×2 (08:46→17:32)
[2022-09-11] MEDS: losartan 50 mg Tablet 100 MG PO (08:46)
[2022-09-11] MEDS: metoprolol succinate ER (24 HR) 25 mg Tablet PO (08:46)
--- NOTE | 2022-09-11 10:35 | PC.NURSE ---
to cardiac pathology lab technician at this time
--- NOTE | 2022-09-11 10:47 | W.PM.OPSUD ---
Surgery/Procedure H&P Update DATE OF PROCEDURE: September 11, 2022 DATE H&P PERFORMED: 09/08/22 H&P UPDATE INFORMATION: I have reviewed H&P completed within last 30 days, I have examined patient prior to procedure and Changes to prior documentation as noted here CHANGES TO PREVIOUS DOCUMENTATION: Patient has severe aortic stenosis by valve area on VALARIE. We will perform right heart cath+ left heart cath with valve study and possible PCI. Risks and benefits of the procedure discussed with the patient. PREOP DIAGNOSIS: Aortic stenosis PRIMARY INDICATION FOR PROCEDURE: Aortic stenosis PLANNED PROCEDURE: Operation Date: 09/11/22 08:00 Proposed Procedures Right heart cath+ Left heart cath with possible percutaneous coronary intervention PATIENT REASSESSED PRIOR TO SEDATION, WITH NO CHANGE NOTED: Yes PHYSICAL EXAM: alert, oriented x 3, clear to auscultation bilaterally and regular rate & rhythm AIRWAY EVAL/ANESTHESIA PLAN: normal airway, ASA III, Local Anesthesia, Risks, benefits & alternatives of sedation and/or procedure discussed and Patient agrees to continue as planned
[2022-09-11 11:22] LABS: Arterial Blood Gas Hematocrit 33.4 % (42-52); Blood Gas Sample Type Not specified; HGB O2 Sat 94.3 % (95-100); Methemoglobin 0.7 % (0.4-1.5); Total Hemoglobin 10.9 g/dL (14-18)
[2022-09-11 11:25] LABS: Alveolar-Arterial Oxygen Gradi 2.5 mmHg (5-10); Arterial Blood Gas Hematocrit 35.3 % (42-52); Blood Gas Sample Type Arterial; HGB O2 Sat 69.3 % (95-100); Methemoglobin 0.9 % (0.4-1.5); Total Hemoglobin 11.5 g/dL (14-18)
--- NOTE | 2022-09-11 13:43 | PM.PN ---
Subjective Subjective: No acute events overnight. Patient has remained hemodynamically stable and afebrile. Seen prior to cardiac catheterization today. Seen with family at bedside. Has remained on baseline 2 to 3 L oxygen supplementation. Telemetry Has remained stable. Vitals/I&O/Wt Last Vital Signs Temp 97.8 F 09/11/22 07:39 Pulse 86 09/11/22 13:31 Resp 19 H 09/11/22 13:31 BP 134/79 09/11/22 08:46 Pulse Ox 94 09/11/22 13:31 O2 Del Method 09/11/22 13:31 O2 Flow Rate 3 09/11/22 13:31 FiO2 55 09/11/22 08:00 09/10/22 09/11/22 09/11/22 22:59 06:59 14:59 Intake Total 240 / 1750 0 / 0 Output Total 1200 / 1450 900 / 2350 1675 / 1675 Balance -960 / 300 -900 / -600 -1675 / -1675 Weight last 48 hrs Weight 104.78 kg Weight 103.164 kg Physical Exam Narrative: GENERAL: Patient is alert, awake and oriented x3. NECK: No jugular vein distension. HEENT: No cyanosis. No icterus. No pallor. HEART: Regular S1 and S2. Grade 3/6 systolic murmur at aortic area radiating to carotids LUNGS: Clear to auscultate bilaterally. ABDOMEN: Soft, nontender, no organomegaly, bowel sounds present CENTRAL NERVOUS SYSTEM: Grossly nonfocal. EXTREMITIES: Lower extremities with 1+ edema bilaterally. Pulses palpable in the lower extremities, both dorsalis pedis and posterior tibial. [] Data 09/11/22 04:38 09/11/22 04:38 A&P Assessment and plan (1) Respiratory failure with hypoxia and hypercapnia: Qualifiers: Chronicity: acute on chronic Qualified Code(s): J96.21 - Acute and chronic respiratory failure with hypoxia; J96.22 - Acute and chronic respiratory failure with hypercapnia; J96.22 - Acute and chronic respiratory failure with hypercapnia (2) Congestive heart failure: Qualifiers: Heart failure chronicity: acute on chronic Heart failure type: diastolic Qualified Code(s): I50.33 - Acute on chronic diastolic (congestive) heart failure (3) COPD (chronic obstructive pulmonary disease): (4) Aortic stenosis: Qualifiers: Cardiac valve disease etiology: nonrheumatic Qualified Code(s): I35.0 - Nonrheumatic aortic (valve) stenosis (5) Diastolic heart failure: (6) NSVT (nonsustained ventricular tachycardia): Plan 77 year old male with past medical history of COPD, heart failure with preserved ejection fraction, obesity, came in today with chief complaint of worsening shortness of breath, lower extremity swelling, going on for the last few days. Assessment: Respiratory failure with hypoxia and hypercapnia secondary to CHF exacerbation. Decompensated heart failure with preserved ejection fraction in setting of low gradient severe aortic stenosis. NSVT. COPD History of CAD, post PCI Obesity Epistaxis: Resolved. Plan Patient on patient oxygen supplementation of 2 to 3 L. Continue with DuoNebs every 6 hours, budesonide twice daily. Oxygen supplementation keeping saturation over 88%. Appreciate VALARIE results.? Consistent with severe aortic stenosis. Care discussed in detail with cardiology.? Patient will most likely need AVR versus TAVR. Plan for further work-up as an outpatient and referral to intervention/surgical cardiology in [place]. History of CAD with few episodes of possible nonsustained V. tach on monitor: Plan for cardiac catheterization today for further work-up. N.p.o. for now. Cardiac diet postcardiac catheterization. We will plan further treatment as per cath results. Strict input output charting. Daily weights. Patient already received IV Lasix today. In view of going for catheterization as patient is on baseline supplementation will hold Lasix tomorrow. Post cath 50 cc normal saline for 500 cc. Monitor for fluid overload. Patient having few episodes of nonsustained V. tach.? Electrolytes within normal limits.? We will continue to monitor potassium and magnesium. C/w metoprolol 25 mg oral daily. Goal blood pressure less than 140/90 mmHg. Continue home dose of amlodipine, Imdur, losartan, Metoprolol. Analgesia: Tylenol as needed Glycemic control: Not needed Nutrition: Cardiac diet, n.p.o. after midnight CODE STATUS: Full code PUD prophylaxis: Famotidine for PUD prophylaxis DVT prophylaxis: Lovenox Discharge planning: Home with caregiver once medically stable Continue with care at [facility] This documentation was created by [employer] corrections sergeant software. Every effort was made to ensure accuracy of corrections sergeant.? Any obvious errors or omissions should be clarified with the author of the document. Attestations Medical Necessity Statement*: Requires further hospitalization for management of hypoxic and hypercapnic respiratory failure in setting of CHF exacerbation, severe slow flow aortic stenosis, nonsustained V. tach in a patient with baseline CAD Coding Level of Care Code 06638 High MDM includes risk/complexity, reviewing previous or external records, reviewing test results, ordering lab/other test(s), speaking with independent historian (other than patient), independently interpretating test(s) (not separately recorded) and discussion of management or test(s) w/ other healthcare professional and High Time for a total of 50 minutes, includes reviewing past or interval history, examining/interviewing patient, placing orders, counseling patient/family/other support, updating patient/family/other support, discussing plan of care with staff, communicating with other healthcare providers, documenting encounter and coordinating care Diagnoses Respiratory failure with hypoxia and hypercapnia J96.21; J96.22; J96.22 Chronicity: acute on chronic Congestive heart failure I50.33 Heart failure chronicity: acute on chronic Heart failure type: diastolic COPD (chronic obstructive pulmonary disease) J44.9 Aortic stenosis I35.0 Cardiac valve disease etiology: nonrheumatic Diastolic heart failure I50.30 NSVT (nonsustained ventricular tachycardia) I47.29
[2022-09-11] MEDS: HYDROcodone-acetaminophen 5-325 mg Tablet 1 TAB PO (13:53)
--- NOTE | 2022-09-11 14:14 | PC.NURSE ---
pt received from cardiac laboratory coordinator at 1230 via bed.report received.pt is alert and awake.sr on monitor.left femoral cath site with drsg dry and intact.(venous and arterial sheaths pulled in laboratory coordinator).no hematoma formation noted.left leg is warm to touch and with brisk capillary refill.dopplerable dp and pt pulses noted.pt instructed in activity restrictions s/p femoral artery procedure..and instructed to notify staff for any bleeding,pain,sob,or for any concerns at all.pt verb understanding of instructions
[2022-09-11 14:20] LABS: Blood Gas Operator Identificat RC
[2022-09-11 14:21] LABS: Blood Gas Operator Identificat RC
[2022-09-11] MEDS: sodium chloride 0.9% 500 ML 50 ML IV (15:00)
--- NOTE | 2022-09-11 16:30 | P.PN_ITS ---
Subjective Subjective: Patient underwent right and left heart cath with valve study. His aortic valve was moderate to severely stenosed with mean gradient 32 mmHg. Aortic valve area was noted to be 1.1 cm?. Proximal to mid LAD has severe, heavily calcified stenosis. Patient is stable. Doing well. Vitals/I&O/Wt Last Vital Signs Temp 97.8 F 09/11/22 07:39 Pulse 90 09/11/22 15:12 Resp 18 09/11/22 15:03 BP 122/72 09/11/22 14:15 Pulse Ox 92 09/11/22 15:03 O2 Del Method 09/11/22 15:03 O2 Flow Rate 3 09/11/22 15:03 FiO2 55 09/11/22 12:00 09/11/22 09/11/22 09/11/22 06:59 14:59 22:59 Intake Total 240 / 240 Output Total 900 / 2350 1974 Balance -900 / -600 -1735 / -1735 Weight last 48 hrs Weight 231 lb Weight 227 lb 7 oz Physical Exam Narrative: GENERAL: Patient is alert, awake and oriented x3. [] NECK: No jugular vein distension. [] HEENT: No cyanosis. No icterus. No pallor. [] HEART: Regular S1 and S2. Grade 3/6 systolic murmur LUNGS: Clear to auscultate bilaterally. [] ABDOMEN: Soft CENTRAL NERVOUS SYSTEM: Grossly nonfocal. [] EXTREMITIES: Lower extremities with 1+ edema bilaterally. Pulses palpable in the lower extremities, both dorsalis pedis and posterior tibial. [] Data 09/11/22 04:38 09/11/22 04:38 A&P Assessment and plan (1) Aortic stenosis: Aortic stenosis is moderate to severe and has a severe, calcified proximal to mid LAD stenosis. I had a detailed discussion with structural heart team at [facility]. Cardiothoracic surgeon, Dr. Granados deems patient high risk for surgical revascularization/ valve replacement and recommended percutaneous coronary intervention of LAD and assessment as outpatient for TAVR. It will need arthrectomy, given calcified nature of disease. We will plan for tomorrow. I had a discussion with the patient and his . They understand the risks and benefits and want to proceed with the procedure. N.p.o. past midnight. We will load patient with Plavix 600 mg. Continue aspirin. Qualifiers: Cardiac valve disease etiology: nonrheumatic Qualified Code(s): I35.0 - Nonrheumatic aortic (valve) stenosis (2) Congestive heart failure: HFpEF -continue IV lasix -was placed on fluid restriction Qualifiers: Heart failure chronicity: acute on chronic Heart failure type: diastolic Qualified Code(s): I50.33 - Acute on chronic diastolic (congestive) heart failure (3) PAOD (peripheral arterial occlusive disease): (4) COPD (chronic obstructive pulmonary disease): Plan CAD Pneumonia Statin intolerance Obesity ASIA/OHS Attestations Medical Necessity Statement*: Care expected to cross 2 midnights. Coding Level of Care Code Acute Code for [facility] Fwd Diagnoses Aortic stenosis I35.0 Cardiac valve disease etiology: nonrheumatic Congestive heart failure I50.33 Heart failure chronicity: acute on chronic Heart failure type: diastolic PAOD (peripheral arterial occlusive disease) I77.9 COPD (chronic obstructive pulmonary disease) J44.9
[2022-09-11] MEDS: famotidine 20 mg Tablet PO (21:48)
[2022-09-11] MEDS: enoxaparin 40 mg/0.4 mL Syringe SUBCUT (21:48)
[2022-09-11] MEDS: aspirin 81 mg EC Tablet PO (21:48)
[2022-09-12] VITALS (69 sets, daily range): BP systolic 101–159; BP diastolic 52–83; PULSE 79–97; RESP 16–30; TEMP 36.9–37.1; O2SAT 79–100
--- NOTE | 2022-09-12 | XACV_ITS ---
Exam Room: [facility] Ht: 170 cm Wt: 105 kg BSA: 2.27 m2 Gender: Male : 1945 Any Known Allergies: Codeine Exam Priority: Routine Procedure(s): Procedure Description: Diagnostic procedure Procedure Description: PCI procedure Procedure Description: Drug Eluting Coronary Stent Procedure Description: Coronary Atherectomy Procedure Description: Miscellaneous Procedure Description: ACT Procedure Description: Coronary Angiography Diagnostic Cath Status: Urgent Diagnostic Findings * INDICATION: Patient has moderate to severe aortic stenosis. Underwent coronary angiogram yesterday that showed severe proximal to mid LAD stenosis. It is heavily calcified. We had a discussion with structural heart team and CT surgery team at [facility]. He was considered high risk for surgical revascularization and valve replacement. Dr Granados recommended proceeding with percutaneous coronary intervention of the LAD. He will be referred to valve clinic for TAVR at [facility] as outpatient. * Left Main has no significant disease. * Proximal Left Anterior Descending: severe proximal 80% stenosis, DELBERT: 3 flow. * Circumflex has mild luminal irregularities. * Right Coronary Artery was not injected. PCI Status: Urgent PCI Indication: Staged PCI Interventional Findings * PROCEDURE DETAIL: We engaged left main artery with XB 3.5 guide catheter. IV heparin was administered to maintain ACT above 250 S. 0.014 run-through guidewire was used to cross the severe stenosis and was put in distal vessel. We used TelePort microcatheter to switch run-through guidewire to a Viper wire. We then performed orbital arthrectomy. We predilated the stenosis with 3.0 x 15 mm semicompliant balloon. This was followed by placement of 3.0 x 18 mm resolute [place] drug-eluting stent. We then postdilated the stent with a 3.5 x 8 mm NC balloon. At this time final angiogram was performed that showed excellent stent expansion, no residual stenosis and DELBERT-3 flow. Guidewire and guide catheter were removed. Patient left the Induction Brazer in a stable condition.. * Proximal Left Anterior Descendin% stenosis treated with a AB TREK 3.00X15 RX BALLOON, BERTIN Neil BRIA 3.0X18 ZACHARY, and BERTIN PERLA EUPHORA RX [id number] BALLOON. 0% residual stenosis, DELBERT: 3 flow. Conclusions 1. Severe proximal to mid LAD stenosis s/p 2. successful PCI with orbital atherectomy and ZACHARY x1.. 3. Proximal Left Anterior Descending was treated with a Balloon, Drug Eluting Stent, and Balloon. Recommendations * Dual antiplatelet therapy for at least 1 year. * High intensity statin therapy. * Outpatient cardiology follow-up in 4 weeks. Pressures Phase:Rest AO : 116 / 64 ( 87 ) @ 9:17:00 AM 97 / 56 ( 73 ) @ 9:20:00 AM 142 / 66 ( 96 ) @ 9:33:00 AM 118 / 70 ( 90 ) @ 9:42:00 AM 123 / 60 ( 85 ) @ 9:47:00 AM Clinical Evaluation EBL: 5mL-10mL Procedural Details Pre-Procedure Time Out. Identified patient by full name and date of as verbalized by the patient/guarantor. Does the consent match the physician's order: Yes. Accurate & Complete Informed Consent: Yes. Inpatient/Outpatient History & Physical on Chart: Yes. If H&P is completed, is and addenduem needed: No. Visualize and Verify Site with Patient/Guarantor: N/A. Relevant Radiology Images available: Yes. Pre-op teaching completed and patient verbalized understanding. The risks, benefits, and alternatives of sedation and/or procedure were discussed by physician. The patient agrees to continue. Procedure started. HA Clinical Fraility Score: 4: Vulnerable. Induction Brazer Indications: Stable Known CAD/Staged PCI of the LAD. Chest Pain Symptom Assessment: Typical Angina Symptoms. Cardiovascular Instability: No. Correct patient, site and procedure confirmed by cath team. PERRLA. Strong, equal hand vb developer bilaterally. Lungs clear x 5 lobes. IV Site on Arrival: 20 gauge in the right forearm. IV Fluids: 0.9% NaCl at KVO. 500 mL infused prior to catheter finisher and inspector. Pre Procedural Pulses: bilateral dorsalis pedis was 3+. Pre Procedural Pulses: bilateral posterior tibial was 3+. Pre Procedural Pulses: bilateral radial was 3+. Oxygen started at 2liters/min via nasal canula. right groin was prepped with chloroprep then draped in the usual sterile fashion. left groin was prepped with chloroprep then draped in the usual sterile fashion. Physician notified. Baseline sample Acquired. HR: 87 BPM. Equipment: 6F - Femoral. Cardiac Cath Pack. ACIST Manifold Kit Model BT 2000. Heparinized Saline (2 units/mL), 1000 mL bag. Kit, Micropuncture. Physician arrived. Patient's family unavailable. Dr. Crews spoke with the Spouse and will update her at the completionof the procedure,. Hemodynamic formulas in Rest were re-calculated based on hemoglobin value from 09/12/2022 4:36:00 AM. AP pads placed on the patient. Physician scrubbed in. Immediate Pre-Procedure Time Out. Correct Patient: Yes; Correct Procedure: Yes; Correct Site: Yes; Correct Patient Position: Yes; Correct Supplies: Yes; Dried Flammable Prep: Yes; Blood Products Available: N/A. Lidocaine 1% infiltrated to the left groin. Arterial access obtained with micropuncture set. Sheath upsized to a 6 Fr. Cine of the LCA performed. 6 croatian XB 3.5 guide catheter was inserted over the wire. Viper guidewire was advanced through the guide catheter. Teleport support catheter in. Teleport support advanced down the to the distal LAD. Viper guidewire out, 300cm Runhrough guidewire in. Runthrough wire out, Viper wire in. Teleport support catheter out. ACT drawn. Results 362 seconds. Therapeutic limits - pre-heparin administration 90-150 seconds and monitoring heparin during a vascular procedure >250 seconds. Diamondback 360 1.25 Coronary OAS inserted over the wire and tested ouside of the body. OAS advanced to the lesion in the Prox LAD. Orbital atherectomy of the Prox LAD performed for 22 seconds at 80 ,000 RPMs. Orbital atherectomy of the Prox LAD performed for 22 seconds at 80,000 RPMs. Orbital atherectomy of the Prox LAD performed for 22 seconds at 80,000 RPMs. Orbital atherectomy of the Prox LAD performed for 25 seconds at 80 ,000 RPMs. OAS removed over the Viper wire. Teleport support catheter in over the Viper wire. Viper wire out, Runthrough 300 cm wire in. Viper wire out. Teleport support catheter out over the Runthrough wire. ACT drawn. Results 224 seconds. Therapeutic limits - pre-heparin administration 90-150 seconds and monitoring heparin during a vascular procedure >250 seconds. Inflation number : 1 A AB TREK 3.00X15 RX BALLOON was prepped and advanced across the Prox LAD , then inflated to 8 DIXIE for 0:20 seconds. Inflation number: 2 The AB TREK 3.00X15 RX BALLOON was reinflated across the Prox LAD, to 8 DIXIE for 0:16 seconds. Balloon out. Inflation Number : 3 A MDT R BRIA 3.0X18 ZACHARY -Lot Number# [id number] was prepped and advanced across the Prox LAD. The stent was deployed at 12 DIXIE for 0:22 seconds. Exp 2025-03-12. Inflation number : 4 A MDT NC EUPHORA RX [id number] BALLOON was prepped and advanced across the Prox LAD , then inflated to 12 DIXIE for 0:20 seconds. Inflation number: 5 The MDT NC EUPHORA RX [id number] BALLOON was reinflated across the Prox LAD, to 12 DIXIE for 0:11 seconds. Inflation number: 6 The MDT NC EUPHORA RX [id number] BALLOON was reinflated across the Prox LAD, to 12 DIXIE for 0:05 seconds. Balloon out. Results checked. Wire out. Results checked. Samantha Santos RN, MULCHER OPERATOR was relieved by Viktor Reaves RN, MULCHER OPERATOR as monitoring person. ACT drawn. Results 233 seconds. Therapeutic limits - pre-heparin administration 90-150 seconds and monitoring heparin during a vascular procedure >250 seconds. Guide catheter out over the wire. Sheath exchanged for a 6 FR short sheath. Physician review of films. Physician scrubbed out. A Suture was successful obtaining hemostatsis at the Right Femoral artery insertion site. Sheath(s) sutured into position with 2-0 silk and sterile 4x4's and Op-site applied over the site. No oozing or signs and symptoms of hematoma noted. Arterial sheath flushed and connected to tranducer and pressure bag with heparinized saline. Post Procedure: Pulses reassessed and unchanged. PERRLA. Strong, equal hand vb developer bilaterally. No VTE prophylaxis required. Medication waste: Nitro- 49.8 mg, Versed- 1 mg, Fentanyl- 25 mcg. Total IV fluids: 100 mL. Fluoro: 19:05. Contrast type used: Omnipaque 300 mgI/mL, 500 mL bottle. [id number]. Post-op diagnosis: Severe Proximal LAD stenosis; Status post successful revascularization of proximal LAD with orbital atherectomy and ZACHARY placement. Complications: None. Estimated blood loss: 5mL-10mL. Responsiveness - Normal response to verbal stimuli; alert and oriented, PERRLA. Airway - Unaffected, no intervention required; spontaneous ventilation. Circulation: W/N/L, pulses unchanged. Nausea/Vomiting: No. Procedure completed. Patient transferred by bed to CPRU. Vital chart was stopped. Access Site Site: Right Femoral artery Sheath Size: 6 Fr Hemostasis Method: Suture Hemostasis Success: Successful Procedure Medications Start: 9:03 AM Stop: 9:03 AM Medication: Versed Amount: 1 mg Route: I.V. Start: 9:03 AM Stop: 9:03 AM Medication: Fentanyl Amount: 50 mcg Route: I.V. Start: 9:11 AM Stop: 9:11 AM Medication: Versed Amount: 1 mg Route: I.V. Start: 9:17 AM Stop: 9:17 AM Medication: Heparin Amount: 5000 units Route: I.V. Start: 9:22 AM Stop: 9:22 AM Medication: Heparin Amount: 4000 units Route: I.V. Start: 9:43 AM Stop: 9:43 AM Medication: Versed Amount: 1 mg Route: I.V. Start: 9:44 AM Stop: 9:44 AM Medication: Heparin Amount: 2000 units Route: I.V. Start: 9:49 AM Stop: 9:49 AM Medication: Heparin Amount: 2000 units Route: I.V. Start: 9:59 AM Stop: 9:59 AM Medication: Nitrogylcerin Amount: 200 mcg Route: I.C. Start: 10:04 AM Stop: 10:04 AM Medication: Heparin Amount: 1000 units Route: I.V. Start: 9:51 AM Stop: 9:51 AM Medication: Fentanyl Amount: 25 mcg Route: I.V. Start: 9:51 AM Stop: 9:51 AM Medication: Heparin Amount: 1000 units Route: I.V. I, the attending physician, have reviewed and verified all procedure medications. Yes, all medications given per verbal order History/Risk Factors Hypertension: No Dyslipidemia: Yes Peripheral Arterial Disease (PAD): Yes Myocardial Infarction (TX): Yes Obesity: No Prior Interventions PCI: Yes CABG: No Valve Surgery: No Date of PCI: 04/18/2020 Report Signatures Finalized by Jeovanny Crews MD on 09/26/2022 06:06 PM
[2022-09-12] MEDS: trazodone 50 mg Tablet PO ×2 (01:32→22:41)
[2022-09-12] MEDS: ipratropium-albuterol 3 mL Neb INHALATION (03:07)
[2022-09-12 05:03] LABS: Basophils % 0.8 %; Eosinophils # 0.2 10^3/uL (0.0-0.8); Eosinophils % 4.3 %; Hematocrit 36.1 % (42.0-52.0); Hemoglobin 10.6 g/dL (11.7-16.6); Lymphocytes # 1.1 10^3/uL (0.8-4.8); Lymphocytes % 21.2 %; Mean Corpuscular HGB Conc 29.4 g/dL (30.0-36.0); Mean Corpuscular Hemoglobin 25.9 pg (28.0-34.0); Mean Corpuscular Volume 88.3 fl (80-94); Mean Platelet Volume 9.5 fL (7.4-10.4); Monocytes # 0.7 10^3/uL (0.2-0.9); Monocytes % 13.4 %; Neutrophils # 3.05 10^3/uL (1.8-7.7); Neutrophils % 59.9 %; Nucleated Red Blood Cells % 0 %; Platelet Count 199 10^3/cmm (130-400); Red Blood Count 4.09 10^6/uL (4.1-5.3); Red Cell Distribution Width 15.5 % (12.1-15.1); White Blood Count 5.1 10^3/uL (4.0-10.0)
[2022-09-12 05:26] LABS: Alanine Aminotransferase 18 U/L (0-41); Albumin Level 3.1 g/dL (3.5-5.2); Alkaline Phosphatase 77 U/L (40-130); Anion Gap 12.5 (5-19); Aspartate Amino Transferase 17 U/L (0-40); Blood Urea Nitrogen 15 mg/dL (8-23); Calcium 8.4 mg/dL (8.5-10.5); Carbon Dioxide 32 mmol/L (22-29); Chloride 96 mmol/L (98-107); Globulin 3.5 g/dL (1.3-4.6); Glucose 97 mg/dL (65-115); Osmolality Calculated 283 mOsm/kg (285-295); Potassium 4.5 mmol/L (3.5-5.1); Sodium 136 mmol/L (136-145); Total Bilirubin 0.2 mg/dL (0.15-1.2); Total Protein 6.6 g/dL (6.6-8.7)
[2022-09-12] MEDS: ascorbic acid 500 mg Tablet PO (06:16)
[2022-09-12] MEDS: amlodipine 10 mg Tablet PO (06:16)
[2022-09-12] MEDS: clopidogrel 300 mg Tablet 600 MG PO (07:45)
--- NOTE | 2022-09-12 08:42 | P.HPUD_ITS ---
Surgery/Procedure H&P Update DATE OF PROCEDURE: September 12, 2022 DATE H&P PERFORMED: 09/08/22 H&P UPDATE INFORMATION: I have reviewed H&P completed within last 30 days, I have examined patient prior to procedure and Changes to prior documentation as noted here CHANGES TO PREVIOUS DOCUMENTATION: Patient has moderate to severe aortic stenosis. Underwent coronary angiogram yesterday that showed severe proximal to mid LAD stenosis. It is heavily calcified. We had a discussion with structural heart team and CT surgery team at [facility]. He was considered high risk for surgical revascularization and valve replacement. Dr Granados recommended proceeding with percutaneous coronary intervention of the LAD. He will be referred to valve clinic for TAVR at [facility] as outpatient. Risks and benefits of the procedure have been discussed in detail with patient and his family. They understand the risks and benefits and want to proceed with it. PREOP DIAGNOSIS: Severe proximal to mid LAD stenosis PRIMARY INDICATION FOR PROCEDURE: Severe proximal to mid LAD stenosis PLANNED PROCEDURE: Operation Date: 09/12/22 0830 AM Proposed Procedures p Cardiac Catheterization/ staged Percutaneous coronary intervention of the proximal to mid LAD with arthrectomy - Jeovanny Crews M.D PATIENT REASSESSED PRIOR TO SEDATION, WITH NO CHANGE NOTED: Yes PHYSICAL EXAM: alert, oriented x 3, clear to auscultation bilaterally and regular rate & rhythm AIRWAY EVAL/ANESTHESIA PLAN: normal airway, ASA IV, Local Anesthesia, Risks, benefits & alternatives of sedation and/or procedure discussed and Patient agrees to continue as planned ADDITIONAL INFORMATION: Moderate sedation
--- NOTE | 2022-09-12 08:55 | PC.CHAP ---
Pastoral Care Encounter/Spiritual Assessment Type of Contact [] Declined superintendent quarry visit [] Patient/Family/Request visit [] Outpatient visit [] Follow-up visit [] Physician referral [] Code/Alert [x] Routine visit [] Staff referral [] Actively dying [x] Patient sleeping [] Family support [] [] Out of room [] Palliative care [] [] Receiving care in room [] Pre-surgical visit [] Trauma [] Long length of stay [] ICU visit [] Other: Relational/Emotional Strength [] Patient feels connected with others/family/visitors/staff [] Distress [] Loneliness/isolation [] Abandonment Spirituality of Patient [] Person of Charo [] Attends Quaker of their Charo [] Believes in Prayer [] Reads Bible or Hoahaoism materials [] There are Spiritual issues to be addressed Thread Weaver Interventions [] Prayer [] Active listening [] Non-anxious presence [] Spiritual/emotional support [] Crisis/trauma care [] Spiritual counseling [] Bereavement support [] Provided bereavement packet [] Provided Bible/devotional materials [] Provided toy/stuffed animal, coloring book to patient or family member [] Provided Communion [] Anointing/[place] [] Salvation [] Completed spiritual assessment [] Other: Impact on Illness or Injury [] Angry [] Fearful [] Anxious [] Often cries [] Exhaustion [] Unable to work [] Unable to attend jehovah's witness [] Unable to walk/stand [] Unable to read [] Unable to drive [] Unable to eat/drink [] Unable to sleep [] Unable to be with family [] Patient intubated [] Other: Summary Time spent with patient
--- NOTE | 2022-09-12 10:18 | PM.PN ---
Subjective Subjective: Patient is doing well. he underwent successful revascularization of proximal LAD with orbital arthrectomy and DESx 1. No chest pain at this time Vitals/I&O/Wt Last Vital Signs Temp 98.5 F 09/12/22 07:30 Pulse 97 09/12/22 08:00 Resp 18 09/12/22 08:00 BP 142/83 09/12/22 07:48 Pulse Ox 99 09/12/22 08:00 O2 Del Method 09/12/22 08:00 O2 Flow Rate 3 09/12/22 08:00 FiO2 55 09/11/22 12:00 09/11/22 09/12/22 09/12/22 22:59 06:59 14:59 Intake Total 240 / 480 500 / 980 Output Total 400 / 2375 400 / 2775 Balance -160 / -1895 100 / -1795 Weight last 48 hrs Weight 225 lb Weight 231 lb Physical Exam Narrative: GENERAL: Patient is alert, awake and oriented x3. [] NECK: No jugular vein distension. [] HEENT: No cyanosis. No icterus. No pallor. [] HEART: Regular S1 and S2. Grade 3/6 systolic murmur LUNGS: Clear to auscultate bilaterally. [] ABDOMEN: Soft CENTRAL NERVOUS SYSTEM: Grossly nonfocal. [] EXTREMITIES: Lower extremities with 1+ edema bilaterally. Pulses palpable in the lower extremities, both dorsalis pedis and posterior tibial. [] Data 09/12/22 04:36 09/12/22 04:36 A&P Assessment and plan (1) Aortic stenosis: Patient underwent successful revascularization of proximal LAD with orbital arthrectomy and DESx 1. Continue aspirin and plavix for atleast 1 year. We will refer patient to a tertiary care center for TAVR evaluation as outpatient. Holding diuresis for today. Thank you for involving us with care of this patient. We will continue to follow. Please call with questions. Qualifiers: Cardiac valve disease etiology: nonrheumatic Qualified Code(s): I35.0 - Nonrheumatic aortic (valve) stenosis (2) Congestive heart failure: HFpEF -continue IV lasix -was placed on fluid restriction Qualifiers: Heart failure chronicity: acute on chronic Heart failure type: diastolic Qualified Code(s): I50.33 - Acute on chronic diastolic (congestive) heart failure (3) PAOD (peripheral arterial occlusive disease): (4) COPD (chronic obstructive pulmonary disease): Plan CAD Pneumonia Statin intolerance Obesity ASIA/OHS Attestations Medical Necessity Statement*: Care expected to cross 2 midnights. Coding Level of Care Code Acute Code for Chg Fwd Diagnoses Aortic stenosis I35.0 Cardiac valve disease etiology: nonrheumatic Congestive heart failure I50.33 Heart failure chronicity: acute on chronic Heart failure type: diastolic PAOD (peripheral arterial occlusive disease) I77.9 COPD (chronic obstructive pulmonary disease) J44.9
--- NOTE | 2022-09-12 11:02 | PC.NURSE ---
Around 1045: Report given to SHALONDA Kemp. 1100: Vitals stable. Sheath in place with pressure bag attached, no hematoma, dsg clean, dry, et intact. No c/o pain or discomfort. Patient transferred to CSU via hospital bed.
[2022-09-12] MEDS: gemfibrozil 600 mg Tablet PO ×2 (12:48→17:55)
[2022-09-12] MEDS: isosorbide mononitrate ER 30 mg Tablet PO (12:49)
[2022-09-12] MEDS: losartan 50 mg Tablet 100 MG PO (12:49)
--- NOTE | 2022-09-12 12:49 | PM.PN ---
Subjective Subjective: No acute events overnight. Denies any nausea vomiting or headache. Has remained hemodynamically stable and afebrile. On cardiac angiogram done on 09/11 he was found to have a proximal to mid severe LAD calcified lesion for which he underwent PCI today. Tolerated the procedure well. Currently on 2 L saturating more than 90% postprocedure. Vitals/I&O/Wt Last Vital Signs Temp 98.5 F 09/12/22 07:30 Pulse 93 09/12/22 12:15 Resp 29 H 09/12/22 12:15 BP 137/75 09/12/22 12:15 Pulse Ox 92 09/12/22 12:15 O2 Del Method 09/12/22 10:20 O2 Flow Rate 2 09/12/22 10:20 FiO2 55 09/11/22 12:00 09/11/22 09/12/22 09/12/22 22:59 06:59 14:59 Intake Total 240 / 480 500 / 980 Output Total 400 / 2375 400 / 2775 Balance -160 / -1895 100 / -1795 Weight last 48 hrs Weight 102.058 kg Weight 104.78 kg Physical Exam Narrative: GENERAL: Patient is alert, awake and oriented x3. NECK: No jugular vein distension. HEENT: No cyanosis. No icterus. No pallor. HEART: Regular S1 and S2. Grade 3/6 systolic murmur at aortic area radiating to carotids LUNGS: Clear to auscultate bilaterally. ABDOMEN: Soft, nontender, no organomegaly, bowel sounds present CENTRAL NERVOUS SYSTEM: Grossly nonfocal. EXTREMITIES: Lower extremities with 1+ edema bilaterally. Pulses palpable in the lower extremities, both dorsalis pedis and posterior tibial. [] Data 09/12/22 04:36 09/12/22 04:36 A&P Assessment and plan (1) Respiratory failure with hypoxia and hypercapnia: Qualifiers: Chronicity: acute on chronic Qualified Code(s): J96.21 - Acute and chronic respiratory failure with hypoxia; J96.22 - Acute and chronic respiratory failure with hypercapnia; J96.22 - Acute and chronic respiratory failure with hypercapnia (2) Congestive heart failure: Qualifiers: Heart failure chronicity: acute on chronic Heart failure type: diastolic Qualified Code(s): I50.33 - Acute on chronic diastolic (congestive) heart failure (3) COPD (chronic obstructive pulmonary disease): (4) Aortic stenosis: Qualifiers: Cardiac valve disease etiology: nonrheumatic Qualified Code(s): I35.0 - Nonrheumatic aortic (valve) stenosis (5) Diastolic heart failure: (6) NSVT (nonsustained ventricular tachycardia): Plan 77 year old male with past medical history of COPD, heart failure with preserved ejection fraction, obesity, came in today with chief complaint of worsening shortness of breath, lower extremity swelling, going on for the last few days. Assessment: Respiratory failure with hypoxia and hypercapnia secondary to CHF exacerbation. Decompensated heart failure with preserved ejection fraction in setting of low gradient severe aortic stenosis. CAD: PCI to proximal LAD. NSVT. COPD History of CAD, post PCI Obesity Epistaxis: Resolved. Plan Patient on patient oxygen supplementation of 2 to 3 L. Continue with DuoNebs every 6 hours, budesonide twice daily. Oxygen supplementation keeping saturation over 88%. Appreciate VALARIE results.? Consistent with severe aortic stenosis with a normal EF and no regional wall motion abnormality. Care discussed in detail with cardiology.? Patient will most likely need AVR versus TAVR. Plan for further work-up as an outpatient and referral to intervention/surgical cardiology in [place]. History of CAD: Cardiac angiogram done on 09/11 consistent with proximal to mid severe tight calcified lesion. Post PCI with ZACHARY x1 on 09/12. Continue with aspirin, Plavix, statin. Appreciate A1c, lipid panel results. Continue with beta-judi and losartan. Strict input output charting. Daily weights. Continue with IV Lasix 40 mg daily. Patient overall 6.6 L negative. Renal functions have remained stable. Nonsustained V. tach: No further episodes on telemetry. Continue with beta-judi. Post PCI. Hypertension: Goal blood pressure less than 140/90 mmHg. Continue home dose of amlodipine, Imdur, losartan. Increase dose of metoprolol succinate to 50 mg daily. Will uptitrate as per goals. Analgesia: Tylenol as needed Glycemic control: Not needed Nutrition: Cardiac diet, n.p.o. after midnight CODE STATUS: Full code PUD prophylaxis: Famotidine for PUD prophylaxis DVT prophylaxis: Lovenox Discharge planning: Home with caregiver once medically stable Continue with care at [facility] This documentation was created by [employer] loading dock hand software. Every effort was made to ensure accuracy of loading dock hand.? Any obvious errors or omissions should be clarified with the author of the document. Attestations Medical Necessity Statement*: Requires further hospitalization for management of CAD, post PCI to proximal LAD, decompensated congestive heart failure in setting of severe low gradient aortic stenosis Coding Level of Care Code 89850 High MDM includes risk/complexity, reviewing previous or external records, reviewing test results, ordering lab/other test(s), speaking with independent historian (other than patient), independently interpretating test(s) (not separately recorded) and discussion of management or test(s) w/ other healthcare professional and High Time for a total of 50 minutes, includes reviewing past or interval history, examining/interviewing patient, placing orders, counseling patient/family/other support, updating patient/family/other support, discussing plan of care with staff, communicating with other healthcare providers, documenting encounter and coordinating care Diagnoses Respiratory failure with hypoxia and hypercapnia J96.21; J96.22; J96.22 Chronicity: acute on chronic Congestive heart failure I50.33 Heart failure chronicity: acute on chronic Heart failure type: diastolic COPD (chronic obstructive pulmonary disease) J44.9 Aortic stenosis I35.0 Cardiac valve disease etiology: nonrheumatic Diastolic heart failure I50.30 NSVT (nonsustained ventricular tachycardia) I47.29
[2022-09-12] MEDS: metoprolol succinate ER (24 HR) 25 mg Tablet PO (12:50)
[2022-09-12] MEDS: sodium chloride 0.9% 500 ML 50 ML IV (12:50)
[2022-09-12] MEDS: HYDROcodone-acetaminophen 5-325 mg Tablet 1 TAB PO ×2 (12:58→23:29)
[2022-09-12 13:51] LABS: Partial Thromboplastin Time 100.2 SECONDS (23.9-36.7)
[2022-09-12 17:34] LABS: Partial Thromboplastin Time 21.5 SECONDS (23.9-36.7)
[2022-09-12] MEDS: TRAMadol 50 mg Tablet PO (17:55)
[2022-09-12] MEDS: morphine 4 mg/mL SDV 1 mL 2 MG IVP (17:55)
--- NOTE | 2022-09-12 20:00 | PC.NURSE ---
Addendum entered by Mirna Farnsworth RN 09/13/22 00:39: Error sheath was pulled at 19:02 Original Note: Left groin site, sheath was pulled by previous shift at 19:25, mannual pressure was held for 20minutes. Dressing was placed which is is dry and intact, bruising is noted to surrounding skin but site is soft, no hematoma present. The patient has been having nose bleeds, wanting to sit up in the bed but left nare packd with gauze and educated patient on the importance of keeping flat and maintaining bedrest to prevent bleeding from the groin site.
[2022-09-12] MEDS: ALPRAZolam 0.5 mg Tablet PO (20:23)
[2022-09-12 20:27] LABS: Hematocrit 38.2 % (42.0-52.0); Hemoglobin 11.2 g/dL (11.7-16.6)
[2022-09-12] MEDS: oxymetazoline 0.05% Nasal Spray 15 mL 2 SPRAY NOSTRIL-B (21:20)
--- NOTE | 2022-09-12 21:35 | PC.NURSE ---
Called DR. Gandhi about patient nose starting to bleed again, unable to stop with manual pressure and gauze packing. Called DR Carrillo in ER but he was busy told to call Hiram. came to unit and used Rhino Rocket to left nare, with 5cc air in each. Bleeding appears to have stopped at this time, Nurse cleaned blood and will continue to monitor for signs of bleeding. Patient left groing site is still dry and intact, no hematoma present, reminded patient that he is still on bedrest to keep leg straight.
[2022-09-12] MEDS: famotidine 20 mg Tablet PO (22:41)
[2022-09-12] MEDS: aspirin 81 mg EC Tablet PO (22:41)
[2022-09-13] VITALS (14 sets, daily range): BP systolic 112–146; BP diastolic 56–74; PULSE 71–96; RESP 16–22; TEMP 36.5–36.9; O2SAT 87–93
--- NOTE | 2022-09-13 00:35 | PC.NURSE ---
Bedrest completed at 00:30, patient got OOB to chair while nurse cleaned bed and tried to clean all the blood off the bed rails. Left groin site assessed when patient got back into bed. Site is still bruised but soft to touch, no hematoma present. Left nare packing is still in place, does not appear to be bleeding at this time.
[2022-09-13] MEDS: cefTRIAXone 1,000 MG in sodium chloride 0.9% (plus) 50 ML 100 MG IV ×2 (01:09→23:26)
[2022-09-13 04:02] LABS: Basophils % 0.3 %; Eosinophils # 0.1 10^3/uL (0.0-0.8); Eosinophils % 2.1 %; Hematocrit 35.2 % (42.0-52.0); Hemoglobin 10.3 g/dL (11.7-16.6); Lymphocytes # 1.1 10^3/uL (0.8-4.8); Lymphocytes % 17.2 %; Mean Corpuscular HGB Conc 29.3 g/dL (30.0-36.0); Mean Corpuscular Hemoglobin 25.8 pg (28.0-34.0); Mean Platelet Volume 10.3 fL (7.4-10.4); Monocytes # 0.7 10^3/uL (0.2-0.9); Monocytes % 10.7 %; Neutrophils # 4.56 10^3/uL (1.8-7.7); Neutrophils % 69.4 %; Nucleated Red Blood Cells % 0 %; Platelet Count 206 10^3/cmm (130-400); Red Cell Distribution Width 15.5 % (12.1-15.1); White Blood Count 6.6 10^3/uL (4.0-10.0)
[2022-09-13 04:26] LABS: Alanine Aminotransferase 20 U/L (0-41); Albumin Level 3.3 g/dL (3.5-5.2); Alkaline Phosphatase 82 U/L (40-130); Blood Urea Nitrogen 19 mg/dL (8-23); Calcium 8.5 mg/dL (8.5-10.5); Carbon Dioxide 29 mmol/L (22-29); Chloride 96 mmol/L (98-107); Globulin 3.6 g/dL (1.3-4.6); Glucose 124 mg/dL (65-115); Osmolality Calculated 280 mOsm/kg (285-295); Sodium 133 mmol/L (136-145); Total Bilirubin 0.3 mg/dL (0.15-1.2); Total Protein 6.9 g/dL (6.6-8.7)
[2022-09-13 04:28] LABS: Anion Gap 12.7 (5-19); Aspartate Amino Transferase 25 U/L (0-40); Potassium 4.7 mmol/L (3.5-5.1)
[2022-09-13] MEDS: ascorbic acid 500 mg Tablet PO (05:39)
[2022-09-13] MEDS: amlodipine 10 mg Tablet PO (05:39)
[2022-09-13] MEDS: FUROsemide 10 mg/mL SDV 4mL 40 MG IVP (05:40)
--- NOTE | 2022-09-13 07:36 | PM.PN ---
Subjective Subjective: Patient had nose bleed last night. No chest pain Vitals/I&O/Wt Last Vital Signs Temp 97.7 F 09/13/22 03:29 Pulse 75 09/13/22 03:29 Resp 19 H 09/13/22 03:29 BP 138/57 09/13/22 03:29 Pulse Ox 87 L 09/13/22 03:29 O2 Del Method 09/13/22 03:29 O2 Flow Rate 2 09/12/22 16:00 FiO2 55 09/12/22 16:00 09/12/22 09/13/22 09/13/22 22:59 06:59 14:59 Intake Total 480 / 720 50 / 770 Output Total 450 / 450 Balance 30 / 270 50 / 320 Weight last 48 hrs Weight 223 lb Weight 225 lb Physical Exam Narrative: GENERAL: Patient is alert, awake and oriented x3. [] NECK: No jugular vein distension. [] HEENT: No cyanosis. No icterus. No pallor. [] HEART: Regular S1 and S2. Grade 3/6 systolic murmur LUNGS: Clear to auscultate bilaterally. [] ABDOMEN: Soft CENTRAL NERVOUS SYSTEM: Grossly nonfocal. [] EXTREMITIES: Lower extremities with 1+ edema bilaterally. [] Data 09/13/22 03:06 09/13/22 03:06 A&P Assessment and plan (1) Aortic stenosis: Patient underwent successful revascularization of proximal LAD with orbital arthrectomy and DESx 1. Continue aspirin and plavix for atleast 1 year. We will refer patient to a tertiary care center for TAVR evaluation as outpatient. Continue IV diuresis. Patient had nose bleed. Once that resolves he will be ready to be discharged home Thank you for involving us with care of this patient. We will continue to follow. Please call with questions. Qualifiers: Cardiac valve disease etiology: nonrheumatic Qualified Code(s): I35.0 - Nonrheumatic aortic (valve) stenosis (2) Congestive heart failure: HFpEF -continue IV lasix -was placed on fluid restriction Qualifiers: Heart failure chronicity: acute on chronic Heart failure type: diastolic Qualified Code(s): I50.33 - Acute on chronic diastolic (congestive) heart failure (3) PAOD (peripheral arterial occlusive disease): (4) COPD (chronic obstructive pulmonary disease): Plan CAD Pneumonia Statin intolerance Obesity ASIA/OHS Attestations Medical Necessity Statement*: Care expected to cross 2 midnights. Coding Level of Care Code Acute Code for Chg Fwd Diagnoses Aortic stenosis I35.0 Cardiac valve disease etiology: nonrheumatic Congestive heart failure I50.33 Heart failure chronicity: acute on chronic Heart failure type: diastolic PAOD (peripheral arterial occlusive disease) I77.9 COPD (chronic obstructive pulmonary disease) J44.9
[2022-09-13] MEDS: budesonide 0.5 mg/2 mL Neb INHALATION ×2 (08:36→20:19)
[2022-09-13] MEDS: ipratropium-albuterol 3 mL Neb INHALATION ×2 (08:36→20:19)
--- NOTE | 2022-09-13 08:58 | PC.SOCIAL ---
IMM update IMM updated with patient. Verbalized an understanding. Copy Pg 2 provided. Initialled, dated, timed, and placed in chart.
[2022-09-13] MEDS: losartan 50 mg Tablet 100 MG PO (09:17)
[2022-09-13] MEDS: gemfibrozil 600 mg Tablet PO ×2 (09:18→18:03)
[2022-09-13] MEDS: isosorbide mononitrate ER 30 mg Tablet PO (09:18)
[2022-09-13] MEDS: metoprolol succinate ER (24 HR) 25 mg Tablet 50 MG PO (09:18)
[2022-09-13] MEDS: clopidogrel 75 mg Tablet PO (09:18)
--- NOTE | 2022-09-13 16:53 | P.PN_ITS ---
Subjective Subjective: Patient underwent PCI yesterday. Tolerated procedure well. Postprocedure patient was doing well and the groin sheath was removed. Patient did have episode of epistaxis yesterday evening requiring Rhino Rocket completely. Patient was counseled multiple times in detail not to pick his nose. Patient states he has been having epistaxis on and off for a long time for which he follows up with Dr. Larsen and gets cauterized every occasionally. We explained to him that he has had heparin and is on aspirin Plavix and there is a high chance of bleeding if he picks. Counseled him multiple times re garding proper hygiene. Patient had removed Rhino Rocket by himself today morning without any epistaxis. Otherwise hemodynamically stable. CBC has remained stable. Discharge planning was discussed in detail with the patient and patient's over the phone. Patient's is reluctant to get patient home today because of episodes of epistaxis overnight and would like to wait for 24 more hours prior to discharge. We did discuss that unfortunately in his case with his hygiene and tendency to pick his nose, tendency to have nasal bleed he can bleed anytime especially with being on aspirin Plavix now and he needs to follow-up with ENT as an outpatient. Medications: Reviewed: Yes Vitals/I&O/Wt Last Vital Signs Temp 98 F 09/13/22 12:00 Pulse 74 09/13/22 13:46 Resp 20 H 09/13/22 13:46 BP 112/57 09/13/22 12:00 Pulse Ox 93 09/13/22 13:46 O2 Del Method 09/13/22 13:46 O2 Flow Rate 2 09/13/22 13:46 FiO2 55 09/12/22 16:00 09/13/22 09/13/22 09/13/22 06:59 14:59 22:59 Intake Total 50 / 770 240 / 240 Output Total 450 / 900 700 / 700 Balance -400 / -130 -460 / -460 Weight last 48 hrs Weight 101.151 kg Weight 102.058 kg Physical Exam Narrative: GENERAL: Patient is alert, awake and oriented x3. NECK: No jugular vein distension. HEENT: No cyanosis. No icterus. No pallor. HEART: Regular S1 and S2. Grade 3/6 systolic murmur at aortic area radiating to carotids LUNGS: Clear to auscultate bilaterally. ABDOMEN: Soft, nontender, no organomegaly, bowel sounds present CENTRAL NERVOUS SYSTEM: Grossly nonfocal. EXTREMITIES: Lower extremities with 1+ edema bilaterally. Pulses palpable in the lower extremities, both dorsalis pedis and posterior tibial. Data 09/13/22 03:06 09/13/22 03:06 A&P Assessment and plan (1) Respiratory failure with hypoxia and hypercapnia: Qualifiers: Chronicity: acute on chronic Qualified Code(s): J96.21 - Acute and chronic respiratory failure with hypoxia; J96.22 - Acute and chronic respiratory failure with hypercapnia; J96.22 - Acute and chronic respiratory failure with hypercapnia (2) Congestive heart failure: Qualifiers: Heart failure chronicity: acute on chronic Heart failure type: diastolic Qualified Code(s): I50.33 - Acute on chronic diastolic (congestive) heart failure (3) COPD (chronic obstructive pulmonary disease): (4) Aortic stenosis: Qualifiers: Cardiac valve disease etiology: nonrheumatic Qualified Code(s): I35.0 - Nonrheumatic aortic (valve) stenosis (5) Diastolic heart failure: (6) NSVT (nonsustained ventricular tachycardia): Plan 77 year old male with past medical history of COPD, heart failure with preserved ejection fraction, obesity, came in today with chief complaint of worsening shortness of breath, lower extremity swelling, going on for the last few days. Assessment: Respiratory failure with hypoxia and hypercapnia secondary to CHF exacerbation. Decompensated heart failure with preserved ejection fraction in setting of low gradient severe aortic stenosis. CAD: PCI to proximal LAD. NSVT. COPD History of CAD, post PCI Obesity Epistaxis: Plan Patient on patient oxygen supplementation of 2 to 3 L. Continue with DuoNebs every 6 hours, budesonide twice daily. Oxygen supplementation keeping saturation over 88%. Appreciate VALARIE results.? Consistent with severe aortic stenosis with a normal EF and no regional wall motion abnormality. Care discussed in detail with cardiology.? Patient will most likely need AVR versus TAVR. Plan for further work-up as an outpatient and referral to intervention/surgical cardiology in [place]. History of CAD: Cardiac angiogram done on 09/11 consistent with proximal to mid severe tight calcified lesion. Post PCI with ZACHARY x1 on 09/12. Continue with aspirin, Plavix, statin. Appreciate A1c, lipid panel results. Continue with beta-judi and losartan. Strict input output charting. Daily weights. Continue with IV Lasix 40 mg daily. Patient overall 6.6 L negative. Renal functions have remained stable. Nonsustained V. tach: No further episodes on telemetry. Continue with beta-judi. Post PCI. Hypertension: Goal blood pressure less than 140/90 mmHg. Continue home dose of amlodipine, Imdur, losartan. Increase dose of metoprolol succinate to 50 mg daily. Will uptitrate as per goals. Analgesia: Tylenol as needed Glycemic control: Not needed Nutrition: Cardiac diet, n.p.o. after midnight CODE STATUS: Full code PUD prophylaxis: Famotidine for PUD prophylaxis DVT prophylaxis: Lovenox Discharge planning: Home with caregiver once medically stable Plan for the day: Continue with aspirin, Plavix, statin. Patient with chest pain free. Continue with IV Lasix. Will transition over to oral Lasix on discharge. Will follow up with cardiothoracic surgery as an outpatient for TAVR. Continue with IV Rocephin for 1 more day. Patient had Rhino Rocket placed in the nose last night. Continue to camp counselor on proper hygiene and nasal care. Continue with [place] nasal drops and lanolin cream. Patient will need to follow-up with ENT as an outpatient. He has an appointment made on 09/[address] Tony. [facility] with care at [facility] This documentation was created by [employer] braille and talking books clerk software. Every effort was made to ensure accuracy of braille and talking books clerk.? Any obvious errors or omissions should be clarified with the author of the document. Attestations Medical Necessity Statement*: Requires further hospitalization for management of epistaxis in setting of dual antiplatelet for post PCI status in a patient wi th severe CAD, severe aortic stenosis, congestive heart failure Coding Level of Care Code 29572 Moderate MDM includes risk/complexity, reviewing previous or external records, reviewing test results, ordering lab/other test(s), speaking with independent historian (other than patient), independently interpretating test(s) (not separately recorded) and discussion of management or test(s) w/ other healthcare professional and Moderate Time for a total of 50 minutes, includes reviewing past or interval history, examining/interviewing patient, placing orders, counseling patient/family/other support, updating patient/family/other support, discussing plan of care with staff, communicating with other healthcare providers, documenting encounter and coordinating care Diagnoses Respiratory failure with hypoxia and hypercapnia J96.21; J96.22; J96.22 Chronicity: acute on chronic Congestive heart failure I50.33 Heart failure chronicity: acute on chronic Heart failure type: diastolic COPD (chronic obstructive pulmonary disease) J44.9 Aortic stenosis I35.0 Cardiac valve disease etiology: nonrheumatic Diastolic heart failure I50.30 NSVT (nonsustained ventricular tachycardia) I47.29
[2022-09-13] MEDS: lanolin oint 7 gm 1 APPLIC TOPICAL (18:56)
--- NOTE | 2022-09-13 19:34 | PC.NURSE ---
no nose bleeding episode since pt took out his rhino rocket this morning at 9 am. Informed pt and kevin that he has an outpatient appointment with his ENT tomorrow Sep 14 at 2:[address] [facility] clinic.
[2022-09-13] MEDS: aspirin 81 mg EC Tablet PO (20:40)
[2022-09-13] MEDS: enoxaparin 40 mg/0.4 mL Syringe SUBCUT (20:40)
[2022-09-13] MEDS: trazodone 50 mg Tablet PO (20:40)
[2022-09-13] MEDS: famotidine 20 mg Tablet PO (20:41)
[2022-09-14] VITALS (9 sets, daily range): BP systolic 120–145; BP diastolic 58–72; PULSE 76–95; RESP 18–28; TEMP 36.6–36.9; O2SAT 88–96
[2022-09-14] MEDS: HYDROcodone-acetaminophen 5-325 mg Tablet 1 TAB PO (04:56)
[2022-09-14] MEDS: ascorbic acid 500 mg Tablet PO (04:56)
[2022-09-14 04:57] LABS: Basophils % 0.5 %; Eosinophils # 0.2 10^3/uL (0.0-0.8); Hematocrit 31.9 % (42.0-52.0); Hemoglobin 9.5 g/dL (11.7-16.6); Lymphocytes # 1.3 10^3/uL (0.8-4.8); Lymphocytes % 22.7 %; Mean Corpuscular HGB Conc 29.8 g/dL (30.0-36.0); Mean Corpuscular Volume 87.2 fl (80-94); Monocytes # 0.6 10^3/uL (0.2-0.9); Monocytes % 11.2 %; Neutrophils # 3.41 10^3/uL (1.8-7.7); Neutrophils % 61.2 %; Nucleated Red Blood Cells % 0 %; Platelet Count 199 10^3/cmm (130-400); Red Blood Count 3.66 10^6/uL (4.1-5.3); Red Cell Distribution Width 15.6 % (12.1-15.1); White Blood Count 5.6 10^3/uL (4.0-10.0)
[2022-09-14] MEDS: amlodipine 10 mg Tablet PO (04:57)
[2022-09-14] MEDS: FUROsemide 10 mg/mL SDV 4mL 40 MG IVP (04:57)
[2022-09-14 05:15] LABS: Alanine Aminotransferase 20 U/L (0-41); Albumin Level 3.3 g/dL (3.5-5.2); Alkaline Phosphatase 79 U/L (40-130); Anion Gap 14.3 (5-19); Aspartate Amino Transferase 19 U/L (0-40); Blood Urea Nitrogen 16 mg/dL (8-23); Calcium 8.4 mg/dL (8.5-10.5); Carbon Dioxide 30 mmol/L (22-29); Chloride 97 mmol/L (98-107); Globulin 3.3 g/dL (1.3-4.6); Glucose 98 mg/dL (65-115); Osmolality Calculated 285 mOsm/kg (285-295); Potassium 4.3 mmol/L (3.5-5.1); Sodium 137 mmol/L (136-145); Total Bilirubin 0.2 mg/dL (0.15-1.2); Total Protein 6.6 g/dL (6.6-8.7)
--- NOTE | 2022-09-14 05:58 | PC.NURSE ---
Patient having episodes of bradycardia with apparent pauses. Strip printed and placed in chart. Informed Dr Gandhi and received verbal order to hold todays dose of beta-judi.
--- NOTE | 2022-09-14 08:10 | PM.PN ---
Subjective Subjective: Patient's nose bleed has resolved. No chest pain. Vitals/I&O/Wt Last Vital Signs Temp 98.0 F 09/14/22 03:44 Pulse 84 09/14/22 05:35 Resp 22 H 09/14/22 03:44 BP 145/72 09/14/22 03:44 Pulse Ox 96 09/14/22 03:44 O2 Del Method 09/14/22 03:44 O2 Flow Rate 3 09/14/22 03:44 FiO2 55 09/12/22 16:00 09/13/22 09/14/22 09/14/22 22:59 06:59 14:59 Intake Total 480 / 720 170 / 890 Output Total 980 / 1680 1350 / 3030 475 / 475 Balance -500 / -960 -1180 / -2140 -475 / -475 Weight last 48 hrs Weight 225 lb 4.8 oz Weight 223 lb Physical Exam Narrative: GENERAL: Patient is alert, awake and oriented x3. [] NECK: No jugular vein distension. [] HEENT: No cyanosis. No icterus. No pallor. [] HEART: Regular S1 and S2. Grade 3/6 systolic murmur LUNGS: Clear to auscultate bilaterally. [] ABDOMEN: Soft CENTRAL NERVOUS SYSTEM: Grossly nonfocal. [] EXTREMITIES: Lower extremities with 1+ edema bilaterally. [] Data 09/14/22 04:02 09/14/22 04:02 A&P Assessment and plan (1) NSVT (nonsustained ventricular tachycardia): (2) Aortic stenosis: Patient is stable. Continue aspirin and Plavix Outpatient referral for TAVR evaluation Nose bleed has resolved. Qualifiers: Cardiac valve disease etiology: nonrheumatic Qualified Code(s): I35.0 - Nonrheumatic aortic (valve) stenosis (3) Congestive heart failure: HFpEF -Switch to oral lasix -was placed on fluid restriction Qualifiers: Heart failure chronicity: acute on chronic Heart failure type: diastolic Qualified Code(s): I50.33 - Acute on chronic diastolic (congestive) heart failure (4) PAOD (peripheral arterial occlusive disease): (5) COPD (chronic obstructive pulmonary disease): Plan CAD Pneumonia Statin intolerance Obesity ASIA/OHS Patient is stable to be discharged from cardiology standpoint Attestations Medical Necessity Statement*: Care expected to cross 2 midnights. Coding Level of Care Code Acute Code for Chg Fwd Diagnoses NSVT (nonsustained ventricular tachycardia) I47.29 Aortic stenosis I35.0 Cardiac valve disease etiology: nonrheumatic Congestive heart failure I50.33 Heart failure chronicity: acute on chronic Heart failure type: diastolic PAOD (peripheral arterial occlusive disease) I77.9 COPD (chronic obstructive pulmonary disease) J44.9
[2022-09-14] MEDS: losartan 50 mg Tablet 100 MG PO (09:29)
[2022-09-14] MEDS: isosorbide mononitrate ER 30 mg Tablet PO (09:29)
[2022-09-14] MEDS: clopidogrel 75 mg Tablet PO (09:30)
[2022-09-14] MEDS: gemfibrozil 600 mg Tablet PO (09:30)
--- NOTE | 2022-09-14 10:29 | PM.DCS ---
Discharge Providers Date of Admission: 09/06/22 18:25 Date of Discharge: September 14, 2022 Attending Provider at Admission: Carlos Chris MD Attending Provider at Discharge: Jose Talbert MD Consults: Cardiology: Dr. Crews Primary Care Provider: Catherine Morse MD Diagnoses at Discharge Discharge Diagnosis (1) Aortic stenosis: Status: Acute Qualifiers: Cardiac valve disease etiology: nonrheumatic Qualified Code(s): I35.0 - Nonrheumatic aortic (valve) stenosis (2) Congestive heart failure: Status: Acute Qualifiers: Heart failure chronicity: acute on chronic Heart failure type: diastolic Qualified Code(s): I50.33 - Acute on chronic diastolic (congestive) heart failure (3) PAOD (peripheral arterial occlusive disease): Status: Acute (4) COPD (chronic obstructive pulmonary disease): Status: Acute (5) NSVT (nonsustained ventricular tachycardia): Status: Acute (6) Respiratory failure with hypoxia and hypercapnia: Status: Acute Qualifiers: Chronicity: acute on chronic Qualified Code(s): J96.21 - Acute and chronic respiratory failure with hypoxia; J96.22 - Acute and chronic respiratory failure with hypercapnia; J96.22 - Acute and chronic respiratory failure with hypercapnia (7) CAD (coronary artery disease): Status: Acute Qualifiers: Associated angina: without angina Coronary Disease-Associated Artery/Lesion type: [place] artery [place] vs. transplanted heart: [place] heart Qualified Code(s): I25.10 - Atherosclerotic heart disease of [place] coronary artery without angina pectoris (8) Status post insertion of drug-eluting stent into left anterior descending (LAD) artery: Status: Acute Reason for Visit Reason for Visit: CHEST PAIN/ SOB Brief History: History as per HPI: Rickey Bob is a 77 year old male with past medical history of COPD, heart failure with preserved ejection fraction, obesity, came in today with chief complaint of worsening shortness of breath, lower extremity swelling, going on for the last few days, he was recently discharged from the hospital with similar complaint, upon arrival in the ER he was worked up for above mentioned complaint. Pertinent imaging studies: X-ray chest: Has shown pulmonary vascular congestion as well as cardiomegaly, has bibasilar infiltrates Pertinent labs: WBC 9.4, H&H 11/40 ,PLT: 240 , serum sodium 137, serum potassium 4.6, BUN 12 serum creatinine 0.5 Troponin trend: - , proBNP: 1006 ABG: pH 7.26, PCO2 77, PO2 55, FiO2 32% Patient was given Lasix one-time dose in the ER, and was placed on BiPAP. Hospital Course Hospital Course Patient was going to the hospital for further evaluation and management of hypoxic respiratory failure requiring BiPAP ventilation in setting of congestive heart failure. He was started on aggressive IV diuresis and on antibiotics for community-acquired pneumonia. Echocardiogram was done which showed normal EF but diastolic dysfunction and severe aortic stenosis with peak velocity of 3.9 m/s, peak gradient of 62 with a mean gradient of 29. Cardiology was consulted and patient underwent VALARIE which confirmed severe aortic stenosis. During hospitalization on telemetry patient was found to have occasional runs of nonsustained V. tach. Given history of CAD, for further work-up of possible aortic valve replacement as an outpatient and for new nonsustained V. tach evaluation patient underwent cardiac angiogram on 09/12 which was concerning for heavily calcified severe proximal to mid LAD lesion. He underwent angioplasty and stent placement with ZACHARY at proximal LAD. He tolerated the procedure well. His hospitalization was complicated by him developing severe epistaxis. As per patient he has a history of epistaxis in the past for which she has followed up with ENT multiple times for cauterization. Patient was counseled in detail for proper nasal hygiene, frequent and regular use of nasal saline and lanolin ointment. He has been discharged hemodynamically stable condition on event monitor with advised to follow-up with ENT onset appointment on 09/14, Carla Guzman in next [address] Crews from cardiology next 1 month. Physical Exam Narrative: GENERAL: Patient is alert, awake and oriented x3. NECK: No jugular vein distension. HEENT: No cyanosis. No icterus. No pallor. HEART: Regular S1 and S2. Grade 3/6 systolic murmur at aortic area radiating to carotids LUNGS: Clear to auscultate bilaterally. ABDOMEN: Soft, nontender, no organomegaly, bowel sounds present CENTRAL NERVOUS SYSTEM: Grossly nonfocal. EXTREMITIES: Lower extremities with 1+ edema bilaterally. Pulses palpable in the lower extremities, both dorsalis pedis and posterior tibial. Discharge Data Studies Completed and Pending Completed Studies During Hospitalization Category Date Time Status XR chest 1V portable [id number] Routine Exams 09/09/22 16:53 Completed XR chest 1V portable [id number] Stat Exams 09/06/22 12:13 Completed CV. echo lmt w/w contras [id number] Routine Ultrasound 09/07/22 19:48 Completed CV. echo lmt w/w contras [id number] Routine Ultrasound 09/08/22 06:00 Completed US venous duplex lower extremity bilat [CV venous Ultrasound 09/09/22 11:15 [place] [id number]] Routine Pending at discharge Category Date Time Status [employer]ER request for service Routine Exams 09/11/22 07:27 Taken [employer]ER request for service Routine Exams 09/12/22 Taken CV. echo transesophageal [id number] Routine Ultrasound 09/10/22 06:00 Taken Radiology Impressions Venous Duplex 09/09/22 11:15 IMPRESSION: No evidence of deep vein thrombosis in either leg. Chest X-Ray 09/09/22 16:53 IMPRESSION: Lungs clear Echocardiogram: ?CONCLUSIONS ?1. This is a technically difficult study. Optison was used per ?protocol. ?2. Normal left ventricular cavity size and systolic function. ?Left ventricular ejection fraction is estimated at 65 %. No ?regional wall motion abnormalities. ?3. Possibly low gradient severe aortic stenosis with peak ?velocity 3.9 m/s, peak gradient 62 mm Hg, mean gradient 29 mm ?Hg, PARUL 0.6 cm2 (LVOT=1.9 cm). DVI=0.25. ?4. VALARIE is recommended for complete assessment of aortic ?stenosis. ?Shannon Rutledge MD ?(Electronically Signed) ?Final Date:? ? ? 08 September 2022 ? 12:59 S VALARIE: Laboratory Results WBC 5.6 10^3/uL (4.0-10.0) 09/14/22 04:02 RBC 3.66 10^6/uL (4.1-5.3) L 09/14/22 04:02 Hgb 9.5 g/dL (11.7-16.6) L 09/14/22 04:02 Hct 31.9 % (42.0-52.0) L 09/14/22 04:02 MCV 87.2 fl (80-94) 09/14/22 04:02 MCH 26.0 pg (28.0-34.0) L 09/14/22 04:02 MCHC 29.8 g/dL (30.0-36.0) L 09/14/22 04:02 RDW 15.6 % (12.1-15.1) H 09/14/22 04:02 Plt Count 199 10^3/cmm (130-400) 09/14/22 04:02 MPV 10.0 fL (7.4-10.4) 09/14/22 04:02 Neut % (Auto) 61.2 % 09/14/22 04:02 Lymph % (Auto) 22.7 % 09/14/22 04:02 Cannon % (Auto) 11.2 % 09/14/22 04:02 Eos % (Auto) 4.0 % 09/14/22 04:02 Baso % (Auto) 0.5 % 09/14/22 04:02 Neut # (Auto) 3.41 10^3/uL (1.8-7.7) 09/14/22 04:02 Lymph # (Auto) 1.3 10^3/uL (0.8-4.8) 09/14/22 04:02 Cannon # (Auto) 0.6 10^3/uL (0.2-0.9) 09/14/22 04:02 Eos # (Auto) 0.2 10^3/uL (0.0-0.8) 09/14/22 04:02 Baso # (Auto) 0.0 10^3/uL (0.0-0.1) 09/14/22 04:02 Nucleated RBC % (auto) 0 % 09/14/22 04:02 Nucleated RBCs # 0.0 /100WBC 09/14/22 04:02 APTT 21.5 SECONDS (23.9-36.7) L D 09/12/22 16:30 Specimen Type Arterial 09/11/22 11:13 Sample Site Not Reportable 09/11/22 11:13 ABG pH 7.26 (7.35-7.45) L 09/06/22 12:34 ABG pCO2 77.5 mmHg (35-45) H* 09/06/22 12:34 ABG pO2 55.1 mmHg (80.0-100.0) L 09/06/22 12:34 ABG HCO3 35.1 mmol/L (22-26) H 09/06/22 12:34 ABG O2 Saturation 85.2 09/06/22 12:34 ABG Base Excess 5.7 mmol/L (-2.0-2.0) H 09/06/22 12:34 Sean Test N/a 09/11/22 11:13 A-a O2 Gradient 2.5 mmHg (5-10) L 09/11/22 11:13 Hematocrit 35.3 % (42-52) L 09/11/22 11:13 Hgb O2 Saturation 69.3 % (95-100) L 09/11/22 11:13 Carboxyhemoglobin 2.0 %THgb (0.4-20.1) 09/11/22 11:13 Methemoglobin 0.9 % (0.4-1.5) 09/11/22 11:13 Total Hemoglobin 11.5 g/dL (14-18) L 09/11/22 11:13 Sodium 137.0 mmol/L (131-143) 09/06/22 12:34 Potassium 4.3 mmol/L (3.5-5.0) 09/06/22 12:34 Glucose 119.0 mg/dL (70-115) H 09/06/22 12:34 Ionized Calcium 1.3 mmol/L (1.1-1.4) 09/06/22 12:34 O2 Delivery Device Not Reportable 09/11/22 11:13 O2 Liters/Min 3.0 % 09/06/22 12:34 FiO2 32.0 % 09/06/22 12:34 Complaint Supervisor ID Rc 09/11/22 11:13 Sodium 137 mmol/L (136-145) 09/14/22 04:02 Potassium 4.3 mmol/L (3.5-5.1) 09/14/22 04:02 Chloride 97 mmol/L (98-107) L 09/14/22 04:02 Carbon Dioxide 30 mmol/L (22-29) H 09/14/22 04:02 Anion Gap 14.3 (5-19) 09/14/22 04:02 BUN 16 mg/dL (8-23) 09/14/22 04:02 Creatinine 0.6 mg/dL (0.7-1.2) L 09/14/22 04:02 GFR Calculation Not Reportable 09/14/22 04:02 Glucose 98 mg/dL (65-115) 09/14/22 04:02 Calculated Osmolality 285 mOsm/kg (285-295) 09/14/22 04:02 Calcium 8.4 mg/dL (8.5-10.5) L 09/14/22 04:02 Magnesium 2.2 mg/dL (1.7-2.3) 09/11/22 04:38 Total Bilirubin 0.2 mg/dL (0.15-1.2) 09/14/22 04:02 AST 19 U/L (0-40) 09/14/22 04:02 ALT 20 U/L (0-41) 09/14/22 04:02 Alkaline Phosphatase 79 U/L (40-130) 09/14/22 04:02 Troponin T Baseline 22 ng/L (0-15) H 09/06/22 12:20 Troponin T 120 Minute 27.58 ng/L (0-15) H 09/06/22 14:20 Delta Troponin T 5.58 ABS# (0-10) 09/06/22 14:20 Troponin T Hi Sens 6Hr 22.64 ng/L (0-15) H 09/06/22 18:45 Troponin T Hi Sens 6Hr Delta 0.64 ng/L (0-12) 09/06/22 18:45 NT-Pro-B Natriuret Pep 1006 pg/mL (0-450) H 09/06/22 12:20 Total Protein 6.6 g/dL (6.6-8.7) 09/14/22 04:02 Albumin 3.3 g/dL (3.5-5.2) L 09/14/22 04:02 Globulin 3.3 g/dL (1.3-4.6) 09/14/22 04:02 Procalcitonin 0.04 ng/mL (0-0.5) 09/07/22 03:38 Vitals Last Vital Signs Temp 98.0 F 09/14/22 03:44 Pulse 92 09/14/22 09:34 Resp 22 H 09/14/22 03:44 BP 125/58 09/14/22 09:32 Pulse Ox 88 L 09/14/22 09:32 O2 Del Method 09/14/22 09:32 O2 Flow Rate 2 09/14/22 09:32 FiO2 55 09/12/22 16:00 Discharge Plan Discharge Patient Disposition: Home Condition: Stable Prescriptions: New clopidogrel 75 mg Tablet 75 mg PO DAILY Qty: 30 0RF famotidine 20 mg Tablet 20 mg PO BEDTIME Qty: 30 0RF metoprolol succinate 25 mg Tablet Extended Release 24 Hr 25 mg PO DAILY Qty: 30 0RF Continued amlodipine 10 mg tablet 10 mg PO QAM potassium chloride 20 mEq tablet extended release 10 meq PO DAILY PRN (Reason: when taking lasix) multivitamin Tablet 1 tab PO BEDTIME trazodone 50 mg tablet 50 - 100 mg PO BEDTIME PRN (Reason: Insomnia) ascorbic acid (vitamin C) 500 mg capsule 500 mg PO QAM gemfibrozil [Lopid] 600 mg tablet 600 mg PO BID aspirin [Adult Low Dose Aspirin] 81 mg tablet,delayed release (DR/EC) 81 mg PO BEDTIME Hold Instructions: Resume on 05/11/22. Resume 81 mg aspirin following 30 days of full strength 325 mg nitroglycerin [Nitrostat] 0.4 mg tablet, sublingual 0.4 mg SUBLINGUAL Q5M PRN (Reason: chest pain) Qty: 25 3RF losartan 100 mg Tablet 100 mg PO DAILY carboxymethylcellulose sodium 1 % Drops, Liquid Gel 2 drp OPHTHALMIC (EYE) BID PRN (Reason: Dry Eye(S)) [place] Saline 0.65 % Aerosol,[place] 1 spray INTRANASAL BID PRN (Reason: Congestion) omega 0-dyf-uvg-fish oil [Fish Oil] 1,200 (144-216) mg Capsule 1 cap PO BID isosorbide mononitrate 30 mg Tablet Extended Release 24 Hr 30 mg PO DAILY Qty: 0 0RF hydrocodone-acetaminophen 10-325 mg Tablet 1 tab PO Q6H PRN (Reason: Pain) docusate sodium 100 mg Capsule 100 mg PO BID PRN (Reason: Constipation) budesonide 0.5 mg/2 mL Suspension For Nebulization 0.5 mg inhalation BID.RESPIRATORY Qty: 120 0RF ipratropium-albuterol 0.5 mg-3 mg(2.5 mg base)/3 mL solution for nebulization 3 ml inhalation Q6H PRN (Reason: shortness of breath or wheezing) Qty: 90 2RF Trelegy Ellipta 100-62.5-25 mcg blister with device 1 inh inhalation DAILY Qty: 60 2RF Changed furosemide 40 mg tablet 60 mg PO DAILY Qty: 30 4RF Discontinued metoprolol tartrate 50 mg tablet See Rx Instructions .ROUTE .COMPLEX Rx Instructions: 75mg po in the am and 50mg po qpm Discharge Orders: Discharge Order (Routine); Ordered 09/14/22 Ordered By: Jose Talbert Other Ambulatory Orders: MCT/Event Monitor 21 Days (Routine) Timeframe: 1 Day Facility: [facility] - Location: Radiology Ordered By: Jose Talbert Referrals: [facility] [Other] ([facility] If you have any questions or concerns about your equipment their contact number is [phone].) Catherine Morse MD [Primary Care Provider] - 09/28/22 8:30 am Bill Tony MD [Physician] - 09/14/22 2:20 pm (Please keep your scheduled appointment with Dr. Tony today at 2:20 p.m. Please call [phone] for any questions or concerns. Thank you.) Jeovanny Crews M.D [Physician] - 1 month (Your follow up appointment with Dr. Crews will be scheduled at your first appointment with Carla Guzman. Please call [phone] with any questions or concerns. Thank you.) Carla Guzman FNP [Nurse Practitioner] - 09/17/22 8:30 am Discharge Diet: Usual diet and Cardiac Discharge Activity: Resume usual activity and Increase activity as tolerated Patient Instructions: Metoprolol (By mouth) (Lopressor, Toprol XL), Famotidine (By mouth) (Acid Controller, Acid Manager Simulation, Pepcid AC, Pepcid), Clopidogrel (By mouth) (Plavix), Aortic Stenosis (DC), Nosebleed (GEN), Coronary Intravascular Stent Placement (DC), CHF Stoplight, Opioid Safety, Post Angiogram Home Care Instructions Activity Restrictions/Additional Instructions: Please check Heart care upon your appointment next week SaturdaySep 17 if they can do your event monitor while you are there. Please take your medicines as prescribed. Follow-up with your doctors appointments. Please have event monitor placed on site appointment. Continue using lanolin cream and nasal saline regularly. Follow-up with Dr. Larsen onsite appointment. Dose of metoprolol has been changed to 25 mg oral daily. Discharge Attestations Time Spent in Discharge Care*: greater than 30 min Specific Discharge Activities: educating patient, educating and/or supporting family/caregiver, discussing with pcp/other providers, discussing with rn field case manager/social workers/dc planners, documenting/other paperwork and evaluating patient/reviewing data Status at Discharge: Cognitive status at discharge: cognitively intact, Behavioral status at discharge: cooperative, Functional status at discharge: independent ambulation, Overall status at discharge: patient is back to baseline Quality Metrics Clinical Quality Measures [ No reported AMI, CVA or VTE this stay] Coding Level of Care Code 60054 Total time (in minutes) for Discharge: 60 Diagnoses Aortic stenosis I35.0 Cardiac valve disease etiology: nonrheumatic Congestive heart failure I50.33 Heart failure chronicity: acute on chronic Heart failure type: diastolic PAOD (peripheral arterial occlusive disease) I77.9 COPD (chronic obstructive pulmonary disease) J44.9 NSVT (nonsustained ventricular tachycardia) I47.29 Respiratory failure with hypoxia and hypercapnia J96.21; J96.22; J96.22 Chronicity: acute on chronic CAD (coronary artery disease) I25.10 Associated angina: without angina Coronary Disease-Associated Artery/Lesion type: [place] artery [place] vs. transplanted heart: [place] heart Status post insertion of drug-eluting stent into left anterior descending (LAD) artery Z95.5
--- NOTE | 2022-09-14 10:44 | PC.NURSE ---
pt has been calling his to let her know of his discharge and his appt w/ dr farrell today this afternoon at 2 pm.
--- NOTE | 2022-09-14 12:23 | PC.NURSE ---
pt asked if he needs any assistance at home such as providing him w/home health services to help with his new meds. Pt stated, i have tried it before but i don't want people to come in our house. my is also a private person. I set up my own meds at home. I checked my own blood pressure. Educated pt on his new heart stent and the importance of taking all his prescribed meds. pt verbalizes understanding
--- NOTE | 2022-09-14 12:26 | DCPLANNER ---
called and she said she will come and pick him up at 1 pm. she is aware of Dr Tony appointment at 2 pm.
--- NOTE | 2022-09-14 13:52 | PC.NURSE ---
pt cannot afford the trelligy ellipta that was prescribed on his previous discharge co-pay is 200$. notified hospitalist and will put a new Rx generic instead. advair copay is 19.$ notified pt and . all rx and called in and delivered by our [facility] pharmacy as meds to bed.
--- NOTE | 2022-09-14 13:54 | PC.NURSE ---
all belongings are sent with pt his oxygen tanks and portable from [place].
--- NOTE | 2022-09-14 13:54 | PC.NURSE ---
Discharge Note Patient discharged to home via private vehicle accompanied by . Discharge instructions reviewed with patient and/or customer field representative. Mobile pharmacy medications and/or prescriptions provided. Belongings/home medications returned.
== END 2022-09-14 13:00 | disposition home or self-care (01) | DRG 246 ==
LOC: ER 12:23 → CSU 14:00
PROVIDERS: Internal Medicine; Admitting Provider Internal Medicine; Emergency Provider Family Medicine; PCP Family Medicine; Visit Provider Student in an Organized Health Care Education/Training Program
PROC: (CPT 93312; principal; 2022-09-10 08:00)
PROC: 4A023N8 Measurement of Cardiac Sampling and Pressure, Bilateral, Percutaneous Approach (ICD-10-PCS; principal; 2022-09-11 10:00)
PROC: 027034Z Dilation of Coronary Artery, One Artery with Drug-eluting Intraluminal Device, Percutaneous Approach (ICD-10-PCS; principal; 2022-09-12 08:30)
DX: I50.33 Acute on chronic diastolic (congestive) heart failure (principal); J18.9 Pneumonia, unspecified organism; J96.21 Acute and chronic respiratory failure with hypoxia; I47.20 Ventricular tachycardia, unspecified; J44.0 Chronic obstructive pulmonary disease with (acute) lower respiratory infection; E66.2 Morbid (severe) obesity with alveolar hypoventilation; I25.10 Atherosclerotic heart disease of native coronary artery without angina pectoris; I25.84 Coronary atherosclerosis due to calcified coronary lesion; I35.0 Nonrheumatic aortic (valve) stenosis; I77.9 Disorder of arteries and arterioles, unspecified; F17.210 Nicotine dependence, cigarettes, uncomplicated; E78.5 Hyperlipidemia, unspecified; I25.2 Old myocardial infarction; Z98.61 Coronary angioplasty status; G89.29 Other chronic pain; M54.9 Dorsalgia, unspecified; Z68.35 Body mass index [BMI] 35.0-35.9, adult; Z79.82 Long term (current) use of aspirin; Z79.891 Long term (current) use of opiate analgesic; R04.0 Epistaxis
CPT/HCPCS: 36415; 36600; 71045; 80048; 80051; 80053; 82330; 82805; 82810; 83735; 83880; 84145; 84484; 85014; 85018; 85025; 85347; 85730; 93005; 93312; 93320; 93325; 93460; 93970; 94640; 94660; 96372; 96374; 96376; 99152; 99153; 99285; C1724; C1725; C1751; C1769; C1874; C1887; C1894; C8924; C9600; G0378; J0456; J0696; J1644; J1650; J1940; J2250; J2270; J2704; J3010; J3490; J7030; J7040; J7050; J7626; Q9956; Q9967

== ENCOUNTER → 2022-09-17 08:19 | Outpatient (BNVA) | payer OTHER, SELFPAY | PROVIDERS: PCP Family Medicine; Visit Provider Nurse Practitioner Family | DX: I25.10 Atherosclerotic heart disease of native coronary artery without angina pectoris (principal); I35.0 Nonrheumatic aortic (valve) stenosis; I50.33 Acute on chronic diastolic (congestive) heart failure; F17.210 Nicotine dependence, cigarettes, uncomplicated; I25.2 Old myocardial infarction | CPT/HCPCS: 36415; 80048; 99214 ==

== ENCOUNTER → 2022-10-10 15:23 | Outpatient (BNVA) | payer OTHER, SELFPAY | PROVIDERS: PCP Family Medicine; Visit Provider Nurse Practitioner Family | DX: I25.10 Atherosclerotic heart disease of native coronary artery without angina pectoris (principal); I35.0 Nonrheumatic aortic (valve) stenosis; I50.33 Acute on chronic diastolic (congestive) heart failure; I48.91 Unspecified atrial fibrillation; F17.210 Nicotine dependence, cigarettes, uncomplicated | CPT/HCPCS: 99214 ==

== ENCOUNTER → 2022-12-03 15:09 | Outpatient (BNVA) | payer OTHER, SELFPAY | PROVIDERS: PCP Family Medicine; Visit Provider Internal Medicine | DX: I25.10 Atherosclerotic heart disease of native coronary artery without angina pectoris (principal); I11.0 Hypertensive heart disease with heart failure; I50.30 Unspecified diastolic (congestive) heart failure; I77.9 Disorder of arteries and arterioles, unspecified; E78.49 Other hyperlipidemia; I35.0 Nonrheumatic aortic (valve) stenosis; F17.210 Nicotine dependence, cigarettes, uncomplicated | CPT/HCPCS: 99214 ==

== ENCOUNTER 2023-06-12 14:33 | Emergency (ER) | payer OTHER, SELFPAY ==
--- NOTE | 2023-06-12 | CT_ITS ---
WS: [id number] CT HEAD NONCONTRAST HISTORY: ACUTE STROKE TECHNIQUE: Contiguous axial imaging performed through the brain in 2.5 mm imaging. Bone and soft tiss ue windows. Sagittal and coronal reformats reviewed. All CT scans at [facility] use at least one of these dose optimization techniques: automated exposure control; mA and/or kV adjustment per pa tient size (includes targeted exams where dose is matched to clinical indication); or iterative recon struction. DLP: 1131.80 mGy COMPARISON: None available. Acute intracranial hemorrhage centered in the LEFT thalamus. Area of hemorrhage measures 1.6 x 1.2 x 2.7 cm with a small amount of surrounding edema. Otherwise mild atrophy and small vessel ischemic disease. Ventricles: Normal size with no hydrocephalus. Paranasal sinuses: As visualized are clear. Mastoid air cells: Well pneumatized. Calvarium and scalp: Skull is intact with no soft tissue edema or swelling. IMPRESSION: 1. Acute LEFT thalamic hemorrhagic infarct. 2. Mild atrophy and small vessel ischemic disease. Notified Erwin Blanca DO at 06/12/2023 2:45 PM.
--- NOTE | 2023-06-12 14:43 | W.ED.NEUROSD ---
HPI - Neuro Symptoms/Deficit General: Chief Complaint: Neuro Symptoms/Deficit Stated Complaint: Stroke Time Seen by Provider: 06/12/23 14:37 Source: patient Mode of arrival: EMS History of Present Illness: 78-year-old male presents emergency room said he went to the bathroom while he was in the bathroom he began to suddenly feel some weakness on his right side was uncomfortable felt like he could not walk or stand. His right arm felt weak as well. His speech seems a little garbled although he does not seem to feel that way he seems to be enunciating probably this could be his normal speech pattern and not previously seen him. He is on aspirin and Plavix he is not on any Coumadin or factor inhibitors. Onset (ago): minute(s) Location: speech, right arm and right leg Severity: moderate Quality: weak Relieving factors: none Exacerbating factors: none Associated symptoms: Reports headache(s) and weakness; Deny chest pain, cough, diaphoresis, fevers/chills, anorexia, malaise, nausea, seizures, short of breath, syncope, tingling, vertigo or vomiting Treatments Prior to Arrival: none Review of Systems Const: Denies: malaise or diaphoresis Card: Denies: chest pain or syncope Resp: Denies: dyspnea GI: Denies: nausea or vomiting : Denies: dysuria, urinary frequency or urinary urgency Musc: Denies: neck pain or back pain Skin/Breast: Denies: rash Neuro: Reports: headache(s); Denies: vertigo PFS ED PFSH: Medical History Acute and chronic respiratory failure with hypercapnia Acute exacerbation of chronic obstructive airways disease Atrial fibrillation Avascular necrosis of bone of right hip CAD (coronary artery disease) CHF (congestive heart failure), NYHA class III CHF exacerbation Chronic back pain COPD (chronic obstructive pulmonary disease) Diastolic heart failure History of [place] (myocardial infarction) Hyperlipidemia Hypoxia Morbid obesity PAOD (peripheral arterial occlusive disease) Pneumonia Primary osteoarthritis of right hip Status post insertion of drug-eluting stent into left anterior descending (LAD) artery Surgical History S/P appendectomy S/P excision of vocal cord nodule S/P knee surgery S/P PTCA (percutaneous transluminal coronary angioplasty) S/P tonsillectomy and adenoidectomy Family History Mother CAD (coronary artery disease) Father CAD (coronary artery disease) Brother , Age 44 [place] Myocardial infarct Other Cancer Social History Smoking and tobacco/nicotine status: current every day tobacco/nicotine user cigarettes Alcohol intake: current Alcohol intake frequency: 3 or more drinks per day Alcohol type: beer Substance/Drug Use: current Substance/Drug use frequency: daily Lives independently: Yes Household members: spouse Marital status: service: Yes status: Retired branch: [employer] Current occupational status: disabled Current gender identity: Male Special cherise needs: No Agree to transfusion: Yes NIH stroke score NIHSS: Level Of Consciousness - 1a: 0 Level Of Consciousness Questions - 1b: Both Correct Level Of Consciousness Commands - 1c: Both Correct Best Gaze - 2: Normal Visual Luis - 3: No Visual Loss Facial Palsy - 4: Normal Motor Arm Right - 5: Drift Motor Arm Left - 5: No Drift Motor Leg Right - 6: Drift Motor Leg Left - 6: No Drift Limb Ataxia - 7: Present In One Limb Sensory - 8: Mild To Moderate Loss Best Language - 9: No Aphasia Dysarthia - 10: Mild/Moderate Dysarthia Extinction And Inattention - 11: 0 Score: Total Score: 5 Physical Exam Const: COMMON NORMALS: no acute distress GENERAL APPEARANCE: cooperative and comfortable ORIENTATION/CONSCIOUSNESS: Yes awake, Yes oriented to person, Yes oriented to place and Yes oriented to time HENMT: COMMON NORMALS: normocephalic, atraumatic and hearing grossly normal bilaterally HEAD & SCALP: normocephalic and atraumatic Resp: COMMON NORMALS: normal respiratory effort, No retractions, No use of accessory muscles and clear to auscultation bilaterally AUSCULTATION: clear to auscultation bilaterally Cardio: COMMON NORMALS: regular rate, regular rhythm and No murmurs present (Cardio) RATE: regular rate RHYTHM: regular rhythm GI: COMMON NORMALS: Soft to palpation and No hepatosplenomegaly present AUSCULTATION: Yes normoactive bowel sounds PALPATION: Yes Soft to palpation, No Tenderness to palpation present (GI), No Guarding due to palpation present (GI) and Yes No hepatosplenomegaly present Extremity: COMMON NORMALS: normal to inspection, capillary refill normal, no clubbing, cyanosis or edema, no calf tenderness and no pedal edema Neuro: SENSORIUM/ORIENTATION: Yes oriented to person, Yes oriented to place and Yes oriented to time Skin: COMMON NORMALS: no rashes or lesions noted GENERAL SKIN EXAM: no rashes or lesions noted Course Vital Signs: Vital signs: Vital Signs Temperature 98.3 F 06/12/23 14:55 Pulse Rate 77 06/12/23 15:15 Respiratory Rate 18 06/12/23 15:15 Blood Pressure 164/87 06/12/23 15:15 Pulse Oximetry 88 L 06/12/23 15:15 Oxygen Delivery Me thod Room Air 06/12/23 15:15 MDM - Neuro Symptoms/Deficit Medical Decision Making Acute hemorrhagic stroke most likely hypertensive. Patient blood pressure still elevated started on nicardipine will transfer to [facility]. Discussed with ER physician will transfer ER to ER via air ambulance. (I was called to emergency on the floor to assist Dr. Hawkins talk to the ER doctor at [facility] for me.) Medical Records I reviewed the patient's medical records. Lab Data I reviewed the patient's lab results. Laboratory Results POC Glucose 140 mg/dL (70-110) H 06/12/23 14:43 All radiology interpretation(s) finalized by discharge Discharge Plan Discharge Patient Disposition: Transfer to ED Clinical Impression: Hemorrhagic stroke, Hypertension Condition: Stable Prescriptions: No Action potassium chloride 20 mEq tablet extended release 10 meq PO DAILY PRN (Reason: when taking lasix) multivitamin Tablet 1 tab PO BEDTIME trazodone 50 mg tablet 50 - 100 mg PO BEDTIME PRN (Reason: Insomnia) ascorbic acid (vitamin C) 500 mg capsule 500 mg PO QAM gemfibrozil [Lopid] 600 mg tablet 600 mg PO BID nitroglycerin [Nitrostat] 0.4 mg tablet, sublingual 0.4 mg SUBLINGUAL Q5M PRN (Reason: chest pain) Qty: 25 3RF carboxymethylcellulose sodium 1 % Drops, Liquid Gel 2 drp OPHTHALMIC (EYE) BID PRN (Reason: Dry Eye(S)) [place] Sal[place] 0.65 % Aerosol,[place] 1 spray INTRANASAL BID PRN (Reason: Congestion) omega 2-bth-zon-fish oil [Fish Oil] 1,200 (144-216) mg Capsule 1 cap PO BID isosorbide mononitrate 30 mg Tablet Extended Release 24 Hr 30 mg PO DAILY Qty: 0 0RF hydrocodone-acetaminophen 10-325 mg Tablet 1 tab PO Q6H PRN (Reason: Pain) docusate sodium 100 mg Capsule 100 mg PO BID PRN (Reason: Constipation) budesonide 0.5 mg/2 mL Suspension For Nebulization 0.5 mg inhalation BID.RESPIRATORY Qty: 120 0RF clopidogrel 75 mg Tablet 75 mg PO DAILY Qty: 30 0RF famotidine 20 mg Tablet 20 mg PO BEDTIME Qty: 30 0RF metoprolol succinate 25 mg Tablet Extended Release 24 Hr 25 mg PO DAILY Qty: 30 0RF furosemide 40 mg tablet 60 mg PO DAILY Qty: 30 4RF Referrals: Catherine Morse MD [Primary Care Provider] - Coding Level of Care Code ED Industrial Psychologist for Sandeep Waldron
[2023-06-12 14:46] LABS: Glucose Point of Care 140 mg/dL (70-110)
[2023-06-12 14:55] VITALS: BP 162/78; PULSE 78; RESP 18; TEMP 36.8; O2SAT 91; BMI 35.2
[2023-06-12] MEDS: nicardipine 20 MG/200 ML PREMIX 50 MG IV (15:10)
--- NOTE | 2023-06-12 15:12 | PC.NURSE ---
RN AND MD IN ROOM MD TOLD RN TO PLACE PT ON O2 DUE TO PTS O2 SATURATION BEING IN THE HIGH 80S. PT REFUSED TO BE PLACED ON O2. RN EDUCATED PT ON THE NEED FOR O2 AND PT STILL REFUSED. RN TOLD MD OF PTS REFUSAL WITH NO FURTHER ORDERS.
[2023-06-12 15:15] VITALS: BP 164/87; PULSE 77; RESP 18; O2SAT 88
--- NOTE | 2023-06-12 15:17 | PC.NURSE ---
NICADIPINE DRIP TITRATED FROM 5 TO 10 PER MD. NO FURTHERS ORDERS AT THIS TIME
== END 2023-06-12 16:06 ==
PROVIDERS: Emergency Provider Family Medicine; PCP Family Medicine
DX: I62.9 Nontraumatic intracranial hemorrhage, unspecified (principal); Z79.02 Long term (current) use of antithrombotics/antiplatelets; F17.210 Nicotine dependence, cigarettes, uncomplicated; J44.9 Chronic obstructive pulmonary disease, unspecified; I25.10 Atherosclerotic heart disease of native coronary artery without angina pectoris; I11.0 Hypertensive heart disease with heart failure; I50.9 Heart failure, unspecified; I25.2 Old myocardial infarction; E78.5 Hyperlipidemia, unspecified
CPT/HCPCS: 36416; 70450; 82962; 96365; 99285

== ENCOUNTER 2023-06-20 03:44 | Emergency (ER) | payer OTHER, SELFPAY ==
[2023-06-20 03:45] VITALS: BMI 37.8
[2023-06-20 03:49] VITALS: BP 170/105; PULSE 105; RESP 17; TEMP 37.1; O2SAT 90
--- NOTE | 2023-06-20 03:49 | CTR_ITS ---
PROCEDURE INFORMATION: Exam: CT Lumbar Spine Without Contrast Exam date and time: 06/20/2023 4:18 AM Age: 78 years old Clinical indication: Injury or trauma; Fall; Blunt trauma (contusions or hematomas); Prior surgery; Surgery date: 6+ months; Surgery type: Right hip TECHNIQUE: Imaging protocol: Computed tomography of the lumbar spine without contrast. Radiation optimization: All CT scans at this facility use at least one of these dose optimization techniques: automated exposure control; mA and/or kV adjustment per patient size (includes targeted exams where dose is matched to clinical indication); or iterative reconstruction. REPORTING DATA: Count of CT and Cardiac NM exams in prior 12 months: This patient has received 3 known CTs and 0 known cardiac nuclear medicine studies in the 12 months prior to the current study. COMPARISON: CR (PELVIS, ) 06/20/2023 3:55 AM RADIATION DOSE METRICS: Total DLP (mGy-cm): 1456.88 FINDINGS: Bones/joints: No acute fracture. Gross anatomic alignment is maintained. There is multilevel advanced degenerative disease. There is multilevel spinal canal stenosis most severe at L4-L5 secondary to moderate diffuse disc bulging and ligamentum flavum/facet hypertrophy. There is old avulsion injury off the left L2 transverse process. Vasculature: Heavy atherosclerotic calcifications are noted. Soft tissues: Unremarkable. CT/CT lumbar spine wo con* [id number] IMPRESSION: 1. No evidence of acute fracture. 2. Severe spinal canal stenosis at L4-L5.
--- NOTE | 2023-06-20 03:49 | CTR_ITS ---
PROCEDURE INFORMATION: Exam: CT Thoracic Spine Without Contrast Exam date and time: 06/20/2023 4:22 AM Age: 78 years old Clinical indication: Injury or trauma; Fall TECHNIQUE: Imaging protocol: Computed tomography of the thoracic spine without contrast. Radiation optimization: All CT scans at this facility use at least one of these dose optimization techniques: automated exposure control; mA and/or kV adjustment per patient size (includes targeted exams where dose is matched to clinical indication); or iterative reconstruction. REPORTING DATA: Count of CT and Cardiac NM exams in prior 12 months: This patient has received 3 known CTs and 0 known cardiac nuclear medicine studies in the 12 months prior to the current study. COMPARISON: CT lumbar spine wo con* [id number] 06/20/2023 4:18 AM RADIATION DOSE METRICS: Total DLP (mGy-cm): 1635.67 FINDINGS: Bones/joints: No acute fracture. Normal alignment. There is [id number] multilevel degenerative disc disease. The spinal canal appears patent. CT/CT thoracic spin wo con* [id number] IMPRESSION: No acute findings.
--- NOTE | 2023-06-20 03:50 | XRR_ITS ---
PROCEDURE INFORMATION: Exam: XR Pelvis Exam date and time: 06/20/2023 3:55 AM Age: 78 years old Clinical indication: Injury or trauma; Fall; Blunt trauma (contusions or hematomas); Does not apply; Prior surgery; Surgery date: 6+ months; Surgery type: RT hip TECHNIQUE: Imaging protocol: Radiologic exam of the pelvis. Views: 1 or 2 view. COMPARISON: CR XR hip RT 2-3V wo/w pel* [id number] 05/31/2022 1:36 PM FINDINGS: Bones/joints: The patient is status post right hip arthroplasty. There is no evidence of acute fracture or hardware complication. Soft tissues: Unremarkable. XR/XR pelvis 1-2V* [id number] IMPRESSION: No evidence of acute fracture or hardware complication.
--- NOTE | 2023-06-20 03:50 | W.ED.FALL ---
HPI - Fall General: Chief Complaint: Fall Stated Complaint: Fall Time Seen by Provider: 06/20/23 03:48 Source: patient and EMS Mode of arrival: EMS Limitations: no limitations History of Present Illness: 78-year-old male is here from residential he had a recent hemorrhagic stroke over a week ago states that he had rolled out of bed tonight and landed on his back. States been having severe back spasms for days he is having low back pain mainly on the right side he denies hitting his head denies any other injuries Associated symptoms-after fall: Denies abdominal pain, chest pain, headache(s) or neck pain Review of Systems Const: Denies: fever(s) or chills ENMT: Denies: throat pain or dental pain Card: Denies: chest pain Resp: Denies: dyspnea GI: Denies: abdominal pain, nausea, vomiting or diarrhea Musc: Reports: back pain; Denies: neck pain Skin/Breast: Denies: rash Neuro: Denies: headache(s) PFSH ED PFSH: Medical History Acute and chronic respiratory failure with hypercapnia Acute exacerbation of chronic obstructive airways disease Atrial fibrillation Avascular necrosis of bone of right hip CAD (coronary artery disease) CHF (congestive heart failure), NYHA class III CHF exacerbation Chronic back pain COPD (chronic obstructive pulmonary disease) Diastolic heart failure History of [place] (myocardial infarction) Hyperlipidemia Hypoxia Morbid obesity PAOD (peripheral arterial occlusive disease) Pneumonia Primary osteoarthritis of right hip Status post insertion of drug-eluting stent into left anterior descending (LAD) artery Surgical History S/P appendectomy S/P excision of vocal cord nodule S/P knee surgery S/P PTCA (percutaneous transluminal coronary angioplasty) S/P tonsillectomy and adenoidectomy Family History Mother CAD (coronary artery disease) Father CAD (coronary artery disease) Brother , Age 44 [place] Myocardial infarct Other Cancer Social History Smoking and tobacco/nicotine status: current every day tobacco/nicotine user cigarettes Alcohol intake: current Alcohol intake frequency: 3 or more drinks per day Alcohol type: beer Substance/Drug Use: current Substance/Drug use frequency: daily Lives independently: Yes Household members: spouse Marital status: service: Yes status: Retired branch: [employer] Current occupational status: disabled Current gender identity: Male Special cherise needs: No Agree to transfusion: Yes Physical Exam Const: COMMON NORMALS: patient oriented x3 HENMT: COMMON NORMALS: normocephalic and atraumatic HEAD & SCALP: normocephalic and atraumatic Neck/C-Spine: COMMON NORMALS: full ROM and supple CERVICAL SPINE: No pain with cervical ROM and No Cervical spine tenderness Chest: COMMONS NORMALS: normal inspection of the chest and normal palpation of entire chest wall Resp: COMMON NORMALS: normal respiratory effort, No retractions, No use of accessory muscles and clear to auscultation bilaterally AUSCULTATION: clear to auscultation bilaterally Cardio: COMMON NORMALS: regular rate, regular rhythm and No murmurs present (Cardio) RATE: regular rate RHYTHM: regular rhythm GI: COMMON NORMALS: Normal to inspection, nondistended, normoactive bowel sounds present, Soft to palpation, non-tender and no masses PALPATION: Yes Soft to palpation Back/Pelvis: OTHER: Right-sided back pain noted right-sided back tenderness no obvious step-off Extremity: COMMON NORMALS: normal to inspection Neuro: COMMON NORMALS: patient oriented x3 Psych: COMMON NORMALS: mental status grossly normal, Normal thought process present and cooperative THOUGHT PROCESS: Normal thought process present Skin: COMMON NORMALS: no rashes or lesions noted and no wounds GENERAL SKIN EXAM: no rashes or lesions noted Course Vital Signs: Vital signs: Vital Signs Temperature 98.7 F 06/20/23 03:49 Pulse Rate 94 06/20/23 04:34 Respiratory Rate 16 06/20/23 04:34 Blood Pressure 139/77 06/20/23 04:34 Pulse Oximetry 97 06/20/23 04:34 Oxygen Delivery Me thod Room Air 06/20/23 03:49 MDM - Fall Medical Decision Making Patient presents here from nursing with a fall he had no head injuries he is having back pain CT scans are normal he is likely having back spasms he is stable for discharge back to residential. Medical Records I reviewed the patient's medical records. Lab Data Radiology Impressions Lumbar Spine CT 06/20/23 03:49 IMPRESSION: 1. No evidence of acute fracture. 2. Severe spinal canal stenosis at L4-L5. Thoracic Spine CT 06/20/23 03:49 IMPRESSION: No acute findings. Pelvis X-Ray 06/20/23 03:50 IMPRESSION: No evidence of acute fracture or hardware complication. All radiology interpretation(s) finalized by discharge Discharge Plan Discharge Patient Disposition: Home Clinical Impression: Fall, Back pain Condition: Stable Prescriptions: No Action potassium chloride 20 mEq tablet extended release 10 meq PO DAILY PRN (Reason: when taking lasix) multivitamin Tablet 1 tab PO BEDTIME trazodone 50 mg tablet 50 - 100 mg PO BEDTIME PRN (Reason: Insomnia) ascorbic acid (vitamin C) 500 mg capsule 500 mg PO QAM gemfibrozil [Lopid] 600 mg tablet 600 mg PO BID nitroglycerin [Nitrostat] 0.4 mg tablet, sublingual 0.4 mg SUBLINGUAL Q5M PRN (Reason: chest pain) Qty: 25 3RF carboxymethylcellulose sodium 1 % Drops, Liquid Gel 2 drp OPHTHALMIC (EYE) BID PRN (Reason: Dry Eye(S)) [place] 0.65 % Aerosol,[place] 1 spray INTRANASAL BID PRN (Reason: Congestion) omega 5-wlz-bel-fish oil [Fish Oil] 1,200 (144-216) mg Capsule 1 cap PO BID isosorbide mononitrate 30 mg Tablet Extended Release 24 Hr 30 mg PO DAILY Qty: 0 0RF hydrocodone-acetaminophen 10-325 mg Tablet 1 tab PO Q6H PRN (Reason: Pain) docusate sodium 100 mg Capsule 100 mg PO BID PRN (Reason: Constipation) budesonide 0.5 mg/2 mL Suspension For Nebulization 0.5 mg inhalation BID.RESPIRATORY Qty: 120 0RF clopidogrel 75 mg Tablet 75 mg PO DAILY Qty: 30 0RF famotidine 20 mg Tablet 20 mg PO BEDTIME Qty: 30 0RF metoprolol succinate 25 mg Tablet Extended Release 24 Hr 25 mg PO DAILY Qty: 30 0RF furosemide 40 mg tablet 60 mg PO DAILY Qty: 30 4RF Discharge Orders: Discharge ED (Routine); Ordered 06/20/23 Ordered By: Manuel Hawkins Referrals: Catherine Morse MD [Primary Care Provider] - Discharge Diet: Advance as tolerated Discharge Activity: Resume usual activity Patient Instructions: Back Pain (ED) Coding Level of Care Code ED Licensed Investment Sales Assistant for Sandeep Waldron
[2023-06-20 03:55] VITALS: RESP 33; O2SAT 95
[2023-06-20] MEDS: morphine 4 mg/mL SDV 1 mL IM ×2 (03:55→04:39)
[2023-06-20] MEDS: LORazepam 2 mg/mL INJ 1 mL 0.5 MG IM (03:56)
[2023-06-20 04:34] VITALS: BP 139/77; PULSE 94; RESP 16; O2SAT 97
[2023-06-20 06:29] VITALS: BP 125/81; PULSE 87; RESP 16; O2SAT 95
== END 2023-06-20 08:02 | disposition home or self-care (01) ==
PROVIDERS: Emergency Provider Emergency Medicine; PCP Family Medicine
DX: M54.9 Dorsalgia, unspecified (principal); Z79.02 Long term (current) use of antithrombotics/antiplatelets; J44.9 Chronic obstructive pulmonary disease, unspecified; I25.10 Atherosclerotic heart disease of native coronary artery without angina pectoris; I50.9 Heart failure, unspecified; I25.2 Old myocardial infarction; E78.5 Hyperlipidemia, unspecified; Z98.61 Coronary angioplasty status; F17.210 Nicotine dependence, cigarettes, uncomplicated
CPT/HCPCS: 72128; 72131; 72170; 96372; 99285; J2060; J2270